=== PATIENT | female | born 1950 | race African-American/Black ===

== ENCOUNTER 2017-02-20 15:25 | Inpatient (IN) | payer BC, MEDICAID ==
[~2017-02-20] VITALS: Ht 167.6 cm; Wt 151.5 kg
[2017-02-20] VITALS (9 sets, daily range): BP systolic 82–118; BP diastolic 55–77
[2017-02-20] MEDS ORDERED: ATORVASTATIN CA20 MG ORAL (15:50)
[2017-02-20] MEDS ORDERED: LANTUS SOL100 UNIT/1 SUBQ (15:50)
[2017-02-20] MEDS ORDERED: TORSEMIDE20 MG ORAL ×2 (15:50→19:53)
[2017-02-20] MEDS ORDERED: MAGNESIUM400 M1 PO (15:50)
[2017-02-20] MEDS ORDERED: GUAIFENESIN600 MG ORAL (15:50)
[2017-02-20] MEDS ORDERED: DUONEB 0.5-3(2.53 ML HHN ×2 (15:50→19:53)
[2017-02-20] MEDS ORDERED: DOCUSATE SODIU100 MG ORAL (15:50)
[2017-02-20] MEDS ORDERED: HUMALOG100 UNIT/4 SUBQ (15:50)
[2017-02-20] MEDS ORDERED: ACETYLCYST100 MG/1 M INH (15:50)
[2017-02-20] MEDS ORDERED: LOVENOX10 M4 SUBQ (15:50)
[2017-02-20] MEDS ORDERED: MILK OF MA400 MG/51 ORAL (15:50)
[2017-02-20] MEDS ORDERED: [UNRECOGNIZED DRUG - OTHER] TP (15:50)
[2017-02-20] MEDS ORDERED: CARDIZEM CD240 MG ORAL (15:50)
[2017-02-20] MEDS ORDERED: ACETAMINOPHEN325 M1 ORAL (15:50)
[2017-02-20] MEDS ORDERED: PREDNISONE20 MG ORAL (15:50)
[2017-02-20] MEDS ORDERED: FAMOTIDINE10 MG ORAL (15:50)
[2017-02-20] MEDS ORDERED: IPRAT-ALBUT 0.5-3 ML IH (15:50)
[2017-02-20] MEDS ORDERED: LISINOPRIL10 MG ORAL (15:50)
[2017-02-20] MEDS ORDERED: AQUAPHOR OINTM396 GM TP (15:50)
[2017-02-20] MEDS ORDERED: ISOSORBIDE MONO30 M1 PO ×2 (15:50→19:53)
[2017-02-20] MEDS ORDERED: SENNOSIDES8.6 MG ORAL (15:50)
[2017-02-20] MEDS ORDERED: CATAPRES0.1 MG ORAL ×2 (15:50→19:53)
[2017-02-20] MEDS ORDERED: dilTIAZem HCl 125mg/25ml Inj IVPB ONE (16:22)
[2017-02-20] MEDS ORDERED: dilTIAZem HCl 25mg/5ml Inj IVP ONE ×4 (16:30→20:45)
--- NOTE | 2017-02-20 16:37 | Diagnostic Imaging Report ---
Indication: Cough Technique: One view of the chest Comparison: none Findings: Body habitus limits evaluation. Lungs and pleural spaces are clear. The heart size is borderline enlarged. The aorta arch is ectatic, possibly even aneurysmal. Impression: No acute process. 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 Further evaluation with chest CT is recommended if not previously worked up Findings discussed by phone with Dr. Singletary at the time of interpretation
[2017-02-20 17:26] LABS: INR 0.9 (0.9-1.1)
[2017-02-20 17:29] LABS: ANION GAP 6 mmol/L (5-15); BLOOD UREA NITROGEN 63 mg/dL (7-18); CARBON DIOXIDE 35 MMOL/L (21-32); CHLORIDE 99 MMOL/L (98-107); CREATININE 2.2 MG/DL (0.55-1.30); POTASSIUM 4.8 MMOL/L (3.5-5.1); SODIUM 139 MMOL/L (136-145)
[2017-02-20 17:32] LABS: HEMATOCRIT 44.2 % (37.0-47.0); HEMOGLOBIN 13.2 G/DL (12.0-16.0); MEAN CORPUSCULAR VOLUME 101 FL (80-99); PLATELET COUNT 97 K/UL (150-450); RED BLOOD COUNT 4.39 M/UL (4.20-5.40); RED CELL DISTRIBUTION WIDTH 12.8 % (11.6-14.8); WHITE BLOOD COUNT 5.1 K/UL (4.8-10.8)
[2017-02-20 17:41] LABS: ALANINE AMINOTRANSFERASE 195 U/L (12-78); ALBUMIN 2.5 G/DL (3.4-5.0); ALBUMIN/GLOBULIN RATIO 0.7 (1.0-2.7); ALKALINE PHOSPHATASE 233 U/L (46-116); ASPARTATE AMINO TRANSFERASE 30 U/L (15-37); BILIRUBIN,TOTAL 0.4 MG/DL (0.2-1.0); CKMB 1.8 NG/ML (0.0-3.6); CREATINE KINASE 36 U/L (26-308)
[2017-02-20] MEDS ORDERED: Sodium Chloride 500ML 500 ML IV ONE (17:45)
[2017-02-20] MEDS ORDERED: MAGNESIUM OXID400 M1 ORAL (19:53)
[2017-02-20] MEDS ORDERED: FAMOTIDINE20 MG ORAL (19:53)
[2017-02-20] MEDS ORDERED: Albuterol/Ipratropium 3ml neb HHN PRN (20:45)
[2017-02-20] MEDS ORDERED: Docusate 100mg cap ORAL PRN (20:45)
[2017-02-20] MEDS ORDERED: Milk of Magnesia 30ml Ud ORAL PRN (20:45)
[2017-02-20] MEDS ORDERED: dilTIAZem HCl CD 180mg cap ORAL ONE (22:00)
[2017-02-20] MEDS ORDERED: Amiodarone 200mg tab ORAL ONE (22:00)
[2017-02-20] MEDS: Atorvastatin 20mg tab ORAL SCH ×2 (22:17→22:30)
[2017-02-21] VITALS (43 sets, daily range): BP systolic 63–152; BP diastolic 33–103
--- NOTE | 2017-02-21 01:23 | Emergency Room Report ---
History of Present Illness General Chief Complaint: General Complaint Source: Patient Present Illness HPI Patient has a history of lymphedema. Patient is currently staying at a residential rehabilitation for her lymphedema. Patient also has a history of palpitations and arrhythmia requiring cardioversion. Patient develop acute onset of palpitations today associated with some mild shortness of breath and came in for further evaluation. Denies any fever nausea vomiting diarrhea chills. Symptoms are noted to be severe.No other modifying factors. No other associated signs and symptoms. No other complaints were noted. Allergies: Coded Allergies: No Known Allergies (Unverified , 02/20/17) Patient History Past Medical History: arrhyth, other - lymphedema Past Surgical History: none Pertinent Family History: none Social History: Denies: smoking, alcohol use, drug use Reviewed Nursing Documentation: PMH: Agreed, PSxH: Agreed Nursing Documentation-PMH Past Medical History: No History, Except For Review of Systems All Other Systems: negative except mentioned in HPI Physical Exam Vital Signs Date Time Temp Pulse Resp B/P (MAP) Pulse Ox O2 Delivery O2 Flow Rate FiO2 02/20/17 15:22 120 20 137/82 99 Room Air 02/20/17 15:30 98.1 Sp02 EP Interpretation: reviewed, normal General Appearance: alert, moderate distress Head: atraumatic Eyes: bilateral eye normal inspection ENT: normal ENT inspection, hearing grossly normal, normal voice Neck: normal inspection, full range of motion, supple, no bony tend Respiratory: normal inspection, lungs clear, normal breath sounds, no respiratory distress, no retraction, no wheezing Cardiovascular #1: no edema, tachycardia Gastrointestinal: normal inspection, normal bowel sounds, non tender, soft, no guarding, no hernia Genitourinary: no CVA tenderness Musculoskeletal: normal inspection, back normal, normal range of motion Neurologic: normal inspection, alert, responsive, speech normal Psychiatric: normal inspection, judgement/insight normal, mood/affect normal Skin: normal inspection, normal color, no rash Procedures Critical Care Time Critical Care Time Patient had a critical medical condition which untreated could potentially result in life or limb threatening injury. Total critical care time excluding procedures was approximately 45 minutes. Medical Decision Making Diagnostic Impression: Primary Impression: Atrial flutter Qualified Codes: I48.4 - Atypical atrial flutter Additional Impression: Tachycardia ER Course Patient presents emergency department today with evidence of tachycardia. EKG shows evidence a flutter with rapid conduction. Patient has had a history of rapid conduction in the past. Therefore felt the patient require medications to control the rapid conduction. Patient was given one dose of Cardizem and patient's heart rate did improve significantly from a 140 to about 110. However patient's blood pressure decreased therefore patient was given a fluid bolus. Patient while in emergency Department had multiple episodes of recurrence of tachycardia require multiple doses of Cardizem to control the heart rate. Patient's laboratory workup otherwise was negative. Patient's chest x-ray does show a large aortic knob which likely is chronic given the patient has no chest pain however this will likely require workup. This case was discussed with Dr. Dougie Bravo who is covering for Dr. Porfirio Jade who covers patient's medical group. Patient will be admitted to Dr. Bravo service further treatment. Labs Test 02/20/17 16:04 White Blood Count 5.1 K/UL (4.8-10.8) Red Blood Count 4.39 M/UL (4.20-5.40) Hemoglobin 13.2 G/DL (12.0-16.0) Hematocrit 44.2 % (37.0-47.0) Mean Corpuscular Volume 101 FL (80-99) Mean Corpuscular Hemoglobin 30.2 PG (27.0-31.0) Mean Corpuscular Hemoglobin Concent 29.9 G/DL (32.0-36.0) Red Cell Distribution Width 12.8 % (11.6-14.8) Platelet Count 97 K/UL (150-450) Mean Platelet Volume 6.5 FL (6.5-10.1) Neutrophils (%) (Auto) % (45.0-75.0) Lymphocytes (%) (Auto) % (20.0-45.0) Monocytes (%) (Auto) % (1.0-10.0) Eosinophils (%) (Auto) % (0.0-3.0) Basophils (%) (Auto) % (0.0-2.0) Differential Total Cells Counted 100 Neutrophils % (Manual) 81 % (45-75) Lymphocytes % (Manual) 13 % (20-45) Monocytes % (Manual) 6 % (1-10) Eosinophils % (Manual) 0 % (0-3) Basophils % (Manual) 0 % (0-2) Band Neutrophils 0 % (0-8) Platelet Estimate Decreased Platelet Morphology Normal Prothrombin Time 9.7 SEC (9.30-11.50) Prothromb Time International Ratio 0.9 (0.9-1.1) Activated Partial Thromboplast Time 22 SEC (23-33) Sodium Level 139 MMOL/L (136-145) Potassium Level 4.8 MMOL/L (3.5-5.1) Chloride Level 99 MMOL/L (98-107) Carbon Dioxide Level 35 MMOL/L (21-32) Anion Gap 6 mmol/L (5-15) Blood Urea Nitrogen 63 mg/dL (7-18) Creatinine 2.2 MG/DL (0.55-1.30) Estimat Glomerular Filtration Rate 27.0 mL/min (>60) Glucose Level 293 MG/DL (74-106) Calcium Level 8.0 MG/DL (8.5-10.1) Total Bilirubin 0.4 MG/DL (0.2-1.0) Aspartate Amino Transf (AST/SGOT) 30 U/L (15-37) Alanine Aminotransferase (ALT/SGPT) 195 U/L (12-78) Alkaline Phosphatase 233 U/L (46-116) Total Creatine Kinase 36 U/L (26-308) Creatine Kinase MB 1.8 NG/ML (0.0-3.6) Creatine Kinase MB Relative Index 5.0 Troponin I 0.111 ng/mL (0.000-0.056) Total Protein 6.2 G/DL (6.4-8.2) Albumin 2.5 G/DL (3.4-5.0) Globulin 3.7 g/dL Albumin/Globulin Ratio 0.7 (1.0-2.7) Lipase 117 U/L (73-393) EKG Diagnostic Results Rate: tachycardiac Rhythm: other - a-flutter ST Segments: no acute changes Rhythm Strip Diag. Results EP Interpretation: yes Rate: 140 Rhythm: no PVC's, other - a-flutter, no st changes Chest X-Ray Diagnostic Results Chest X-Ray Diagnostic Results : Chest X-Ray Ordered: Yes # of Views/Limited/Complete: 1 View Indication: Shortness of Breath EP Interpretation: No Impression: Other - large aortic knob Last Vital Signs Date Time Temp Pulse Resp B/P (MAP) Pulse Ox O2 Delivery O2 Flow Rate FiO2 02/21/17 00:00 152 02/20/17 22:17 116/82 02/20/17 21:00 98.0 20 99 Room Air Status: improved Disposition: ADMITTED INPATIENT Condition: Serious Referrals: MARY KAISER (PCP) GIOVANI INFANTE M.D. Feb 21, 2017 01:23
[2017-02-21] MEDS ORDERED: dilTIAZem HCl 25mg/5ml Inj IVP ONE (05:00)
[2017-02-21 07:23] LABS: HEMATOCRIT 38.1 % (37.0-47.0); HEMOGLOBIN 12.2 G/DL (12.0-16.0); MEAN CORPUSCULAR VOLUME 101 FL (80-99); PLATELET COUNT 91 K/UL (150-450); RED BLOOD COUNT 3.78 M/UL (4.20-5.40); RED CELL DISTRIBUTION WIDTH 13.2 % (11.6-14.8)
[2017-02-21] MEDS ORDERED: dilTIAZem HCl CD 180mg cap ORAL SCH (09:00)
[2017-02-21] MEDS ORDERED: Torsemide 10mg tab ORAL SCH (09:00)
[2017-02-21] MEDS: Enoxaparin 30mg Inj SUBQ SCH ×2 (09:00→12:46)
[2017-02-21] MEDS ORDERED: Amiodarone 200mg tab ORAL SCH (09:00)
[2017-02-21] MEDS: Aspirin Baby 81mg ORAL SCH (09:15)
[2017-02-21] MEDS: Imdur 30mg tab ORAL SCH (09:15)
[2017-02-21] MEDS: dilTIAZem HCl CD 180mg cap ORAL SCH ×2 (09:15→17:34)
[2017-02-21] MEDS: Magnesium Oxide 400mg tab ORAL SCH (09:16)
[2017-02-21] MEDS: Amiodarone 200mg tab ORAL SCH ×2 (09:16→17:36)
[2017-02-21] MEDS: guaiFENesin ER 600mg tab ORAL SCH ×2 (09:16→17:36)
[2017-02-21] MEDS: Sennosides 8.6mg ORAL SCH (09:16)
[2017-02-21 09:22] LABS: CKMB 1.7 NG/ML (0.0-3.6)
[2017-02-21 09:27] LABS: ALANINE AMINOTRANSFERASE 162 U/L (12-78); ALBUMIN 2.5 G/DL (3.4-5.0); ALBUMIN/GLOBULIN RATIO 0.9 (1.0-2.7); ALKALINE PHOSPHATASE 201 U/L (46-116); ANION GAP 3 mmol/L (5-15); ASPARTATE AMINO TRANSFERASE 23 U/L (15-37); BILIRUBIN,TOTAL 0.4 MG/DL (0.2-1.0); BLOOD UREA NITROGEN 66 mg/dL (7-18); CALCIUM 7.8 MG/DL (8.5-10.1); CARBON DIOXIDE 38 MMOL/L (21-32); CHLORIDE 102 MMOL/L (98-107); CREATININE 1.9 MG/DL (0.55-1.30); POTASSIUM 4.2 MMOL/L (3.5-5.1); SODIUM 142 MMOL/L (136-145)
[2017-02-21] MEDS: Eucerin Cream 15gm TOPIC SCH (10:09)
[2017-02-21] MEDS: NovoLOG Insulin Flexpen SUBQ SCH ×3 (10:57→17:39)
--- NOTE | 2017-02-21 19:26 | Consultation ---
Consult Note Assessment/Plan #[id number] afib/flutter wtih RVR abnormal A arch on xray ?per report, unable to get CT with contrast due to cr 1.9 obesity RI juan manuel DM HTN HLD echo noted Fu wtih Dr. Bravo re imaging bs cotnrol rate control aspiration precuations avoid b agonsits CAROL CARLSON DO Feb 21, 2017 19:26
[2017-02-21] MEDS: Eliquis 2.5mg tablet ORAL SCH (21:35)
[2017-02-21] MEDS: Levemir Flexpen SUBQ SCH (21:40)
--- NOTE | 2017-02-21 23:15 | History and Physical Report ---
DATE OF ADMISSION: 02/20/2017 ICU, AND H AND P NOTE CHIEF COMPLAINT AND REASON FOR HOSPITALIZATION: The patient admitted for rapid atrial fib and flutter. HISTORY OF PRESENT ILLNESS: The patient is a 66-year-old lady with a history of prior atrial fibrillation and cardioversion, asthma, morbid obesity, chronic lymphedema, diastolic CHF, chronic type A thoracic abdominal aortic aneurysm. She presents with tachyarrhythmias above. No chest pain. She has mild shortness of breath. She was recently hospitalized at [facility] with influenza B and exacerbation of her asthma and she is on a tapering dose of steroids. She is nonambulatory due to morbid obesity and generalized weakness. There is a history of diabetes since the year 1999 and she is wheelchair dependent. ALLERGIES: None known. MEDICATIONS: Tylenol p.r.n., atorvastatin 20 mg daily, clonidine 0.1 mg every 4 hours p.r.n., diltiazem 240 mg daily, DSS 100 mg b.i.d., Lovenox 40 mg daily, famotidine 20 mg every 12 hours, guaifenesin 600 mg b.i.d., Lantus 25 units nightly, lispro sliding scale, DuoNeb via HHN as needed, isosorbide 30 mg daily, lisinopril 20 mg daily, milk of magnesia p.r.n., magnesium oxide 400 mg daily, prednisone 50 mg daily to be reduced to 40 mg on 02/21/2017, Chloraseptic spray as needed, Senna 2 tablets nightly, and torsemide 60 mg daily. HABITS: She smoked for short time as a young adult and quit. Alcohol, social recreational, and IV drug abuse none. SOCIAL HISTORY: She is . She has one child. She is currently living in a penitentiary facility. FAMILY HISTORY: Includes diabetes in her paternal aunt and paternal grandmother and paternal uncle and hypertension in the mother. SYSTEM REVIEW: HEAD, EYES, EARS, NOSE, AND THROAT: Vision is corrected with eyeglasses. Hearing is good. ENDOCRINE: Obesity and diabetes as above. THYROID: Negative. PULMONARY: See history of present illness. There is also likely obstructive sleep apnea per prior notes. CARDIAC: History of chronic diastolic CHF. No chest pain. GASTROINTESTINAL: No ulcers or GI bleeding. GENITOURINARY: She has occasional incontinence. No dysuria or hematuria. There has been some renal insufficiency noted as well on prior charts. MUSCULOSKELETAL: Generalized arthralgias. NEUROLOGIC: No CVA, syncope, or seizures. PHYSICAL EXAMINATION: GENERAL: The patient is obese lady, lying in bed in the ICU, currently in no acute distress. Weight 150.366. BMI 53.5. VITAL SIGNS: Heart rate 119, respirations 20, blood pressure is 121/58, and pulse ox 98%. HEAD, EYES, EARS, NOSE, AND THROAT: Sclerae are nonicteric. Ocular motions intact in all directions. Oral mucosa moist. Neck no adenopathy or thyroid enlargement. LUNGS: Show distant breath sounds. Faint expiratory wheezing. HEART: Rhythm is regular and tachycardic. I hear no murmur at this time. BREASTS: No masses. ABDOMEN: Obese and soft. No organomegaly or masses. EXTREMITIES: Show chronic dermatitis of the legs and thickening of the skin. No pitting edema. NEUROLOGIC: She is alert and oriented. Cranial nerves are intact. IMAGING STUDIES: Chest x-ray shows ectatic and possible aneurysm in aortic arch. Heart size is borderline enlarged. Lungs are clear. LABORATORY DATA: Labs are noted in the computer. Significant white count 5000 and hemoglobin is 12.2. Sodium 142, potassium 4.2, BUN 66, creatinine 1.9, and glucose 181. Troponin 0.111 and 0.104. BNP 1028. Albumin 2.5. IMPRESSION: 1. Paroxysmal atrial fibrillation and flutter with rapid ventricular rate. 2. Asthma. 3. Morbid obesity. 4. History of thoracic and abdominal aortic aneurysms. 5. History of hypertension. 6. Insulin-dependent diabetes. 7. Elevated BUN and creatinine, likely chronic kidney disease stage 3 with effect of diuretic as well. 8. History of hypertension. PLAN: The patient will be watched closely in view of her multiple organ involvement. She will be seen by parallel computing software engineer and curing pickling packer. She has been placed on a Cardizem drip in addition to oral medications and also started on amiodarone. We will continue steroids and hope to taper soon. She may need to have CPAP or BiPAP at night and we will await for the pulmonary opinion. Her condition is complicated and the ICU care is indicated at this time until we can better control her heart rate. Dougie Bravo M.D. DR: ANIBAL JOB#: [id number] CC:
[2017-02-22] VITALS (20 sets, daily range): BP systolic 96–151; BP diastolic 60–93
--- NOTE | 2017-02-22 02:00 | Consultation ---
DATE OF CONSULTATION: 02/20/2017 CARDIOLOGY CONSULTATION CONSULTING PHYSICIAN: Maxim Levin M.D. REQUESTING PHYSICIAN: Dougie Bravo M.D. REASON FOR CONSULTATION: Rapid atrial fibrillation. HISTORY OF PRESENT ILLNESS: This is a 66-year-old female. She has distant history of atrial fibrillation and has not had any recurrence for a number of years. She has in fact been off anticoagulants for some time. Previously, she required antiarrhythmics and cardioversion. She had been convalescing recently at a nursing facility for lymphedema. She has not had any chest pain or shortness of breath. No recent swelling of her legs when compared to her usual baseline. She noted feeling somewhat tired, fatigued, and had some palpitations after her exercise session a couple of days ago and then today developed some shortness of breath. In the emergency room, she was noted to have rapid atrial fibrillation. PAST MEDICAL HISTORY: Lymphedema, hypertension, obesity. MEDICATIONS: Prior to admission, reviewed and reconciled. SOCIAL HISTORY: Negative for smoking, alcohol, or substance abuse. FAMILY HISTORY: Noncontributory. REVIEW OF SYSTEMS: No fevers or chills. No cough or sputum production. No history of blood clots in the legs. No history of seizure or stroke. No history of diabetes or thyroid impairment. No history of heart failure. She does have chronic lymphedema. There is no history of rheumatic heart disease. PHYSICAL EXAMINATION: GENERAL: Moderately obese, in no acute distress. VITAL SIGNS: Blood pressure 137/82, pulse 120, respirations 20, afebrile. HEENT: Oropharynx clear. NECK: Obese. LUNGS: Diminished breath sounds. No wheezing or rales. CARDIAC: Irregularly irregular rhythm. Rapid rate. Distant S1, S2. No murmur. ABDOMEN: Obese and soft. EXTREMITIES: Stasis dermatitis changes, brawny edema bilaterally. No cords. NEUROLOGIC: Nonfocal. LABORATORY AND DIAGNOSTIC DATA: Chest x-ray reveals no acute process. EKG reveals atrial flutter with rapid ventricular response. No acute ST abnormality. White count 5, hemoglobin 13. Potassium 4.8, BUN 63, creatinine 2.2. Albumin 2.5. Troponin level was 0.111. IMPRESSION: 1. Paroxysmal atrial fibrillation/flutter with rapid ventricular response. 2. Lymphedema. 3. Obesity. 4. Acute myocardial ischemia. 5. Chronic diastolic congestive heart failure. 6. Renal failure, acute versus chronic. PLAN: 1. Cardiac monitoring. 2. Hold diuretics. 3. IV diltiazem for rate control. 4. Consider amiodarone for persistent rapid atrial flutter. 5. Monitor and replace electrolytes. 6. Serial troponin levels. 7. DVT prophylaxis. 8. Venous duplex scan to assess for possible source of pulmonary emboli. Maxim Levin M.D. DR: VINCE JOB#: [id number] CC:
--- NOTE | 2017-02-22 02:00 | Progress Note ---
DATE: 02/21/2017 CARDIOLOGY PROGRESS NOTE SUBJECTIVE: The patient remains in the intensive care unit on IV diltiazem. Amiodarone was initiated early this morning for persistent rapid atrial flutter. The patient has less shortness of breath. OBJECTIVE: VITAL SIGNS: Blood pressure 118/60, pulse 102, respirations 18, and afebrile. LUNGS: Diminished breath sounds. CARDIAC: Irregularly irregular. Normal S1 and S2. ABDOMEN: Obese. EXTREMITIES: With nonpitting edema. LABORATORY DATA: BUN is down to 66/1.9. Potassium 4.2. Troponin 0.104. Pro-natriuretic peptide 1028. CK-MB and CK-MB index are negative. Albumin 2.5. Glucose 181. IMPRESSION: 1. Paroxysmal atrial flutter with rapid ventricular response, improved on intravenous diltiazem. 2. Moderate protein-calorie malnutrition and continuing. 3. TSH and thyroid panel are normal. Echocardiogram revealed normal ejection fraction with no significant valve disease. 4. Probable diabetes mellitus type 2. PLAN: 1. We will continue amiodarone for cardioversion attempt. We will discontinue low-dose Lovenox and start apixaban for cardioembolic prophylaxis. 2. We will continue to hold diuretics and observe renal parameters. 3. Protein supplement. 4. Check venous duplex scan. 5. We will check A1c level. Maxim Levin M.D. DR: KATELYNN JOB#: [id number] CC: PORSCHE
--- NOTE | 2017-02-22 03:00 | Consultation ---
DATE OF CONSULTATION: 02/20/2017 CARDIOLOGY CONSULTATION CONSULTING PHYSICIAN: Maxim Levin M.D. REASON FOR CONSULTATION: Rapid atrial fibrillation. HISTORY OF PRESENT ILLNESS: This is a 66-year-old female with a history of hypertension and lymphedema and distant history of atrial fibrillation that has since been controlled. She has been off anticoagulants for sometime. She notes that several days ago after exercising, she has some palpitations. She developed shortness of breath today and came to the emergency room. She has not had any leg swelling. Of note, compared to her baseline, no chest pain or shortness of breath. Maxim Levin M.D. DR: Kary JOB#: [id number] CC:
[2017-02-22 07:45] LABS: HEMATOCRIT 38.6 % (37.0-47.0); HEMOGLOBIN 12.4 G/DL (12.0-16.0); MEAN CORPUSCULAR VOLUME 100 FL (80-99); PLATELET COUNT 98 K/UL (150-450); RED BLOOD COUNT 3.85 M/UL (4.20-5.40); RED CELL DISTRIBUTION WIDTH 12.9 % (11.6-14.8); WHITE BLOOD COUNT 4.2 K/UL (4.8-10.8)
[2017-02-22 07:56] LABS: ANION GAP 0 mmol/L (5-15); BLOOD UREA NITROGEN 55 mg/dL (7-18); CALCIUM 7.9 MG/DL (8.5-10.1); CARBON DIOXIDE 39 MMOL/L (21-32); CHLORIDE 103 MMOL/L (98-107); CREATININE 1.7 MG/DL (0.55-1.30); POTASSIUM 4.4 MMOL/L (3.5-5.1); SODIUM 142 MMOL/L (136-145)
[2017-02-22] MEDS: Aspirin Baby 81mg ORAL SCH (08:40)
[2017-02-22] MEDS: Sennosides 8.6mg ORAL SCH (08:40)
[2017-02-22] MEDS: Amiodarone 200mg tab ORAL SCH ×2 (08:41→17:46)
[2017-02-22] MEDS: Magnesium Oxide 400mg tab ORAL SCH (08:41)
[2017-02-22] MEDS: Imdur 30mg tab ORAL SCH (08:41)
[2017-02-22] MEDS: guaiFENesin ER 600mg tab ORAL SCH ×2 (08:41→17:46)
[2017-02-22] MEDS: NovoLOG Insulin Flexpen SUBQ SCH ×3 (08:44→17:47)
[2017-02-22] MEDS: dilTIAZem HCl CD 180mg cap ORAL SCH ×2 (08:53→09:39)
[2017-02-22] MEDS: Eliquis 2.5mg tablet ORAL SCH ×3 (09:07→21:31)
[2017-02-22] MEDS: Ipratropium 0.02% Inh Soln 2.5ml UD HHN SCH ×3 (11:18→23:46)
--- NOTE | 2017-02-22 11:34 | General Progress Note ---
Assessment/Plan Problem List: (1) Morbid obesity ICD Codes: E66.01 - Morbid (severe) obesity due to excess calories SNOMED: 850886675, 11546944330456 (2) CKD (chronic kidney disease) stage 3, GFR 30-59 ml/min ICD Codes: N18.3 - Chronic kidney disease, stage 3 (moderate) SNOMED: 803330108 (3) Diabetes ICD Codes: E11.9 - Type 2 diabetes mellitus without complications SNOMED: 13296493 (4) Thoracic aortic aneurysm ICD Codes: I71.2 - Thoracic aortic aneurysm, without rupture SNOMED: 522472055 (5) Anticoagulant prescribed SNOMED: 055590107 (6) Asthma exacerbation ICD Codes: J45.901 - Unspecified asthma with (acute) exacerbation SNOMED: 315495352 (7) Atrial flutter ICD Codes: I48.92 - Unspecified atrial flutter SNOMED: 5400074 Qualifiers: Qualified Codes: I48.4 - Atypical atrial flutter (8) Tachycardia ICD Codes: R00.0 - Tachycardia, unspecified SNOMED: 1270341 Assessment/Plan titrate diltiazem, amiodorone, anticoag, tele, steroids, pul care icu care 35 min Subjective Constitutional: Reports: weakness HEENT: Reports: no symptoms Cardiovascular: Reports: irregular heart rate, palpitations Respiratory: Reports: cough, SOB at rest, wheezing Gastrointestinal/Abdominal: Reports: no symptoms Genitourinary: Reports: no symptoms Neurologic/Psychiatric: Reports: no symptoms Endocrine: Reports: no symptoms Allergies: Coded Allergies: No Known Allergies (Unverified , 02/20/17) Objective Last 24 Hour Vital Signs Date Time Temp Pulse Resp B/P (MAP) Pulse Ox O2 Delivery O2 Flow Rate FiO2 02/22/17 11:18 112 21 99 Nasal Cannula 2.0 28 02/22/17 10:00 119 21 149/84 98 Nasal Cannula 2.0 02/22/17 09:47 Nasal Cannula 2.0 28 02/22/17 09:47 118 21 98 Nasal Cannula 2.0 28 02/22/17 09:39 118 133/88 02/22/17 09:00 117 22 117/77 99 Nasal Cannula 2.0 02/22/17 08:41 151/93 02/22/17 08:00 123 19 151/93 99 Nasal Cannula 2.0 02/22/17 07:57 133 02/22/17 07:00 120 23 150/92 98 Nasal Cannula 2.0 02/22/17 06:49 97 Nasal Cannula 3.0 32 02/22/17 06:49 Nasal Cannula 3.0 32 02/22/17 06:49 117 17 Nasal Cannula 3.0 32 02/22/17 06:00 95 25 142/75 98 Nasal Cannula 2.0 02/22/17 05:00 90 24 129/68 98 Nasal Cannula 2.0 02/22/17 04:00 98.0 90 22 132/76 98 Nasal Cannula 2.0 02/22/17 04:00 95 02/22/17 03:00 89 22 96/83 98 Nasal Cannula 2.0 02/22/17 02:00 75 22 139/81 98 Nasal Cannula 2.0 02/22/17 01:00 87 24 142/88 100 Nasal Cannula 2.0 02/22/17 00:34 88 02/22/17 00:00 98.5 93 18 133/84 100 Nasal Cannula 2.0 02/21/17 23:30 85 18 152/103 100 Nasal Cannula 2.0 02/21/17 23:00 100 18 150/90 100 Nasal Cannula 2.0 02/21/17 22:30 88 20 133/74 100 Nasal Cannula 2.0 02/21/17 22:00 95 20 128/75 100 Nasal Cannula 2.0 02/21/17 21:30 92 20 128/77 100 Nasal Cannula 2.0 02/21/17 21:00 88 20 116/67 100 Nasal Cannula 2.0 02/21/17 20:30 98 18 122/73 100 Nasal Cannula 2.0 02/21/17 20:00 98.8 95 20 131/66 98 Nasal Cannula 2.0 02/21/17 20:00 90 02/21/17 19:30 90 20 131/84 98 Nasal Cannula 2.0 02/21/17 19:04 Nasal Cannula 2.0 28 02/21/17 19:03 98 Nasal Cannula 2.0 28 02/21/17 19:02 82 17 Nasal Cannula 2.0 28 02/21/17 19:00 86 18 134/75 98 Nasal Cannula 2.0 02/21/17 18:30 112 18 122/72 98 Nasal Cannula 2.0 02/21/17 18:00 96 24 120/76 98 Nasal Cannula 2.0 02/21/17 17:34 83 115/75 02/21/17 17:30 74 21 115/75 98 Nasal Cannula 2.0 02/21/17 17:00 74 20 115/75 98 Nasal Cannula 2.0 02/21/17 16:30 95 21 111/70 98 Nasal Cannula 2.0 02/21/17 16:00 98.0 82 18 103/70 97 Nasal Cannula 2.0 02/21/17 16:00 82 02/21/17 15:35 96 104/63 02/21/17 15:30 101 19 104/63 97 Nasal Cannula 2.0 02/21/17 15:00 114 20 100/71 97 Nasal Cannula 2.0 02/21/17 14:30 102 18 101/72 97 Nasal Cannula 2.0 02/21/17 14:00 102 18 115/69 98 Nasal Cannula 2.0 02/21/17 13:30 100 18 114/45 98 Nasal Cannula 2.0 02/21/17 13:00 119 20 121/58 98 Nasal Cannula 2.0 02/21/17 12:30 103 20 112/57 98 Nasal Cannula 2.0 02/21/17 12:00 104 02/21/17 12:00 98.1 104 18 102/78 98 Nasal Cannula 2.0 Intake and Output 02/21/17 02/22/17 19:00 07:00 Intake Total 1100 ml 497 ml Output Total 50 ml 800 ml Balance 1050 ml -303 ml Intake Oral 990 ml 480 ml IV Total 110 ml 17 ml Output Urine Total 50 ml 800 ml # Voids 100 Laboratory Tests 02/22/17 05:17: White Blood Count 4.2L, Red Blood Count 3.85L, Hemoglobin 12.4, Hematocrit 38.6 , Mean Corpuscular Volume 100H, Mean Corpuscular Hemoglobin 32.2H, Mean Corpuscular Hemoglobin Concent 32.1, Red Cell Distribution Width 12.9, Platelet Count 98L, Mean Platelet Volume 7.7, Neutrophils (%) (Auto) , Lymphocytes (%) ( Auto) , Monocytes (%) (Auto) , Eosinophils (%) (Auto) , Basophils (%) (Auto) , Differential Total Cells Counted 100, Neutrophils % (Manual) 76H, Lymphocytes % (Manual) 17L, Monocytes % (Manual) 7, Eosinophils % (Manual) 0, Basophils % ( Manual) 0, Band Neutrophils 0, Platelet Estimate DecreasedL, Platelet Morphology Normal, Macrocytosis 1+, Sodium Level 142, Potassium Level 4.4, Chloride Level 103, Carbon Dioxide Level 39H, Anion Gap 0L, Blood Urea Nitrogen 55H, Creatinine 1.7H, Estimat Glomerular Filtration Rate 36.4, Glucose Level 148H, Hemoglobin A1c 8.6H, Calcium Level 7.9L, Magnesium Level 2.3 Height (Feet): 5 Height (Inches): 6.00 Weight (Pounds): 330 General Appearance: mild distress, morbidly obese EENT: PERRL/EOMI Neck: normal alignment Cardiovascular: regularly irregular, tachycardia Respiratory/Chest: expiratory wheezing Abdomen: non tender, soft Extremities: no calf tenderness Edema: mild edema Neurologic: commander internal affairs II-XII grossly normal [place] Feb 22, 2017 11:34
[2017-02-22 11:36] LABS: APPEARANCE,URINE CLEAR; BILIRUBIN, URINE NEGATIVE (NEGATIVE); COLOR,URINE PALE YELLOW; GLUCOSE, URINE (UA) NEGATIVE (NEGATIVE); KETONES,URINE NEGATIVE (NEGATIVE); LEUKOCYTE ESTERASE ,URINE NEGATIVE (NEGATIVE); NITRITE,URINE NEGATIVE (NEGATIVE); PH,URINE 5 (4.5-8.0); PROTEIN,URINE NEGATIVE (NEGATIVE); UROBILINOGEN,URINE NORMAL MG/DL (0.0-1.0)
[2017-02-22] MEDS: Eucerin Cream 15gm TOPIC SCH (12:46)
--- NOTE | 2017-02-22 13:55 | Cardiac Electrophysiology PN ---
Subjective Subjective EP consult dictated. [id number]. Objective Last 24 Hour Vital Signs Date Time Temp Pulse Resp B/P (MAP) Pulse Ox O2 Delivery O2 Flow Rate FiO2 02/22/17 12:00 97.8 114 20 139/86 97 Nasal Cannula 2.0 02/22/17 11:37 132 24 99 Nasal Cannula 2.0 28 02/22/17 11:22 103 02/22/17 11:18 112 21 99 Nasal Cannula 2.0 28 02/22/17 11:00 113 21 148/87 100 Nasal Cannula 2.0 02/22/17 10:00 119 21 149/84 98 Nasal Cannula 2.0 02/22/17 09:47 Nasal Cannula 2.0 28 02/22/17 09:47 118 21 98 Nasal Cannula 2.0 28 02/22/17 09:39 118 133/88 02/22/17 09:00 117 22 117/77 99 Nasal Cannula 2.0 02/22/17 08:41 151/93 02/22/17 08:00 123 19 151/93 99 Nasal Cannula 2.0 02/22/17 07:57 133 02/22/17 07:00 120 23 150/92 98 Nasal Cannula 2.0 02/22/17 06:49 97 Nasal Cannula 3.0 32 02/22/17 06:49 Nasal Cannula 3.0 32 02/22/17 06:49 117 17 Nasal Cannula 3.0 32 02/22/17 06:00 95 25 142/75 98 Nasal Cannula 2.0 02/22/17 05:00 90 24 129/68 98 Nasal Cannula 2.0 02/22/17 04:00 98.0 90 22 132/76 98 Nasal Cannula 2.0 02/22/17 04:00 95 02/22/17 03:00 89 22 96/83 98 Nasal Cannula 2.0 02/22/17 02:00 75 22 139/81 98 Nasal Cannula 2.0 02/22/17 01:00 87 24 142/88 100 Nasal Cannula 2.0 02/22/17 00:34 88 02/22/17 00:00 98.5 93 18 133/84 100 Nasal Cannula 2.0 02/21/17 23:30 85 18 152/103 100 Nasal Cannula 2.0 02/21/17 23:00 100 18 150/90 100 Nasal Cannula 2.0 02/21/17 22:30 88 20 133/74 100 Nasal Cannula 2.0 02/21/17 22:00 95 20 128/75 100 Nasal Cannula 2.0 02/21/17 21:30 92 20 128/77 100 Nasal Cannula 2.0 02/21/17 21:00 88 20 116/67 100 Nasal Cannula 2.0 02/21/17 20:30 98 18 122/73 100 Nasal Cannula 2.0 02/21/17 20:00 98.8 95 20 131/66 98 Nasal Cannula 2.0 02/21/17 20:00 90 02/21/17 19:30 90 20 131/84 98 Nasal Cannula 2.0 02/21/17 19:04 Nasal Cannula 2.0 28 02/21/17 19:03 98 Nasal Cannula 2.0 28 02/21/17 19:02 82 17 Nasal Cannula 2.0 28 02/21/17 19:00 86 18 134/75 98 Nasal Cannula 2.0 02/21/17 18:30 112 18 122/72 98 Nasal Cannula 2.0 02/21/17 18:00 96 24 120/76 98 Nasal Cannula 2.0 02/21/17 17:34 83 115/75 02/21/17 17:30 74 21 115/75 98 Nasal Cannula 2.0 02/21/17 17:00 74 20 115/75 98 Nasal Cannula 2.0 02/21/17 16:30 95 21 111/70 98 Nasal Cannula 2.0 02/21/17 16:00 98.0 82 18 103/70 97 Nasal Cannula 2.0 02/21/17 16:00 82 02/21/17 15:35 96 104/63 02/21/17 15:30 101 19 104/63 97 Nasal Cannula 2.0 02/21/17 15:00 114 20 100/71 97 Nasal Cannula 2.0 02/21/17 14:30 102 18 101/72 97 Nasal Cannula 2.0 02/21/17 14:00 102 18 115/69 98 Nasal Cannula 2.0 Intake and Output 02/21/17 02/22/17 19:00 07:00 Intake Total 1100 ml 497 ml Output Total 50 ml 800 ml Balance 1050 ml -303 ml Intake Oral 990 ml 480 ml IV Total 110 ml 17 ml Output Urine Total 50 ml 800 ml # Voids 100 Laboratory Tests Test 02/22/17 05:17 02/22/17 06:00 White Blood Count 4.2 K/UL (4.8-10.8) L Red Blood Count 3.85 M/UL (4.20-5.40) L Hemoglobin 12.4 G/DL (12.0-16.0) Hematocrit 38.6 % (37.0-47.0) Mean Corpuscular Volume 100 FL (80-99) H Mean Corpuscular Hemoglobin 32.2 PG (27.0-31.0) H Mean Corpuscular Hemoglobin Concent 32.1 G/DL (32.0-36.0) Red Cell Distribution Width 12.9 % (11.6-14.8) Platelet Count 98 K/UL (150-450) L Mean Platelet Volume 7.7 FL (6.5-10.1) Neutrophils (%) (Auto) % (45.0-75.0) Lymphocytes (%) (Auto) % (20.0-45.0) Monocytes (%) (Auto) % (1.0-10.0) Eosinophils (%) (Auto) % (0.0-3.0) Basophils (%) (Auto) % (0.0-2.0) Differential Total Cells Counted 100 Neutrophils % (Manual) 76 % (45-75) H Lymphocytes % (Manual) 17 % (20-45) L Monocytes % (Manual) 7 % (1-10) Eosinophils % (Manual) 0 % (0-3) Basophils % (Manual) 0 % (0-2) Band Neutrophils 0 % (0-8) Platelet Estimate Decreased L Platelet Morphology Normal Macrocytosis 1+ Sodium Level 142 MMOL/L (136-145) Potassium Level 4.4 MMOL/L (3.5-5.1) Chloride Level 103 MMOL/L (98-107) Carbon Dioxide Level 39 MMOL/L (21-32) H Anion Gap 0 mmol/L (5-15) L Blood Urea Nitrogen 55 mg/dL (7-18) H Creatinine 1.7 MG/DL (0.55-1.30) H Estimat Glomerular Filtration Rate 36.4 mL/min (>60) Glucose Level 148 MG/DL (74-106) H Hemoglobin A1c 8.6 % (4.3-6.0) H Calcium Level 7.9 MG/DL (8.5-10.1) L Magnesium Level 2.3 MG/DL (1.8-2.4) Urine Color Pale yellow Urine Appearance Clear Urine pH 5 (4.5-8.0) Urine Specific [place] 1.015 (1.005-1.035) Urine Protein Negative (NEGATIVE) Urine Glucose (UA) Negative (NEGATIVE) Urine Ketones Negative (NEGATIVE) Urine Occult Blood 2+ (NEGATIVE) H Urine Nitrite Negative (NEGATIVE) Urine Bilirubin Negative (NEGATIVE) Urine Urobilinogen Normal MG/DL (0.0-1.0) Urine Leukocyte Esterase Negative (NEGATIVE) Urine RBC 2-4 /HPF (0 - 2) H Urine WBC 0-2 /HPF (0 - 2) Urine Squamous Epithelial Cells Few /LPF (NONE/OCC) Urine Bacteria Occasional /HPF (NONE) VIOLETA GOODWIN Feb 22, 2017 13:55
[2017-02-22] MEDS ORDERED: Digoxin 0.5mg/2ml Inj IVP ONE (14:00)
--- NOTE | 2017-02-22 16:16 | Pulmonolgy Critical Care Note ---
Critical Care - Asmt/Plan Assessment/Plan: afib/flutter wtih RVR abnormal A arch on xray ?per report, unable to get CT with contrast due to cr 1.9 obesity RI juan manuel DM HTN HLD echo noted Fu wtih Dr. Bravo re imaging bs cotnrol rate control aspiration precautions avoid b agonists duplex LE ac per cards recommendations Critical Care - Objective Last 24 Hour Vital Signs Date Time Temp Pulse Resp B/P (MAP) Pulse Ox O2 Delivery O2 Flow Rate FiO2 02/22/17 15:01 97 20 96 Nasal Cannula 2.0 28 02/22/17 15:00 107 20 146/82 99 Nasal Cannula 2.0 02/22/17 14:49 106 19 97 Nasal Cannula 2.0 28 02/22/17 14:07 121 02/22/17 14:00 112 19 139/92 99 Nasal Cannula 2.0 02/22/17 13:00 144 19 147/86 96 Nasal Cannula 2.0 02/22/17 12:00 97.8 114 20 139/86 97 Nasal Cannula 2.0 02/22/17 11:37 132 24 99 Nasal Cannula 2.0 28 02/22/17 11:22 103 02/22/17 11:18 112 21 99 Nasal Cannula 2.0 28 02/22/17 11:00 113 21 148/87 100 Nasal Cannula 2.0 02/22/17 10:00 119 21 149/84 98 Nasal Cannula 2.0 02/22/17 09:47 Nasal Cannula 2.0 28 02/22/17 09:47 118 21 98 Nasal Cannula 2.0 28 02/22/17 09:39 118 133/88 02/22/17 09:00 117 22 117/77 99 Nasal Cannula 2.0 02/22/17 08:41 151/93 02/22/17 08:00 123 19 151/93 99 Nasal Cannula 2.0 02/22/17 07:57 133 02/22/17 07:00 120 23 150/92 98 Nasal Cannula 2.0 02/22/17 06:49 97 Nasal Cannula 3.0 32 02/22/17 06:49 Nasal Cannula 3.0 32 02/22/17 06:49 117 17 Nasal Cannula 3.0 32 02/22/17 06:00 95 25 142/75 98 Nasal Cannula 2.0 02/22/17 05:00 90 24 129/68 98 Nasal Cannula 2.0 02/22/17 04:00 98.0 90 22 132/76 98 Nasal Cannula 2.0 02/22/17 04:00 95 02/22/17 03:00 89 22 96/83 98 Nasal Cannula 2.0 02/22/17 02:00 75 22 139/81 98 Nasal Cannula 2.0 02/22/17 01:00 87 24 142/88 100 Nasal Cannula 2.0 02/22/17 00:34 88 02/22/17 00:00 98.5 93 18 133/84 100 Nasal Cannula 2.0 02/21/17 23:30 85 18 152/103 100 Nasal Cannula 2.0 02/21/17 23:00 100 18 150/90 100 Nasal Cannula 2.0 02/21/17 22:30 88 20 133/74 100 Nasal Cannula 2.0 02/21/17 22:00 95 20 128/75 100 Nasal Cannula 2.0 02/21/17 21:30 92 20 128/77 100 Nasal Cannula 2.0 02/21/17 21:00 88 20 116/67 100 Nasal Cannula 2.0 02/21/17 20:30 98 18 122/73 100 Nasal Cannula 2.0 02/21/17 20:00 98.8 95 20 131/66 98 Nasal Cannula 2.0 02/21/17 20:00 90 02/21/17 19:30 90 20 131/84 98 Nasal Cannula 2.0 02/21/17 19:04 Nasal Cannula 2.0 28 02/21/17 19:03 98 Nasal Cannula 2.0 28 02/21/17 19:02 82 17 Nasal Cannula 2.0 28 02/21/17 19:00 86 18 134/75 98 Nasal Cannula 2.0 02/21/17 18:30 112 18 122/72 98 Nasal Cannula 2.0 02/21/17 18:00 96 24 120/76 98 Nasal Cannula 2.0 02/21/17 17:34 83 115/75 02/21/17 17:30 74 21 115/75 98 Nasal Cannula 2.0 02/21/17 17:00 74 20 115/75 98 Nasal Cannula 2.0 02/21/17 16:30 95 21 111/70 98 Nasal Cannula 2.0 Status: awake Condition: improving Lungs: rales, rhonchi Heart: HR/BP stable, irregular Abdomen: non-tender, active bowel sounds Extremities: edema Accucheck: 240 Blood Sugars: BS not controlled Critical Care - Subjective ROS Limited/Unobtainable: No Condition: improving FI02: 28 Sputum Amount: None I&O: Intake and Output 02/21/17 02/22/17 19:00 07:00 Intake Total 1100 ml 497 ml Output Total 50 ml 800 ml Balance 1050 ml -303 ml Intake Oral 990 ml 480 ml IV Total 110 ml 17 ml Output Urine Total 50 ml 800 ml # Voids 100 Subjective: shortness of breath at times on o2 nebs HR aflutter with improved rate controlled on dilt drip oral agents started positive uop Labs: Current Medications Medications (Trade) Dose Ordered Sig/Tera Route PRN Reason Start Time Stop Time Status Last Admin Dose Admin Acetaminophen (Tylenol) 650 mg Q4H PRN ORAL Mild Pain/Temp > 100.5 02/20/17 20:45 03/22/17 20:44 Albuterol/ Ipratropium (Albuterol/ Ipratropium) 3 ml Q4H PRN HHN wheezing 02/20/17 20:45 02/25/17 20:44 02/22/17 09:47 Amiodarone HCl (Cordarone) 400 mg BID ORAL 02/21/17 09:00 03/23/17 08:59 02/22/17 08:41 Apixaban (Eliquis) 5 mg Q12HR ORAL 02/21/17 21:00 03/23/17 20:59 02/22/17 09:07 Aspirin (ASA) 81 mg DAILY ORAL 02/21/17 09:00 03/23/17 08:59 02/22/17 08:40 Atorvastatin Calcium (Lipitor) 20 mg 2230 ORAL 02/22/17 22:30 03/24/17 22:29 Clonidine HCl (Catapres) 0.1 mg Q4H PRN ORAL SBP >160 02/20/17 20:45 03/22/17 20:44 Dextrose (Dextrose 50%) STAT PRN IV Hypoglycemia 02/20/17 21:15 03/22/17 21:14 Digoxin (Lanoxin) 0.125 mg DAILY ORAL 02/23/17 09:00 03/25/17 08:59 Diltiazem HCl (Cardizem) 90 mg EVERY 6 HOURS ORAL 02/22/17 18:00 03/24/17 17:59 Docusate Sodium (Colace) 100 mg BIDPRN PRN ORAL Constipation 2nd Line Agent 02/20/17 20:45 03/22/17 20:44 Famotidine (Pepcid) 20 mg DAILY ORAL 02/21/17 09:00 03/23/17 08:59 02/22/17 08:42 Guaifenesin (Mucinex ER) 600 mg TWICE A DAY ORAL 02/21/17 09:00 03/23/17 08:59 02/22/17 08:41 Insulin Aspart (NovoLOG) breakfast, lunch and dinner ... THREE TIMES A DAY SUBQ 02/21/17 09:00 03/23/17 08:59 02/22/17 12:48 Insulin Detemir (Levemir) 25 units BEDTIME SUBQ 02/21/17 22:30 03/23/17 22:29 02/21/17 21:40 Ipratropium [place] (Atrovent) 500 mcg Q4HRT HHN 02/22/17 11:00 02/27/17 10:59 02/22/17 14:49 Isosorbide Mononitrate (Imdur) 30 mg DAILY ORAL 02/21/17 09:00 03/23/17 08:59 02/22/17 08:41 Magnesium Hydroxide (Mom) 30 ml DAILYPRN PRN ORAL Constipation 02/20/17 20:45 03/22/17 20:44 Magnesium Oxide (Mag-Ox 400mg) 400 mg DAILY ORAL 02/21/17 09:00 03/23/17 08:59 02/22/17 08:41 Multi-Ingredient Ointment (Eucerin) 1 applic DAILY TOPIC 02/21/17 09:00 03/23/17 08:59 02/22/17 12:46 Prednisone (predniSONE) 30 mg DAILY ORAL 02/22/17 09:00 03/24/17 08:59 02/22/17 08:40 Sennosides (Senokot) 2 tab DAILY ORAL 02/21/17 09:00 03/23/17 08:59 02/22/17 08:40 Laboratory Tests Test 02/22/17 05:17 02/22/17 06:00 White Blood Count 4.2 K/UL (4.8-10.8) L Red Blood Count 3.85 M/UL (4.20-5.40) L Hemoglobin 12.4 G/DL (12.0-16.0) Hematocrit 38.6 % (37.0-47.0) Mean Corpuscular Volume 100 FL (80-99) H Mean Corpuscular Hemoglobin 32.2 PG (27.0-31.0) H Mean Corpuscular Hemoglobin Concent 32.1 G/DL (32.0-36.0) Red Cell Distribution Width 12.9 % (11.6-14.8) Platelet Count 98 K/UL (150-450) L Mean Platelet Volume 7.7 FL (6.5-10.1) Neutrophils (%) (Auto) % (45.0-75.0) Lymphocytes (%) (Auto) % (20.0-45.0) Monocytes (%) (Auto) % (1.0-10.0) Eosinophils (%) (Auto) % (0.0-3.0) Basophils (%) (Auto) % (0.0-2.0) Differential Total Cells Counted 100 Neutrophils % (Manual) 76 % (45-75) H Lymphocytes % (Manual) 17 % (20-45) L Monocytes % (Manual) 7 % (1-10) Eosinophils % (Manual) 0 % (0-3) Basophils % (Manual) 0 % (0-2) Band Neutrophils 0 % (0-8) Platelet Estimate Decreased L Platelet Morphology Normal Macrocytosis 1+ Sodium Level 142 MMOL/L (136-145) Potassium Level 4.4 MMOL/L (3.5-5.1) Chloride Level 103 MMOL/L (98-107) Carbon Dioxide Level 39 MMOL/L (21-32) H Anion Gap 0 mmol/L (5-15) L Blood Urea Nitrogen 55 mg/dL (7-18) H Creatinine 1.7 MG/DL (0.55-1.30) H Estimat Glomerular Filtration Rate 36.4 mL/min (>60) Glucose Level 148 MG/DL (74-106) H Hemoglobin A1c 8.6 % (4.3-6.0) H Calcium Level 7.9 MG/DL (8.5-10.1) L Magnesium Level 2.3 MG/DL (1.8-2.4) Urine Color Pale yellow Urine Appearance Clear Urine pH 5 (4.5-8.0) Urine Specific [place] 1.015 (1.005-1.035) Urine Protein Negative (NEGATIVE) Urine Glucose (UA) Negative (NEGATIVE) Urine Ketones Negative (NEGATIVE) Urine Occult Blood 2+ (NEGATIVE) H Urine Nitrite Negative (NEGATIVE) Urine Bilirubin Negative (NEGATIVE) Urine Urobilinogen Normal MG/DL (0.0-1.0) Urine Leukocyte Esterase Negative (NEGATIVE) Urine RBC 2-4 /HPF (0 - 2) H Urine WBC 0-2 /HPF (0 - 2) Urine Squamous Epithelial Cells Few /LPF (NONE/OCC) Urine Bacteria Occasional /HPF (NONE) CAROL CARLSON DO Feb 22, 2017 16:16
[2017-02-22] MEDS ORDERED: dilTIAZem HCl 90mg tab ORAL SCH ×2 (18:00)
[2017-02-22] MEDS: Levemir Flexpen SUBQ SCH (21:00)
[2017-02-22] MEDS ORDERED: Levemir Flexpen SUBQ SCH (21:00)
[2017-02-22] MEDS ORDERED: Docusate 100mg cap ORAL PRN (21:11)
[2017-02-22] MEDS ORDERED: Albuterol/Ipratropium 3ml neb HHN PRN (21:12)
[2017-02-22] MEDS ORDERED: Milk of Magnesia 30ml Ud ORAL PRN (21:14)
[2017-02-22] MEDS: Atorvastatin 20mg tab ORAL SCH (22:03)
[2017-02-22] MEDS ORDERED: Atorvastatin 20mg tab ORAL SCH (22:30)
[2017-02-23] VITALS: BP 129/84
[2017-02-23] MEDS: dilTIAZem HCl 90mg tab ORAL SCH ×5 (00:10→23:43)
--- NOTE | 2017-02-23 02:45 | Consultation ---
DATE OF CONSULTATION: 02/22/2017 CARDIAC ELECTROPHYSIOLOGY CONSULTATION CONSULTING PHYSICIAN: Prasanna Rodriguez M.D. REFERRING PHYSICIAN: Maxim Levin M.D. ADDITIONAL REFERRING PHYSICIAN: Dougie Bravo M.D. REASON FOR CONSULTATION: Atrial flutter with rapid ventricular response. HISTORY OF PRESENT ILLNESS: The patient is a 66-year-old lady with history of hypertension and lymphedema as well as history of atrial fibrillation in the past, but has not been on any anticoagulation, presented to the emergency room with shortness of breath and palpitation. The patient had required antiarrhythmics and cardioversion in the past. The patient in the emergency room was found to have atrial flutter with rapid ventricular response with heart rate of 140 beats per minute. At the time of my evaluation, the patient in the intensive care unit was on Cardizem drip overnight. Heart rate still in 120 to 130s. PAST MEDICAL HISTORY: 1. Hypertension. 2. Paroxysmal atrial fibrillation. 3. Obesity. 4. Lymphedema. MEDICATIONS: Per reconciliation. SOCIAL HISTORY: She does not smoke or drink alcohol or use any drugs. FAMILY HISTORY: Noncontributory. REVIEW OF SYSTEMS: Review of systems was performed and was negative other than what was mentioned in the history of present illness. PHYSICAL EXAMINATION: VITAL SIGNS: Blood pressure is 139/86, pulse 110 to 135, respirations 18, and she is afebrile. HEAD AND NECK: Shows no JVD or carotid bruits. LUNGS: Clear. CARDIOVASCULAR: Shows irregularly irregular S1 and S2 with no gallop or murmur. ABDOMEN: Soft. EXTREMITIES: Bilateral lymphedema. DIAGNOSTIC DATA: Her EKG shows atrial flutter with variable AV block at a rate of around 140 with negative T-wave (suggestive of typical isthmus-dependent atrial flutter). LABORATORY DATA: White count of 4.2, hemoglobin 12.4, hematocrit 38, and platelet count is 98,000. Sodium 142, potassium 4.4, BUN of 55, creatinine 1.7, and glucose of 148. BNP is 1028. INR is 0.9. ASSESSMENT AND PLAN: 1. Atrial flutter with rapid ventricular response. The patient is started on Eliquis 5 mg b.i.d. and will be continued. The patient was also started on amiodarone 400 mg b.i.d. and I will try to change her Cardizem to 90 mg every 6 hours p.o. Hopefully, we can get her heart rate better controlled. I will give also a dose of 0.5 mg intravenous digoxin. We will again taper off Cardizem drip. 2. Hypertension. We will use Cardizem at this time. There has been appreciable heart rate control as well. 3. Obesity. 4. Lymphedema. Thank you very much, Dr. Levin, for allowing me to participate in the care of this patient. Please do not hesitate to contact me for any questions regarding my evaluation. Prasanna Rodriguez M.D. DR: LADONNA JOB#: [id number] CC:
[2017-02-23] MEDS: Ipratropium 0.02% Inh Soln 2.5ml UD HHN SCH ×7 (03:00→23:21)
[2017-02-23 04:00] VITALS: BP 124/77
[2017-02-23 06:37] LABS: BASOPHILS % (AUTO) 1.6 % (0.0-2.0); EOSINOPHILS % (AUTO) 0.2 % (0.0-3.0); HEMOGLOBIN 12.5 G/DL (12.0-16.0); LYMPHOCYTES % (AUTO) 9.5 % (20.0-45.0); MEAN CORPUSCULAR VOLUME 102 FL (80-99); MONOCYTES % (AUTO) 10.4 % (1.0-10.0); NEUTROPHILS % (AUTO) 78.4 % (45.0-75.0); PLATELET COUNT 123 K/UL (150-450); RED BLOOD COUNT 3.84 M/UL (4.20-5.40); RED CELL DISTRIBUTION WIDTH 13.2 % (11.6-14.8); WHITE BLOOD COUNT 3.7 K/UL (4.8-10.8)
[2017-02-23 06:54] LABS: ANION GAP 5 mmol/L (5-15); BLOOD UREA NITROGEN 45 mg/dL (7-18); CALCIUM 8.3 MG/DL (8.5-10.1); CARBON DIOXIDE 33 MMOL/L (21-32); CHLORIDE 103 MMOL/L (98-107); CREATININE 1.4 MG/DL (0.55-1.30); POTASSIUM 4.2 MMOL/L (3.5-5.1); SODIUM 141 MMOL/L (136-145)
[2017-02-23 08:00] VITALS: BP 138/99
--- NOTE | 2017-02-23 08:30 | Consultation ---
DATE OF CONSULTATION: 02/22/2016 PULMONARY CRITICAL CARE CONSULTATION CONSULTING PHYSICIAN: Gayla Leger D.O. REASON FOR CONSULTATION: Shortness of breath and palpitations. HISTORY OF PRESENT ILLNESS: This is an elderly female, lives is in a nursing facility, for rehab currently felt that she has been getting breathing treatments for the last month. The patient notes for the two days that she became more dizzy and feeling that she was going to have a syncopal episode after receiving the breathing treatment. She did come into the emergency room in atrial fibrillation with rapid ventricular rate with a heart rate of 150. She states she has had a history of atrial fibrillation in the past, has been cardioverted with success without any further symptoms, but did start receiving breathing treatments after she was admitted to the hospital about a month ago for pneumonia. Currently, her heart rate has improved. She is on a diltiazem drip, still is over 100, but is asymptomatic at this time. PAST MEDICAL HISTORY: Include atrial fibrillation with RVR, lymphedema, obesity, 00:59, obstructive sleep apnea. PAST SURGICAL HISTORY: None. SOCIAL HISTORY: Negative for tobacco or drugs. FAMILY HISTORY: None. CURRENT MEDICATIONS: Reviewed and reconciled and documented in the electronic medical record in terms of dose, frequency, route. PHYSICAL EXAMINATION: GENERAL: At the time my exam, she is alert and she is oriented. She is in no acute respiratory distress. VITAL SIG: Heart rate is currently 106, she is on nasal cannula 2 liters, saturation is 98%, blood pressure is 122/72, respirations are 17. HEENT: She is normocephalic, atraumatic. Oropharynx is moist. Nasal mucosa is moist. NECK: Supple without lymphadenopathy. LUNGS: Scant crackles at the bases. No wheezes present. HEART: Irregularly regular with an audible murmur. ABDOMEN: Obese, soft. No distention. EXTREMITIES: Positive lower extremity edema. Chronic nature of lymphedema. SKIN: She has no skin rashes, wounds, or lesions present. LABORATORY DATA: Her white count is 5, hemoglobin 12, her platelets are 91. Her sodium is 142, potassium 4.2, chloride 102, bicarbonate 38, BUN 66, creatinine 1.9, glucose is 181. Her troponin initially was 0.111, declined down to 0.104. Her MB is elevated at 1028. Her LFTs are normal. Her chest x-ray in the emergency room ectatic and possibly 02:06. CT of the chest is recommended. ASSESSMENT AND PLAN: 1. Atrial fibrillation and atrial flutter with rapid ventricular response, currently on a diltiazem drip. 2. Obesity. 3. Hypertension. 4. Diabetes. 5. 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 At this point, due to the patient's creatinine, which is elevated at 1.9, CT without contrast not available, we will discuss with Dr. Bravo, the patient's primary care physician to do a noncontrast study to further assess her aortic arch. A 2D echocardiogram was ordered in the emergency room, which shows focal aortic valve sclerosis, IVC normal size, normal ejection fraction, otherwise no documentation regarding the findings suggestive on chest x-ray. The patient is continued on her rate control medications. She is currently receiving prednisone 30 mg for unknown reasons. We will try to determine the patient's 03:38 records etiology. She is continued on amiodarone 03:43 b.i.d., which we will discuss with Cardiology to taper this high dose of amiodarone. Glycemic control. O2 as needed for sats less than 92% and p.r.n. BiPAP for respiratory distress. We will continue to follow the patient for remainder of her hospital stay. She remains critically ill and is in the intensive care unit. CRITICAL CARE TIME: Greater than 35 minutes of critical care time spent with the patient reviewing medical records, discussing with the nursing staff, orders, imaging studies and consult. Gayla Leger D.O. DR: Gregoria JOB#: [id number] CC:
[2017-02-23] MEDS: Aspirin Baby 81mg ORAL SCH (08:38)
[2017-02-23] MEDS: Eliquis 2.5mg tablet ORAL SCH ×2 (08:38→20:43)
[2017-02-23] MEDS: Amiodarone 200mg tab ORAL SCH ×2 (08:38→17:36)
[2017-02-23] MEDS: Imdur 30mg tab ORAL SCH (08:39)
[2017-02-23] MEDS: Sennosides 8.6mg ORAL SCH (08:39)
[2017-02-23] MEDS: Digoxin 0.125mg tab ORAL SCH (08:39)
[2017-02-23] MEDS: guaiFENesin ER 600mg tab ORAL SCH ×2 (08:40→17:36)
[2017-02-23] MEDS: Magnesium Oxide 400mg tab ORAL SCH (08:40)
[2017-02-23] MEDS: Eucerin Cream 15gm TOPIC SCH (08:41)
--- NOTE | 2017-02-23 08:50 | General Progress Note ---
Assessment/Plan Problem List: (1) Morbid obesity ICD Codes: E66.01 - Morbid (severe) obesity due to excess calories SNOMED: 062396664, 27223025285316 (2) CKD (chronic kidney disease) stage 3, GFR 30-59 ml/min ICD Codes: N18.3 - Chronic kidney disease, stage 3 (moderate) SNOMED: 065507149 (3) Diabetes ICD Codes: E11.9 - Type 2 diabetes mellitus without complications SNOMED: 53392886 (4) Thoracic aortic aneurysm ICD Codes: I71.2 - Thoracic aortic aneurysm, without rupture SNOMED: 190906771 (5) Anticoagulant prescribed SNOMED: 392912171 (6) Asthma exacerbation ICD Codes: J45.901 - Unspecified asthma with (acute) exacerbation SNOMED: 510991959 (7) Atrial flutter ICD Codes: I48.92 - Unspecified atrial flutter SNOMED: 7735317 Qualifiers: Qualified Codes: I48.4 - Atypical atrial flutter (8) Tachycardia ICD Codes: R00.0 - Tachycardia, unspecified SNOMED: 1648719 Assessment/Plan titrate diltiazem, digoxin added anticoag, tele, increase steroids, pul care increase levemir Subjective Constitutional: Reports: weakness HEENT: Reports: no symptoms Cardiovascular: Reports: irregular heart rate Respiratory: Reports: cough, shortness of breath Gastrointestinal/Abdominal: Reports: no symptoms Genitourinary: Reports: no symptoms Neurologic/Psychiatric: Reports: no symptoms Endocrine: Reports: no symptoms Hematologic/Lymphatic: Reports: no symptoms Allergies: Coded Allergies: No Known Allergies (Unverified , 02/20/17) Objective Last 24 Hour Vital Signs Date Time Temp Pulse Resp B/P (MAP) Pulse Ox O2 Delivery O2 Flow Rate FiO2 02/23/17 08:39 124/77 02/23/17 08:39 120 02/23/17 08:00 120 02/23/17 07:29 124 24 98 Nasal Cannula 2.0 02/23/17 07:22 Nasal Cannula 2.0 28 02/23/17 07:22 95 Nasal Cannula 2.0 28 02/23/17 07:21 106 22 Nasal Cannula 2.0 02/23/17 07:17 105 22 95 Nasal Cannula 2.0 02/23/17 06:06 121 124/77 02/23/17 05:36 120 22 99 Nasal Cannula 2.0 28 02/23/17 05:21 127 24 97 Nasal Cannula 2.0 28 02/23/17 04:00 89 02/23/17 04:00 97.0 102 20 124/77 95 Nasal Cannula 2.0 02/23/17 03:24 Nasal Cannula 2.0 28 02/23/17 03:24 Nasal Cannula 2.0 28 02/23/17 00:10 96 120/60 02/23/17 00:00 97.3 98 20 129/84 95 Nasal Cannula 2.0 02/23/17 00:00 92 02/22/17 23:28 99 20 99 Nasal Cannula 2.0 28 02/22/17 23:18 101 22 99 Nasal Cannula 2.0 28 02/22/17 20:00 97.7 86 20 128/60 95 Nasal Cannula 2.0 02/22/17 20:00 120 02/22/17 19:10 100 22 98 Nasal Cannula 2.0 28 02/22/17 19:05 95 Nasal Cannula 3.0 32 02/22/17 19:05 63 20 Nasal Cannula 3.0 32 02/22/17 19:05 Nasal Cannula 3.0 32 02/22/17 19:00 100 20 98 Nasal Cannula 2.0 28 02/22/17 18:00 114 21 141/92 92 Nasal Cannula 2.0 02/22/17 17:46 101 138/67 02/22/17 17:00 96 20 138/67 97 Nasal Cannula 2.0 02/22/17 16:00 98.0 98 16 127/77 98 Nasal Cannula 2.0 02/22/17 15:24 137 02/22/17 15:01 97 20 96 Nasal Cannula 2.0 28 02/22/17 15:00 107 20 146/82 99 Nasal Cannula 2.0 02/22/17 14:49 106 19 97 Nasal Cannula 2.0 28 02/22/17 14:07 121 02/22/17 14:00 112 19 139/92 99 Nasal Cannula 2.0 02/22/17 13:00 144 19 147/86 96 Nasal Cannula 2.0 02/22/17 12:00 97.8 114 20 139/86 97 Nasal Cannula 2.0 02/22/17 11:37 132 24 99 Nasal Cannula 2.0 28 02/22/17 11:22 103 02/22/17 11:18 112 21 99 Nasal Cannula 2.0 28 02/22/17 11:00 113 21 148/87 100 Nasal Cannula 2.0 02/22/17 10:00 119 21 149/84 98 Nasal Cannula 2.0 02/22/17 09:47 Nasal Cannula 2.0 28 02/22/17 09:47 118 21 98 Nasal Cannula 2.0 28 02/22/17 09:39 118 133/88 02/22/17 09:00 117 22 117/77 99 Nasal Cannula 2.0 Intake and Output 02/22/17 02/23/17 19:00 07:00 Intake Total 450 ml 120 ml Output Total 480 ml Balance -30 ml 120 ml Intake Oral 450 ml 120 ml Output Urine Total 480 ml # Voids 3 Laboratory Tests 02/23/17 04:05: White Blood Count 3.7L, Red Blood Count 3.84L, Hemoglobin 12.5, Hematocrit 39.0 , Mean Corpuscular Volume 102H, Mean Corpuscular Hemoglobin 32.6H, Mean Corpuscular Hemoglobin Concent 32.0, Red Cell Distribution Width 13.2, Platelet Count 123L, Mean Platelet Volume 6.2L, Neutrophils (%) (Auto) 78.4H, Lymphocytes (%) (Auto) 9.5L, Monocytes (%) (Auto) 10.4H, Eosinophils (%) (Auto) 0.2, Basophils (%) (Auto) 1.6, Sodium Level 141, Potassium Level 4.2, Chloride Level 103, Carbon Dioxide Level 33H, Anion Gap 5, Blood Urea Nitrogen 45H, Creatinine 1.4H, Estimat Glomerular Filtration Rate 45.5, Glucose Level 118H, Calcium Level 8.3L, Magnesium Level 2.8H Height (Feet): 5 Height (Inches): 6.00 Weight (Pounds): 334 General Appearance: mild distress, morbidly obese EENT: normal ENT inspection Neck: normal alignment Cardiovascular: regularly irregular, tachycardia Respiratory/Chest: expiratory wheezing Abdomen: normal bowel sounds, non tender Edema: no edema noted Arm (L), no edema noted Arm (R), no edema noted Leg (L), no edema noted Leg (R), no edema noted Pedal (L), no edema noted Pedal (R), no edema noted Generalized [place] Feb 23, 2017 08:50
[2017-02-23] MEDS ORDERED: Digoxin 0.125mg tab ORAL SCH (09:00)
[2017-02-23] MEDS: Solu-MEDROL 40mg Inj IVP SCH ×2 (09:23→22:01)
[2017-02-23] MEDS: NovoLOG Insulin Flexpen SUBQ SCH ×3 (09:25→17:38)
--- NOTE | 2017-02-23 09:30 | Progress Note ---
DATE: 02/22/2017 CARDIOLOGY PROGRESS NOTE SUBJECTIVE: The patient remains on IV diltiazem and loading dose of amiodarone. She continues to have episodes of rapid atrial fibrillation. She denies chest pain. She has some palpitations and no shortness of breath. OBJECTIVE: VITAL SIGNS: Blood pressure 146/82, pulse 107, respiratory rate 20, and afebrile. LUNGS: Diminished breath sounds. CARDIAC: Irregularly irregular rhythm. Normal S1, S2. ABDOMEN: Soft, obese. EXTREMITIES: With dependent edema. DIAGNOSTIC DATA: X-ray reviewed and notable for an abnormal aortic arch. IMPRESSION: 1. Paroxysmal atrial fibrillation/flutter with rapid ventricular rate. 2. Abnormal aortic arch, rule out aneurysm. 3. Lymphedema. 4. Diastolic dysfunction. 5. Hypertensive heart disease. PLAN: Review prior records at [facility] regarding CT imaging of the chest if available. Continue to hold diuretics and monitor cardiorenal parameters. Maintain diltiazem and amiodarone. EP consultation contacted to assist with rate control. Venous duplex study of the lower extremities is still pending to evaluate for DVTs. Maintain full anticoagulation with apixaban at this time. Maxim Levin M.D. DR: DAVID JOB#: [id number] CC:
--- NOTE | 2017-02-23 10:12 | Pulmonology Progress Note ---
Assessment/Plan Assessment/Plan afib/flutter wtih RVR abnormal A arch on xray unable to get CT with contrast due to cr 1.9 obesity RI juan manuel DM HTN HLD echo noted bs control rate control aspiration precautions avoid b agonists duplex LE ac per cards recommendations Subjective Interval Events: none Constitutional: Reports: no symptoms HEENT: Repors: no symptoms Respiratory: Reports: no symptoms Cardiovascular: Reports: no symptoms Allergies: Coded Allergies: No Known Allergies (Unverified , 02/20/17) Objective Last 24 Hour Vital Signs Date Time Temp Pulse Resp B/P (MAP) Pulse Ox O2 Delivery O2 Flow Rate FiO2 02/23/17 08:39 124/77 02/23/17 08:39 120 02/23/17 08:00 120 02/23/17 08:00 97.4 100 20 138/99 95 Nasal Cannula 2.0 02/23/17 07:29 124 24 98 Nasal Cannula 2.0 28 02/23/17 07:22 Nasal Cannula 2.0 28 02/23/17 07:22 95 Nasal Cannula 2.0 28 02/23/17 07:21 106 22 Nasal Cannula 2.0 28 02/23/17 07:17 105 22 95 Nasal Cannula 2.0 28 02/23/17 06:06 121 124/77 02/23/17 05:36 120 22 99 Nasal Cannula 2.0 28 02/23/17 05:21 127 24 97 Nasal Cannula 2.0 28 02/23/17 04:00 89 02/23/17 04:00 97.0 102 20 124/77 95 Nasal Cannula 2.0 02/23/17 03:24 Nasal Cannula 2.0 28 02/23/17 03:24 Nasal Cannula 2.0 28 02/23/17 00:10 96 120/60 02/23/17 00:00 97.3 98 20 129/84 95 Nasal Cannula 2.0 02/23/17 00:00 92 02/22/17 23:28 99 20 99 Nasal Cannula 2.0 28 02/22/17 23:18 101 22 99 Nasal Cannula 2.0 28 02/22/17 20:00 97.7 86 20 128/60 95 Nasal Cannula 2.0 02/22/17 20:00 120 02/22/17 19:10 100 22 98 Nasal Cannula 2.0 28 02/22/17 19:05 95 Nasal Cannula 3.0 32 02/22/17 19:05 63 20 Nasal Cannula 3.0 32 02/22/17 19:05 Nasal Cannula 3.0 32 02/22/17 19:00 100 20 98 Nasal Cannula 2.0 28 02/22/17 18:00 114 21 141/92 92 Nasal Cannula 2.0 02/22/17 17:46 101 138/67 02/22/17 17:00 96 20 138/67 97 Nasal Cannula 2.0 02/22/17 16:00 98.0 98 16 127/77 98 Nasal Cannula 2.0 02/22/17 15:24 137 02/22/17 15:01 97 20 96 Nasal Cannula 2.0 28 02/22/17 15:00 107 20 146/82 99 Nasal Cannula 2.0 02/22/17 14:49 106 19 97 Nasal Cannula 2.0 28 02/22/17 14:07 121 02/22/17 14:00 112 19 139/92 99 Nasal Cannula 2.0 02/22/17 13:00 144 19 147/86 96 Nasal Cannula 2.0 02/22/17 12:00 97.8 114 20 139/86 97 Nasal Cannula 2.0 02/22/17 11:37 132 24 99 Nasal Cannula 2.0 28 02/22/17 11:22 103 02/22/17 11:18 112 21 99 Nasal Cannula 2.0 28 02/22/17 11:00 113 21 148/87 100 Nasal Cannula 2.0 Intake and Output 02/22/17 02/23/17 19:00 07:00 Intake Total 450 ml 120 ml Output Total 480 ml Balance -30 ml 120 ml Intake Oral 450 ml 120 ml Output Urine Total 480 ml # Voids 3 General Appearance: no acute distress HEENT: normocephalic Respiratory/Chest: chest wall non-tender, lungs clear Cardiovascular: normal peripheral pulses, tachycardia Abdomen: normal bowel sounds Laboratory Tests 02/23/17 04:05: White Blood Count 3.7L, Red Blood Count 3.84L, Hemoglobin 12.5, Hematocrit 39.0 , Mean Corpuscular Volume 102H, Mean Corpuscular Hemoglobin 32.6H, Mean Corpuscular Hemoglobin Concent 32.0, Red Cell Distribution Width 13.2, Platelet Count 123L, Mean Platelet Volume 6.2L, Neutrophils (%) (Auto) 78.4H, Lymphocytes (%) (Auto) 9.5L, Monocytes (%) (Auto) 10.4H, Eosinophils (%) (Auto) 0.2, Basophils (%) (Auto) 1.6, Sodium Level 141, Potassium Level 4.2, Chloride Level 103, Carbon Dioxide Level 33H, Anion Gap 5, Blood Urea Nitrogen 45H, Creatinine 1.4H, Estimat Glomerular Filtration Rate 45.5, Glucose Level 118H, Calcium Level 8.3L, Magnesium Level 2.8H Current Medications Medications (Trade) Dose Ordered Sig/Tera Route PRN Reason Start Time Stop Time Status Last Admin Dose Admin Acetaminophen (Tylenol) 650 mg Q4H PRN ORAL Mild Pain/Temp > 100.5 02/23/17 00:45 03/22/17 20:44 Albuterol/ Ipratropium (Albuterol/ Ipratropium) 3 ml Q4H PRN HHN wheezing 02/22/17 21:12 02/27/17 21:11 Amiodarone HCl (Cordarone) 400 mg BID ORAL 02/23/17 09:00 03/23/17 08:59 02/23/17 08:38 Apixaban (Eliquis) 5 mg Q12HR ORAL 02/22/17 21:00 03/23/17 20:59 02/23/17 08:38 Aspirin (ASA) 81 mg DAILY ORAL 02/23/17 09:00 03/23/17 08:59 02/23/17 08:38 Atorvastatin Calcium (Lipitor) 20 mg 2230 ORAL 02/22/17 22:30 03/24/17 22:29 02/22/17 22:03 Clonidine HCl (Catapres) 0.1 mg Q4H PRN ORAL SBP >160 02/22/17 21:10 03/24/17 21:09 Dextrose (Dextrose 50%) STAT PRN IV Hypoglycemia 02/22/17 21:15 03/22/17 21:14 Digoxin (Lanoxin) 0.125 mg DAILY ORAL 02/23/17 09:00 03/25/17 08:59 02/23/17 08:39 Diltiazem HCl (Cardizem) 90 mg EVERY 6 HOURS ORAL 02/23/17 00:00 03/24/17 17:59 02/23/17 06:06 Docusate Sodium (Colace) 100 mg BIDPRN PRN ORAL Constipation 2nd Line Agent 02/22/17 21:11 03/24/17 21:10 Famotidine (Pepcid) 20 mg DAILY ORAL 02/23/17 09:00 03/23/17 08:59 02/23/17 08:38 Guaifenesin (Mucinex ER) 600 mg TWICE A DAY ORAL 02/23/17 09:00 03/23/17 08:59 02/23/17 08:40 Insulin Aspart (NovoLOG) breakfast, lunch and dinner ... THREE TIMES A DAY SUBQ 02/23/17 09:00 03/23/17 08:59 02/23/17 09:25 Insulin Detemir (Levemir) 34 units BEDTIME SUBQ 02/23/17 21:00 03/25/17 20:59 Ipratropium [place] (Atrovent) 500 mcg Q4HRT HHN 02/22/17 23:00 02/27/17 10:59 02/23/17 07:17 Isosorbide Mononitrate (Imdur) 30 mg DAILY ORAL 02/23/17 09:00 03/23/17 08:59 02/23/17 08:39 Magnesium Hydroxide (Mom) 30 ml DAILYPRN PRN ORAL Constipation 02/22/17 21:14 03/24/17 21:13 Magnesium Oxide (Mag-Ox 400mg) 400 mg DAILY ORAL 02/23/17 09:00 03/23/17 08:59 02/23/17 08:40 Methylprednisolone Sodium Succinate (Solu-MEDROL) 40 mg EVERY 8 HOURS IVP 02/23/17 09:30 03/25/17 09:29 02/23/17 09:23 Multi-Ingredient Ointment (Eucerin) 1 applic DAILY TOPIC 02/23/17 09:00 03/23/17 08:59 02/23/17 08:41 Sennosides (Senokot) 2 tab DAILY ORAL 02/23/17 09:00 03/23/17 08:59 02/23/17 08:39 Ric Pedersen MD Feb 23, 2017 10:12
[2017-02-23 12:00] VITALS: BP 140/85
[2017-02-23] MEDS: Metoprolol Tartrate 50mg tab ORAL SCH ×2 (12:41→20:43)
--- NOTE | 2017-02-23 12:43 | Cardiac Electrophysiology PN ---
Assessment/Plan Assessment/Plan 1. Atrial flutter with rapid ventricular response. On Eliquis 5 mg b.i.d. On amiodarone 400 mg b.i.d. , Cardizem 90 mg every 6 hours p.o. and Digoxin 0.125 daily . Add Lopressor 50 bid. Likely would need ablation. 2. Hypertension. We will use Cardizem and Lopressor that also helps heart rate control 3. Obesity. 4. Lymphedema. Subjective Subjective Still in atrial flutter with RVR. No chest pain Objective Last 24 Hour Vital Signs Date Time Temp Pulse Resp B/P (MAP) Pulse Ox O2 Delivery O2 Flow Rate FiO2 02/23/17 11:10 129 124/77 02/23/17 10:51 129 24 96 Nasal Cannula 2.0 28 02/23/17 10:50 125 22 95 Nasal Cannula 2.0 28 02/23/17 08:39 124/77 02/23/17 08:39 120 02/23/17 08:00 120 02/23/17 08:00 97.4 100 20 138/99 95 Nasal Cannula 2.0 02/23/17 07:29 124 24 98 Nasal Cannula 2.0 28 02/23/17 07:22 Nasal Cannula 2.0 28 02/23/17 07:22 95 Nasal Cannula 2.0 28 02/23/17 07:21 106 22 Nasal Cannula 2.0 28 02/23/17 07:17 105 22 95 Nasal Cannula 2.0 28 02/23/17 06:06 121 124/77 02/23/17 05:36 120 22 99 Nasal Cannula 2.0 28 02/23/17 05:21 127 24 97 Nasal Cannula 2.0 28 02/23/17 04:00 89 02/23/17 04:00 97.0 102 20 124/77 95 Nasal Cannula 2.0 02/23/17 03:24 Nasal Cannula 2.0 28 02/23/17 03:24 Nasal Cannula 2.0 28 02/23/17 00:10 96 120/60 02/23/17 00:00 97.3 98 20 129/84 95 Nasal Cannula 2.0 02/23/17 00:00 92 02/22/17 23:28 99 20 99 Nasal Cannula 2.0 28 02/22/17 23:18 101 22 99 Nasal Cannula 2.0 28 02/22/17 20:00 97.7 86 20 128/60 95 Nasal Cannula 2.0 02/22/17 20:00 120 02/22/17 19:10 100 22 98 Nasal Cannula 2.0 28 02/22/17 19:05 95 Nasal Cannula 3.0 32 02/22/17 19:05 63 20 Nasal Cannula 3.0 32 02/22/17 19:05 Nasal Cannula 3.0 32 02/22/17 19:00 100 20 98 Nasal Cannula 2.0 28 02/22/17 18:00 114 21 141/92 92 Nasal Cannula 2.0 02/22/17 17:46 101 138/67 02/22/17 17:00 96 20 138/67 97 Nasal Cannula 2.0 02/22/17 16:00 98.0 98 16 127/77 98 Nasal Cannula 2.0 02/22/17 15:24 137 02/22/17 15:01 97 20 96 Nasal Cannula 2.0 28 02/22/17 15:00 107 20 146/82 99 Nasal Cannula 2.0 02/22/17 14:49 106 19 97 Nasal Cannula 2.0 28 02/22/17 14:07 121 02/22/17 14:00 112 19 139/92 99 Nasal Cannula 2.0 02/22/17 13:00 144 19 147/86 96 Nasal Cannula 2.0 Intake and Output 02/22/17 02/23/17 19:00 07:00 Intake Total 450 ml 120 ml Output Total 480 ml Balance -30 ml 120 ml Intake Oral 450 ml 120 ml Output Urine Total 480 ml # Voids 3 Laboratory Tests Test 02/23/17 04:05 White Blood Count 3.7 K/UL (4.8-10.8) L Red Blood Count 3.84 M/UL (4.20-5.40) L Hemoglobin 12.5 G/DL (12.0-16.0) Hematocrit 39.0 % (37.0-47.0) Mean Corpuscular Volume 102 FL (80-99) H Mean Corpuscular Hemoglobin 32.6 PG (27.0-31.0) H Mean Corpuscular Hemoglobin Concent 32.0 G/DL (32.0-36.0) Red Cell Distribution Width 13.2 % (11.6-14.8) Platelet Count 123 K/UL (150-450) L Mean Platelet Volume 6.2 FL (6.5-10.1) L Neutrophils (%) (Auto) 78.4 % (45.0-75.0) H Lymphocytes (%) (Auto) 9.5 % (20.0-45.0) L Monocytes (%) (Auto) 10.4 % (1.0-10.0) H Eosinophils (%) (Auto) 0.2 % (0.0-3.0) Basophils (%) (Auto) 1.6 % (0.0-2.0) Sodium Level 141 MMOL/L (136-145) Potassium Level 4.2 MMOL/L (3.5-5.1) Chloride Level 103 MMOL/L (98-107) Carbon Dioxide Level 33 MMOL/L (21-32) H Anion Gap 5 mmol/L (5-15) Blood Urea Nitrogen 45 mg/dL (7-18) H Creatinine 1.4 MG/DL (0.55-1.30) H Estimat Glomerular Filtration Rate 45.5 mL/min (>60) Glucose Level 118 MG/DL (74-106) H Calcium Level 8.3 MG/DL (8.5-10.1) L Magnesium Level 2.8 MG/DL (1.8-2.4) H Objective HEAD AND NECK: Shows no JVD or carotid bruits. LUNGS: Clear. CARDIOVASCULAR: Tachycardic irregularly irregular S1 and S2 with no gallop or murmur. ABDOMEN: Soft. EXTREMITIES: Bilateral lymphedema. VIOLETA GOODWIN Feb 23, 2017 12:43
[2017-02-23 16:00] VITALS: BP 143/97
[2017-02-23 20:00] VITALS: BP 147/90
[2017-02-23] MEDS ORDERED: Levemir Flexpen SUBQ SCH (21:00)
[2017-02-23] MEDS: Atorvastatin 20mg tab ORAL SCH (21:59)
[2017-02-24] VITALS: BP 149/81
--- NOTE | 2017-02-24 00:06 | Cardiology Report ---
APPROVED REPORT EKG Measurement Heart [id number] Atrial flutter with variable AV block Low voltage QRS Inferior infarct, age undetermined Cannot rule out Anterior infarct, age undetermined Abnormal ECG
[2017-02-24] MEDS: Ipratropium 0.02% Inh Soln 2.5ml UD HHN SCH ×6 (02:31→23:00)
[2017-02-24 04:00] VITALS: BP 139/95
[2017-02-24] MEDS: Solu-MEDROL 40mg Inj IVP SCH ×3 (05:51→22:09)
[2017-02-24] MEDS: dilTIAZem HCl 90mg tab ORAL SCH ×3 (05:51→17:56)
[2017-02-24 06:25] LABS: ANION GAP 14 mmol/L (5-15); BLOOD UREA NITROGEN 45 mg/dL (7-18); CALCIUM 8.2 MG/DL (8.5-10.1); CARBON DIOXIDE 26 MMOL/L (21-32); CHLORIDE 103 MMOL/L (98-107); CREATININE 1.5 MG/DL (0.55-1.30); POTASSIUM 4.7 MMOL/L (3.5-5.1); SODIUM 143 MMOL/L (136-145)
[2017-02-24 08:00] VITALS: BP 158/97
[2017-02-24] MEDS: Eucerin Cream 15gm TOPIC SCH (08:50)
[2017-02-24] MEDS: Aspirin Baby 81mg ORAL SCH (08:50)
[2017-02-24] MEDS: Sennosides 8.6mg ORAL SCH (08:50)
[2017-02-24] MEDS: Metoprolol Tartrate 50mg tab ORAL SCH ×2 (08:50→20:27)
[2017-02-24] MEDS: Digoxin 0.125mg tab ORAL SCH (08:51)
[2017-02-24] MEDS: Eliquis 2.5mg tablet ORAL SCH ×2 (08:51→20:27)
[2017-02-24] MEDS: Imdur 30mg tab ORAL SCH (08:51)
[2017-02-24] MEDS: Amiodarone 200mg tab ORAL SCH (08:51)
[2017-02-24] MEDS: Magnesium Oxide 400mg tab ORAL SCH (08:51)
[2017-02-24] MEDS: guaiFENesin ER 600mg tab ORAL SCH ×2 (08:51→17:45)
[2017-02-24] MEDS: NovoLOG Insulin Flexpen SUBQ SCH ×3 (08:53→17:47)
--- NOTE | 2017-02-24 09:55 | Pulmonology Progress Note ---
Assessment/Plan Assessment/Plan afib/flutter wtih RVR abnormal A arch on xray unable to get CT with contrast due to cr 1.9 obesity RI juan manuel DM HTN HLD echo noted bs control rate control aspiration precautions avoid b agonists ac per cards recommendations Subjective Interval Events: Respiratory status stable Constitutional: Reports: no symptoms HEENT: Repors: no symptoms Respiratory: Reports: no symptoms Cardiovascular: Reports: no symptoms Gastrointestinal/Abdominal: Reports: no symptoms Genitourinary: Reports: no symptoms Allergies: Coded Allergies: No Known Allergies (Unverified , 02/20/17) Objective Last 24 Hour Vital Signs Date Time Temp Pulse Resp B/P (MAP) Pulse Ox O2 Delivery O2 Flow Rate FiO2 02/24/17 08:51 158/97 02/24/17 08:51 118 02/24/17 08:50 118 158/97 02/24/17 08:00 91 02/24/17 08:00 96.9 118 22 158/97 95 Nasal Cannula 4.0 02/24/17 07:42 85 22 97 Venturi Mask 6.0 35 02/24/17 07:34 83 20 95 Nasal Cannula 3.0 32 02/24/17 07:34 Nasal Cannula 3.0 32 02/24/17 07:34 95 Nasal Cannula 3.0 32 02/24/17 05:51 103 140/95 02/24/17 04:00 102 02/24/17 04:00 98.0 115 22 139/95 96 Nasal Cannula 4.0 02/24/17 02:41 85 22 97 Venturi Mask 6.0 35 02/24/17 02:31 85 24 92 Nasal Cannula 2.0 28 02/24/17 00:00 93 02/24/17 00:00 98.2 101 22 149/81 95 Nasal Cannula 4.0 02/23/17 23:43 101 149/81 02/23/17 23:30 103 20 96 Nasal Cannula 2.0 28 02/23/17 23:20 96 20 93 Nasal Cannula 2.0 28 02/23/17 20:43 90 147/90 02/23/17 20:00 98.4 90 22 147/90 95 Nasal Cannula 2.0 02/23/17 20:00 87 02/23/17 19:40 91 20 96 Nasal Cannula 2.0 28 02/23/17 19:36 93 20 Nasal Cannula 2.0 28 02/23/17 19:32 Nasal Cannula 2.0 28 02/23/17 19:32 92 Nasal Cannula 2.0 28 02/23/17 19:31 93 20 92 Nasal Cannula 2.0 28 02/23/17 17:36 84 143/97 02/23/17 16:00 98.1 93 19 143/97 96 Nasal Cannula 2.0 02/23/17 16:00 84 02/23/17 14:55 120 24 97 Nasal Cannula 2.0 28 02/23/17 14:41 112 22 94 Nasal Cannula 2.0 28 02/23/17 12:41 129 124/77 02/23/17 12:00 97.4 99 19 140/85 98 Nasal Cannula 2.0 02/23/17 12:00 111 02/23/17 11:10 129 124/77 02/23/17 10:51 129 24 96 Nasal Cannula 2.0 28 02/23/17 10:50 125 22 95 Nasal Cannula 2.0 28 Intake and Output 02/23/17 02/24/17 19:00 07:00 Intake Total 820 ml 240 ml Balance 820 ml 240 ml Intake Oral 820 ml 240 ml # Voids 2 6 # Bowel Movements 1 General Appearance: no acute distress HEENT: normocephalic Respiratory/Chest: chest wall non-tender, decreased breath sounds Cardiovascular: normal peripheral pulses, normal rate Abdomen: normal bowel sounds Laboratory Tests 02/24/17 03:40: Sodium Level 143, Potassium Level 4.7, Chloride Level 103, Carbon Dioxide Level 26, Anion Gap 14, Blood Urea Nitrogen 45H, Creatinine 1.5H, Estimat Glomerular Filtration Rate 42.1, Glucose Level 99, Calcium Level 8.2L Current Medications Medications (Trade) Dose Ordered Sig/Tera Route PRN Reason Start Time Stop Time Status Last Admin Dose Admin Acetaminophen (Tylenol) 650 mg Q4H PRN ORAL Mild Pain/Temp > 100.5 02/23/17 00:45 03/22/17 20:44 Albuterol/ Ipratropium (Albuterol/ Ipratropium) 3 ml Q4H PRN HHN wheezing 02/22/17 21:12 02/27/17 21:11 Amiodarone HCl (Cordarone) 400 mg BID ORAL 02/23/17 09:00 03/23/17 08:59 02/24/17 08:51 Apixaban (Eliquis) 5 mg Q12HR ORAL 02/22/17 21:00 03/23/17 20:59 02/24/17 08:51 Aspirin (ASA) 81 mg DAILY ORAL 02/23/17 09:00 03/23/17 08:59 02/24/17 08:50 Atorvastatin Calcium (Lipitor) 20 mg 2230 ORAL 02/22/17 22:30 03/24/17 22:29 02/23/17 21:59 Clonidine HCl (Catapres) 0.1 mg Q4H PRN ORAL SBP >160 02/22/17 21:10 03/24/17 21:09 Dextrose (Dextrose 50%) STAT PRN IV Hypoglycemia 02/22/17 21:15 03/22/17 21:14 Digoxin (Lanoxin) 0.125 mg DAILY ORAL 02/23/17 09:00 03/25/17 08:59 02/24/17 08:51 Diltiazem HCl (Cardizem) 90 mg EVERY 6 HOURS ORAL 02/23/17 00:00 03/24/17 17:59 02/24/17 05:51 Docusate Sodium (Colace) 100 mg BIDPRN PRN ORAL Constipation 2nd Line Agent 02/22/17 21:11 03/24/17 21:10 Famotidine (Pepcid) 20 mg DAILY ORAL 02/23/17 09:00 03/23/17 08:59 02/24/17 08:51 Guaifenesin (Mucinex ER) 600 mg TWICE A DAY ORAL 02/23/17 09:00 03/23/17 08:59 02/24/17 08:51 Insulin Aspart (NovoLOG) breakfast, lunch and dinner ... THREE TIMES A DAY SUBQ 02/23/17 09:00 03/23/17 08:59 02/24/17 08:53 Insulin Detemir (Levemir) 34 units BEDTIME SUBQ 02/23/17 21:00 03/25/17 20:59 02/23/17 20:45 Ipratropium [place] (Atrovent) 500 mcg Q4HRT HHN 02/22/17 23:00 02/27/17 10:59 02/24/17 07:34 Isosorbide Mononitrate (Imdur) 30 mg DAILY ORAL 02/23/17 09:00 03/23/17 08:59 02/24/17 08:51 Magnesium Hydroxide (Mom) 30 ml DAILYPRN PRN ORAL Constipation 02/22/17 21:14 03/24/17 21:13 Magnesium Oxide (Mag-Ox 400mg) 400 mg DAILY ORAL 02/23/17 09:00 03/23/17 08:59 02/24/17 08:51 Methylprednisolone Sodium Succinate (Solu-MEDROL) 40 mg EVERY 8 HOURS IVP 02/23/17 09:30 03/25/17 09:29 02/24/17 05:51 Metoprolol Tartrate (Lopressor) 50 mg Q12HR ORAL 02/23/17 12:30 03/25/17 12:29 02/24/17 08:50 Multi-Ingredient Ointment (Eucerin) 1 applic DAILY TOPIC 02/23/17 09:00 03/23/17 08:59 02/24/17 08:50 Sennosides (Senokot) 2 tab DAILY ORAL 02/23/17 09:00 03/23/17 08:59 02/24/17 08:50 Ric Pedersen MD Feb 24, 2017 09:55
[2017-02-24 12:00] VITALS: BP 119/74
[2017-02-24 16:00] VITALS: BP 114/43
--- NOTE | 2017-02-24 16:44 | Cardiac Electrophysiology PN ---
Assessment/Plan Assessment/Plan 1. Atrial flutter with rapid ventricular response. Since duration of her atrial flutter is not really clear and she was not on anticoagulation, will DC Amiodarone for the risk of conversion to SR. Continue rate control with Cardizem 90 mg every 6 hours p.o. and Digoxin 0.125 daily and Lopressor 50 bid.On Eliquis 5 mg b.i.d. Discussed extensively with patient with RN present the options of medical therapy vs POONAM and if no clot then either Cardioversion or atrial flutter ablation. She is not sure and wants to be transferred to [facility] first. She had had Cardioversion in the past and now more interested in a curative approach. In view of her weight of more than 300 lbs and bilateral LE lymphedema, ablation would be technically more challenging than an average patient. Dig level in am. 2. Hypertension. Continue Cardizem and Lopressor that also helps heart rate control 3. Aortic aneurysm 4. Obesity. 5. Lymphedema. DW RN Subjective Subjective Still in atrial flutter but rate is much better controlled. No chest pain or SOB. Wants to go to [facility]. Objective Last 24 Hour Vital Signs Date Time Temp Pulse Resp B/P (MAP) Pulse Ox O2 Delivery O2 Flow Rate FiO2 02/24/17 15:22 83 20 96 Nasal Cannula 3.0 32 02/24/17 15:15 71 20 95 Nasal Cannula 3.0 32 02/24/17 12:00 98.1 88 20 119/74 98 Nasal Cannula 4.0 02/24/17 12:00 72 02/24/17 11:06 78 22 96 Nasal Cannula 3.0 32 02/24/17 11:01 69 158/97 02/24/17 10:56 69 20 94 Nasal Cannula 3.0 32 02/24/17 08:51 158/97 02/24/17 08:51 118 02/24/17 08:50 118 158/97 02/24/17 08:00 91 02/24/17 08:00 96.9 118 22 158/97 95 Nasal Cannula 4.0 02/24/17 07:42 85 22 97 Nasal Cannula 3.0 32 02/24/17 07:34 83 20 95 Nasal Cannula 3.0 32 02/24/17 07:34 Nasal Cannula 3.0 32 02/24/17 07:34 95 Nasal Cannula 3.0 32 02/24/17 05:51 103 140/95 02/24/17 04:00 102 02/24/17 04:00 98.0 115 22 139/95 96 Nasal Cannula 4.0 02/24/17 02:41 85 22 97 Venturi Mask 6.0 35 02/24/17 02:31 85 24 92 Nasal Cannula 2.0 28 02/24/17 00:00 93 02/24/17 00:00 98.2 101 22 149/81 95 Nasal Cannula 4.0 02/23/17 23:43 101 149/81 02/23/17 23:30 103 20 96 Nasal Cannula 2.0 28 02/23/17 23:20 96 20 93 Nasal Cannula 2.0 28 02/23/17 20:43 90 147/90 02/23/17 20:00 98.4 90 22 147/90 95 Nasal Cannula 2.0 02/23/17 20:00 87 02/23/17 19:40 91 20 96 Nasal Cannula 2.0 28 02/23/17 19:36 93 20 Nasal Cannula 2.0 28 02/23/17 19:32 Nasal Cannula 2.0 28 02/23/17 19:32 92 Nasal Cannula 2.0 28 02/23/17 19:31 93 20 92 Nasal Cannula 2.0 28 02/23/17 17:36 84 143/97 Intake and Output 02/23/17 02/24/17 19:00 07:00 Intake Total 820 ml 240 ml Balance 820 ml 240 ml Intake Oral 820 ml 240 ml # Voids 2 6 # Bowel Movements 1 Laboratory Tests Test 02/24/17 03:40 Sodium Level 143 MMOL/L (136-145) Potassium Level 4.7 MMOL/L (3.5-5.1) Chloride Level 103 MMOL/L (98-107) Carbon Dioxide Level 26 MMOL/L (21-32) Anion Gap 14 mmol/L (5-15) Blood Urea Nitrogen 45 mg/dL (7-18) H Creatinine 1.5 MG/DL (0.55-1.30) H Estimat Glomerular Filtration Rate 42.1 mL/min (>60) Glucose Level 99 MG/DL (74-106) Calcium Level 8.2 MG/DL (8.5-10.1) L Objective HEAD AND NECK: No JVD or carotid bruits. LUNGS: Clear. CARDIOVASCULAR: Irregularly irregular S1 and S2 with no gallop or murmur. ABDOMEN: Soft. EXTREMITIES: Bilateral lymphedema. VIOLETA GOODWIN Feb 24, 2017 16:44
--- NOTE | 2017-02-24 19:23 | General Progress Note ---
Assessment/Plan Problem List: (1) Morbid obesity ICD Codes: E66.01 - Morbid (severe) obesity due to excess calories SNOMED: 301452985, [id number] (2) CKD (chronic kidney disease) stage 3, GFR 30-59 ml/min ICD Codes: N18.3 - Chronic kidney disease, stage 3 (moderate) SNOMED: 727763238 (3) Diabetes ICD Codes: E11.9 - Type 2 diabetes mellitus without complications SNOMED: 34747730 (4) Thoracic aortic aneurysm ICD Codes: I71.2 - Thoracic aortic aneurysm, without rupture SNOMED: 669298043 (5) Anticoagulant prescribed SNOMED: 029890695 (6) Asthma exacerbation ICD Codes: J45.901 - Unspecified asthma with (acute) exacerbation SNOMED: 153878632 (7) Atrial flutter ICD Codes: I48.92 - Unspecified atrial flutter SNOMED: 5999836 Qualifiers: Qualified Codes: I48.4 - Atypical atrial flutter (8) Tachycardia ICD Codes: R00.0 - Tachycardia, unspecified SNOMED: 6876411 Assessment/Plan titrate diltiazem, digoxin added anticoag, tele, increase steroids, pul care increase levemir Subjective Constitutional: Reports: weakness HEENT: Reports: no symptoms Cardiovascular: Reports: irregular heart rate, palpitations Respiratory: Reports: SOB at rest, wheezing Gastrointestinal/Abdominal: Reports: no symptoms Neurologic/Psychiatric: Reports: no symptoms Endocrine: Reports: no symptoms Hematologic/Lymphatic: Reports: no symptoms Allergies: Coded Allergies: No Known Allergies (Unverified , 02/20/17) Objective Last 24 Hour Vital Signs Date Time Temp Pulse Resp B/P (MAP) Pulse Ox O2 Delivery O2 Flow Rate FiO2 02/24/17 17:56 78 114/43 02/24/17 16:00 78 02/24/17 16:00 98.6 79 21 114/43 100 Nasal Cannula 4.0 02/24/17 15:22 83 20 96 Nasal Cannula 3.0 32 02/24/17 15:15 71 20 95 Nasal Cannula 3.0 32 02/24/17 12:00 98.1 88 20 119/74 98 Nasal Cannula 4.0 02/24/17 12:00 72 02/24/17 11:06 78 22 96 Nasal Cannula 3.0 32 02/24/17 11:01 69 158/97 02/24/17 10:56 69 20 94 Nasal Cannula 3.0 32 02/24/17 08:51 158/97 02/24/17 08:51 118 02/24/17 08:50 118 158/97 02/24/17 08:00 91 02/24/17 08:00 96.9 118 22 158/97 95 Nasal Cannula 4.0 02/24/17 07:42 85 22 97 Nasal Cannula 3.0 32 02/24/17 07:34 83 20 95 Nasal Cannula 3.0 32 02/24/17 07:34 Nasal Cannula 3.0 32 02/24/17 07:34 95 Nasal Cannula 3.0 32 02/24/17 05:51 103 140/95 02/24/17 04:00 102 02/24/17 04:00 98.0 115 22 139/95 96 Nasal Cannula 4.0 02/24/17 02:41 85 22 97 Venturi Mask 6.0 35 02/24/17 02:31 85 24 92 Nasal Cannula 2.0 28 02/24/17 00:00 93 02/24/17 00:00 98.2 101 22 149/81 95 Nasal Cannula 4.0 02/23/17 23:43 101 149/81 02/23/17 23:30 103 20 96 Nasal Cannula 2.0 28 02/23/17 23:20 96 20 93 Nasal Cannula 2.0 28 02/23/17 20:43 90 147/90 02/23/17 20:00 98.4 90 22 147/90 95 Nasal Cannula 2.0 02/23/17 20:00 87 02/23/17 19:40 91 20 96 Nasal Cannula 2.0 28 02/23/17 19:36 93 20 Nasal Cannula 2.0 28 02/23/17 19:32 Nasal Cannula 2.0 28 02/23/17 19:32 92 Nasal Cannula 2.0 28 02/23/17 19:31 93 20 92 Nasal Cannula 2.0 28 Intake and Output 02/23/17 02/24/17 19:00 07:00 Intake Total 820 ml 240 ml Balance 820 ml 240 ml Intake Oral 820 ml 240 ml # Voids 2 6 # Bowel Movements 1 Laboratory Tests 02/24/17 03:40: Sodium Level 143, Potassium Level 4.7, Chloride Level 103, Carbon Dioxide Level 26, Anion Gap 14, Blood Urea Nitrogen 45H, Creatinine 1.5H, Estimat Glomerular Filtration Rate 42.1, Glucose Level 99, Calcium Level 8.2L Height (Feet): 5 Height (Inches): 6.00 Weight (Pounds): 332 General Appearance: no apparent distress, morbidly obese EENT: normal ENT inspection Neck: normal alignment, supple Cardiovascular: regularly irregular Respiratory/Chest: expiratory wheezing Abdomen: non tender Extremities: no calf tenderness Edema: trace edema 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
[2017-02-24 20:00] VITALS: BP 135/87
[2017-02-24] MEDS ORDERED: Levemir Flexpen SUBQ SCH (21:00)
[2017-02-24] MEDS: Atorvastatin 20mg tab ORAL SCH (22:09)
[2017-02-25] VITALS: BP 108/61
[2017-02-25] MEDS: Ipratropium 0.02% Inh Soln 2.5ml UD HHN SCH ×6 (03:00→20:08)
[2017-02-25 04:00] VITALS: BP 124/90
[2017-02-25] MEDS: Solu-MEDROL 40mg Inj IVP SCH ×2 (06:17→17:44)
[2017-02-25] MEDS: dilTIAZem HCl 90mg tab ORAL SCH ×4 (06:17→17:45)
[2017-02-25 08:00] VITALS: BP 143/81
--- NOTE | 2017-02-25 08:26 | Pulmonology Progress Note ---
Assessment/Plan Assessment/Plan afib/flutter wtih RVR; rate better now abnormal A arch on xray unable to get CT with contrast due to cr 1.9 obesity RI juan manuel DM HTN HLD Asthma; dyspnea echo noted bs control rate control aspiration precautions avoid b agonists; continue round the clock xopenex/atrovent discussed with Dr roseline FRANCISCO planning back to SNF Subjective Interval Events: Short of breath; has cough Constitutional: Reports: no symptoms HEENT: Repors: no symptoms Respiratory: Reports: dry cough, shortness of breath Cardiovascular: Reports: no symptoms Gastrointestinal/Abdominal: Reports: no symptoms Allergies: Coded Allergies: No Known Allergies (Unverified , 02/20/17) Objective Last 24 Hour Vital Signs Date Time Temp Pulse Resp B/P (MAP) Pulse Ox O2 Delivery O2 Flow Rate FiO2 02/25/17 08:00 98.7 104 20 143/81 96 Nasal Cannula 4.0 02/25/17 06:17 123 124/90 02/25/17 04:00 123 02/25/17 04:00 96.6 82 18 124/90 98 Nasal Cannula 4.0 02/25/17 03:19 Nasal Cannula 02/25/17 03:18 Nasal Cannula 02/25/17 00:00 80 108/61 02/25/17 00:00 88 02/25/17 00:00 97.9 79 17 108/61 99 Nasal Cannula 4.0 02/24/17 23:00 Nasal Cannula 3.0 32 02/24/17 23:00 Nasal Cannula 3.0 32 02/24/17 20:27 80 135/59 02/24/17 20:00 112 02/24/17 20:00 98.0 79 18 135/87 99 Nasal Cannula 4.0 02/24/17 19:25 72 18 94 Nasal Cannula 3.0 32 02/24/17 19:25 Nasal Cannula 3.0 32 02/24/17 19:24 94 Nasal Cannula 3.0 32 02/24/17 19:24 Nasal Cannula 3.0 32 02/24/17 17:56 78 114/43 02/24/17 16:00 78 02/24/17 16:00 98.6 79 21 114/43 100 Nasal Cannula 4.0 02/24/17 15:22 83 20 96 Nasal Cannula 3.0 32 02/24/17 15:15 71 20 95 Nasal Cannula 3.0 32 02/24/17 12:00 98.1 88 20 119/74 98 Nasal Cannula 4.0 02/24/17 12:00 72 02/24/17 11:06 78 22 96 Nasal Cannula 3.0 32 02/24/17 11:01 69 158/97 02/24/17 10:56 69 20 94 Nasal Cannula 3.0 32 02/24/17 08:51 158/97 02/24/17 08:51 118 02/24/17 08:50 118 158/97 Intake and Output 02/24/17 02/25/17 19:00 07:00 Intake Total 300 ml 300 ml Balance 300 ml 300 ml Intake Oral 300 ml Other 300 ml # Voids 3 3 # Bowel Movements 2 General Appearance: no acute distress HEENT: normocephalic Respiratory/Chest: chest wall non-tender, decreased breath sounds, rhonchi Cardiovascular: normal peripheral pulses, normal rate Abdomen: normal bowel sounds Current Medications Medications (Trade) Dose Ordered Sig/Tera Route PRN Reason Start Time Stop Time Status Last Admin Dose Admin Acetaminophen (Tylenol) 650 mg Q4H PRN ORAL Mild Pain/Temp > 100.5 02/23/17 00:45 03/22/17 20:44 Albuterol/ Ipratropium (Albuterol/ Ipratropium) 3 ml Q4H PRN HHN wheezing 02/22/17 21:12 02/27/17 21:11 Apixaban (Eliquis) 5 mg Q12HR ORAL 02/22/17 21:00 03/23/17 20:59 02/24/17 20:27 Aspirin (ASA) 81 mg DAILY ORAL 02/23/17 09:00 03/23/17 08:59 02/24/17 08:50 Atorvastatin Calcium (Lipitor) 20 mg 2230 ORAL 02/22/17 22:30 03/24/17 22:29 02/24/17 22:09 Clonidine HCl (Catapres) 0.1 mg Q4H PRN ORAL SBP >160 02/22/17 21:10 03/24/17 21:09 Dextrose (Dextrose 50%) STAT PRN IV Hypoglycemia 02/22/17 21:15 03/22/17 21:14 Digoxin (Lanoxin) 0.125 mg DAILY ORAL 02/23/17 09:00 03/25/17 08:59 02/24/17 08:51 Diltiazem HCl (Cardizem) 90 mg EVERY 6 HOURS ORAL 02/23/17 00:00 03/24/17 17:59 02/25/17 06:17 Docusate Sodium (Colace) 100 mg BIDPRN PRN ORAL Constipation 2nd Line Agent 02/22/17 21:11 03/24/17 21:10 Famotidine (Pepcid) 20 mg DAILY ORAL 02/23/17 09:00 03/23/17 08:59 02/24/17 08:51 Guaifenesin (Mucinex ER) 600 mg TWICE A DAY ORAL 02/23/17 09:00 03/23/17 08:59 02/24/17 17:45 Insulin Aspart (NovoLOG) breakfast, lunch and dinner ... THREE TIMES A DAY SUBQ 02/23/17 09:00 03/23/17 08:59 02/24/17 17:47 Insulin Detemir (Levemir) 44 units BEDTIME SUBQ 02/24/17 21:00 03/26/17 20:59 Ipratropium Roscoe (Atrovent) 500 mcg Q6HRT N 02/25/17 09:00 03/02/17 08:59 Isosorbide Mononitrate (Imdur) 30 mg DAILY ORAL 02/23/17 09:00 03/23/17 08:59 02/24/17 08:51 Levalbuterol HCl (Xopenex) 0.625 mg Q6HRT N 02/25/17 09:00 03/02/17 08:59 Magnesium Hydroxide (Mom) 30 ml DAILYPRN PRN ORAL Constipation 02/22/17 21:14 03/24/17 21:13 Magnesium Oxide (Mag-Ox 400mg) 400 mg DAILY ORAL 02/23/17 09:00 03/23/17 08:59 02/24/17 08:51 Methylprednisolone Sodium Succinate (Solu-MEDROL) 40 mg EVERY 8 HOURS IVP 02/23/17 09:30 03/25/17 09:29 02/25/17 06:17 Metoprolol Tartrate (Lopressor) 50 mg Q12HR ORAL 02/23/17 12:30 03/25/17 12:29 02/24/17 20:27 Multi-Ingredient Ointment (Eucerin) 1 applic DAILY TOPIC 02/23/17 09:00 03/23/17 08:59 02/24/17 08:50 Sennosides (Senokot) 2 tab DAILY ORAL 02/23/17 09:00 03/23/17 08:59 02/24/17 08:50 Ric Pedersen MD Feb 25, 2017 08:26
[2017-02-25] MEDS: Metoprolol Tartrate 50mg tab ORAL SCH ×2 (08:47→20:54)
[2017-02-25] MEDS: guaiFENesin ER 600mg tab ORAL SCH ×2 (08:47→17:45)
[2017-02-25] MEDS: Imdur 30mg tab ORAL SCH (08:47)
[2017-02-25] MEDS: Eliquis 2.5mg tablet ORAL SCH ×2 (08:47→20:53)
[2017-02-25] MEDS: Sennosides 8.6mg ORAL SCH ×2 (08:47→08:56)
[2017-02-25] MEDS: Aspirin Baby 81mg ORAL SCH (08:48)
[2017-02-25] MEDS: Digoxin 0.125mg tab ORAL SCH (08:48)
[2017-02-25] MEDS: Magnesium Oxide 400mg tab ORAL SCH (08:48)
--- NOTE | 2017-02-25 08:57 | General Progress Note ---
Assessment/Plan Problem List: (1) Morbid obesity ICD Codes: E66.01 - Morbid (severe) obesity due to excess calories SNOMED: 213215972, 72439801119180 (2) CKD (chronic kidney disease) stage 3, GFR 30-59 ml/min ICD Codes: N18.3 - Chronic kidney disease, stage 3 (moderate) SNOMED: 267520813 (3) Diabetes ICD Codes: E11.9 - Type 2 diabetes mellitus without complications SNOMED: 49275293 (4) Thoracic aortic aneurysm ICD Codes: I71.2 - Thoracic aortic aneurysm, without rupture SNOMED: 829645020 (5) Anticoagulant prescribed SNOMED: 880462190 (6) Asthma exacerbation ICD Codes: J45.901 - Unspecified asthma with (acute) exacerbation SNOMED: 541610585 (7) Atrial flutter ICD Codes: I48.92 - Unspecified atrial flutter SNOMED: 9698675 Qualifiers: Qualified Codes: I48.4 - Atypical atrial flutter (8) Tachycardia ICD Codes: R00.0 - Tachycardia, unspecified SNOMED: 2969434 Assessment/Plan titrate diltiazem, digoxin added anticoag, tele, decrease steroids, pul care increase levemir Subjective Constitutional: Reports: weakness HEENT: Reports: no symptoms Cardiovascular: Reports: irregular heart rate, palpitations Respiratory: Reports: cough, shortness of breath Gastrointestinal/Abdominal: Reports: no symptoms Genitourinary: Reports: no symptoms Neurologic/Psychiatric: Reports: no symptoms Endocrine: Reports: no symptoms Allergies: Coded Allergies: No Known Allergies (Unverified , 02/20/17) Objective Last 24 Hour Vital Signs Date Time Temp Pulse Resp B/P (MAP) Pulse Ox O2 Delivery O2 Flow Rate FiO2 02/25/17 08:48 104 02/25/17 08:47 104 143/81 02/25/17 08:47 143/81 02/25/17 08:00 98.7 104 20 143/81 96 Nasal Cannula 4.0 02/25/17 06:17 123 124/90 02/25/17 04:00 123 02/25/17 04:00 96.6 82 18 124/90 98 Nasal Cannula 4.0 02/25/17 03:19 Nasal Cannula 02/25/17 03:18 Nasal Cannula 02/25/17 00:00 80 108/61 02/25/17 00:00 88 02/25/17 00:00 97.9 79 17 108/61 99 Nasal Cannula 4.0 02/24/17 23:00 Nasal Cannula 3.0 32 02/24/17 23:00 Nasal Cannula 3.0 32 02/24/17 20:27 80 135/59 02/24/17 20:00 112 02/24/17 20:00 98.0 79 18 135/87 99 Nasal Cannula 4.0 02/24/17 19:25 72 18 94 Nasal Cannula 3.0 32 02/24/17 19:25 Nasal Cannula 3.0 32 02/24/17 19:24 94 Nasal Cannula 3.0 32 02/24/17 19:24 Nasal Cannula 3.0 32 02/24/17 17:56 78 114/43 02/24/17 16:00 78 02/24/17 16:00 98.6 79 21 114/43 100 Nasal Cannula 4.0 02/24/17 15:22 83 20 96 Nasal Cannula 3.0 32 02/24/17 15:15 71 20 95 Nasal Cannula 3.0 32 02/24/17 12:00 98.1 88 20 119/74 98 Nasal Cannula 4.0 02/24/17 12:00 72 02/24/17 11:06 78 22 96 Nasal Cannula 3.0 32 02/24/17 11:01 69 158/97 02/24/17 10:56 69 20 94 Nasal Cannula 3.0 32 Intake and Output 02/24/17 02/25/17 19:00 07:00 Intake Total 300 ml 300 ml Balance 300 ml 300 ml Intake Oral 300 ml Other 300 ml # Voids 3 3 # Bowel Movements 2 Height (Feet): 5 Height (Inches): 6.00 Weight (Pounds): 333 General Appearance: alert, morbidly obese EENT: normal ENT inspection Neck: normal alignment Cardiovascular: regularly irregular, tachycardia Respiratory/Chest: expiratory wheezing Abdomen: non tender, soft Edema: trace edema Neurologic: costume maker II-XII grossly normal [place] Feb 25, 2017 08:57
[2017-02-25] MEDS: Eucerin Cream 15gm TOPIC SCH (09:03)
[2017-02-25] MEDS: NovoLOG Insulin Flexpen SUBQ SCH ×3 (09:04→17:46)
--- NOTE | 2017-02-25 09:42 | Progress Note ---
DATE: 02/23/2017 CARDIOLOGY PROGRESS NOTE SUBJECTIVE: The patient remains on the cardiac observation unit. She is now on multiple rate controlling agents as well as amiodarone antiarrhythmic and continues to have atrial flutter with rapid ventricular rate. At this time, she is asleep and her heart rate is exactly 100 for a prolonged period of my observation. The patient has still not underdone a venous duplex study or at least a result is not available. If she indeed has a source of pulmonary emboli, that may explain some of her rapid atrial tachyarrhythmias. OBJECTIVE: VITAL SIGNS: Blood pressure 149/81, pulse 101, respirations 20, and afebrile. LUNGS: Clear. CARDIAC: Irregularly irregular. ABDOMEN: Soft. EXTREMITIES: With nonpitting edema. LABORATORY DATA: Labs notable for BUN and creatinine decreasing to 45 and 1.4. IMPRESSION: 1. Incessant atrial tachyarrhythmias with atrial flutter. 2. Acute on chronic renal failure, recovering off diuretics. 3. Chronic diastolic congestive heart failure. 4. Lymphedema. PLAN: Plan is to discuss with Dr. Rodriguez from EP. Review venous duplex scan. If no source of pulmonary emboli, may consider DC cardioversion at this time or attempted ablation of atrial flutter in a tertiary care facility. Maxim Levin M.D. DR: FRANCESCA JOB#: [id number] CC:
--- NOTE | 2017-02-25 09:43 | Progress Note ---
DATE: 02/24/2017 CARDIOLOGY PROGRESS NOTE SUBJECTIVE: Case was discussed with staff. The patient remains in atrial flutter. Rate control has improved, but remains suboptimal. PHYSICAL EXAMINATION: VITAL SIGNS: Stable. Blood pressure 135/87, pulse 112, and respiratory rate 18. LUNGS: Diminished breath sounds. HEART: Irregularly irregular rhythm. ABDOMEN: Obese. EXTREMITIES: With trace edema. LABORATORY DATA: Noted. Potassium 4.7. IMPRESSION: 1. Incessant atrial tachyarrhythmias. 2. Paroxysmal atrial flutter. 3. Obesity. 4. History of lymphedema. 5. Hypertension. PLAN: The patient is considering POONAM and evaluation of left atrial appendage followed by DC cardioversion or ablation attempt, the latter being higher risk due to her body habitus. At this time, the patient way to be transferred to a tertiary care facility because of the shortage of beds due to the flu epidemic at this time. If she remains stable before a bed becomes available, she can be discharged to the fdc facility and readmitted to [facility] for the procedure. In the interim, she will remain on a combination regimen for rate control off antiarrhythmics, but continue cardioembolic prophylaxis with apixaban. Maxim Levin M.D. DR: DAVID JOB#: [id number] CC:
[2017-02-25] MEDS: Levalbuterol Inh UD 1.25mg/0.5ml HHN SCH ×3 (10:06→20:08)
[2017-02-25 12:00] VITALS: BP 139/76
[2017-02-25 16:00] VITALS: BP 111/60
--- NOTE | 2017-02-25 16:03 | Cardiac Electrophysiology PN ---
Assessment/Plan Assessment/Plan 1. Atrial flutter with rapid ventricular response. Since duration of her atrial flutter is not clear and she was not on anticoagulation before admission , keep off Amiodarone for the risk of conversion to SR. Continue rate control with Cardizem 90 mg every 6 hours p.o. and Digoxin 0.125 daily and Lopressor 50 bid.On Eliquis 5 mg b.i.d.The options of medical therapy vs POONAM and if no clot then either Cardioversion or atrial flutter ablation was DW patient yesterday. She is not sure. She has had Cardioversion in the past. In view of her weight of more than 300 lbs and bilateral LE lymphedema, ablation would be technically more challenging than an average patient. 2. Hypertension. Continue Cardizem and Lopressor 3. Aortic aneurysm 4. Obesity. 5. Lymphedema. LUDWIG RN DC planning back to [facility] Subjective Subjective Still in atrial flutter with controlled rate overnight. No chest pain or SOB. . Objective Last 24 Hour Vital Signs Date Time Temp Pulse Resp B/P (MAP) Pulse Ox O2 Delivery O2 Flow Rate FiO2 02/25/17 13:36 92 18 95 Nasal Cannula 3.0 02/25/17 13:27 101 18 95 Nasal Cannula 3.0 02/25/17 13:23 101 139/76 02/25/17 12:00 97.9 101 19 139/76 94 Nasal Cannula 4.0 02/25/17 11:56 105 02/25/17 10:16 100 20 94 Nasal Cannula 3.0 02/25/17 10:06 114 18 93 Nasal Cannula 3.0 02/25/17 08:48 104 02/25/17 08:47 104 143/81 02/25/17 08:47 143/81 02/25/17 08:32 94 02/25/17 08:00 98.7 104 20 143/81 96 Nasal Cannula 4.0 02/25/17 06:45 95 Nasal Cannula 3.0 02/25/17 06:45 Nasal Cannula 3.0 02/25/17 06:17 123 124/90 02/25/17 04:00 123 02/25/17 04:00 96.6 82 18 124/90 98 Nasal Cannula 4.0 02/25/17 03:19 Nasal Cannula 02/25/17 03:18 Nasal Cannula 02/25/17 00:00 80 108/61 02/25/17 00:00 88 02/25/17 00:00 97.9 79 17 108/61 99 Nasal Cannula 4.0 02/24/17 23:00 Nasal Cannula 3.0 32 02/24/17 23:00 Nasal Cannula 3.0 32 02/24/17 20:27 80 135/59 02/24/17 20:00 112 02/24/17 20:00 98.0 79 18 135/87 99 Nasal Cannula 4.0 02/24/17 19:25 72 18 94 Nasal Cannula 3.0 32 02/24/17 19:25 Nasal Cannula 3.0 32 02/24/17 19:24 94 Nasal Cannula 3.0 32 02/24/17 19:24 Nasal Cannula 3.0 32 02/24/17 17:56 78 114/43 02/24/17 16:00 78 02/24/17 16:00 98.6 79 21 114/43 100 Nasal Cannula 4.0 Intake and Output 02/24/17 02/25/17 19:00 07:00 Intake Total 300 ml 300 ml Balance 300 ml 300 ml Intake Oral 300 ml Other 300 ml # Voids 3 3 # Bowel Movements 2 Objective HEAD AND NECK: No JVD or carotid bruits. LUNGS: Clear. CARDIOVASCULAR: Irregularly irregular S1 and S2 with no gallop or murmur. ABDOMEN: Soft. EXTREMITIES: Bilateral lymphedema. VIOLETA GOODWIN Feb 25, 2017 16:03
[2017-02-25 20:00] VITALS: BP 124/78
[2017-02-25] MEDS ORDERED: Levemir Flexpen SUBQ SCH (21:00)
[2017-02-25] MEDS: Atorvastatin 20mg tab ORAL SCH (22:30)
[2017-02-26 00:52] VITALS: BP 132/84
[2017-02-26] MEDS: Ipratropium 0.02% Inh Soln 2.5ml UD HHN SCH ×3 (01:06→14:03)
[2017-02-26] MEDS: Levalbuterol Inh UD 1.25mg/0.5ml HHN SCH ×3 (01:06→14:05)
--- NOTE | 2017-02-26 03:00 | Progress Note ---
DATE: 02/25/2017 SUBJECTIVE: The patient remains in atrial flutter, better rate control. Still in the range of 100 at rest. The patient has no chest pain. She has some congestion. OBJECTIVE: VITAL SIGNS: Blood pressure 111/60, heart rate 78 to 123, respiratory rate 18, and afebrile. LUNGS: Diminished breath sounds. HEART: Irregularly irregular rhythm. ABDOMEN: Obese. EXTREMITIES: With lymphedema. Trace non-pitting edema. IMPRESSION: 1. Paroxysmal atrial flutter. 2. Thoracic aortic aneurysm. 3. Chronic kidney disease. 4. Obesity. 5. Lymphedema. 6. Chronic obstructive pulmonary disease exacerbation. PLAN: 1. Cardioembolic prophylaxis. 2. Taper respiratory therapy as able. 3. Outpatient ablation versus POONAM cardioversion to follow at a tertiary care facility. 4. We will repeat chest x-ray. Maxim Levin M.D. DR: HOLLY JOB#: [id number] CC:
[2017-02-26 04:00] VITALS: BP 124/88
[2017-02-26 05:57] LABS: HEMATOCRIT 41.9 % (37.0-47.0); HEMOGLOBIN 13.3 G/DL (12.0-16.0); MEAN CORPUSCULAR VOLUME 103 FL (80-99); PLATELET COUNT 203 K/UL (150-450); RED BLOOD COUNT 4.06 M/UL (4.20-5.40); RED CELL DISTRIBUTION WIDTH 13.2 % (11.6-14.8); WHITE BLOOD COUNT 6.1 K/UL (4.8-10.8)
[2017-02-26] MEDS: dilTIAZem HCl 90mg tab ORAL SCH ×3 (06:00→12:33)
[2017-02-26] MEDS: Metoprolol Tartrate 50mg tab ORAL SCH (06:52)
[2017-02-26 07:13] LABS: ANION GAP 2 mmol/L (5-15); BLOOD UREA NITROGEN 54 mg/dL (7-18); CALCIUM 9.4 MG/DL (8.5-10.1); CARBON DIOXIDE 36 MMOL/L (21-32); CHLORIDE 102 MMOL/L (98-107); CREATININE 1.8 MG/DL (0.55-1.30); SODIUM 140 MMOL/L (136-145)
[2017-02-26 08:00] VITALS: BP 143/52
[2017-02-26] MEDS ORDERED: CARDIZEM90 MG ORAL (08:54)
[2017-02-26] MEDS ORDERED: LANOXIN125 MCG ORAL (08:54)
[2017-02-26] MEDS ORDERED: ELIQUIS2.5 MG ORAL (08:54)
[2017-02-26] MEDS ORDERED: ASPIRIN81 MG ORAL (08:54)
[2017-02-26] MEDS ORDERED: LEVEMIR FL100 UNIT/1 SUBQ (08:54)
[2017-02-26] MEDS: Sennosides 8.6mg ORAL SCH (09:00)
[2017-02-26] MEDS: Eucerin Cream 15gm TOPIC SCH (09:14)
[2017-02-26] MEDS: Aspirin Baby 81mg ORAL SCH (09:15)
[2017-02-26] MEDS: Magnesium Oxide 400mg tab ORAL SCH (09:15)
[2017-02-26] MEDS: Imdur 30mg tab ORAL SCH (09:15)
[2017-02-26] MEDS: Solu-MEDROL 40mg Inj IVP SCH (09:15)
[2017-02-26] MEDS: Digoxin 0.125mg tab ORAL SCH (09:15)
[2017-02-26] MEDS: guaiFENesin ER 600mg tab ORAL SCH (09:15)
[2017-02-26] MEDS: Eliquis 2.5mg tablet ORAL SCH (09:15)
[2017-02-26] MEDS: NovoLOG Insulin Flexpen SUBQ SCH ×2 (09:16→12:37)
[2017-02-26 11:52] VITALS: BP 141/85
--- NOTE | 2017-02-26 12:04 | Diagnostic Imaging Report ---
Indication: Abnormal breath sounds Comparison: 02/20/2017 A single view chest radiograph was obtained. Findings: The aorta is moderately enlarged but stable in appearance radiographically. There is vague density at the left lung base present. Heart is enlarged. Pulmonary vascularity is within normal limits. IMPRESSION: Vague left basilar density. Underlying effusion and/or parenchymal disease not excluded.
[2017-02-26 12:33] VITALS: BP 141/85
--- NOTE | 2017-02-26 13:59 | Pulmonology Progress Note ---
Assessment/Plan Assessment/Plan afib/flutter wtih RVR; rate better now dyspnea and wheezing, much improved abnormal A arch on xray unable to get CT with contrast due to cr 1.9 obesity RI juan manuel DM HTN HLD Asthma; dyspnea echo noted bs control rate control aspiration precautions avoid b agonists; continue round the clock xopenex/atrovent discussed with Dr roseline FRANCISCO planning back to SNF Subjective Interval Events: states she is feeling much better. Constitutional: Reports: no symptoms HEENT: Repors: no symptoms Respiratory: Reports: no symptoms Cardiovascular: Reports: no symptoms Gastrointestinal/Abdominal: Reports: no symptoms Genitourinary: Reports: no symptoms Allergies: Coded Allergies: No Known Allergies (Unverified , 02/20/17) Objective Last 24 Hour Vital Signs Date Time Temp Pulse Resp B/P (MAP) Pulse Ox O2 Delivery O2 Flow Rate FiO2 02/26/17 12:33 130 141/85 02/26/17 11:52 97.5 130 18 141/85 98 Nasal Cannula 3.0 02/26/17 09:15 143/52 02/26/17 09:15 101 02/26/17 08:00 97.8 101 18 143/52 97 Nasal Cannula 4.0 02/26/17 07:43 61 17 96 Nasal Cannula 2.0 28 02/26/17 07:33 57 17 99 Nasal Cannula 3.0 32 02/26/17 07:32 Nasal Cannula 3.0 32 02/26/17 07:31 99 Nasal Cannula 3.0 32 02/26/17 07:29 87 02/26/17 06:52 131 124/80 02/26/17 06:00 131 118/80 02/26/17 04:00 97.9 129 24 124/88 99 Nasal Cannula 4.0 02/26/17 04:00 131 02/26/17 01:16 70 18 98 Nasal Cannula 3.0 32 02/26/17 01:06 75 18 97 Nasal Cannula 3.0 32 02/26/17 00:52 98.1 67 24 132/84 95 Nasal Cannula 4.0 02/26/17 00:00 79 134/80 02/26/17 00:00 83 02/25/17 20:54 79 121/60 02/25/17 20:19 81 18 98 Nasal Cannula 3.0 32 02/25/17 20:08 89 18 96 Nasal Cannula 3.0 32 02/25/17 20:08 Nasal Cannula 3.0 32 02/25/17 20:08 96 Nasal Cannula 3.0 32 02/25/17 20:00 98.4 75 18 124/78 98 Nasal Cannula 4.0 02/25/17 20:00 78 02/25/17 17:45 123 111/60 02/25/17 16:00 95.9 123 20 111/60 99 Nasal Cannula 4.0 02/25/17 15:26 78 Intake and Output 02/25/17 02/26/17 19:00 07:00 Intake Total 840 ml 500 ml Balance 840 ml 500 ml Intake Oral 840 ml 500 ml # Voids 2 2 # Bowel Movements 2 General Appearance: no acute distress HEENT: normocephalic Respiratory/Chest: chest wall non-tender, lungs clear Cardiovascular: normal peripheral pulses, normal rate Abdomen: normal bowel sounds Laboratory Tests 02/26/17 05:10: White Blood Count 6.1, Red Blood Count 4.06L, Hemoglobin 13.3, Hematocrit 41.9, Mean Corpuscular Volume 103H, Mean Corpuscular Hemoglobin 32.8H, Mean Corpuscular Hemoglobin Concent 31.8L, Red Cell Distribution Width 13.2, Platelet Count 203, Mean Platelet Volume 5.2L, Neutrophils (%) (Auto) , Lymphocytes (%) (Auto) , Monocytes (%) (Auto) , Eosinophils (%) (Auto) , Basophils (%) (Auto) , Differential Total Cells Counted 100, Neutrophils % ( Manual) 89H, Lymphocytes % (Manual) 7L, Monocytes % (Manual) 4, Eosinophils % ( Manual) 0, Basophils % (Manual) 0, Band Neutrophils 0, Platelet Estimate Adequate, Platelet Morphology Normal, Hypochromasia 1+, Macrocytosis 1+, Sodium Level 140, Potassium Level 6.0*H, Chloride Level 102, Carbon Dioxide Level 36H, Anion Gap 2L, Blood Urea Nitrogen 54H, Creatinine 1.8H, Estimat Glomerular Filtration Rate 33.9, Glucose Level 263H, Calcium Level 9.4, Magnesium Level 2.8H, Pro-B-Type Natriuretic Peptide 4001H, Digoxin Level 1.3 Current Medications Medications (Trade) Dose Ordered Sig/Etra Route PRN Reason Start Time Stop Time Status Last Admin Dose Admin Acetaminophen (Tylenol) 650 mg Q4H PRN ORAL Mild Pain/Temp > 100.5 02/23/17 00:45 03/22/17 20:44 Albuterol/ Ipratropium (Albuterol/ Ipratropium) 3 ml Q4H PRN HHN wheezing 02/22/17 21:12 02/27/17 21:11 Apixaban (Eliquis) 5 mg Q12HR ORAL 02/22/17 21:00 03/23/17 20:59 02/26/17 09:15 Aspirin (ASA) 81 mg DAILY ORAL 02/23/17 09:00 03/23/17 08:59 02/26/17 09:15 Atorvastatin Calcium (Lipitor) 20 mg 2230 ORAL 02/22/17 22:30 03/24/17 22:29 02/24/17 22:09 Clonidine HCl (Catapres) 0.1 mg Q4H PRN ORAL SBP >160 02/22/17 21:10 03/24/17 21:09 Dextrose (Dextrose 50%) STAT PRN IV Hypoglycemia 02/22/17 21:15 03/22/17 21:14 Digoxin (Lanoxin) 0.125 mg DAILY ORAL 02/23/17 09:00 03/25/17 08:59 02/26/17 09:15 Diltiazem HCl (Cardizem) 90 mg EVERY 6 HOURS ORAL 02/23/17 00:00 03/24/17 17:59 02/26/17 12:33 Docusate Sodium (Colace) 100 mg BIDPRN PRN ORAL Constipation 2nd Line Agent 02/22/17 21:11 03/24/17 21:10 Famotidine (Pepcid) 20 mg DAILY ORAL 02/23/17 09:00 03/23/17 08:59 02/26/17 09:15 Guaifenesin (Mucinex ER) 600 mg TWICE A DAY ORAL 02/23/17 09:00 03/23/17 08:59 02/26/17 09:15 Insulin Aspart (NovoLOG) breakfast, lunch and dinner ... THREE TIMES A DAY SUBQ 02/23/17 09:00 03/23/17 08:59 02/26/17 12:37 Insulin Detemir (Levemir) 60 units BEDTIME SUBQ 1/11/18 21:00 03/28/17 20:59 Ipratropium Mcdonald (Atrovent) 500 mcg Q6HRT N 02/25/17 09:00 03/02/17 08:59 02/26/17 07:33 Isosorbide Mononitrate (Imdur) 30 mg DAILY ORAL 02/23/17 09:00 03/23/17 08:59 02/26/17 09:15 Levalbuterol HCl (Xopenex) 0.625 mg Q6HRT [facility] 02/25/17 09:00 03/02/17 08:59 02/26/17 07:33 Magnesium Hydroxide (Mom) 30 ml DAILYPRN PRN ORAL Constipation 02/22/17 21:14 03/24/17 21:13 Magnesium Oxide (Mag-Ox 400mg) 400 mg DAILY ORAL 02/23/17 09:00 03/23/17 08:59 02/26/17 09:15 Methylprednisolone Sodium Succinate (Solu-MEDROL) 20 mg BID IVP 02/25/17 18:00 03/25/17 17:59 02/26/17 09:15 Metoprolol Tartrate (Lopressor) 50 mg Q12HR ORAL 02/23/17 12:30 03/25/17 12:29 02/26/17 06:52 Multi-Ingredient Ointment (Eucerin) 1 applic DAILY TOPIC 02/23/17 09:00 03/23/17 08:59 02/26/17 09:14 Sennosides (Senokot) 2 tab DAILY ORAL 02/23/17 09:00 03/23/17 08:59 02/24/17 08:50 Ric Pedersen MD Feb 26, 2017 13:59
--- NOTE | 2017-02-26 15:40 | Cardiac Electrophysiology PN ---
Assessment/Plan Assessment/Plan 1. Atrial flutter with rapid ventricular response. Continue rate control with Cardizem 90 mg every 6 hours and Digoxin 0.125 daily and Lopressor 50 bid.On Eliquis 5 mg b.i.d. The options of medical therapy vs POONAM and if no clot then either Cardioversion or atrial flutter ablation was DW patient . She is not sure and wants to see her Personnel Technician as out patient. She has had Cardioversion in the past. In view of her weight of more than 300 lbs and bilateral LE lymphedema, ablation would be technically more challenging than an average patient. 2. Hypertension. Continue Cardizem and Lopressor 3. Aortic aneurysm 4. Obesity. 5. Lymphedema. LUDWIG RN DC planning back to SN today Subjective Subjective rate stable in atrial flutter. No chest pain or SOB.Awaiting DC to SNF. Objective Last 24 Hour Vital Signs Date Time Temp Pulse Resp B/P (MAP) Pulse Ox O2 Delivery O2 Flow Rate FiO2 02/26/17 14:13 77 17 98 Nasal Cannula 1.0 24 02/26/17 14:03 54 18 98 Nasal Cannula 2.0 28 02/26/17 12:33 130 141/85 02/26/17 11:52 97.5 130 18 141/85 98 Nasal Cannula 3.0 02/26/17 11:51 132 02/26/17 09:15 143/52 02/26/17 09:15 101 02/26/17 08:00 97.8 101 18 143/52 97 Nasal Cannula 4.0 02/26/17 07:43 61 17 96 Nasal Cannula 2.0 28 02/26/17 07:33 57 17 99 Nasal Cannula 3.0 32 02/26/17 07:32 Nasal Cannula 3.0 32 02/26/17 07:31 99 Nasal Cannula 3.0 32 02/26/17 07:29 87 02/26/17 06:52 131 124/80 02/26/17 06:00 131 118/80 02/26/17 04:00 97.9 129 24 124/88 99 Nasal Cannula 4.0 02/26/17 04:00 131 02/26/17 01:16 70 18 98 Nasal Cannula 3.0 32 02/26/17 01:06 75 18 97 Nasal Cannula 3.0 32 02/26/17 00:52 98.1 67 24 132/84 95 Nasal Cannula 4.0 02/26/17 00:00 79 134/80 02/26/17 00:00 83 02/25/17 20:54 79 121/60 02/25/17 20:19 81 18 98 Nasal Cannula 3.0 32 02/25/17 20:08 89 18 96 Nasal Cannula 3.0 32 02/25/17 20:08 Nasal Cannula 3.0 32 02/25/17 20:08 96 Nasal Cannula 3.0 32 02/25/17 20:00 98.4 75 18 124/78 98 Nasal Cannula 4.0 02/25/17 20:00 78 02/25/17 17:45 123 111/60 02/25/17 16:00 95.9 123 20 111/60 99 Nasal Cannula 4.0 Intake and Output 02/25/17 02/26/17 19:00 07:00 Intake Total 840 ml 500 ml Balance 840 ml 500 ml Intake Oral 840 ml 500 ml # Voids 2 2 # Bowel Movements 2 Laboratory Tests Test 02/26/17 05:10 White Blood Count 6.1 K/UL (4.8-10.8) Red Blood Count 4.06 M/UL (4.20-5.40) L Hemoglobin 13.3 G/DL (12.0-16.0) Hematocrit 41.9 % (37.0-47.0) Mean Corpuscular Volume 103 FL (80-99) H Mean Corpuscular Hemoglobin 32.8 PG (27.0-31.0) H Mean Corpuscular Hemoglobin Concent 31.8 G/DL (32.0-36.0) L Red Cell Distribution Width 13.2 % (11.6-14.8) Platelet Count 203 K/UL (150-450) Mean Platelet Volume 5.2 FL (6.5-10.1) L Neutrophils (%) (Auto) % (45.0-75.0) Lymphocytes (%) (Auto) % (20.0-45.0) Monocytes (%) (Auto) % (1.0-10.0) Eosinophils (%) (Auto) % (0.0-3.0) Basophils (%) (Auto) % (0.0-2.0) Differential Total Cells Counted 100 Neutrophils % (Manual) 89 % (45-75) H Lymphocytes % (Manual) 7 % (20-45) L Monocytes % (Manual) 4 % (1-10) Eosinophils % (Manual) 0 % (0-3) Basophils % (Manual) 0 % (0-2) Band Neutrophils 0 % (0-8) Platelet Estimate Adequate Platelet Morphology Normal Hypochromasia 1+ Macrocytosis 1+ Sodium Level 140 MMOL/L (136-145) Potassium Level 6.0 MMOL/L (3.5-5.1) *H Chloride Level 102 MMOL/L (98-107) Carbon Dioxide Level 36 MMOL/L (21-32) H Anion Gap 2 mmol/L (5-15) L Blood Urea Nitrogen 54 mg/dL (7-18) H Creatinine 1.8 MG/DL (0.55-1.30) H Estimat Glomerular Filtration Rate 33.9 mL/min (>60) Glucose Level 263 MG/DL (74-106) H Calcium Level 9.4 MG/DL (8.5-10.1) Magnesium Level 2.8 MG/DL (1.8-2.4) H Pro-B-Type Natriuretic Peptide 4001 pg/mL (0-125) H Digoxin Level 1.3 NG/ML (0.9-2.0) Objective HEAD AND NECK: No JVD or carotid bruits. LUNGS: Clear. CARDIOVASCULAR: Irregularly irregular S1 and S2 with no gallop or murmur. ABDOMEN: Soft.Obese EXTREMITIES: Bilateral lymphedema. VIOLETA GOODWIN Feb 26, 2017 15:40
[2017-02-26] MEDS ORDERED: Levemir Flexpen SUBQ SCH (21:00)
--- NOTE | 2017-02-26 21:15 | Discharge Summary ---
DATE OF ADMISSION: 02/20/2017 DATE OF DISCHARGE: 02/26/2017 PERTINENT HISTORY: The patient admitted with rapid atrial fibrillation and flutter, wheezing, shortness of breath. She has morbid obesity, history of arrhythmias, asthma, chronic lymphedema, diastolic CHF, and chronic kidney disease. PERTINENT PHYSICAL FINDINGS: See the dictated History and Physical. LUNGS: Showed distant breath sounds with faint expiratory wheezing. HEART: Rhythm is regular and tachycardic. ABDOMEN: Obese and soft. EXTREMITIES: Show chronic dermatitis and thickening of the skin. COURSE IN THE HOSPITAL: The patient went to the ICU and with Cardizem drip and antiarrhythmic therapy. She was seen in Cardiology consultation by Dr. Maxim Levin and Electrophysiology consultation by Dr. Prasanna Rodriguez. She was also seen by Dr. Leger and Dr. Pedersen in Pulmonary consultation. The patient initially given amiodarone and Cardizem, subsequently switched to digoxin and Cardizem and it took quite a few days to get her rate down. She had wheezing and her steroids were increased for her asthma. With the above treatment, she improved and on day of discharge her heart rate was in the 90s to below 100s. Her lungs showed faint wheezing, no distress. Abdomen was soft. Extremities, no edema. She was [facility] back [facility] her [facility] in improved condition. Her primary physician at the detention facility was contacted and she may need further Cardiology intervention in the future, but this can be done on elective basis. FINAL DIAGNOSES: 1. Atrial fibrillation and flutter with rapid ventricular response. 2. Diastolic congestive heart failure. 3. Asthma exacerbation. 4. Morbid obesity. 5. History of thoracic and abdominal aortic aneurysm. 6. Hypertension. 7. Insulin-dependent diabetes with hyperglycemia. Adjusting insulin during this admission. 8. Long-term use of steroids for asthma. 9. Gait disorder. 10. Elevated potassium, which has been treated with diuretics and improving. DISCHARGE DISPOSITION: To the [facility] on a diabetic diet, medications per the discharge medication list, follow up by her primary care physician. Dougie Bravo M.D. DR: TERRENCE JOB#: [id number] CC:
--- NOTE | 2017-02-27 15:05 | Cardiology Report ---
APPROVED REPORT EKG Measurement Heart [id number] Atrial flutter with variable AV block Low voltage QRS Inferior infarct, age undetermined Abnormal ECG
--- NOTE | 2017-02-28 00:30 | Progress Note ---
DATE: 02/26/2017 CARDIOLOGY PROGRESS NOTE SUBJECTIVE: The patient continues to have atrial fibrillation and flutter, but rates are controlled. She has no chest pain or shortness of breath. Plans for outpatient ablation attempt versus POONAM cardioversion are under discussion and will be arranged. I have recommended the latter. OBJECTIVE: VITAL SIGNS: Blood pressure of 143/52, pulse 101, respirations 18, afebrile, and oxygen saturation on four liters 97%. LUNGS: Diminished breath sounds. No wheezing. HEART: Irregularly irregular rhythm. Normal S1, S2. ABDOMEN: Soft, obese. EXTREMITIES: Reveal lymphedema. LABORATORY DATA: White count is 6, hemoglobin 13. Potassium 6 following replacement last night. IMPRESSION: 1. Incessant rapid atrial flutter. 2. Deep vein thrombosis. 3. Obesity. 4. Lymphedema. 5. Acute on chronic renal failure. 6. Diastolic dysfunction with chronic congestive heart failure. PLAN: 1. Continue digoxin, diltiazem, and metoprolol for rate control. 2. Cardioembolic prophylaxis with apixaban. 3. Repeat potassium level following dose of Kayexalate. 4. Maintenance dose diuretic therapy as outpatient. 5. Outpatient arrangements for procedure as described above. Maxim Levin M.D. DR: ARIA JOB#: [id number] CC:
--- NOTE | 2017-02-28 16:00 | Cardiology Report ---
APPROVED REPORT EKG Measurement Heart [id number] Atrial flutter with variable AV block with premature ventricular or aberrantly conducted complexes Low voltage QRS Inferior infarct, age undetermined Cannot rule out Anterior infarct, age undetermined Abnormal ECG
--- NOTE | 2017-03-02 11:08 | Cardiology Report ---
APPROVED REPORT EXAM: Two-dimensional and M-mode echocardiogram with Doppler and color Doppler. INDICATION Atrial Fibrillation M-Mode DIMENSIONS IVSd1.0 (0.7-1.1cm)Left Atrium (MM)5.4 (1.6-4.0cm) LVDd4.5 (3.5-5.6cm)Aortic Root3.0 (2.0-3.7cm) PWd1.1 (0.7-1.1cm)Aortic Cusp Exc.1.5 (1.5-2.0cm) LVDs2.6 (2.5-4.0cm) PWs1.5 cm Technically difficult study due to poor acoustical windows. Normal left ventricular chamber size, systolic function and wall motion. Left ventricular ejection fraction estimated to be 55-60%. No evidence of left ventricular hypertrophy. No evidence of pericardial or pleural effusion. Mild bi-atrial enlargement by 2D. Focal aortic valve sclerosis with adequate cusp excursion. Thickened mitral valve leaflets with normal excursion. Mild mitral annulus and aortic root calcification. Pulmonic valve not well visualized. Normal tricuspid valve structure. IVC is normal in size and collapsible with respiration. A color flow and spectral Doppler study was performed and revealed: No aortic regurgitation. Trace mitral regurgitation. Mitral diastolic function not obtainable due to arrhythmia. Trace tricuspid regurgitation. Pulmonic regurgitation present.
== END 2017-02-26 16:00 | DRG 309 ==
LOC: EDBD 15:25 → EMR 17:06 → 2W 17:19 → EDBEDREQ 18:12 → EDBEDREQSVC 18:25 → EDBEDREQ 19:11 → 2W 02-21 00:02 → ICU 02-21 04:00 → 2W 02-22 18:58
DX: I48.92 Unspecified atrial flutter (principal); Z68.43 Body mass index [BMI] 50.0-59.9, adult; N17.9 Acute kidney failure, unspecified; E11.22 Type 2 diabetes mellitus with diabetic chronic kidney disease; I50.32 Chronic diastolic (congestive) heart failure; J45.901 Unspecified asthma with (acute) exacerbation; I13.0 Hypertensive heart and chronic kidney disease with heart failure and stage 1 through stage 4 chronic kidney disease, or unspecified chronic kidney disease; I48.0 Paroxysmal atrial fibrillation; N18.3 Chronic kidney disease, stage 3 (moderate); E66.01 Morbid (severe) obesity due to excess calories; I71.2 Thoracic aortic aneurysm, without rupture; E11.65 Type 2 diabetes mellitus with hyperglycemia; G47.33 Obstructive sleep apnea (adult) (pediatric); E78.5 Hyperlipidemia, unspecified; Z99.3 Dependence on wheelchair; Z87.891 Personal history of nicotine dependence; Z79.4 Long term (current) use of insulin; Z79.51 Long term (current) use of inhaled steroids
CPT/HCPCS: 36415; 71045; 80048; 80053; 80162; 81001; 82550; 82553; 82962; 83036; 83690; 83735; 83880; 84439; 84443; 84481; 84484; 85007; 85025; 85610; 85730; 87081; 93005; 93306; 93970; 94640; 94664; 94760; 99291; J1815; J7620; S5561

== ENCOUNTER 2018-04-23 17:22 | Inpatient (IN) | payer BC, MEDICAID ==
[~2018-04-23] VITALS: Ht 157.5 cm; Wt 147.0 kg
[~2018-04-23 17:22] MED LIST: ACETAMINOPHEN325 M1 ORAL; ACETYLCYST100 MG/1 M INH; AQUAPHOR OINTM396 GM TP; ASPIRIN81 MG ORAL; ATORVASTATIN CA20 MG ORAL; CARDIZEM CD240 MG ORAL; CARDIZEM90 MG ORAL; CATAPRES0.1 MG ORAL; DOCUSATE SODIU100 MG ORAL; DUONEB 0.5-3(2.53 ML HHN; ELIQUIS2.5 MG ORAL; FAMOTIDINE10 MG ORAL; FAMOTIDINE20 MG ORAL; GUAIFENESIN600 MG ORAL; HUMALOG100 UNIT/4 SUBQ; IPRAT-ALBUT 0.5-3 ML IH; ISOSORBIDE MONO30 M1 PO; LANOXIN125 MCG ORAL; LANTUS SOL100 UNIT/1 SUBQ; LEVEMIR FL100 UNIT/1 SUBQ; LISINOPRIL10 MG ORAL; LOVENOX10 M4 SUBQ; MAGNESIUM OXID400 M1 ORAL; MAGNESIUM400 M1 PO; MILK OF MA400 MG/51 ORAL; PREDNISONE20 MG ORAL; SENNOSIDES8.6 MG ORAL; TORSEMIDE20 MG ORAL; [UNRECOGNIZED DRUG - OTHER] TP
[2018-04-23 17:25] VITALS: BP 152/102
--- NOTE | 2018-04-23 17:25 | NUR ---
ED Nurse Note: Patient bibdonald from [facility] c/o resp distres, at time of arrival patient was on a non rebreather with an o2 sat of 96%, patint was atting at 70% on room air, Dr. Garay notified. patient is awake and is able to respond to staff. patient presents with bilateral leg swelling as well
[2018-04-23] MEDS ORDERED: Solu-MEDROL 125mg Inj IVP ONE (17:30)
[2018-04-23] MEDS: Levalbuterol Inh UD 1.25mg/0.5ml HHN SCH ×8 (17:36→23:40)
[2018-04-23] MEDS: Ipratropium 0.02% Inh Soln 2.5ml UD HHN SCH ×6 (17:36→23:39)
--- NOTE | 2018-04-23 17:50 | NUR ---
ED Nurse Note: Patient was put on a bipap 01/20 on 40%
--- NOTE | 2018-04-23 17:59 | Diagnostic Imaging Report ---
EXAM: XR Chest, 1 View CLINICAL HISTORY: SOB TECHNIQUE: Frontal view of the chest. COMPARISON: No relevant prior studies available. FINDINGS: Lungs: See below. Pleural space: Left pleural effusion. Adjacent atelectasis- consolidation. No pneumothorax. Heart: Enlarged cardiomediastinal silhouette. Enlarged aortic knob. Mediastinum: See above. Bones/joints: No acute fracture. IMPRESSION: 1. Enlarged cardiomediastinal silhouette. CT can further assess as warranted. 2. Left pleural effusion. Adjacent atelectasis-consolidation.
--- NOTE | 2018-04-23 18:00 | NUR ---
ED Nurse Note: notified and aware of patient's co2 of 99
[2018-04-23 18:09] LABS: APPEARANCE,URINE CLEAR; BILIRUBIN, URINE NEGATIVE (NEGATIVE); COLOR,URINE PALE YELLOW; GLUCOSE, URINE (UA) NEGATIVE (NEGATIVE); KETONES,URINE NEGATIVE (NEGATIVE); LEUKOCYTE ESTERASE ,URINE 2+ (NEGATIVE); NITRITE,URINE NEGATIVE (NEGATIVE); PH,URINE 5 (4.5-8.0); PROTEIN,URINE 1+ (NEGATIVE); UROBILINOGEN,URINE NORMAL MG/DL (0.0-1.0)
[2018-04-23 18:14] LABS: BASOPHILS % (AUTO) 2.7 % (0.0-2.0); EOSINOPHILS % (AUTO) 0.2 % (0.0-3.0); HEMATOCRIT 40.1 % (37.0-47.0); HEMOGLOBIN 11.9 G/DL (12.0-16.0); LYMPHOCYTES % (AUTO) 15.2 % (20.0-45.0); MEAN CORPUSCULAR VOLUME 98 FL (80-99); MONOCYTES % (AUTO) 9.2 % (1.0-10.0); NEUTROPHILS % (AUTO) 72.7 % (45.0-75.0); PLATELET COUNT 171 K/UL (150-450); RED BLOOD COUNT 4.09 M/UL (4.20-5.40); RED CELL DISTRIBUTION WIDTH 14.4 % (11.6-14.8)
[2018-04-23 18:25] LABS: BLOOD UREA NITROGEN 28 mg/dL (7-18); CALCIUM 9.5 MG/DL (8.5-10.1); CHLORIDE 98 MMOL/L (98-107); CREATININE 1.2 MG/DL (0.55-1.30); SODIUM 147 MMOL/L (136-145)
[2018-04-23 18:29] LABS: CARBON DIOXIDE > 45 MMOL/L (21-32)
[2018-04-23 18:38] LABS: ALANINE AMINOTRANSFERASE 30 U/L (12-78); ALBUMIN 3.3 G/DL (3.4-5.0); ALBUMIN/GLOBULIN RATIO 0.8 (1.0-2.7); ALKALINE PHOSPHATASE 96 U/L (46-116); ASPARTATE AMINO TRANSFERASE 22 U/L (15-37); BILIRUBIN,TOTAL 0.5 MG/DL (0.2-1.0); CKMB 1.3 NG/ML (0.0-3.6); CREATINE KINASE 34 U/L (26-308)
[2018-04-23] MEDS ORDERED: LEVEMIR FL100 UNIT/2 SQ (18:39)
[2018-04-23] MEDS ORDERED: PRAVASTATIN SOD80 M1 ORAL (18:50)
[2018-04-23] MEDS ORDERED: ACIDOPHILUS1 EAC6 PO (18:50)
[2018-04-23] MEDS ORDERED: XOPENEX0.63 MG/3 HHN (18:50)
[2018-04-23] MEDS ORDERED: ISOSORBIDE MONO30 M1 PO (18:50)
[2018-04-23] MEDS ORDERED: HUMALOG100 UNIT/4 SUBQ (18:50)
[2018-04-23] MEDS ORDERED: AMIODARONE HCL200 MG ORAL (18:50)
[2018-04-23] MEDS ORDERED: LOSARTAN POTASS25 MG ORAL (18:50)
[2018-04-23] MEDS ORDERED: VITAMIN A & D454 GM TP (18:50)
[2018-04-23] MEDS ORDERED: MAALOX ADVANCE770 ML PO (18:50)
[2018-04-23] MEDS ORDERED: CARVEDILOL6.25 MG ORAL (18:50)
[2018-04-23] MEDS ORDERED: TORSEMIDE20 MG ORAL (18:50)
--- NOTE | 2018-04-23 19:37 | Emergency Room Report ---
History of Present Illness General Chief Complaint: Dyspnea/Respdistress Source: Patient, EMS Present Illness HPI 67-year-old female presents ED with shortness of breath 1 day. Coming from half-way facility. History of COPD and CHF. Patient was hypoxic. Lethargic. EMS placed patient on nonrebreather with O2 sats improved. Patient remains lethargic. Patient states she has history of COPD and CHF. Denies fevers chills. Denies chest pain. No other aggravating relieving factors. Denies any other associated symptoms Allergies: Coded Allergies: No Known Allergies (Unverified , 02/20/17) Patient History Past Medical History: DM, HTN, asthma Past Surgical History: none Pertinent Family History: none Social History: Denies: smoking, alcohol use, drug use Now: No Immunizations: UTD Reviewed Nursing Documentation: PMH: Agreed; PSxH: Agreed Nursing Documentation-PMH Hx Cardiac Problems: Yes Hx Hypertension: Yes Hx Asthma: Yes Hx Diabetes: Yes Hx Cancer: No Hx Gastrointestinal Problems: No Hx Neurological Problems: No Review of Systems All Other Systems: negative except mentioned in HPI Physical Exam Vital Signs Date Time Temp Pulse Resp B/P (MAP) Pulse Ox O2 Delivery O2 Flow Rate FiO2 04/23/18 17:10 96.1 74 18 175/104 99 Room Air 04/23/18 17:25 3.0 04/23/18 17:36 32 Sp02 EP Interpretation: reviewed, normal General Appearance: no apparent distress, alert, GCS 15, non-toxic, lethargic, obese Head: normocephalic Eyes: bilateral eye normal inspection, bilateral eye PERRL ENT: normal ENT inspection Neck: normal inspection Respiratory: decreased breath sounds, wheezing Cardiovascular #1: regular rate, rhythm, no edema Gastrointestinal: normal inspection Rectal: deferred Genitourinary: no CVA tenderness Musculoskeletal: normal inspection Neurologic: other - lethargic Psychiatric: other - lethargic Skin: normal inspection Lymphatic: normal inspection Procedures Critical Care Time Critical Care Time i. I feel this is a highly complex case requiring extensive working including EKG/Rhythm strip, Xray/CT/US, Blood/urine lab work, repeat exams while in ED, and administration of strong opiates/narcotics for pain control, admission to hospital or close patient follow up. Total time: 60 min bedside evaluation and treatment excludes procedures (EKG). Reason for critical care: hypoxia, hypercapnia, COPD Possible complications: hypotension, hypertension, UT, shock, arrhythmias, metabolic acidosis, end organ damage, respiratory failure. Interventions: labs, EKG, CXR, nebulizer treatments, ABG, BIPAP. antibotics. consultation with pulmonary. repeat ABG Course: Patient presenting with shortness of breath, lethargy. History of COPD and CHF. Started on breathing treatments. ABG shows PCO2 99. BiPAP started. Labs showed no significant leukocytosis, troponins negative. EKG no acute ischemic changes. Chest x-ray shows pleural effusion. Repeat ABG shows PCO2 of 115. discussed with Dr Leger and changed BIPAP to 18/5. repeat PCo2 now 105. Consultations: nursing staff, EMS, family Performed by: Dr Hunt Tolerated well condition = critical j. because of unstable vital signs this patient had a condition that could potentially threaten life or limb. I feel this is a critical patient who required my full attention while patient was considered critical. Total Critical Care Time excluding procedures was greater than 35 minutes Medical Decision Making Diagnostic Impression: Primary Impression: CHF (congestive heart failure) Qualified Codes: I50.9 - Heart failure, unspecified Additional Impressions: COPD exacerbation Hypercapnia ER Course Hospital Course 67-year-old F presenting to ED with SOB. h/o COPD Differential diagnoses include: Pneumonia, CHF exacerbation, pneumothorax, fluid overload Clinical course Patient placed on stretcher. 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 After initial history and physical, I ordered nebulizer treatments. I ordered labs, IV fluids, EKG, chest x-ray, blood cultures, UA. initial ABG shows pH 7.327, PCO2 99.3, PO2 57.8, HCO3 50.8 (unable to load into system) BiPAP started (10/5 settings, FIO2 40%) Labs - no leukocytosis noted, hemoglobin/hematocrit stable, electrolytes okay, lactate okay, troponins negative CXR - pleural effusion, cardiomegaly EKG - NSR, no acute ischemic changes interpreted by me Repeat ABG shows PCO2 of [address] Leger - recommended changing BiPAP settings to 18/5 with FiO2 40% On review of packet from half-way facility patient has chronically high PCO2 Repeat ABG shows improving PCO2 of 105 abx given. IVFS given Case discussed with Dr. Jade and he agreed to the patient to his service for further care and support I feel this is a highly complex case requiring extensive working including EKG/ Rhythm strip, Xray/CT/US, Blood/urine lab work, repeat exams while in ED, and administration of strong opiates/narcotics for pain control, admission to hospital or close patient follow up. Diagnosis - COPD exacerbation, CHF, hypercapnia Patient admitted to SDU in serious condition Labs Test 04/23/18 17:35 04/23/18 17:47 White Blood Count 5.0 K/UL (4.8-10.8) Red Blood Count 4.09 M/UL (4.20-5.40) Hemoglobin 11.9 G/DL (12.0-16.0) Hematocrit 40.1 % (37.0-47.0) Mean Corpuscular Volume 98 FL (80-99) Mean Corpuscular Hemoglobin 29.1 PG (27.0-31.0) Mean Corpuscular Hemoglobin Concent 29.6 G/DL (32.0-36.0) Red Cell Distribution Width 14.4 % (11.6-14.8) Platelet Count 171 K/UL (150-450) Mean Platelet Volume 5.3 FL (6.5-10.1) Neutrophils (%) (Auto) 72.7 % (45.0-75.0) Lymphocytes (%) (Auto) 15.2 % (20.0-45.0) Monocytes (%) (Auto) 9.2 % (1.0-10.0) Eosinophils (%) (Auto) 0.2 % (0.0-3.0) Basophils (%) (Auto) 2.7 % (0.0-2.0) Urine Color Pale yellow Urine Appearance Clear Urine pH 5 (4.5-8.0) Urine Specific Keno 1.015 (1.005-1.035) Urine Protein 1+ (NEGATIVE) Urine Glucose (UA) Negative (NEGATIVE) Urine Ketones Negative (NEGATIVE) Urine Blood Negative (NEGATIVE) Urine Nitrite Negative (NEGATIVE) Urine Bilirubin Negative (NEGATIVE) Urine Urobilinogen Normal MG/DL (0.0-1.0) Urine Leukocyte Esterase 2+ (NEGATIVE) Urine RBC 0-2 /HPF (0 - 2) Urine WBC 2-4 /HPF (0 - 2) Urine Squamous Epithelial Cells Few /LPF (NONE/OCC) Urine Bacteria None /HPF (NONE) Sodium Level 147 MMOL/L (136-145) Potassium Level 4.0 MMOL/L (3.5-5.1) Chloride Level 98 MMOL/L (98-107) Carbon Dioxide Level > 45 MMOL/L (21-32) Blood Urea Nitrogen 28 mg/dL (7-18) Creatinine 1.2 MG/DL (0.55-1.30) Estimat Glomerular Filtration Rate 54.2 mL/min (>60) Glucose Level 149 MG/DL (74-106) Lactic Acid Level 0.60 mmol/L (0.4-2.0) Calcium Level 9.5 MG/DL (8.5-10.1) Total Bilirubin 0.5 MG/DL (0.2-1.0) Aspartate Amino Transf (AST/SGOT) 22 U/L (15-37) Alanine Aminotransferase (ALT/SGPT) 30 U/L (12-78) Alkaline Phosphatase 96 U/L (46-116) Total Creatine Kinase 34 U/L (26-308) Creatine Kinase MB 1.3 NG/ML (0.0-3.6) Creatine Kinase MB Relative Index 3.8 Troponin I 0.056 ng/mL (0.000-0.056) Pro-B-Type Natriuretic Peptide 1618 pg/mL (0-125) Total Protein 7.6 G/DL (6.4-8.2) Albumin 3.3 G/DL (3.4-5.0) Globulin 4.3 g/dL Albumin/Globulin Ratio 0.8 (1.0-2.7) Arterial Blood pH 7.288 (7.350-7.450) Arterial Blood Partial Pressure CO2 115.7 mmHg (35.0-45.0) Arterial Blood Partial Pressure O2 83.7 mmHg (75.0-100.0) Arterial Blood HCO3 54.1 mmol/L (22.0-26.0) Arterial Blood Oxygen Saturation 95.1 % (95-100) Arterial Blood Base Excess 22.0 (-2-2) Tim Test Positive EKG Diagnostic Results Rate: normal Rhythm: NSR ST Segments: no acute changes ASA given to the pt in ED: No Rhythm Strip Diag. Results EP Interpretation: yes Rhythm: NSR, no PVC's, no ectopy Chest X-Ray Diagnostic Results Chest X-Ray Diagnostic Results : Chest X-Ray Ordered: Yes # of Views/Limited/Complete: 1 View Indication: Shortness of Breath EP Interpretation: Yes Interpretation: no pneumothorax, other - cardiomegaly, L pleural effusion Impression: Other - L pleural effusion Electronically Signed by: Electronically signed by Adalid Hunt MD Last Vital Signs Date Time Temp Pulse Resp B/P (MAP) Pulse Ox O2 Delivery O2 Flow Rate FiO2 04/23/18 18:08 65 26 99 Bi-pap 40 04/23/18 17:39 3.0 04/23/18 17:25 96.1 152/102 Status: improved Disposition: ADMITTED INPATIENT Condition: Serious Referrals: [facility],REFERRING (PCP) Adalid Hunt MD Apr 23, 2018 19:37
--- NOTE | 2018-04-23 20:15 | NUR ---
ED Nurse Note: Bi pap setting changed to 18
[2018-04-23 20:32] VITALS: BP 134/88
--- NOTE | 2018-04-23 22:45 | NUR ---
TRANSFER TO FLOOR: Patient transferred to SDU as ordered, per . Report given to ALVARO Posey.
--- NOTE | 2018-04-23 22:50 | NUR ---
NURSE NOTES: Pt transferred to the unit via gurney. Awake, A/O x4. Denies any pain at this time. V/S BP 128/79, P 69, R 26, SaO2 100%, T 97.7. director of retail marketing applied. Pt is on Bipap 18/5, 40%. Skin intact. Belongings checked. IV site 20G R AC, intact and patent. Bed in the lowest position. Side rails up x 3. Bed alarm on. Will continue to monitor.
[2018-04-24] VITALS: BP 128/79
--- NOTE | 2018-04-24 02:45 | NUR ---
RESPIRATORY NOTE: ABG ordered @ 19:16 was reported using the previous order @17:45. Dr. Garay was aware.
--- NOTE | 2018-04-24 03:00 | NUR ---
NURSE NOTES: Observed pt sleeping on the bed. Arousable by shaking. Oral care and reposition done. On bipap, 18/5, 40%, saturating at 96. No acute distress noted. Will continue to monitor.
[2018-04-24] MEDS: Albuterol/Ipratropium 3ml neb HHN SCH ×6 (03:52→22:51)
[2018-04-24 04:00] VITALS: BP 132/69
[2018-04-24 05:57] LABS: HEMATOCRIT 39.1 % (37.0-47.0); HEMOGLOBIN 11.8 G/DL (12.0-16.0); MEAN CORPUSCULAR VOLUME 98 FL (80-99); PLATELET COUNT 152 K/UL (150-450); RED BLOOD COUNT 3.98 M/UL (4.20-5.40); RED CELL DISTRIBUTION WIDTH 14.6 % (11.6-14.8); WHITE BLOOD COUNT 2.9 K/UL (4.8-10.8)
[2018-04-24] MEDS: NovoLOG Insulin Flexpen SUBQ SCH ×4 (06:15→21:02)
[2018-04-24 06:37] LABS: BLOOD UREA NITROGEN 32 mg/dL (7-18); CALCIUM 9.5 MG/DL (8.5-10.1); CHLORIDE 100 MMOL/L (98-107); CREATININE 1.2 MG/DL (0.55-1.30); POTASSIUM 4.8 MMOL/L (3.5-5.1); SODIUM 146 MMOL/L (136-145)
[2018-04-24 06:44] LABS: CARBON DIOXIDE > 45 MMOL/L (21-32)
--- NOTE | 2018-04-24 07:25 | NUR ---
HAND-OFF: Report given to ALVARO Hernandez. No acute distress noted at this time.
--- NOTE | 2018-04-24 07:26 | NUR ---
NURSE NOTES: Received Patent from Timbo JOHN. Patient in bed, on Bipap, no resp. distress. will cont plan of care.
[2018-04-24 08:00] VITALS: BP 130/98
[2018-04-24] MEDS: Amiodarone 200mg tab ORAL SCH ×2 (09:00→21:00)
[2018-04-24] MEDS: Eliquis 2.5mg tablet ORAL SCH ×2 (09:00→17:31)
[2018-04-24] MEDS: Carvedilol 6.25mg Tab ORAL SCH ×2 (09:00→21:00)
[2018-04-24] MEDS: Docusate 100mg cap ORAL SCH ×2 (09:00→17:30)
[2018-04-24] MEDS: Solu-MEDROL 40mg Inj IVP SCH ×2 (10:04→20:59)
--- NOTE | 2018-04-24 10:33 | Diagnostic Imaging Report ---
EXAM: XR Chest, 2 Views CLINICAL HISTORY: DYSPNEA TECHNIQUE: Frontal and lateral views of the chest. COMPARISON: Chest x-ray, 04/23/18 3082 FINDINGS: Lungs: Hypoventilatory lungs. Stable left lower lung opacity may be atelectasis/airspace and/or pleural effusion. Pleural space: See above. No pneumothorax. Heart: Stable enlarged cardiomediastinal silhouette. Stable prominent aortic knob. Mediastinum: See above. Bones/joints: Unremarkable. IMPRESSION: 1. Stable enlarged cardiomediastinal silhouette. Stable prominent aortic knob. 2. Hypoventilatory lungs. Stable left lower lung opacity may be atelectasis/airspace and/or pleural effusion.
[2018-04-24] MEDS: Ipratropium 0.02% Inh Soln 2.5ml UD HHN SCH ×2 (11:17→11:18)
[2018-04-24] MEDS: Levalbuterol Inh UD 1.25mg/0.5ml HHN SCH ×8 (11:19→11:26)
--- NOTE | 2018-04-24 11:30 | NUR ---
NURSE NOTES: Informed patient not to remove bipap. patient verbalized understanding at this time.
[2018-04-24 12:00] VITALS: BP 143/77
--- NOTE | 2018-04-24 12:00 | NUR ---
NURSE NOTES: Spoke with Dr. Leger via telephone, informed regarding ABG results. She said to keep patient on bipap.
--- NOTE | 2018-04-24 14:51 | NUR ---
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 Enlarged cardiomediastinal silhouette. CT can further assess as warranted. 2. Left pleural effusion. Adjacent atelectasis-consolidation. IS:ALBUTEROL NovoLog Carvedilol Amiodarone Apixaban Solu-Medrol Pravachol Levemir Ceftriaxone SDU STATUS
[2018-04-24 16:00] VITALS: BP 134/50
--- NOTE | 2018-04-24 17:26 | NUR ---
RESPIRATORY NOTE: Received pt. on Bipap with the following settings, 18/5 40% fio2. Pt. remained on current settings throughout shift. Skin intact with tape in place. No signs of S.O.B. or respiratory distress noted.
--- NOTE | 2018-04-24 19:10 | NUR ---
HAND-OFF: Report given to Timbo Lott RN.
--- NOTE | 2018-04-24 19:11 | NUR ---
NURSE NOTES: Report received from ALVARO Hernandez. Observed pt watching TV. Pt c/o having bipap mask on, explained benefits and risks, Pt verbalized understanding. Bipap 18/5, 40%. SB with rn liaison. IV on R AC 20G. Bed in the lowest position. Side rails up x3. Call light within reach. Will continue to monitor.
[2018-04-24 20:00] VITALS: BP 109/49
--- NOTE | 2018-04-24 20:00 | NUR ---
NURSE NOTES: Left a message to regarding tomorrow morning lab and ABG. Awaiting a call back.
[2018-04-24] MEDS: Levemir Flexpen SUBQ SCH (21:03)
--- NOTE | 2018-04-24 22:29 | History & Physical ---
History and Physical History & Physicial #[id number] hypercapnic respiratory failure OHS/ADRIAN DM HTN UTI AMS resolved Gayla Leger DO Apr 24, 2018 22:29
[2018-04-24] MEDS ORDERED: Lidocaine 1% MPF 10mg/ml 5ml ONE (23:43)
--- NOTE | 2018-04-24 23:46 | History and Physical Report ---
DATE OF ADMISSION: 04/23/2018 REASON FOR ADMISSION: Hypercapnic respiratory failure. HISTORY OF PRESENT ILLNESS: This is a 67-year-old female, who has known history of obstructive sleep apnea. She uses a CPAP machine at home with her study, her BiPAP machine at 15/4 was noted with increasing shortness of breath, altered mental status, and hypoxemia. Her initial ABG showed a pH of 7.28, pCO2 of 115, pO2 was 83. She was placed initially on BiPAP of 10/5 and a repeat blood gas was with minimal improvement. Of her CO2 down to 104, she was subsequently increased to an of 16 and kept on BiPAP. She did become more awake, conversant, and wanting to eat. Denied any chest pain or shortness of breath. However, her blood gas this morning had a pH of 7.27 and a pCO2 of 128. Her bicarb was up to 58 on the blood gas. She complains of intermittent shortness of breath. She is nonambulatory. No nausea, vomiting, or diarrhea. She tolerated p.o. this afternoon. No fevers or chills. She does demonstrate a urinary tract infection and started on IV antibiotics. She lives in the alf. PAST MEDICAL HISTORY: Includes diabetes, hypertension, and asthma. SOCIAL HISTORY: Negative for tobacco or drugs. Again, she is nonambulatory. PHYSICAL EXAMINATION: GENERAL: At the time of exam, she is alert, she is oriented, currently in no acute respiratory distress. VITAL SIGNS: She is afebrile. Her pulse is 58, blood pressure 109/49, saturations are 100% currently on her settings. HEENT: Normocephalic and atraumatic. Oropharynx is moist. Nasal mucosa moist. NECK: Supple. LUNGS: Decreased at the bases. No wheezes present. HEART: Regular rate and rhythm without murmur. ABDOMEN: Soft, obese, nontender. Positive bowel sounds. EXTREMITIES: Positive edema. She is able to move all extremities, but is unable to stand. She has got chronic changes that are noted. LABORATORY AND DIAGNOSTIC DATA: Her labs today, sodium 146, potassium 4.8, chloride 100, bicarb is greater than 45, BUN is 32, creatinine 1.2, glucose is 145. Her troponin is 0.56. Upon admission, is mildly elevated at 1.18. Urinalysis was positive for leukocyte esterase. Her blood gas this morning was 7.27, 120, and 77. Her white count is 2.9, hemoglobin is 11.8, and platelets 146. Her chest x-ray shows mild CHF, atelectasis, and a prominent aortic knob, which is reportedly stable. No echo is available. ASSESSMENT AND PLAN: Hypercapnic respiratory failure, rule out obstructive sleep apnea and obesity, hypoventilation syndrome with severe CO2 over 100, diabetes, hypertension, urinary tract infection, nonambulatory status. Plan for the patient, we will check a baseline 2D echo, nebulizer treatments, IV antibiotics. No steroids at this time. Glycemic control. DVT prophylaxis. Wound care and we will check a lower extremity Doppler as well. She is on steroids, Solu-Medrol 40 q. 12h. We will continue at this time and diabetic diet and aspiration precautions. Gayla Leger D.O. DR: YESENIA JOB#: [id number] CC:
[2018-04-25] VITALS: BP 106/56
[2018-04-25] MEDS: cefTRIAXone 1 GM in D5W 55 ML IVPB SCH (00:57)
[2018-04-25] MEDS: Albuterol/Ipratropium 3ml neb HHN SCH ×5 (03:09→19:54)
[2018-04-25 04:00] VITALS: BP 110/70
[2018-04-25] MEDS: NovoLOG Insulin Flexpen SUBQ SCH ×4 (06:58→20:56)
--- NOTE | 2018-04-25 07:00 | NUR ---
NURSE NOTES: Received Patent from Timbo JOHN. Patient in bed, NC 4L, no respiratory distress. Will continue plan of care
--- NOTE | 2018-04-25 07:05 | NUR ---
RESPIRATORY NOTE: Received pt off Bipap, and on Nasal Canula 3L 32%FiO2 per ALVARO Izquierdo. Breathing TX given without adverse reactions. Pt is alert, awake, no SOB or resp distress, waiting to eat breakfast. Pt refused to be back on Bipap, stated that it made her uncomfortable. Explained to pt the reason why she needs to be on Bipap. Asked pt to be back after breakfast, pt agreed. Will do ABG after breakfast and on 3L NC to see if pt retain any CO2 and if pt can be off Bipap. ALVARO Monroy made aware. No redness or skin breakdown noted. Old foam tapes were removed by ALVARO Izquierdo. Bipap stands by and is plugged into the red outlet. Ambu bag is at bedside. Will continue to monitor pt closely.
[2018-04-25 07:43] LABS: BASOPHILS % (AUTO) 1.2 % (0.0-2.0); EOSINOPHILS % (AUTO) 0.2 % (0.0-3.0); HEMATOCRIT 35.6 % (37.0-47.0); HEMOGLOBIN 11.6 G/DL (12.0-16.0); LYMPHOCYTES % (AUTO) 10.3 % (20.0-45.0); MEAN CORPUSCULAR VOLUME 94 FL (80-99); MONOCYTES % (AUTO) 8.1 % (1.0-10.0); NEUTROPHILS % (AUTO) 80.2 % (45.0-75.0); PLATELET COUNT 153 K/UL (150-450); RED BLOOD COUNT 3.77 M/UL (4.20-5.40); RED CELL DISTRIBUTION WIDTH 14.3 % (11.6-14.8); WHITE BLOOD COUNT 5.4 K/UL (4.8-10.8)
--- NOTE | 2018-04-25 07:58 | NUR ---
HAND-OFF: Report given to ALVARO Monroy. No acute distress noted.
--- NOTE | 2018-04-25 07:59 | NUR ---
NURSE NOTES: Received patient in bed. On nasal cannula at 4lPM. In no apparent distress. Contact isolation observed. Will continue plan of care.
[2018-04-25 08:00] VITALS: BP 148/98
[2018-04-25] MEDS: Docusate 100mg cap ORAL SCH ×2 (08:20→18:08)
[2018-04-25] MEDS: Eliquis 2.5mg tablet ORAL SCH ×2 (08:21→18:08)
[2018-04-25] MEDS: Solu-MEDROL 40mg Inj IVP SCH ×2 (08:21→20:49)
[2018-04-25 08:53] LABS: ANION GAP 7 mmol/L (5-15); BLOOD UREA NITROGEN 39 mg/dL (7-18); CALCIUM 9.1 MG/DL (8.5-10.1); CARBON DIOXIDE 40 MMOL/L (21-32); CHLORIDE 98 MMOL/L (98-107); CREATININE 1.3 MG/DL (0.55-1.30); POTASSIUM 4.8 MMOL/L (3.5-5.1); SODIUM 145 MMOL/L (136-145)
[2018-04-25] MEDS: Amiodarone 200mg tab ORAL SCH ×2 (09:00→20:53)
[2018-04-25] MEDS: Carvedilol 6.25mg Tab ORAL SCH ×2 (09:00→20:50)
--- NOTE | 2018-04-25 09:05 | NUR ---
RESPIRATORY NOTE: ABG done. Result is reported to ALVARO Hernandez and ALVARO Monroy, and in the system. Waiting for MD's order about Bipap. Pt is still on 3L NC 32% FiO2. Will continue to monitor.
[2018-04-25 12:00] VITALS: BP 126/73
--- NOTE | 2018-04-25 15:26 | NUR ---
NUT STEAMERCMA OR LPN SI:COPD, CHF VS: BP 148/98, P 52, T 98.6, RR 21, SpO2 100 on 4.0 NC WBC 2.9, BUN 39, Glucose 176, pCO2 84.0, HCO3 48.1, CXR IMPRESSION:1. Stable enlarged cardiomediastinal silhouette. Stable prominent aortic knob. 2. Hypoventilatory lungs. Stable left lower lung opacity may be atelectasis/airspace and/or pleural effusion. IS:ALBUTEROL NovoLog Carvedilol Ceftriaxone Apixaban Solu-Medrol Pravachol Levemir SDU STATUS
[2018-04-25 16:00] VITALS: BP 131/72
[2018-04-25] MEDS ORDERED: NS 275ml ONE (16:28)
[2018-04-25] MEDS ORDERED: Tubing IV Secondary IV ONE (16:28)
--- NOTE | 2018-04-25 19:15 | NUR ---
HAND-OFF: Report given to Jazmine Mccartney RN.
--- NOTE | 2018-04-25 19:16 | NUR ---
NURSE NOTES: Report received from ALVARO Hernandez. Pt A/Ox4. cafeteria monitor shows SR. Pt currently on 3L NC. O2 saturation 96%. Showing no signs of cardiac or respiratory distress. Pt currently on a CCHO medium diet. Purewick present and suctioning well. Accuchecks are ACHS. Pt has BLE swelling noted. a RAC20g is present, asymptomatic, and patent. Bed in lowest position, bed alarms placed. Call light within reach. Will continue to monitor and with patients plan of care.
[2018-04-25 20:00] VITALS: BP 120/62
[2018-04-25] MEDS: Levemir Flexpen SUBQ SCH (20:55)
--- NOTE | 2018-04-25 21:49 | Pulmonology Progress Note ---
Assessment/Plan Assessment/Plan Hypercapnic respiratory failure obstructive sleep apnea and obesity hypoventilation syndrome diabetes hypertension urinary tract infection nonambulatory status better steroids abx bipap at night o2 durign the day abg in am woundcare labs better Subjective Constitutional: Reports: no symptoms HEENT: Repors: no symptoms Respiratory: Reports: no symptoms Cardiovascular: Reports: no symptoms Gastrointestinal/Abdominal: Reports: no symptoms Genitourinary: Reports: no symptoms Allergies: Coded Allergies: No Known Allergies (Unverified , 02/20/17) Subjective much improved on bipap at night nc during the day no cp nv or bleeding no fever nonambualtory tolerating po Objective Last 24 Hour Vital Signs Date Time Temp Pulse Resp B/P (MAP) Pulse Ox O2 Delivery O2 Flow Rate FiO2 04/25/18 20:50 56 120/76 04/25/18 19:57 98 Nasal Cannula 2.0 28 04/25/18 19:57 Nasal Cannula 2.0 28 04/25/18 19:55 51 18 100 Nasal Cannula 2.0 28 04/25/18 19:44 58 18 99 Nasal Cannula 2.0 28 04/25/18 16:00 3.0 04/25/18 16:00 97.9 57 20 131/72 (91) 94 04/25/18 16:00 Nasal Cannula 4.0 Nasal Cannula 3.0 04/25/18 15:32 64 04/25/18 15:25 99 04/25/18 15:24 57 19 99 Nasal Cannula 3.0 32 04/25/18 15:14 57 18 98 Nasal Cannula 3.0 32 04/25/18 12:33 100 04/25/18 12:00 Nasal Cannula 4.0 Nasal Cannula 3.0 04/25/18 12:00 3.0 04/25/18 12:00 58 04/25/18 12:00 98.6 73 18 126/73 (90) 95 04/25/18 11:10 50 21 99 Nasal Cannula 3.0 32 04/25/18 11:10 50 99 04/25/18 11:00 50 19 99 Nasal Cannula 3.0 32 04/25/18 09:05 52 98 04/25/18 09:00 52 148/98 04/25/18 08:00 Nasal Cannula 4.0 Nasal Cannula 4.0 04/25/18 08:00 98.9 63 18 148/98 (115) 97 04/25/18 07:39 63 04/25/18 07:05 51 99 04/25/18 06:53 52 21 99 Nasal Cannula 3.0 32 04/25/18 06:05 51 20 99 Nasal Cannula 3.0 32 04/25/18 06:00 4.0 04/25/18 05:04 52 19 100 Facial 40 04/25/18 04:00 97.9 50 20 110/70 (83) 96 04/25/18 04:00 40 04/25/18 04:00 Bi-pap 04/25/18 04:00 48 04/25/18 03:20 61 19 99 Bi-pap 40 04/25/18 03:09 55 20 97 Bi-pap 40 04/25/18 03:09 55 20 98 Facial 40 04/25/18 00:43 57 19 100 Full Face 40 04/25/18 00:00 51 04/25/18 00:00 98.0 53 20 106/56 (73) 96 04/25/18 00:00 40 04/25/18 00:00 Bi-pap 04/24/18 23:04 58 20 100 Bi-pap 40 04/24/18 22:52 58 22 97 Bi-pap 40 04/24/18 22:29 67 24 98 Facial 40 Intake and Output 04/24/18 04/25/18 19:00 07:00 Intake Total 60 ml 55 ml Output Total 400 ml 1000 ml Balance -340 ml -945 ml Intake Oral 60 ml IV Total 55 ml Output Urine Total 400 ml 1000 ml General Appearance: WD/WN Respiratory/Chest: lungs clear, normal breath sounds Cardiovascular: normal rate, regular rhythm, edema, other Abdomen: normal bowel sounds, soft, non tender, non distended Extremities: no cyanosis Neurologic/Psychiatric: oriented x 3, normal mood/affect Microbiology Date/Time Source Procedure Growth Status 04/23/18 17:35 Blood Blood Culture - Preliminary NO GROWTH AFTER 24 HOURS Resulted 04/23/18 17:20 Blood Blood Culture - Preliminary NO GROWTH AFTER 24 HOURS Resulted 04/23/18 18:00 Nasal Nares MRSA Culture - Final NO METHICILLIN RESISTANT STAPH AUREUS... Complete 04/23/18 17:35 Nasal Nares Influenza Types A,B Antigen (ANGELA) - Final Complete 04/23/18 18:00 Rectum VRE Culture - Final Enterococcus Faecalis - Vre Resulted 04/23/18 18:00 Rectum Pending Resulted Laboratory Tests 04/25/18 05:50: White Blood Count 5.4#, Red Blood Count 3.77L, Hemoglobin 11.6L, Hematocrit 35.6L, Mean Corpuscular Volume 94, Mean Corpuscular Hemoglobin 30.6, Mean Corpuscular Hemoglobin Concent 32.5, Red Cell Distribution Width 14.3, Platelet Count 153, Mean Platelet Volume 5.9L, Neutrophils (%) (Auto) 80.2H, Lymphocytes (%) (Auto) 10.3L, Monocytes (%) (Auto) 8.1, Eosinophils (%) (Auto) 0.2, Basophils (%) (Auto) 1.2, Sodium Level 145, Potassium Level 4.8, Chloride Level 98, Carbon Dioxide Level 40H, Anion Gap 7, Blood Urea Nitrogen 39H, Creatinine 1.3, Estimat Glomerular Filtration Rate 49.3, Glucose Level 176H, Calcium Level 9.1, Troponin I 0.048, Pro-B-Type Natriuretic Peptide 545H 04/25/18 08:55: Arterial Blood pH 7.376, Arterial Blood Partial Pressure CO2 84.0*H, Arterial Blood Partial Pressure O2 76.5, Arterial Blood HCO3 48.1*H, Arterial Blood Oxygen Saturation 94.5L, Arterial Blood Base Excess 19.1*H, Tim Test Positive Current Medications Medications (Trade) Dose Ordered Sig/Tera Route PRN Reason Start Time Stop Time Status Last Admin Dose Admin Acetaminophen (Tylenol) 650 mg Q6H PRN ORAL Moderate Pain (Pain Scale 4-6) 04/23/18 23:30 05/23/18 23:29 Albuterol/ Ipratropium (Albuterol/ Ipratropium) 3 ml Q4HRT HHN 04/24/18 03:00 04/29/18 02:59 04/25/18 19:54 Amiodarone HCl (Cordarone) 200 mg EVERY 12 HOURS ORAL 04/24/18 09:00 05/24/18 08:59 Apixaban (Eliquis) 5 mg BID ORAL 04/24/18 09:00 05/24/18 08:59 04/25/18 18:08 Carvedilol (Coreg) 6.25 mg EVERY 12 HOURS ORAL 04/24/18 09:00 05/24/18 08:59 Ceftriaxone Sodium 1 gm/ Dextrose 55 ml @ 110 mls/hr Q24H IVPB 04/25/18 01:00 05/02/18 00:59 04/25/18 00:57 Dextrose (Dextrose 50%) 25 ml Q30M PRN IV Hypoglycemia 04/23/18 23:30 05/23/18 23:29 Dextrose (Dextrose 50%) 50 ml Q30M PRN IV Hypoglycemia 04/23/18 23:30 05/23/18 23:29 Docusate Sodium (Colace) 100 mg TWICE A DAY ORAL 04/24/18 09:00 05/24/18 08:59 04/25/18 18:08 Insulin Aspart (NovoLOG) BEFORE MEALS AND HS SUBQ 04/24/18 06:30 05/24/18 06:29 04/25/18 20:56 Insulin Detemir (Levemir) 10 units BEDTIME SUBQ 04/24/18 21:00 05/24/18 20:59 04/25/18 20:55 Methylprednisolone Sodium Succinate (Solu-MEDROL) 40 mg EVERY 12 HOURS IVP 04/24/18 09:00 05/24/18 08:59 04/25/18 20:49 Pravastatin Sodium (Pravachol) 40 mg BEDTIME ORAL 04/24/18 21:00 05/24/18 20:59 04/25/18 20:54 Gayla Leger DO Apr 25, 2018 21:49
[2018-04-26] VITALS: BP 116/60
[2018-04-26] MEDS: cefTRIAXone 1 GM in D5W 55 ML IVPB SCH (00:04)
[2018-04-26] MEDS: Albuterol/Ipratropium 3ml neb HHN SCH ×7 (00:31→23:54)
[2018-04-26 04:00] VITALS: BP 130/74
[2018-04-26] MEDS: NovoLOG Insulin Flexpen SUBQ SCH ×4 (06:05→20:31)
--- NOTE | 2018-04-26 07:30 | NUR ---
NURSE NOTES: Received patient in bed. On nasal cannula at 3LPM. Awake, verbal, no respiratory distress. Contact isolation observed. Will continue plan of care.
[2018-04-26 08:00] VITALS: BP 137/64
[2018-04-26 09:38] LABS: MEAN CORPUSCULAR VOLUME 96 FL (80-99); PLATELET COUNT 168 K/UL (150-450); RED BLOOD COUNT 3.84 M/UL (4.20-5.40); RED CELL DISTRIBUTION WIDTH 14.4 % (11.6-14.8); WHITE BLOOD COUNT 6.4 K/UL (4.8-10.8)
[2018-04-26 09:46] LABS: ANION GAP 1 mmol/L (5-15); BLOOD UREA NITROGEN 36 mg/dL (7-18); CALCIUM 9.1 MG/DL (8.5-10.1); CHLORIDE 98 MMOL/L (98-107); CREATININE 1.2 MG/DL (0.55-1.30); SODIUM 142 MMOL/L (136-145)
[2018-04-26 09:49] LABS: CARBON DIOXIDE 44 MMOL/L (21-32)
[2018-04-26] MEDS: Eliquis 2.5mg tablet ORAL SCH ×2 (09:58→18:04)
[2018-04-26] MEDS: Solu-MEDROL 40mg Inj IVP SCH (09:58)
[2018-04-26] MEDS: Amiodarone 200mg tab ORAL SCH (09:59)
[2018-04-26] MEDS: Docusate 100mg cap ORAL SCH ×2 (09:59→18:04)
[2018-04-26] MEDS: Carvedilol 6.25mg Tab ORAL SCH ×2 (09:59→20:28)
--- NOTE | 2018-04-26 10:19 | Pulmonology Progress Note ---
Assessment/Plan Assessment/Plan Hypercapnic respiratory failure obstructive sleep apnea and obesity hypoventilation syndrome diabetes hypertension urinary tract infection nonambulatory status tolerated BiPAP all night oral steroids abx continue bipap at night o2 during the day woundcare prob dc tomorrow Subjective Constitutional: Reports: no symptoms Respiratory: Denies: shortness of breath Allergies: Coded Allergies: No Known Allergies (Unverified , 02/20/17) Objective Last 24 Hour Vital Signs Date Time Temp Pulse Resp B/P (MAP) Pulse Ox O2 Delivery O2 Flow Rate FiO2 04/26/18 09:59 49 137/64 04/26/18 08:00 3.0 04/26/18 08:00 98.6 60 19 137/64 (88) 98 04/26/18 08:00 49 04/26/18 08:00 Nasal Cannula 3.0 Nasal Cannula 3.0 04/26/18 07:32 Nasal Cannula 2.0 28 04/26/18 07:32 61 20 97 04/26/18 07:32 97 Nasal Cannula 2.0 28 04/26/18 07:00 61 18 96 Nasal Cannula 2.0 28 04/26/18 07:00 61 18 96 Nasal Cannula 2.0 28 04/26/18 05:30 50 25 100 Full Face 25 04/26/18 04:00 97.3 50 16 130/74 (92) 95 04/26/18 04:00 Nasal Cannula 3.0 Nasal Cannula 3.0 04/26/18 04:00 3.0 04/26/18 04:00 46 04/26/18 03:40 50 18 98 Bi-pap 25 04/26/18 03:30 47 16 94 Bi-pap 25 04/26/18 03:30 52 28 100 Facial 25 04/26/18 01:30 50 27 100 Facial 25 04/26/18 00:00 Nasal Cannula 3.0 Nasal Cannula 3.0 04/26/18 00:00 53 04/26/18 00:00 52 32 100 Facial 25 04/26/18 00:00 98.5 53 18 116/60 (78) 98 04/26/18 00:00 52 35 100 Bi-pap 25 04/25/18 23:50 50 32 99 Bi-pap 25 04/25/18 22:30 95 2.0 28 04/25/18 20:50 56 120/76 04/25/18 20:00 Nasal Cannula 3.0 Nasal Cannula 3.0 04/25/18 20:00 3.0 04/25/18 20:00 56 04/25/18 20:00 98.4 54 18 120/62 (81) 96 04/25/18 19:57 98 Nasal Cannula 2.0 28 04/25/18 19:57 Nasal Cannula 2.0 28 04/25/18 19:55 51 18 100 Nasal Cannula 2.0 28 04/25/18 19:44 58 18 99 Nasal Cannula 2.0 28 04/25/18 16:00 3.0 04/25/18 16:00 97.9 57 20 131/72 (91) 94 04/25/18 16:00 Nasal Cannula 4.0 Nasal Cannula 3.0 04/25/18 15:32 64 04/25/18 15:25 99 04/25/18 15:24 57 19 99 Nasal Cannula 3.0 32 04/25/18 15:14 57 18 98 Nasal Cannula 3.0 32 04/25/18 12:33 100 04/25/18 12:00 Nasal Cannula 4.0 Nasal Cannula 3.0 04/25/18 12:00 3.0 04/25/18 12:00 58 04/25/18 12:00 98.6 73 18 126/73 (90) 95 04/25/18 11:10 50 21 99 Nasal Cannula 3.0 32 04/25/18 11:10 50 99 04/25/18 11:00 50 19 99 Nasal Cannula 3.0 32 Intake and Output 04/25/18 04/26/18 18:59 06:59 Intake Total 400 ml 295 ml Output Total 700 ml 500 ml Balance -300 ml -205 ml Intake Oral 400 ml 240 ml IV Total 55 ml Output Urine Total 700 ml 500 ml Objective morbidly obese General Appearance: no acute distress Respiratory/Chest: lungs clear Cardiovascular: regular rhythm, bradycardia Abdomen: soft, non tender Microbiology Date/Time Source Procedure Growth Status 04/23/18 17:35 Blood Blood Culture - Preliminary NO GROWTH AFTER 48 HOURS Resulted 04/23/18 17:20 Blood Blood Culture - Preliminary NO GROWTH AFTER 48 HOURS Resulted 04/23/18 18:00 Nasal Nares MRSA Culture - Final NO METHICILLIN RESISTANT STAPH AUREUS... Complete 04/23/18 17:35 Nasal Nares Influenza Types A,B Antigen (ANGELA) - Final Complete 04/23/18 18:00 Rectum VRE Culture - Final Enterococcus Faecalis - Vre Complete 04/23/18 18:00 Rectum - Final NO CARBAPENEM-RESISTANT ENTEROBACTERI... Complete Laboratory Tests 04/26/18 08:30: White Blood Count 6.4, Red Blood Count 3.84L, Hemoglobin 11.0L, Hematocrit 37.0 , Mean Corpuscular Volume 96, Mean Corpuscular Hemoglobin 28.7, Mean Corpuscular Hemoglobin Concent 29.8L, Red Cell Distribution Width 14.4, Platelet Count 168, Mean Platelet Volume 6.3L, Neutrophils (%) (Auto) , Lymphocytes (%) (Auto) , Monocytes (%) (Auto) , Eosinophils (%) (Auto) , Basophils (%) (Auto) , Neutrophils % (Manual) [Pending], Lymphocytes % (Manual) [Pending], Platelet Estimate [Pending], Platelet Morphology [Pending], Sodium Level 142, Potassium Level 4.0, Chloride Level 98, Carbon Dioxide Level 44*H, Anion Gap 1L, Blood Urea Nitrogen 36H, Creatinine 1.2, Estimat Glomerular Filtration Rate 54.2, Glucose Level 255H, Calcium Level 9.1 Current Medications Medications (Trade) Dose Ordered Sig/Tera Route PRN Reason Start Time Stop Time Status Last Admin Dose Admin Acetaminophen (Tylenol) 650 mg Q6H PRN ORAL Moderate Pain (Pain Scale 4-6) 04/23/18 23:30 05/23/18 23:29 Albuterol/ Ipratropium (Albuterol/ Ipratropium) 3 ml Q4HRT HHN 04/24/18 03:00 04/29/18 02:59 04/26/18 04:54 Amiodarone HCl (Cordarone) 200 mg DAILY ORAL 04/26/18 09:00 05/24/18 08:59 04/26/18 09:59 Apixaban (Eliquis) 5 mg BID ORAL 04/24/18 09:00 05/24/18 08:59 04/26/18 09:58 Carvedilol (Coreg) 6.25 mg EVERY 12 HOURS ORAL 04/24/18 09:00 05/24/18 08:59 Ceftriaxone Sodium 1 gm/ Dextrose 55 ml @ 110 mls/hr Q24H IVPB 04/25/18 01:00 05/02/18 00:59 04/26/18 00:04 Dextrose (Dextrose 50%) 25 ml Q30M PRN IV Hypoglycemia 04/23/18 23:30 05/23/18 23:29 Dextrose (Dextrose 50%) 50 ml Q30M PRN IV Hypoglycemia 04/23/18 23:30 05/23/18 23:29 Docusate Sodium (Colace) 100 mg TWICE A DAY ORAL 04/24/18 09:00 05/24/18 08:59 04/26/18 09:59 Insulin Aspart (NovoLOG) BEFORE MEALS AND HS SUBQ 04/24/18 06:30 05/24/18 06:29 04/26/18 06:05 Insulin Detemir (Levemir) 10 units BEDTIME SUBQ 04/24/18 21:00 05/24/18 20:59 04/25/18 20:55 Methylprednisolone Sodium Succinate (Solu-MEDROL) 40 mg EVERY 12 HOURS IVP 04/24/18 09:00 05/24/18 08:59 04/26/18 09:58 Pravastatin Sodium (Pravachol) 40 mg BEDTIME ORAL 04/24/18 21:00 05/24/18 20:59 04/25/18 20:54 Porfirio Jade MD Apr 26, 2018 10:19
--- NOTE | 2018-04-26 10:40 | NUR ---
*-* INSURANCE *-* ALL AVAILABLE CLINICALS HAVE BEEN FAXED TO: [facility] F:[phone]
--- NOTE | 2018-04-26 11:37 | NUR ---
NURSE NOTES: Informed Dr. Jade via telephone regarding latest carbon dioxide level and ABG results. No new order obtained at this time. Will continue to monitor.
--- NOTE | 2018-04-26 11:39 | NUR ---
RADIOLOGY DEPT CHEST X-RAY DONE.-P.DYE
[2018-04-26 12:00] VITALS: BP 150/91
--- NOTE | 2018-04-26 12:21 | Diagnostic Imaging Report ---
Indication: Cough Technique: One view of the chest Comparison: 04/24/2017 Findings: There is persistent left basilar opacity. The heart is probably mildly enlarged. The aorta is elongated, tortuous, ectatic, quite possibly aneurysmal. The right lung and pleural space are largely clear. Findings are unchanged Impression: Stable left basilar opacity, likely pleural fluid and/or parenchymal consolidation Elongated, tortuous, ectatic and possibly aneurysmal thoracic aorta. Recommend further evaluation with chest CT Borderline cardiomegaly No significant change management specialist 2 days
--- NOTE | 2018-04-26 15:37 | NUR ---
[employer]IST[employer] INSPECTOR SI:COPD/ CHF VS: BP116/60, P 46, T 97.3, RR 35, SpO2 98 on Bi-pap FiO2 25 pCO2 68.9, HCO3 46.3, BUN 36, Glucose 255, CXR Impression: Stable left basilar opacity, likely pleural fluid and/or parenchymal consolidation Borderline cardiomegaly IS:Amiodarone Ceftriaxone Solu-Medrol NovoLog Albuterol SDU STATUS
[2018-04-26 16:00] VITALS: BP 156/90
--- NOTE | 2018-04-26 19:20 | NUR ---
HAND-OFF: Report given to Jazmine Mccartney RN. No signs and symptoms of hypoglycemia. Denies SOB.
--- NOTE | 2018-04-26 19:21 | NUR ---
NURSE NOTES: Report received from ALVARO Hernandez. Pt A/Ox4. patient safety sitter shows SB. Pt currently on 3L NC. O2 saturation 98%. Pt to use bipap order at night. Showing no signs of cardiac or respiratory distress. Pt currently on a CCHO medium diet. Purewick present and suctioning well. Accuchecks are ACHS. Pt has BLE swelling noted. a RAC20g is present, asymptomatic, and patent. Bed in lowest position, bed alarms placed. Call light within reach. Will continue to monitor and with patients plan of care.
[2018-04-26 20:00] VITALS: BP 127/76
[2018-04-26] MEDS: Levemir Flexpen SUBQ SCH (20:32)
--- NOTE | 2018-04-26 23:15 | NUR ---
NURSE NOTES: Received report from Apoorva Luna RN. Patient is awake in bed, A/O x4. No s/s of acute distress noted. store protection specialist. shows sinus rhythm. Saturating well on 2L O2 via nasal cannula. Purewick catheter in place and suctioning well. Right AC 20g IV TKO, intact and patent. Bed locked in lowest position with side rails up x3. Call light left within reach. Will continue to monitor.
--- NOTE | 2018-04-26 23:52 | NUR ---
RESPIRATORY NOTE: PT. PLACED ON NOC. BIPAP PER DOCTOR ORDER WITH CURRENT SETTINGS. 18/5, RATE 16, 25%, ALARMS ON AND AUDIBLE. PT ON FACIAL MASK. SPONGE TAPE IN PLACE. NO FACIAL WOUNDS. NO S/S OF RESPIRATORY DISTRESS NOTED AT THIS TIME. WILL CONTINUE TO MONITOR.
[2018-04-27] VITALS: BP 118/45
[2018-04-27] MEDS: cefTRIAXone 1 GM in D5W 55 ML IVPB SCH (01:05)
[2018-04-27] MEDS: Albuterol/Ipratropium 3ml neb HHN SCH ×4 (03:26→14:56)
[2018-04-27 04:00] VITALS: BP 120/58
[2018-04-27 04:45] LABS: BASOPHILS % (AUTO) 1.4 % (0.0-2.0); EOSINOPHILS % (AUTO) 0.1 % (0.0-3.0); HEMATOCRIT 36.1 % (37.0-47.0); HEMOGLOBIN 10.9 G/DL (12.0-16.0); MEAN CORPUSCULAR VOLUME 95 FL (80-99); MONOCYTES % (AUTO) 11.9 % (1.0-10.0); NEUTROPHILS % (AUTO) 72.6 % (45.0-75.0); PLATELET COUNT 153 K/UL (150-450); RED BLOOD COUNT 3.79 M/UL (4.20-5.40); RED CELL DISTRIBUTION WIDTH 14.6 % (11.6-14.8); WHITE BLOOD COUNT 5.9 K/UL (4.8-10.8)
[2018-04-27 05:16] LABS: ANION GAP 1 mmol/L (5-15); BLOOD UREA NITROGEN 37 mg/dL (7-18); CALCIUM 9.3 MG/DL (8.5-10.1); CHLORIDE 98 MMOL/L (98-107); CREATININE 1.1 MG/DL (0.55-1.30); POTASSIUM 3.9 MMOL/L (3.5-5.1); SODIUM 141 MMOL/L (136-145)
[2018-04-27 05:28] LABS: CARBON DIOXIDE 42 MMOL/L (21-32)
--- NOTE | 2018-04-27 05:30 | NUR ---
NURSE NOTES: Critical lab CO2 42 reported from lab. not informed due to lab value trending down.
[2018-04-27] MEDS: NovoLOG Insulin Flexpen SUBQ SCH ×2 (06:20→12:54)
--- NOTE | 2018-04-27 07:10 | NUR ---
HAND-OFF: Report given to Aric Jones RN.
[2018-04-27 08:00] VITALS: BP 152/74
[2018-04-27] MEDS ORDERED: PACERONE200 MG ORAL (08:58)
[2018-04-27] MEDS ORDERED: PREDNISONE20 MG ORAL (08:58)
[2018-04-27] MEDS: Docusate 100mg cap ORAL SCH (09:36)
[2018-04-27] MEDS: Amiodarone 200mg tab ORAL SCH (09:36)
[2018-04-27] MEDS: Eliquis 2.5mg tablet ORAL SCH (09:36)
--- NOTE | 2018-04-27 10:12 | NUR ---
*-- DISCHARGE PLANNING *-* PATIENT HAS BEEN REFERRED BACK TO: [facility] P:[phone] F;[phone]
--- NOTE | 2018-04-27 10:53 | NUR ---
*-* INSURANCE *-* ALL AVAILABLE CLINICALS HAVE BEEN FAXED TO: [facility] F:[phone]
[2018-04-27 12:00] VITALS: BP 132/81
--- NOTE | 2018-04-27 13:30 | NUR ---
NURSE NOTES: PLACED A TELEPHONE CALL TO LUCA DANIEL AND REPORT GIVEN TO PRASHANT JOHN IN CHARGE.A WAITING FOR AMBULANCE TO TRANSFER THE PATIENT.WILL CONTINUE TO MONITOR.
--- NOTE | 2018-04-27 17:10 | NUR ---
NURSE NOTES: REPORT GIVEN TO [facility] STAFF [facility].PT LEFT THE HOSPITAL ON STABLE CONDITIONS VIA AMBULANCE.
--- NOTE | 2018-04-28 12:33 | Discharge Summary ---
Discharge Summary Discharge Summary _ DATE OF ADMISSION: 04/23/2018 DATE OF DISCHARGE: 04/27/2018 DISCHARGED BY: Dr. Jade REASON FOR ADMISSION: 67 years old female with past medical history of HTN, DM< COPD/asthma, CHF, obseity, obstructive sleep apnea , using CPAP machine at SNF, noted to have increased shortness of breath , altered mental status and hypoxia. Initial ABG revealed pH of 7.28, PCO2 115, PO2 83. Patient was initially was placed on BiPAP 10/5 and repeated blood glass showed minimal improvement. Settings subsequently were increased on the BiPAP, and patient became more awake , conversant and wanted to eat . She denied any chest pain, but reported intermittent shortness of breath. Patient non- ambulatory. No nausea, vomiting ,or diarrhea. No fever ,no chills. Troponin negative. EKG revealed normal sinus rhythm no acute ischemic changes. Initial chest x-ray revealed enlarged cardiomediastinal silhouette; left pleural effusion with adjacent atelectasis or consolidation Urinalysis with + 2 leukocyte esterase. Patient was admitted for further management. HOSPITAL COURSE: Patient admitted to [facility]. Patient was followed with ABG and chest x-ray with BiPAP settings titrated accordingly. Patient eventually was able to be weaned from the BiPAP to oxygen via nasal cannula. BiPAP was used at nighttime, Patient was able to tolerate BiPAP. Compliance with BiPAP therapy was encouraged. Echocardiogram revealed preserved ejection fraction of 60% with mild left ventricular hypertrophy. No evidence of wall motion abnormality. Significant left ventricle diastolic dysfunction grade 2. Right ventricular systolic pressure of 58 consistent with moderate pulmonary hypertension. Venous duplex bilateral lower extremity was negative for evidence fo acute DVT. Patient was started on IV steroids with gradual tapering down. Strict aspiration precautions were maintained Patient started on empiric antibiotics. DVT prophylaxis provided. Patient was followed up with CXRs, stable, no acute changes. Steroids changed to oral to complete the course at the facility. Blood culture negative. Influenza screen test negative. No leukocytosis, no fevers. Patient status post treatment with empiric antibiotic for possible UTI. Anticoagulation with Eliquis was continued along with maintenance dose of amiodarone for paroxysmal atrial fibrillation. Statin was continued. Blood pressure was closely monitored and remained stable. Blood sugar was managed with long acting insulin and sliding scale of short acting insulin was used as needed. Diabetic diet initiated. Patient clinically stabilized and was ready for transfer back to halfway facility. FINAL DIAGNOSES: Hypercapnic respiratory failure Obesity Obstructive sleep apnea Hypoventilation syndrome with severe CO2 retention Diabetes mellitus Hypertension Possible UTI Nonambulatory status: DISCHARGE MEDICATIONS: See Medication Reconciliation list. DISCHARGE INSTRUCTIONS: Patient was discharged to the halfway facility. Follow up with medical doctor at the facility. I have been assigned to dictate discharge summary for this account. I was not involved in the patient's management. Rin Martins NP Apr 28, 2018 12:33
--- NOTE | 2018-04-29 09:33 | Cardiology Report ---
APPROVED REPORT EXAM: Two-dimensional and M-mode echocardiogram with Doppler and color Doppler. INDICATION Congestive Heart Failure M-Mode DIMENSIONS IVSd1.7 (0.7-1.1cm)Left Atrium (MM)4.8 (1.6-4.0cm) LVDd4.7 (3.5-5.6cm)Aortic Root3.6 (2.0-3.7cm) PWd2.2 (0.7-1.1cm)Aortic Cusp Exc.2.0 (1.5-2.0cm) LVDs1.7 (2.5-4.0cm) PWs3.2 cm Technically difficult study due to patient body habitus. Study quality precludes accurate assessment of regional wall motion. Normal left ventricular chamber size, systolic function and wall motion. Left ventricular ejection fraction estimated to be 60 %. Mild left ventricular hypertrophy. No evidence of pericardial effusion. Moderate left atrial enlargement. Mild right atrial enlargement. Right ventricular chamber sizes is within normal limits. Focal aortic valve sclerosis with adequate cusp excursion. Thickened mitral valve leaflets with normal excursion. Mild mitral annulus and aortic root calcification. Pulmonic valve not well visualized. Normal tricuspid valve structure. Subcostal views not obtainable. A color flow and spectral Doppler study was performed and revealed: No aortic insufficiency. Trace mitral regurgitation. Mitral inflow velocities indicates possible pseudo normalization pattern implying significant left ventricular diastolic dysfunction (Grade II). Mild to moderate tricuspid regurgitation. Tricuspid systolic velocities suggests peak right ventricular systolic pressure of 58 mmHg, consistent with moderate pulmonary hypertension. Trace pulmonic regurgitation present.
--- NOTE | 2018-04-29 09:33 | Cardiology Report ---
APPROVED REPORT EKG Measurement Heart [id number] Sinus rhythm with 1st degree AV block Low voltage QRS Nonspecific ST abnormality Abnormal QRS-T angle, consider primary T wave abnormality Abnormal ECG
--- NOTE | 2018-04-29 09:34 | Diagnostic Imaging Report ---
APPROVED REPORT CPT Code: 21199 Present Symptoms Comments: Dyspnea BILATERAL: Imaging reveals a patent deep venous system bilaterally. There is no evidence of thrombus within the femoral, popliteal or tibial segments. The greater saphenous veins are also within normal limits. Doppler indicates normal spontaneous flow within these segments.
--- NOTE | 2018-05-04 18:20 | Physician Query ---
--------- THIS DOCUMENT IS A PERMANENT PART OF THE MEDICAL RECORD --------- PLEASE COMPLETE THE FORM BEFORE SIGNING Dear Dr. 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 Questions asked do not imply particular answer is desired or expected. We greatly appreciate your clarification on this issue. Clinical Documentation States: HOSPITAL COURSE: REASON FOR ADMISSION: 67 years old female with past medical history of HTN, DM< COPD/asthma, CHF, obseity, obstructive sleep apnea , using CPAP machine at SNF, noted to have increased shortness of breath , altered mental status and hypoxia. Initial ABG revealed pH of 7.28, PCO2 115, PO2 83. Patient admitted to [facility]. Patient was followed with ABG and chest x-ray with BiPAP settings titrated accordingly. Patient eventually was able to be weaned from the BiPAP to oxygen via nasal cannula. BiPAP was used at nighttime, Patient was able to tolerate BiPAP. Compliance with BiPAP therapy was encouraged. FINAL DIAGNOSES: Hypercapnic respiratory failure Please clarify if the type of respiratory failure: []Respiratory Failure [] Acute [] Chronic (on home O2) [x]Acute on Chronic [] Unable to determine Please also document in your Progress Notes and/or Discharge Summary and indicate if the condition was present on admission. DIOGENES CORONEL M.D. DATE & TIME [facility]
== END 2018-04-27 17:42 | DRG 189 ==
LOC: EDBD 17:22 → EMR 18:37 → EDBEDREQ 21:40 → 2W 22:17
PROC: 5A09457 Assistance with Respiratory Ventilation, 24-96 Consecutive Hours, Continuous Positive Airway Pressure (ICD-10-PCS; principal; 2018-04-23)
DX: J96.22 Acute and chronic respiratory failure with hypercapnia (principal); J44.1 Chronic obstructive pulmonary disease with (acute) exacerbation; E66.2 Morbid (severe) obesity with alveolar hypoventilation; N39.0 Urinary tract infection, site not specified; I50.9 Heart failure, unspecified; I10 Essential (primary) hypertension; E11.9 Type 2 diabetes mellitus without complications; G47.33 Obstructive sleep apnea (adult) (pediatric); I48.0 Paroxysmal atrial fibrillation; Z79.01 Long term (current) use of anticoagulants; I27.20 Pulmonary hypertension, unspecified
CPT/HCPCS: 36415; 36600; 71045; 80048; 80053; 81003; 82550; 82553; 82803; 82962; 83605; 83735; 83880; 84100; 84484; 85007; 85025; 86710; 87040; 87081; 93005; 93306; 93970; 94640; 94660; 94664; 94760; 96374; 99291; J1815; J7620; S5561

== ENCOUNTER 2018-05-18 18:42 | Inpatient (IN) | payer BC, MEDICAID ==
[~2018-05-18] VITALS: Ht 167.6 cm; Wt 158.8 kg
[~2018-05-18 18:42] MED LIST changes: +ACIDOPHILUS1 EAC6 PO; +AMIODARONE HCL200 MG ORAL; +Atropine Inj 1mg/10ml Syr ONE; +CARVEDILOL6.25 MG ORAL; +LEVEMIR FL100 UNIT/2 SQ; +LOSARTAN POTASS25 MG ORAL; +MAALOX ADVANCE770 ML PO; +Magnesium Sulfate 2ml Inj ONE; +PACERONE200 MG ORAL; +PRAVASTATIN SOD80 M1 ORAL; +VITAMIN A & D454 GM TP; +XOPENEX0.63 MG/3 HHN
--- NOTE | 2018-05-18 18:42 | NUR ---
1830 brought in from shelter due to aloc and respiratory distress. . patienyt was bagged with 100% 02 tolerating well.
[2018-05-18 18:43] VITALS: BP 155/96
--- NOTE | 2018-05-18 18:45 | NUR ---
patient has been intubated with 7.5 et tube taped at 23 cm lip tollerated procedure well, bagged and placed on ventilator. patient is in asystole continue cpr and baged well
--- NOTE | 2018-05-18 18:52 | NUR ---
ED Nurse Note: Dr. Martinez successfully placed central line on patietns right femoral artery. will wait for further orders
--- NOTE | 2018-05-18 19:05 | NUR ---
ED Nurse Note: Report received from Ame Tavares RN. Pt brought in for ALOC and lethargy. Upon receiving pt, pt found with ETT 7.0 @ 23 on lip. Ventilator settings: AC20, VT 500, FiO2: 100%, PEEP: 5. Pt tolerating current settings well. Showing no signs of acute distress. Pt presented with a LAC18g, RH20g, and a R femoral TLC placed by ERMD. Current VSS. Pt to be taken to CT and currently awaiting CXR for proper tube placement. Will continue to monitor.
--- NOTE | 2018-05-18 19:18 | Emergency Room Report ---
History of Present Illness General Chief Complaint: Altered Level of Consciousness Source: Medical Record Present Illness HPI Patient is a 67-year-old female brought in by EMS after increased lethargy. Patient was noted to have prior history of diabetes. Patient was noted to have become unresponsive during transport. Patient was noted to be awake and talking per EMS. Patient had reportedly been increasingly lethargic throughout the day. She had prior history of hypertension. Allergies: Coded Allergies: No Known Allergies (Unverified , 02/20/17) Patient History Past Medical History: see triage record Now: No Reviewed Nursing Documentation: PMH: Agreed; PSxH: Agreed Nursing Documentation-PM Past Medical History: No History, Except For Hx Cardiac Problems: Yes - A-Fib, Aortic Aneurysm, Hyperlipidemis Hx Hypertension: Yes Hx Asthma: Yes Hx Diabetes: Yes - Type 2 Hx Cancer: No Hx Gastrointestinal Problems: No Hx Neurological Problems: No Review of Systems All Other Systems: negative except mentioned in HPI Physical Exam Vital Signs Date Time Temp Pulse Resp B/P (MAP) Pulse Ox O2 Delivery O2 Flow Rate FiO2 05/18/18 18:35 49 20 155/96 89 Simple Mask 6.0 Sp02 EP Interpretation: reviewed General Appearance: lethargic, obese, Chronically Ill Head: atraumatic Eyes: bilateral eye other - pinpoint pupils ENT: normal ENT inspection, hearing grossly normal, normal voice Neck: normal inspection, full range of motion, supple, no bony tend Respiratory: normal inspection, no retraction, rales, rhonchi, other - agonal breathing Cardiovascular #1: no edema, bradycardia Gastrointestinal: normal inspection, normal bowel sounds, non tender, soft, no guarding, no hernia Genitourinary: normal inspection, no CVA tenderness Musculoskeletal: normal inspection Neurologic: other - unresponsive, GCS 3 Psychiatric: mood/affect normal Procedures Critical Care Time Critical Care Time Patient had a critical medical condition which untreated could potentially result in life or limb threatening injury. Total critical care time excluding procedures approximately 120 minutes. Central Line Central Line : Consent: Emergent Central Line Lumen: triple Maximal Sterile Barrier Tech: yes cap, yes mask, yes sterile gown, yes sterile gloves, yes large sterile sheet, yes hand hygiene, yes chlorhexidine prep Central Line Postion: femoral (R) Anesthesia: local cc's of anesthesia: 3 Complications: none Central Line Post Position: sutured, good blood return Attempts: One Patient Tolerated: Well Intubation Intubation : Time of Intubation: 18:35 Intubation Method: orotracheal Tube Size (cm): 7.0 Breath Sounds after Intubation: equal Intubation Complications: no complications Post Intubation Xray: No Attempts: One Patient Tolerated: Well Complications: None Medical Decision Making Diagnostic Impression: Primary Impression: Respiratory arrest Additional Impressions: Morbid obesity Altered mental status ER Course CT of the head read by radiology showed sinus disease without any evidence of acute intracranial pathology or acute CVA. Patient presented for lethargy and altered mental status. Differential diagnosis include was not limited to CVA, intracranial hemorrhage, CO2 narcosis, hypoglycemia, sepsis among others. Because of complexity of patient's case laboratory testing and imaging studies were ordered. Patient was noted to have severe bradycardia initially and was noted to have a heart rate in the 20s. Patient was given atropine 0.5 mg without any improvement. She was given oxygen via bag valve mask.She was intubated for airway protection. Patient briefly had CPR after losing pulses and was given some epinephrine down the endotracheal tube as well as IV bicarbonate and calcium. Patient was noted to have brief wide QRS which improved after medications. Chest x-ray 1 view interpreted by me showed cardiomegaly with large aortic knob and adequate endotracheal tube placement.CT of chest read by radiology showed type B dissection with retrograde extension into the aortic arch see radiology report for full details.Patient was discussed with from [facility] for transfer for higher level of care Labs Test 05/18/18 19:15 White Blood Count 7.7 K/UL (4.8-10.8) Red Blood Count 4.29 M/UL (4.20-5.40) Hemoglobin 12.2 G/DL (12.0-16.0) Hematocrit 40.8 % (37.0-47.0) Mean Corpuscular Volume 95 FL (80-99) Mean Corpuscular Hemoglobin 28.5 PG (27.0-31.0) Mean Corpuscular Hemoglobin Concent 30.0 G/DL (32.0-36.0) Red Cell Distribution Width 14.8 % (11.6-14.8) Platelet Count 147 K/UL (150-450) Mean Platelet Volume 5.3 FL (6.5-10.1) Neutrophils (%) (Auto) 79.3 % (45.0-75.0) Lymphocytes (%) (Auto) 16.7 % (20.0-45.0) Monocytes (%) (Auto) 3.4 % (1.0-10.0) Eosinophils (%) (Auto) 0.0 % (0.0-3.0) Basophils (%) (Auto) 0.6 % (0.0-2.0) Last Vital Signs Date Time Temp Pulse Resp B/P (MAP) Pulse Ox O2 Delivery O2 Flow Rate FiO2 05/18/18 18:35 49 20 155/96 89 Simple Mask 6.0 Status: unchanged Disposition: XFER [facility]OS[facility] Condition: Critical Franky Martinez MD May 18, 2018 19:18
[2018-05-18 19:51] LABS: BASOPHILS % (AUTO) 0.6 % (0.0-2.0); HEMATOCRIT 40.8 % (37.0-47.0); HEMOGLOBIN 12.2 G/DL (12.0-16.0); LYMPHOCYTES % (AUTO) 16.7 % (20.0-45.0); MEAN CORPUSCULAR VOLUME 95 FL (80-99); MONOCYTES % (AUTO) 3.4 % (1.0-10.0); NEUTROPHILS % (AUTO) 79.3 % (45.0-75.0); PLATELET COUNT 147 K/UL (150-450); RED BLOOD COUNT 4.29 M/UL (4.20-5.40); RED CELL DISTRIBUTION WIDTH 14.8 % (11.6-14.8); WHITE BLOOD COUNT 7.7 K/UL (4.8-10.8)
--- NOTE | 2018-05-18 20:00 | NUR ---
ED Nurse Note: unable to turn patient due to weight, patient does havbe skin build up on legs bilaterally.
[2018-05-18 20:10] LABS: CHLORIDE 100 MMOL/L (98-107); POTASSIUM 4.7 MMOL/L (3.5-5.1); SODIUM 150 MMOL/L (136-145)
[2018-05-18] MEDS ORDERED: Solu-MEDROL 125mg Inj ONE (20:14)
[2018-05-18] MEDS ORDERED: Levophed 4mg/4mL Inj IV ONE (20:15)
[2018-05-18 20:16] LABS: BILIRUBIN,TOTAL 0.7 MG/DL (0.2-1.0); BLOOD UREA NITROGEN 28 mg/dL (7-18); CARBON DIOXIDE 45 MMOL/L (21-32); CREATININE 1.7 MG/DL (0.55-1.30)
[2018-05-18 20:17] LABS: ALANINE AMINOTRANSFERASE 84 U/L (12-78); ALBUMIN 3.1 G/DL (3.4-5.0); ALBUMIN/GLOBULIN RATIO 0.8 (1.0-2.7); ALKALINE PHOSPHATASE 98 U/L (46-116); ASPARTATE AMINO TRANSFERASE 90 U/L (15-37); CKMB 1.5 NG/ML (0.0-3.6); CREATINE KINASE 43 U/L (26-140)
--- NOTE | 2018-05-18 20:20 | NUR ---
ED Nurse Note: SBP noted to drop into the 70's. Pt started on levophed.
--- NOTE | 2018-05-18 20:20 | NUR ---
ED Nurse Note: Pt started on levophed @ 2mcg/min.
[2018-05-18] MEDS ORDERED: MULTIVITAMINS1 EAC8 ORAL (20:22)
[2018-05-18] MEDS ORDERED: CARVEDILOL6.25 MG ORAL (20:22)
[2018-05-18] MEDS ORDERED: CEPACOL SORETH1 EACH ORAL (20:22)
[2018-05-18] MEDS ORDERED: ACETAMINOPHEN325 M1 ORAL (20:36)
[2018-05-18 20:41] LABS: TRIGLYCERIDES 38 MG/DL (30-150)
[2018-05-18 20:45] VITALS: BP 95/76
[2018-05-18] MEDS ORDERED: Isovue-370 150ml vial INJ PRN (20:45)
--- NOTE | 2018-05-18 20:50 | NUR ---
ED Nurse Note: Pt awake and becoming agitated, pt seen attempting to pull lines. Pt placed on bilateral soft wrist restraints and propofol started @ 5 mcg/kg/min. Will continue to monitor.
--- NOTE | 2018-05-18 21:15 | NUR ---
NURSE NOTES: Restraints removed as pt remains sedated appropriately under propofol. Not seen attempting to pull lines. Will continue to monitor
[2018-05-18 21:45] VITALS: BP 126/84
[2018-05-18 22:45] VITALS: BP 128/106
--- NOTE | 2018-05-18 22:45 | NUR ---
ED Nurse Note: Pt resting comfortably. Levophed d/c'd as BP remains stable. Pt remains on 15 mcg/kg/min Propofol, with current RASS score of -2. Pt still arousable when stimulated. VSS aside from bradycardia noted @ 58 bpm. Will continue to monitor.
[2018-05-18 23:45] VITALS: BP 131/93
[2018-05-19] VITALS (30 sets, daily range): BP systolic 96–153; BP diastolic 40–132
--- NOTE | 2018-05-19 | NUR ---
NURSE NOTES: Pt noted to be consistently bradycardic with HR decreasing down to 50's. Propofol slowly decreased to assure VS remain stable. Pt remains well sedated. Will continue to monitor.
--- NOTE | 2018-05-19 00:50 | NUR ---
NURSE NOTES: Pt transferred to ICU floor @ 0050. Pt remains sleeping at the moment. Current VSS aside from bradycardia @ 58 BPM. Pt continue to tolerate ventilator settings well. Showing no signs of acute distress. Will continue to monitor.
[2018-05-19 00:59] LABS: APPEARANCE,URINE CLOUDY; BILIRUBIN, URINE NEGATIVE (NEGATIVE); COLOR,URINE PALE YELLOW; GLUCOSE, URINE (UA) 1+ (NEGATIVE); KETONES,URINE NEGATIVE (NEGATIVE); LEUKOCYTE ESTERASE ,URINE 1+ (NEGATIVE); NITRITE,URINE NEGATIVE (NEGATIVE); PH,URINE 6 (4.5-8.0); PROTEIN,URINE 3+ (NEGATIVE); UROBILINOGEN,URINE 1 MG/DL (0.0-1.0)
--- NOTE | 2018-05-19 01:25 | NUR ---
NURSE NOTES: Called and spoke with MD Jade about admission orders. Orders received and read back and confirmed by
[2018-05-19] MEDS ORDERED: D5NS 1,000 ML IV SCH (02:00)
--- NOTE | 2018-05-19 02:00 | NUR ---
NURSE NOTES: OGT inserted, bowel sounds auscultated. Awaiting KUB.
--- NOTE | 2018-05-19 02:05 | NUR ---
NURSE NOTES: Pt more alert and agitated. Pt seen attempting to pull lines; soft wrist restraints applied bilaterally at 0200. Will continue to monitor
--- NOTE | 2018-05-19 05:27 | NUR ---
NURSE NOTES: Dr. Jade contacted as pt is experiencing frequent runs of v-tach. EKG done, Awaiting for response.
--- NOTE | 2018-05-19 05:35 | NUR ---
NURSE NOTES: Was advised by Dr. Jade to contact Dr. Levin for further orders regarding irregular HR. Dr. Arrington line called, directed to Dr. Chowdhury's line and message was left. Awaiting further orders. Will continue to monitor.
[2018-05-19 05:48] LABS: BASOPHILS % (AUTO) 0.5 % (0.0-2.0); HEMATOCRIT 34.7 % (37.0-47.0); HEMOGLOBIN 10.6 G/DL (12.0-16.0); LYMPHOCYTES % (AUTO) 16.2 % (20.0-45.0); MEAN CORPUSCULAR VOLUME 94 FL (80-99); MONOCYTES % (AUTO) 9.5 % (1.0-10.0); NEUTROPHILS % (AUTO) 73.9 % (45.0-75.0); PLATELET COUNT 120 K/UL (150-450); RED BLOOD COUNT 3.68 M/UL (4.20-5.40); RED CELL DISTRIBUTION WIDTH 14.9 % (11.6-14.8); WHITE BLOOD COUNT 4.9 K/UL (4.8-10.8)
--- NOTE | 2018-05-19 05:50 | NUR ---
NURSE NOTES: Dr. Chowdhury called back advised that he would contact Dr. Levin.
[2018-05-19 06:12] LABS: ALANINE AMINOTRANSFERASE 158 U/L (12-78); ALBUMIN 2.6 G/DL (3.4-5.0); ALBUMIN/GLOBULIN RATIO 0.8 (1.0-2.7); ALKALINE PHOSPHATASE 78 U/L (46-116); ANION GAP 4 mmol/L (5-15); ASPARTATE AMINO TRANSFERASE 151 U/L (15-37); BILIRUBIN,TOTAL 0.8 MG/DL (0.2-1.0); BLOOD UREA NITROGEN 27 mg/dL (7-18); CALCIUM 9.7 MG/DL (8.5-10.1); CHLORIDE 103 MMOL/L (98-107); CREATININE 1.3 MG/DL (0.55-1.30); POTASSIUM 3.1 MMOL/L (3.5-5.1); SODIUM 150 MMOL/L (136-145)
[2018-05-19 06:17] LABS: CARBON DIOXIDE 43 MMOL/L (21-32)
--- NOTE | 2018-05-19 07:22 | NUR ---
RESPIRATORY NOTE: received pt intubated with ETT 7.0 placed 23cm at the lip. ETT is secured via anchor fast with no redness or skin break down seen around facial area. pt awake and alert with small amounts of pale-white, brown secretions when sxn'd. vent alarms are set and audible with vent plugged into the red outlet. ambu bag at bedside. will cont to monitor.
--- NOTE | 2018-05-19 07:24 | NUR ---
NURSE NOTES: Dr. Jade made aware of K+ and CO2 level.
--- NOTE | 2018-05-19 08:00 | NUR ---
NURSE NOTES: Dr. Jade at the bedside with patient updating her on situation and purpose for admission to hospital, ordered to have patient tp be given 40kcl through OG-tube and begin weaning protocol. no further orders given.
--- NOTE | 2018-05-19 08:18 | History & Physical ---
History and Physical History & Physicial dict s/p arrest resp failure thoracic AA with dissection, chronic, ?acute DM HTN CAD Hx of A fib Porfirio Jade MD May 19, 2018 08:18
--- NOTE | 2018-05-19 08:33 | Diagnostic Imaging Report ---
Indications: Altered mental status Technique: Spiral acquisitions obtained through the brain. Angled axial and coronal 5 x 5 mm slices were reconstructed. Total dose length product 1467.58 mGycm. CTDI vol(s) 70.38 mGy. Dose reduction achieved using automated exposure control Comparison: None. Findings: No acute intracranial hemorrhage or edema, mass effect, nor midline shift. Normal yanez-white differentiation. Normal-sized ventricles and extra-axial CSF spaces. Intact calvarium. There is bilateral maxillary and ethmoid sinus disease, former demonstrating air-fluid levels. There is minimal mastoid opacification bilaterally. Intact calvarium. The included orbits are unremarkable. Impression: Negative for acute intracranial bleed or mass effect Evidence of bilateral maxillary sinusitis and ethmoid sinus mucosal disease Mastoid disease This agrees with the preliminary interpretation provided overnight by Dr. Juan The CT scanner at [facility] [place] is accredited by the [employer] and the scans are performed using protocols designed to limit radiation exposure to as low as reasonably achievable to attain images of sufficient resolution adequate for diagnostic evaluation.
[2018-05-19] MEDS: Pantoprazole Inj IVP SCH (08:47)
[2018-05-19] MEDS: Solu-MEDROL 40mg Inj IVP SCH (08:47)
[2018-05-19] MEDS ORDERED: Heparin 5000 units/ml inj SUBQ SCH (09:00)
--- NOTE | 2018-05-19 09:07 | Diagnostic Imaging Report ---
CLINICAL INDICATION:Chest pain TECHNIQUE: IV administration nonionic contrast. Arterial phase spiral acquisitions obtained through the chest, abdomen, and pelvis. Multiplanar reconstructions were generated. Total dose length product 1368.29 mGycm. CTDIvol(s) 18.44 mGy. Radiation dose was minimized using automated exposure control COMPARISON: FINDINGS Thoracic and abdominal aorta: There is a dissection flap extending from the mid ascending thoracic aorta to the great neck vessel origins. Distally, the dissection flap only occupies a portion of the aortic lumen and there is free communication between the true and false lumina. There is a small amount of thrombus in the proximal portion of the false lumen. The great neck vessels are all originate off of the true lumen. A second dissection flap originates immediately distal to the origin of the left subclavian artery. There is a large false lumen and a markedly narrowed true lumen. A second tiny dissection flap is seen within the true lumen extending for short distance. The false lumen is patent but demonstrates evidence of sluggish flow with decreased contrast opacification. The true lumen feeds the celiac axis, superior mesenteric artery, both renal arteries and the inferior mesenteric artery. It also feeds the right common iliac artery. The false lumen extends into and terminates at the level of the left common iliac artery. The ascending aorta is also aneurysmal, measuring up to 5.8 cm in diameter. At the level of the arch, the aorta measures 5.6 cm in diameter and 6.1 cm in diameter at the level of the proximal descending thoracic aorta. There is no evidence of rupture or leakage. The iliac arteries are patent and nonstenotic. No significant visceral vessels stenosis is demonstrated. There is some mural thrombus within the abdominal aortic false lumen proximally. Chest: The lungs demonstrate patchy areas of groundglass opacity in the right upper lobe and to a lesser extent the left upper lobe and right lower lobe. Atelectatic changes are seen at both lung bases. No effusions, masses, or nodules are demonstrated. The heart is massively enlarged. No pericardial effusion. No mediastinal or hilar mass or adenopathy. There is an endotracheal tube in place, tip of which terminates 5 cm above the alonzo. The thyroid is enlarged, demonstrates a subcentimeter nodule in the isthmus. There is no axillary or chest wall mass or adenopathy. Abdomen pelvis: The gallbladder contains numerous gallstones. There is no biliary ductal dilatation. The liver, pancreas are unremarkable. Spleen contains multiple subcentimeter low-attenuation lesions which are too small to characterize. The left adrenal is diffusely enlarged but also demonstrates a discrete 16 mm lower pole nodule. The nodule measures 5 Hounsfield units density. The right adrenal is unremarkable. The kidneys are unremarkable. No pelvic mass or adenopathy. Uterus is absent, presumably postsurgically. There is a Vogel catheter within the bladder which is nondistended. There is a right groin central venous catheter in place. There is colonic diverticulosis. No evidence of diverticulitis. There is broad-based diastasis of the rectus abdominis tendon. The appendix is questionably visualized; no findings to suggest acute appendicitis are evident. No free or loculated intraperitoneal gas or fluid is evident. The bones are unremarkable seventh for degenerative spondylosis changes. IMPRESSION: Short segment [place] type A of the proximal ascending thoracic aorta, beginning distal to the aortic valve. There is free communication between the true and false lumens distally and this does not appear to represent any significant obstruction and does not extend into the great neck vessels [place] type B dissection originating immediately distal to the left subclavian artery origin and extending into and terminating at the left common iliac artery as detailed above. Note significant narrowing of the true lumen within the thoracic aorta. Major visceral vessel origins are off of the true lumen. Associated aneurysmal dilatation of the thoracic aorta as described. No evidence of rupture or leakage Per the electronic medical record, dissection is chronic. This is also suggested by multiple prior chest radiographs Massive cardiomegaly Patchy areas of groundglass opacity in the lungs, nonspecific but likely on the basis of pulmonary edema. Given the enlargement of the heart and mediastinum there may be a component of compressive atelectasis as well Satisfactory endotracheal intubation Right groin central venous catheter Cholelithiasis 16 mm left adrenal adenoma Colonic diverticulosis. No evidence of diverticulitis Mild thyromegaly. Subcentimeter thyroid isthmic nodule. No further follow-up necessary Nonspecific subcentimeter low-attenuation splenic lesions Other findings as noted, including degenerative spondylosis, diastasis of the rectus abdominis tendon, evidence of prior hysterectomy This essentially agrees with the preliminary interpretation provided overnight by [facility] teleradiology service, with some additional nonsignificant findings as noted above. The CT scanner at [facility] is accredited by the [employer] and the scans are performed using protocols designed to limit radiation exposure to as low as reasonably achievable to attain images of sufficient resolution adequate for diagnostic evaluation.
--- NOTE | 2018-05-19 09:22 | NUR ---
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 Mastoid disease IS:PROPOFOL 100ml IV NOREPINEPHRINE BITARTRATE/D5 250ml IV D5/NS x1L IV K-DUR 40meq SOLU-MEDROL 20mg IVP ADMITTED TO ICU DC PLAN: RETURN TO [facility]
--- NOTE | 2018-05-19 09:56 | NUR ---
RESPIRATORY NOTE: pt initially on fio2 of 50% attempted to wean with fio2 40% CPAP 12. Pt's Vt was 250-300 and RR WNL, but pt started to desaturate. placed back on AC within 5 min weaning trial.
--- NOTE | 2018-05-19 10:07 | Diagnostic Imaging Report ---
Indication: Shortness of breath Technique: One view of the chest Comparison: 04/26/2018 Findings: There is an endotracheal tube in place, tip projecting approximately 4 cm above the alonzo. Inspiration is suboptimal. Again demonstrated is aneurysmal thoracic aortic arch. There is mild pulmonary venous congestion. The heart is enlarged. There is chronic appearing bilateral apical pleural thickening Impression: Satisfactory endotracheal intubation Enlarged aortic arch, consistent with known chronic thoracic aortic aneurysm and dissection, also documented on subsequent CT angiogram Possible mild pulmonary venous congestion Cardiomegaly
--- NOTE | 2018-05-19 10:09 | Diagnostic Imaging Report ---
Indication: Dyspnea Technique: One view of the chest Comparison: For 04/07/2018 Findings: Interim placement of nasogastric tube, tip projecting beyond the edge of image, presumably in good position. Stable satisfactory position of endotracheal tube. Improved aeration of both lungs. Aneurysmal thoracic aorta again demonstrated. The heart remains enlarged. Impression: Apparently satisfactory position of nasogastric tube Improved pulmonary parenchymal aeration, over 12 hours Other stable findings as described
--- NOTE | 2018-05-19 10:28 | NUR ---
RADIOLOGY DEPT., CHEST X-RAY DONE.-P.DYE
[2018-05-19] MEDS: Carvedilol 6.25mg Tab NG SCH ×2 (10:30→21:41)
--- NOTE | 2018-05-19 10:45 | NUR ---
NURSE NOTES: Dr. Levin updated at the bedside of patient condition and radiology results, darrius review labs and place orders.
--- NOTE | 2018-05-19 11:17 | Diagnostic Imaging Report ---
Indication: Status post nasogastric tube placement Technique: Supine view of the, per abdomen Comparison: none Findings: Their is a nasogastric tube in place, tip projected at the level gastric antrum. Visualized bowel gas is unremarkable. Impression: Satisfactory nasogastric intubation This agrees with the preliminary interpretation provided overnight by [facility] teleradiology service.
[2018-05-19] MEDS: 1/2NS w/KCl 20mEq 1000ml 1,000 ML IV SCH ×2 (11:55→21:39)
[2018-05-19] MEDS: Amiodarone 200mg tab NG SCH (11:55)
--- NOTE | 2018-05-19 12:45 | NUR ---
NURSE NOTES: Patient second attempt at weaning with PS of 10on CPAP, she remains able to tolerate weaning, she is allert and awake able to follow commands and inhale tv of 550ml. no distress noted on 40%fio2 will continue to monitor.
--- NOTE | 2018-05-19 13:31 | NUR ---
RD ASSESSMENT & RECOMMENDATIONS SEE CARE ACTIVITY FOR COMPLETE ASSESSMENT DAILY ESTIMATED NEEDS: Needs based on Critical Care, morbidly obese 22-25kcal/kg IBW (61kg) kcals/kg 7346-0346 total kcals 1.8-2.5 IBW (61kg) g protein/kg 109-152 g total protein 20-25ml/kg abw (84kg) mL/kg 6545-5923 total fluid mLs NUTRITION DIAGNOSIS: * Swallowing difficulty R/T respiratory status as evidenced by orally intubated, NPO at this time * Obesity R/T life style factors, excessive energy intake as evidenced by BMI >50, pt is 253% IBW CURRENT TF:NPO PO DIET RECOMMENDATIONS: BOARD ATTENDANT EVAL POST EXTUBATION -> CARDIAC, CCHO LOW/ texture per BOARD ATTENDANT ENTERAL NUTRITION RECOMMENDATIONS: Vital AF 1.2 @ 50ml/hr x 24 hrs + Prosource 1pkt BID to provide 1200ml, 1440kcal, 90g + 22g prot, 973ml free water * When medically appropriate, initiate Vital AF 1.2 @ 20ml/hr x 6 hrs. * Advance 10ml q 4-6 hrs as tolerated to goal rate. * Add Prosource 1pkt BID * HOB over 30 degrees/ water flush per MD. ADDITIONAL RECOMMENDATIONS: 1) Recalibrate bed scale for accurate CBW 2) Monitor lytes closely w/ TF, replete as needed 3) Monitor BGs closely w/ TF, rec SSI .
--- NOTE | 2018-05-19 14:30 | NUR ---
NURSE NOTES: Blood samples drawn and sent to laboratory to analyse, awaiting for results.
--- NOTE | 2018-05-19 15:08 | NUR ---
*-* INSURANCE *-* ALL CLINICALS AND REVIEWS FAXED TO: [facility] JAYLA KELSEY P:[phone] F: [phone]
--- NOTE | 2018-05-19 15:23 | NUR ---
RESPIRATORY NOTE: attempted to wean pt again at 1250 with CPAP PS 10 fio2 40%. pt did well with no resp distress. pt tired out and notified RN. RN notified me and placed pt back to AC mode at 1315. Maxim JOHN notified
[2018-05-19] MEDS: Midazolam/D5W 100ml 100 ML IVPB PRN (15:27)
--- NOTE | 2018-05-19 15:30 | NUR ---
NURSE NOTES: Patient started on Midazolam drip at 1mg/hr to sedate patient and remains calm, she weaned for approximately 2.5 hours on setting of CPAP with PS of 10, BP is 126/89 with HR at 70 in sinus rhythm, RR is 22-23 with Tv of 260-325ml and saturating at 96-98%, patient remains awake and alert to name and follows command, will continue plan of care.
[2018-05-19 15:42] LABS: ANION GAP 3 mmol/L (5-15); BLOOD UREA NITROGEN 29 mg/dL (7-18); CALCIUM 9.4 MG/DL (8.5-10.1); CHLORIDE 104 MMOL/L (98-107); CREATININE 1.5 MG/DL (0.55-1.30); POTASSIUM 3.5 MMOL/L (3.5-5.1); SODIUM 152 MMOL/L (136-145)
[2018-05-19 15:46] LABS: CARBON DIOXIDE 45 MMOL/L (21-32)
--- NOTE | 2018-05-19 16:30 | History and Physical Report ---
DATE OF ADMISSION: 05/18/2018 HISTORY OF PRESENT ILLNESS: The patient is a 67-year-old woman who was admitted because of lethargy. She had respiratory failure and bradycardic arrest with heart rate down to 20. She had CPR in the emergency department and was intubated. She was sent for CT angiogram of the chest, which reportedly showed type B aortic aneurysm with dissection. She was known to have prior aortic dissection. Overnight, the patient improved and is alert. She is off vasopressors and remains on ventilator. There is a history of respiratory failure in the past, requiring BiPAP due to obesity, hypoventilation. She apparently uses BiPAP at her nursing facility and at home. PAST MEDICAL HISTORY: Includes morbid obesity, hypoventilation syndrome, diabetes, hypertension, asthma, thoracic aortic aneurysm with dissection. She has chronic lymphedema and is not ambulatory. She has sleep apnea and has been hospitalized 5 times in the past 6 months with respiratory failure. Her pCO2 has been over 100 on numerous occasions. There is a history of diastolic heart failure. She had atrial fibrillation, it was cardioverted in the past. She has had hysterectomy. ALLERGIES: None. MEDICATIONS: Reviewed and reconciled. She is on Eliquis and amiodarone as well as insulin. SOCIAL HISTORY: She has never smoked. She does not use alcohol or drugs. FAMILY HISTORY: Reviewed and is positive for diabetes. PHYSICAL EXAMINATION: GENERAL: The patient is alert and responds appropriately, nodding her head. VITAL SIGNS: Stable. She is on ventilator support with an orotracheal tube in place. CHEST: Clear. CARDIAC: Rhythm is regular. ABDOMEN: Soft and nontender. Liver and spleen not enlarged. EXTREMITIES: No clubbing, cyanosis, or edema. Peripheral pulses are diminished and difficult to feel due to her obesity. LABORATORY AND DIAGNOSTIC DATA: Chest x-ray is clear with a large aorta. Blood gas on ventilator support showed a pCO2 of 63, pH is normal, and pO2 205. CBC is satisfactory. Chemistry panel shows creatinine 1.23. Sodium is elevated at 150, bicarbonate elevated 43, blood sugar 130. Liver enzymes are modestly elevated. Albumin is low at 2.6. Urine shows red cells and white cells. IMPRESSION: 1. Status post bradycardic arrest. 2. Respiratory failure, acute on chronic. 3. Obesity, hypoventilation, and sleep apnea. 4. Morbid obesity. 5. 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 6. Diabetes. 7. Hypertension. PLAN: The patient will be weaned from the ventilator. I have discussed her care with Dr. Levin for Cardiology, who will see her today and with Dr. Tobias certified professional controller at [facility], who knows her. He will review her case with the mailing clerk to see if a stent could possibly be put in place. Porfirio Jade M.D. DR: Cassius JOB#: [id number] CC: Porfirio Jade M.D.; Fax#: [phone] Maxim Levin M.D.
--- NOTE | 2018-05-19 16:41 | NUR ---
NURSE NOTES: RASS Score of -2 achieved with 5mg/hr of versed, she is sedated with ability to be arousedable to name and shaking, able to open eyes for three seconds then return to close eyes, she remains on ventilator setting of 20, TV: 500, FIO2 40% and Peep of 5, patient remains saturating around 97-99% with no distress noted, will continue to monitor.
--- NOTE | 2018-05-19 19:20 | NUR ---
HAND-OFF: Report given to ALVARO Merritt. patient remains on Midazolam drip at 5mg/hr with RASS of -2, she is able to open eyes for 3 seconds and make eye contact.
[2018-05-19] MEDS: Dyna-Hex 2% Top Sol 2oz TOPIC SCH (20:00)
--- NOTE | 2018-05-19 20:00 | NUR ---
NURSE NOTES: pt orally intubated -vent o2 sat 95 0/0 no acute resp distress noted on versid drip at 5mg /hr at -2 ros
--- NOTE | 2018-05-19 22:00 | NUR ---
NURSE NOTES: reposition and suction on sergio soft wrist restraints nan complaintno resp distress noted
[2018-05-20] VITALS (31 sets, daily range): BP systolic 101–169; BP diastolic 46–136
--- NOTE | 2018-05-20 | NUR ---
NURSE NOTES: CHG bath given at this time. patient able to assist with turning. Right femoral TLC dressing dry and intact at this time. No signs of distress noted. Will continue to monitor Addendum: 05/21/18 at 0127 by NILO TINEO RN wrong time
--- NOTE | 2018-05-20 | NUR ---
NURSE NOTES: pt place on big boy bed complete bed bath and oral care rowe care done reposition and suction
--- NOTE | 2018-05-20 01:00 | NUR ---
NURSE NOTES: called and spoke with company that delivered big boy bed. Informed them that there is a gap on the right side of the bed, mattress does not inflate all the way. I was able trouble shoot with a tech. Bed should fully inflate with in 30 min. Will call back if does not inflate.
[2018-05-20] MEDS: Midazolam/D5W 100ml 100 ML IVPB PRN (01:29)
--- NOTE | 2018-05-20 02:00 | NUR ---
NURSE NOTES: reposition and suction vs stable no acute resp distress noted versed drip at 3 mg/hr
--- NOTE | 2018-05-20 04:00 | NUR ---
NURSE NOTES: Call company that delivered mattress and informed them that mattress does not fully expand that there is a gap between the mattress and side rails. Work order was placed by company for someone to replace the bed. Will endorse to Charge nurse to follow up.
--- NOTE | 2018-05-20 04:00 | NUR ---
reposition and suction pt michelle todd today
--- NOTE | 2018-05-20 06:00 | NUR ---
NURSE NOTES: pt vacation sedation for alfonzo calvin
--- NOTE | 2018-05-20 07:09 | NUR ---
RESPIRATORY NOTE: received pt intubated on current vent orders with ETT 7.0, placed 23cm at the lip. ETT secured via anchor fast with no redness or skin tears on facial or neck area. visible dryness around mouth, but no wounds. orders to wean will be followed later this morning. alarms are set and audible with ambu bag at bedside. vent is also plugged into the redoutlet. will cont to monitor.
--- NOTE | 2018-05-20 08:00 | NUR ---
NURSE NOTES: Dr. Jade called to order cbc, BMP, magnesium and phosphorus for morning AM, will place orders.
--- NOTE | 2018-05-20 08:39 | NUR ---
RESPIRATORY NOTE: pt is now awake and alert. weaning started at 0832 with CPAP PS10 fio2 40%. instructed pt to take slow deep breaths. no resp distress noted at this time. will cont to monitor.
[2018-05-20 08:49] LABS: HEMOGLOBIN 10.6 G/DL (12.0-16.0); MEAN CORPUSCULAR VOLUME 94 FL (80-99); PLATELET COUNT 121 K/UL (150-450); RED BLOOD COUNT 3.71 M/UL (4.20-5.40); RED CELL DISTRIBUTION WIDTH 14.6 % (11.6-14.8); WHITE BLOOD COUNT 5.4 K/UL (4.8-10.8)
[2018-05-20 09:12] LABS: ANION GAP 5 mmol/L (5-15); BLOOD UREA NITROGEN 31 mg/dL (7-18); CALCIUM 9.1 MG/DL (8.5-10.1); CHLORIDE 104 MMOL/L (98-107); CREATININE 1.5 MG/DL (0.55-1.30); PHOSPHORUS 1.9 MG/DL (2.5-4.9); POTASSIUM 2.9 MMOL/L (3.5-5.1); SODIUM 150 MMOL/L (136-145)
[2018-05-20 09:18] LABS: CARBON DIOXIDE 41 MMOL/L (21-32)
--- NOTE | 2018-05-20 09:28 | NUR ---
ELECTRICAL SYSTEM SPECIALISTATOMIC SPECTROSCOPIST SI:RESPIRATORY ARREST VS: BP 126/62, P 57, T 99.4, RR 23, SpO2 100 AC 20, TV 500, PEEP 5.0, FiO2 40 RBC 3.71, HgB 10.6, Hct 35.0, Na 150, K 2.9, CO2 41, BUN 31, CR 1.5 CXR FINDINGS: Improved aeration of both lungs. Aneurysmal thoracic aorta again demonstrated. The heart remains enlarged. IS:MIDAZOLAM HCI 110ml IVPB PROTONIX 40mg IVP SOLU-MEDROL 20mg IVP CORDARONE 200mg NG COREG 6.25mg NG SODIUM x1L IV ICU STATUS
[2018-05-20] MEDS: 1/2NS w/KCl 20mEq 1000ml 1,000 ML IV SCH ×2 (09:47→17:24)
[2018-05-20] MEDS: Amiodarone 200mg tab NG SCH (09:47)
[2018-05-20] MEDS: Solu-MEDROL 40mg Inj IVP SCH (09:47)
[2018-05-20] MEDS: Pantoprazole Inj IVP SCH (09:47)
[2018-05-20] MEDS: Carvedilol 6.25mg Tab NG SCH ×2 (09:47→21:00)
--- NOTE | 2018-05-20 10:30 | NUR ---
NURSE NOTES: Dr. Jade notified of potassium of 2.9 and phosphorus 1.9, order potassium phosphate 20MM to de given once, will place order.
--- NOTE | 2018-05-20 10:47 | NUR ---
RESPIRATORY NOTE: Pt continuing on CPAP until MD arrives. PS is now 8. no resp distress noted at this time. RN notified
--- NOTE | 2018-05-20 11:16 | NUR ---
RESPIRATORY NOTE: pt stated she was getting tired. placed back on AC mode at 1116
--- NOTE | 2018-05-20 11:30 | NUR ---
NURSE NOTES: Dr. Roger notified of ABG results on CPAP with PS of 10 in FIO2 of 40%, Dr. roger would like to be at the bedside with patient to assess ability to extubate, patient is awake and alert talkative and able to write on clip board, denies any pain but has discomfort at the throat region. will continue to monitor.
[2018-05-20] MEDS ORDERED: Potassium Phosphate 20 MM in NS 275 ML IV SCH (13:00)
--- NOTE | 2018-05-20 13:00 | Consultation ---
DATE OF CONSULTATION: 05/19/2018 CONSULTING PHYSICIAN: Maxim Levin M.D. REQUESTING PHYSICIAN: Porfirio Jade M.D. REASON FOR CONSULTATION: Aortic dissection. HISTORY OF PRESENT ILLNESS: This is a 67-year-old female. She came to the emergency room with weakness and lethargy. She had a respiratory arrest with bradycardia in the emergency room and required intubation and mechanical ventilation to be initiated. CPR, however, was performed as well. The patient subsequently had a CT angiogram of the chest, which revealed a type B aortic aneurysm with dissection. The patient has a known history of a prior chronic dissection. The patient remains intubated and mechanically ventilated. Blood pressure parameters were initially low and pressor support was required, does have been tapered off just recently. PAST MEDICAL HISTORY: Chronic respiratory acidosis, hypoventilation syndrome due to obesity, chronic BiPAP dependence, type 2 diabetes mellitus, hypertensive heart disease, asthma, history of thoracic aortic aneurysm with dissection, chronic lymphedema, nonambulatory state, paroxysmal atrial fibrillation, prior hysterectomy, and diastolic dysfunction with congestive heart failure. MEDICATIONS: Reviewed and reconciled. ALLERGIES: None known. SOCIAL HISTORY: Negative for smoking, alcohol, or substance abuse. FAMILY HISTORY: From records reveal a history of family diabetes. REVIEW OF SYSTEMS: Otherwise not obtainable from the patient. PHYSICAL EXAMINATION: GENERAL: The patient is orally intubated. Mechanically ventilated. Alert and interactive. VITAL SIGNS: Blood pressure 123/90, pulse 65, and respiratory rate 18. Morbidly obese. LUNGS: Bilateral breath sounds with no wheezing or rales. HEART: Regular rhythm and rate. Normal S1 and S2 with no appreciable murmur. However, respiratory sounds obscured the exam significantly. ABDOMEN: Obese, soft, and nontender. EXTREMITIES: Revealed no clubbing, cyanosis, or edema. Distal pulses are diminished, but capillary refill is quite adequate. IMAGING DATA: Chest x-ray with no acute process. Dilated aorta noted. ABG reveals 7.42, 63, and 205. Sodium 150, potassium 3.1, bicarbonate 43, BUN 27, creatinine 1.3, glucose 130, and albumin 2.6. Troponin 0.078. Pro-natriuretic peptide 2300. IMPRESSION: 1. Acute on chronic respiratory failure with bradycardia and arrest. 2. Thoracic aortic aneurysm with chronic dissection and possible acute dissection as well. 3. Chronic diastolic congestive heart failure. 4. Acute myocardial ischemia and possible non-ST elevation infarction. 5. Dehydration. 6. Hypernatremia. 7. Hypokalemia. 8. Moderate protein-calorie malnutrition. 9. Lactic acidosis, resolved. 10. Transaminitis due to shock. 11. Compensatory metabolic alkalosis. 12. Condition critical. 13. Prognosis guarded. PLAN: 1. Ventilator support. Weaning as able. 2. Hypotonic IV fluid. 3. Hydration. 4. Potassium replacement. 5. Check magnesium. 6. Empiric antibiotics. 7. Respiratory hygiene. 8. No anticoagulants. 9. Follow up CT imaging once the patient is more stable for imaging. 10. Serial troponin levels. 11. Beta-michael therapy with titration. 12. The patient is not a surgical candidate. Maxim Levin M.D. DR: SANAM JOB#: [id number] CC:
--- NOTE | 2018-05-20 14:00 | NUR ---
NURSE NOTES: Dr. Carrillo at the bedside with patient, no verbal orders given at this time,
--- NOTE | 2018-05-20 15:00 | NUR ---
*-* INSURANCE *-* ALL CLINICALS AND REVIEWS FAXED TO: [facility] P:[phone] F: [phone] Addendum: 05/20/18 at 1504 by JULI GEORGE CM REVIEW SENT ONLY NO NEW PROGRESS NOTES IN SYSTEMT
[2018-05-20] MEDS ORDERED: Calcium Chloride 10% 10ml carpuject IVP ONE (15:37)
[2018-05-20] MEDS ORDERED: Sodium Bicarbonate 50ml Carp ONE (15:37)
[2018-05-20] MEDS ORDERED: Naloxone 0.4mg/ml Inj ONE (15:37)
--- NOTE | 2018-05-20 15:48 | Pulmonology Progress Note ---
Assessment/Plan Assessment/Plan 1. Status post bradycardic arrest. 2. Respiratory failure, acute on chronic. 3. Obesity, hypoventilation, and sleep apnea. 4. Morbid obesity. 5. 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 6. Diabetes. 7. Hypertension. wean as tolerated resume apixiban - no sign of bleeding Ancef for UTI - strep thoracic surgery consult per Dr Ollie crawford Subjective Allergies: Coded Allergies: No Known Allergies (Unverified , 02/20/17) Objective Last 24 Hour Vital Signs Date Time Temp Pulse Resp B/P (MAP) Pulse Ox O2 Delivery O2 Flow Rate FiO2 05/20/18 15:02 54 20 40 05/20/18 15:00 51 20 155/113 (127) 100 05/20/18 14:00 55 20 154/78 (103) 100 05/20/18 13:31 53 20 40 05/20/18 13:00 58 20 145/67 (93) 100 05/20/18 12:30 99.2 55 20 126/69 (88) 100 05/20/18 12:00 56 05/20/18 12:00 40 05/20/18 12:00 49 20 133/55 (81) 100 05/20/18 12:00 Mechanical Ventilator 05/20/18 11:16 40 05/20/18 11:00 59 20 125/69 (87) 100 05/20/18 10:44 68 28 40 05/20/18 10:00 72 24 137/87 (104) 97 05/20/18 09:47 75 119/63 05/20/18 09:00 78 23 101/69 (80) 98 05/20/18 08:40 97 05/20/18 08:33 70 14 40 05/20/18 08:32 40 05/20/18 08:00 40 05/20/18 08:00 Mechanical Ventilator 05/20/18 08:00 99.4 67 23 125/65 (85) 100 05/20/18 08:00 64 05/20/18 07:07 57 20 40 05/20/18 07:00 58 20 126/62 (83) 100 05/20/18 06:30 59 20 125/65 (85) 100 05/20/18 06:00 22 100 05/20/18 06:00 61 20 116/53 (74) 100 05/20/18 05:30 59 20 117/51 (73) 100 05/20/18 05:00 59 20 124/68 (86) 100 05/20/18 05:00 20 Mechanical Ventilator 05/20/18 04:50 61 20 40 05/20/18 04:00 Mechanical Ventilator 05/20/18 04:00 98.5 60 20 124/52 (76) 100 05/20/18 04:00 40 05/20/18 04:00 60 05/20/18 04:00 Mechanical Ventilator 100 05/20/18 03:30 60 20 124/52 (76) 100 05/20/18 03:05 60 20 40 05/20/18 03:00 62 20 124/61 (82) 100 05/20/18 03:00 Mechanical Ventilator 05/20/18 02:30 59 19 122/59 (80) 100 05/20/18 02:00 114/ 05/20/18 02:00 20 Mechanical Ventilator 100 05/20/18 01:30 63 20 108/68 (81) 100 05/20/18 01:29 22 Mechanical Ventilator 05/20/18 01:02 64 20 40 05/20/18 01:00 63 20 114/94 (101) 100 05/20/18 01:00 20 Mechanical Ventilator 100 05/20/18 00:38 66 15 154/46 (82) 96 05/20/18 00:00 71 05/20/18 00:00 Mechanical Ventilator 05/20/18 00:00 40 05/20/18 00:00 20 Mechanical Ventilator 100 05/20/18 00:00 66 19 149/62 (91) 98 05/20/18 00:00 98.2 66 19 149/62 (91) 98 05/19/18 23:00 22 Mechanical Ventilator 96 05/19/18 23:00 67 20 130/73 (92) 97 05/19/18 22:48 65 20 40 05/19/18 22:00 20 Mechanical Ventilator 96 05/19/18 22:00 69 20 131/77 (95) 95 05/19/18 21:41 70 134/73 05/19/18 21:30 68 20 134/73 (93) 99 05/19/18 21:00 67 20 123/64 (83) 99 05/19/18 21:00 22 Mechanical Ventilator 96 05/19/18 20:39 66 20 40 05/19/18 20:30 67 16 121/76 (91) 99 05/19/18 20:00 98.4 72 20 116/82 (93) 97 05/19/18 20:00 21 Mechanical Ventilator 05/19/18 20:00 71 05/19/18 20:00 40 05/19/18 20:00 Mechanical Ventilator 05/19/18 19:06 71 20 40 05/19/18 19:00 61 20 125/86 (99) 99 05/19/18 19:00 20 Mechanical Ventilator 05/19/18 18:30 67 20 120/88 (99) 98 05/19/18 18:00 66 20 108/81 (90) 98 05/19/18 18:00 20 Mechanical Ventilator 40 05/19/18 17:30 64 20 116/80 (92) 99 05/19/18 17:08 63 20 40 05/19/18 17:00 20 Mechanical Ventilator 40 05/19/18 17:00 62 20 116/86 (96) 99 05/19/18 16:30 62 20 107/83 (91) 98 05/19/18 16:30 20 Mechanical Ventilator 40 05/19/18 16:15 20 Mechanical Ventilator 40 05/19/18 16:00 Mechanical Ventilator 05/19/18 16:00 58 05/19/18 16:00 20 Mechanical Ventilator 40 05/19/18 16:00 99.9 62 20 104/82 (89) 98 05/19/18 16:00 40 05/19/18 15:45 20 Mechanical Ventilator 40 Intake and Output 05/19/18 05/20/18 19:00 07:00 Intake Total 1225.00 ml 1305 ml Output Total 535 ml 468 ml Balance 690.00 ml 837 ml Intake Free Water 100 ml IV Total 1095.00 ml 1285 ml Other 30 ml 20 ml Output Urine Total 535 ml 468 ml Microbiology Date/Time Source Procedure Growth Status 05/18/18 19:15 Blood Blood Culture - Preliminary NO GROWTH AFTER 24 HOURS Resulted 05/18/18 19:15 Blood Blood Culture - Preliminary NO GROWTH AFTER 24 HOURS Resulted 05/18/18 20:33 Urine,Clean Catch Urine Culture - Preliminary Streptococcus Species Resulted 05/18/18 20:33 Rectum VRE Culture - Final Enterococcus Faecalis - Vre Complete Laboratory Tests 05/20/18 08:00: White Blood Count 5.4, Red Blood Count 3.71L, Hemoglobin 10.6L, Hematocrit 35.0L , Mean Corpuscular Volume 94, Mean Corpuscular Hemoglobin 28.7, Mean Corpuscular Hemoglobin Concent 30.4L, Red Cell Distribution Width 14.6, Platelet Count 121L, Mean Platelet Volume 5.4L, Neutrophils (%) (Auto) , Lymphocytes (%) (Auto) , Monocytes (%) (Auto) , Eosinophils (%) (Auto) , Basophils (%) (Auto) , Differential Total Cells Counted 100, Neutrophils % ( Manual) 72, Lymphocytes % (Manual) 26, Monocytes % (Manual) 2, Eosinophils % ( Manual) 0, Basophils % (Manual) 0, Band Neutrophils 0, Platelet Estimate DecreasedL, Platelet Morphology Normal, Polychromasia 1+, Hypochromasia 1+, Anisocytosis 1+, Sodium Level 150H, Potassium Level 2.9L, Chloride Level 104, Carbon Dioxide Level 41*H, Anion Gap 5, Blood Urea Nitrogen 31H, Creatinine 1.5H , Estimat Glomerular Filtration Rate 41.8, Glucose Level 152H, Calcium Level 9.1 , Phosphorus Level 1.9L, Magnesium Level 1.8 05/20/18 09:59: Arterial Blood pH 7.394, Arterial Blood Partial Pressure CO2 76.6*H, Arterial Blood Partial Pressure O2 95.4, Arterial Blood HCO3 45.7*H, Arterial Blood Oxygen Saturation 95.7, Arterial Blood Base Excess 17.4*H, Tim Test Positive Current Medications Medications (Trade) Dose Ordered Sig/Tera Route PRN Reason Start Time Stop Time Status Last Admin Dose Admin Amiodarone HCl (Cordarone) 200 mg DAILY NG 05/19/18 10:30 06/18/18 10:29 05/20/18 09:47 Carvedilol (Coreg) 6.25 mg EVERY 12 HOURS NG 05/19/18 10:30 06/18/18 10:29 05/20/18 09:47 Chlorhexidine Gluconate (Shahrzad-Hex 2%) 1 applic DAILY@2000 TOPIC 05/19/18 20:00 06/18/18 19:59 05/19/18 20:00 Pantoprazole (Protonix) 40 mg DAILY IVP 05/19/18 09:00 06/18/18 08:59 05/20/18 09:47 Potassium Phosphate 20 mm/ Sodium Chloride 281.6667 ml @ 46.944 m... ONCE IV 05/20/18 13:00 05/20/18 20:00 05/20/18 13:40 Sodium 1,000 ml @ 100 mls/hr Q10H IV 05/19/18 11:00 06/18/18 10:59 05/20/18 09:47 Porfirio Jade MD May 20, 2018 15:48
--- NOTE | 2018-05-20 15:48 | Cardiology Report ---
APPROVED REPORT EXAM: Two-dimensional and M-mode echocardiogram with Doppler and color Doppler. INDICATION Aortic valve disorder M-Mode DIMENSIONS IVSd1.2 (0.7-1.1cm)Left Atrium (MM)4.3 (1.6-4.0cm) LVDd5.1 (3.5-5.6cm)Aortic Root2.8 (2.0-3.7cm) PWd1.3 (0.7-1.1cm)Aortic Cusp Exc.2.2 (1.5-2.0cm) IVSs1.2 cm LVDs3.3 (2.5-4.0cm) PWs1.7 cm Other Information Technically limited study due to body habitus. Images obtained in subcostal views . Normal left ventricular chamber size, systolic function and wall motion to extend visualized . Left ventricular ejection fraction estimated to be 55-60%. Mild left ventricular hypertrophy by 2-D. No evidence of pericardial effusion. Mild left atrial enlargement. Right cardiac chamber sizes are within normal limits. Aortic valve calcification with normal cusp excursion . Mildly thickened mitral valve leaflets with normal excursion. Mild mitral annulus and aortic root calcification. Pulmonic valve not well visualized. IVC dilated at 3.1 cm without physiologic collapse suggestive of increased RA pressure. A color flow and spectral Doppler study was performed and revealed: No aortic insufficiency . Mitral diastolic velocities suggest reduced left ventricular relaxation c/w mild LV diastolic dysfunction (Grade I ) Mild mitral regurgitation. Mild tricuspid regurgitation. Tricuspid systolic velocities suggests peak right ventricular systolic pressure of 21mmHg. Mild pulmonic regurgitation .
--- NOTE | 2018-05-20 16:00 | NUR ---
NURSE NOTES: Dr. Jade at the bedside and notified she will remains on ventilator setting for another day. will attempt to wean tomorrow once again, patient is calm and resting in bed no verbal orders given.
--- NOTE | 2018-05-20 16:02 | Cardiology Report ---
APPROVED REPORT EKG Measurement Heart [id number] Sinus rhythm with frequent premature ventricular complexes Low voltage QRS Prolonged QT Abnormal ECG
--- NOTE | 2018-05-20 16:23 | Diagnostic Imaging Report ---
APPROVED REPORT CPT Code: 51077 Present Symptoms Comments: Obesity SOB BILATERAL: Imaging reveals a patent deep venous system bilaterally. There is no evidence of thrombus within the common femoral, superficial femoral, or popliteal veins. The greater saphenous veins are within normal limits. Doppler indicates normal spontaneous flow within these segments. The mid superficial vein and calf veins not well visualized.
[2018-05-20] MEDS: Eliquis 2.5mg tablet ORAL SCH (17:23)
--- NOTE | 2018-05-20 17:35 | NUR ---
NURSE NOTES: Patient started on tube feeding with Vital A.F. 1.2 at 20ml/hr through OG tube, patient remains awake and alert to name, she is able to write on a note pad, remains on restraints for attempts to reach at ET-tube, will continue to monitor.
[2018-05-20] MEDS ORDERED: Eliquis 2.5mg tablet ORAL SCH (18:00)
[2018-05-20] MEDS: Albuterol/Ipratropium 3ml neb HHN SCH (19:00)
--- NOTE | 2018-05-20 19:11 | NUR ---
HAND-OFF: Report given to ALVARO Chatman.
[2018-05-20] MEDS: Dyna-Hex 2% Top Sol 2oz TOPIC SCH (19:30)
--- NOTE | 2018-05-20 19:30 | NUR ---
NURSE NOTES: Received patient in bed with eyes closed. sinus mary on the monitor with HR 48. Orally intubated on AC 20, VT 500, p5 fio2 40%. OGT feeding Nepro @ 20 with no residual at this time. Left femoral TLC running 1/2 NS with 20 k @ 100cc/hr. Vogel cath draining by gravity at this time. On a big boy bed at this time. On contact precautions. Bed in lowest, side rails upx3. no signs of distress noted. Will continue to monitor.
--- NOTE | 2018-05-20 20:45 | NUR ---
NURSE NOTES: Versed taken down to pharmacy and wasted with Pharmacist at this time.
--- NOTE | 2018-05-20 20:59 | NUR ---
NURSE NOTES: patient c/o of pain at this time. Paged MD Jade. ordered Tylenol 650 mg q 4 hr PRN for pain.
[2018-05-20] MEDS: Acetaminophen 650mg/20.3ml NG PRN (21:30)
[2018-05-20] MEDS: ceFAZolin sod 1 GM in D5W 55 ML IVPB SCH (21:30)
--- NOTE | 2018-05-20 22:00 | NUR ---
NURSE NOTES: Oral care provided at this time. patient does not want to be turned. No signs of distress noted. Will continue to monitor.
[2018-05-21] VITALS (22 sets, daily range): BP systolic 70–134; BP diastolic 36–100
--- NOTE | 2018-05-21 | NUR ---
NURSE NOTES: CHG bath given at this time. patient able to assist with turning. Right femoral TLC dressing dry and intact at this time. No signs of distress noted. Will continue to monitor.
--- NOTE | 2018-05-21 | Progress Note ---
CARDIOLOGY PROGRESS NOTE DATE: 05/20/2018 SUBJECTIVE: The patient remains in the intensive care unit on full ventilator support. Weaning is going to be initiated. Monitored rhythm is sinus and sinus bradycardia with PACs. OBJECTIVE: VITAL SIGNS: Blood pressure 154/78, pulse 55, and respirations 20. LUNGS: With few rhonchi. CARDIAC: Regular rhythm and rate. Normal S1, S2. ABDOMEN: Obese. No focal tenderness. EXTREMITIES: With nonpitting edema. LABORATORY DATA: Sodium 150, potassium 3.9, bicarb 41, BUN 31, and creatinine 1.5. Phosphorus 1.9. Troponin 0.147. White count 5.4, hemoglobin 10.6. IMPRESSION: 1. [place] type A and [place] type B aortic dissection. 2. Respiratory failure. 3. Status post bradycardic respiratory arrest. 4. Sinus bradycardia. 5. Obesity. 6. Acute on chronic respiratory acidosis. 7. Hypophosphatemia. PLAN: 1. The patient is not a surgical candidate. The patient will be managed conservatively. 2. Anticoagulation has been resumed. 3. CT surgery consult is being attempted. 4. Continue anti-lipid and antihypertensive therapy. Wean as able. 5. No use of pressors now. 6. Cautious resumption of anticoagulation noted. 7. Replace phosphorus. Maxim Levin M.D. DR: ROHAN JOB#: [id number] CC:
[2018-05-21] MEDS: Albuterol/Ipratropium 3ml neb HHN SCH ×4 (01:18→19:03)
--- NOTE | 2018-05-21 02:00 | NUR ---
NURSE NOTES: Oral care provided at this time. patient turned and repositioned with assistance. No signs of distress noted. Will continue to monitor
[2018-05-21] MEDS: 1/2NS w/KCl 20mEq 1000ml 1,000 ML IV SCH ×2 (02:54→14:27)
[2018-05-21] MEDS: Acetaminophen 650mg/20.3ml NG PRN (02:56)
--- NOTE | 2018-05-21 04:00 | NUR ---
NURSE NOTES: Patient sleeping at this time. Sinus mary on the monitor, asymptomatic. No signs of distress noted. Will continue to monitor.
[2018-05-21 04:24] LABS: BASOPHILS % (AUTO) 0.7 % (0.0-2.0); EOSINOPHILS % (AUTO) 0.1 % (0.0-3.0); HEMATOCRIT 33.3 % (37.0-47.0); HEMOGLOBIN 10.2 G/DL (12.0-16.0); LYMPHOCYTES % (AUTO) 13.7 % (20.0-45.0); MEAN CORPUSCULAR VOLUME 94 FL (80-99); NEUTROPHILS % (AUTO) 76.6 % (45.0-75.0); PLATELET COUNT 127 K/UL (150-450); RED BLOOD COUNT 3.54 M/UL (4.20-5.40); RED CELL DISTRIBUTION WIDTH 14.7 % (11.6-14.8); WHITE BLOOD COUNT 5.4 K/UL (4.8-10.8)
--- NOTE | 2018-05-21 04:40 | NUR ---
Pt. remains intubated with a size 7.0 ett secured at the 23 cm adi, settings AC 20/ vt500/ peep 5/ FiO2 .30 pt. awake responsive no signs of respiratory distress t/o shift. Breathing treatment given as ordered. Pt. not on any sedation will resume weaning in am.
[2018-05-21 04:42] LABS: ALANINE AMINOTRANSFERASE 110 U/L (12-78); ALBUMIN 2.5 G/DL (3.4-5.0); ALBUMIN/GLOBULIN RATIO 0.8 (1.0-2.7); ALKALINE PHOSPHATASE 68 U/L (46-116); ANION GAP 5 mmol/L (5-15); ASPARTATE AMINO TRANSFERASE 43 U/L (15-37); BILIRUBIN,TOTAL 0.8 MG/DL (0.2-1.0); BLOOD UREA NITROGEN 30 mg/dL (7-18); CARBON DIOXIDE 37 MMOL/L (21-32); CHLORIDE 106 MMOL/L (98-107); CREATININE 1.4 MG/DL (0.55-1.30); POTASSIUM 3.1 MMOL/L (3.5-5.1); SODIUM 148 MMOL/L (136-145)
[2018-05-21] MEDS: ceFAZolin sod 1 GM in D5W 55 ML IVPB SCH ×3 (05:30→22:47)
--- NOTE | 2018-05-21 05:53 | NUR ---
NURSE NOTES: Patient turned and repositioned at this time. Oral care provided. No neuro changes, tolerating feeding. No signs of distress. Will continue to monitor.
--- NOTE | 2018-05-21 07:16 | NUR ---
HAND-OFF: Report given to Natalie JOHN using SBAR. Bedside report done. VS Stable. No signs of distress
--- NOTE | 2018-05-21 07:20 | NUR ---
RESPIRATORY NOTE: Received patient on ordered vent settings. Patient endotracheal tube is patent and secured. No resp distress noted. Suctioned patient PRN. Vent alarms are on and audible. Vent is plugged into red outlet. Will monitor pt progress.
--- NOTE | 2018-05-21 07:25 | NUR ---
NURSE NOTES: Received report from ALVARO Corley. patient in bed with eyes closed, awakens to name. sinus mary on the monitor with HR 56. A/OX3. Intubated ETT on AC 20, VT 500, p5 fio2 30%. OGT feeding Nepro @ 20ml/hr. No residual at this time. Left femoral TLC running 1/2 NS with 20 kcl MEQ @ 100cc/hr. Vogel cath draining yellow urine by gravity. skin intact. On a barisimla bed at this time. Contact and fall precaution in place. Bed in lowest position. No signs of distress noted. Will continue to monitor.
[2018-05-21] MEDS: Pantoprazole Inj IVP SCH (08:17)
[2018-05-21] MEDS: Amiodarone 200mg tab NG SCH (08:18)
[2018-05-21] MEDS: Eliquis 2.5mg tablet ORAL SCH ×2 (08:18→17:42)
[2018-05-21] MEDS: Carvedilol 6.25mg Tab NG SCH (08:19)
--- NOTE | 2018-05-21 08:58 | Pulmonology Progress Note ---
Assessment/Plan Assessment/Plan 1. Status post bradycardic arrest. 2. Respiratory failure, acute on chronic. 3. Obesity, hypoventilation, and sleep apnea. 4. Morbid obesity. 5. 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 6. Diabetes. 7. Hypertension. 8. UTI - strep species weaning well; ABG ok on CPAP exxtubate feed to discuss code status after extubation Subjective Constitutional: Reports: no symptoms Respiratory: Denies: shortness of breath Allergies: Coded Allergies: No Known Allergies (Unverified , 02/20/17) Objective Last 24 Hour Vital Signs Date Time Temp Pulse Resp B/P (MAP) Pulse Ox O2 Delivery O2 Flow Rate FiO2 05/21/18 08:19 66 131/78 05/21/18 07:25 61 20 100 Mechanical Ventilator 30 05/21/18 07:20 61 17 30 40 05/21/18 07:00 48 21 131/61 (84) 99 05/21/18 06:00 49 21 130/76 (94) 99 05/21/18 05:30 53 20 30 40 05/21/18 05:00 53 20 109/66 (80) 100 05/21/18 04:00 30 05/21/18 04:00 Mechanical Ventilator 05/21/18 04:00 54 05/21/18 04:00 98.9 52 19 87/67 (74) 99 05/21/18 03:25 58 22 30 40 05/21/18 03:00 56 20 122/83 (96) 98 05/21/18 02:00 55 20 134/72 (92) 99 05/21/18 01:27 52 20 100 Mechanical Ventilator 30 05/21/18 01:17 57 20 100 Mechanical Ventilator 30 05/21/18 01:16 57 20 30 40 05/21/18 01:00 55 20 116/76 (89) 100 05/21/18 00:00 55 05/21/18 00:00 Mechanical Ventilator 05/21/18 00:00 30 05/21/18 00:00 55 20 134/100 (111) 99 05/20/18 23:11 53 20 30 40 05/20/18 23:00 53 20 120/104 (109) 99 05/20/18 22:00 53 16 121/91 (101) 100 05/20/18 21:00 56 20 169/136 (147) 99 05/20/18 21:00 49 144/79 05/20/18 20:42 59 23 30 40 05/20/18 20:00 40 05/20/18 20:00 99.0 55 19 139/121 (127) 99 05/20/18 20:00 Mechanical Ventilator 05/20/18 20:00 55 05/20/18 19:00 50 20 127/71 (89) 100 05/20/18 18:54 49 20 40 40 05/20/18 18:00 49 26 149/76 (100) 100 05/20/18 17:05 53 20 40 05/20/18 17:00 54 21 151/76 (101) 100 05/20/18 16:00 Mechanical Ventilator 05/20/18 16:00 58 05/20/18 16:00 98.1 53 20 151/85 (107) 100 05/20/18 16:00 40 05/20/18 15:02 54 20 40 05/20/18 15:00 51 20 155/113 (127) 100 05/20/18 14:00 55 20 154/78 (103) 100 05/20/18 13:31 53 20 40 05/20/18 13:00 58 20 145/67 (93) 100 05/20/18 12:30 99.2 55 20 126/69 (88) 100 05/20/18 12:00 56 05/20/18 12:00 40 05/20/18 12:00 49 20 133/55 (81) 100 05/20/18 12:00 Mechanical Ventilator 05/20/18 11:16 40 05/20/18 11:00 59 20 125/69 (87) 100 05/20/18 10:44 68 28 40 05/20/18 10:00 72 24 137/87 (104) 97 05/20/18 09:47 75 119/63 05/20/18 09:00 78 23 101/69 (80) 98 Intake and Output 05/20/18 05/21/18 18:59 06:59 Intake Total 1377.776 ml 1620 ml Output Total 875 ml 960 ml Balance 502.776 ml 660 ml Intake Free Water 20 ml IV Total 1317.776 ml 1200 ml Tube Feeding 20 ml 360 ml Other 20 ml 60 ml Output Urine Total 875 ml 960 ml Objective morbidly obese General Appearance: no acute distress Respiratory/Chest: lungs clear Cardiovascular: normal rate Abdomen: soft, non tender Microbiology Date/Time Source Procedure Growth Status 05/18/18 19:15 Blood Blood Culture - Preliminary NO GROWTH AFTER 48 HOURS Resulted 05/18/18 19:15 Blood Blood Culture - Preliminary NO GROWTH AFTER 48 HOURS Resulted 05/18/18 20:33 Urine,Clean Catch Urine Culture - Preliminary Streptococcus Species Resulted 05/18/18 20:33 Rectum VRE Culture - Final Enterococcus Faecalis - Vre Complete Laboratory Tests 05/20/18 09:59: Arterial Blood pH 7.394, Arterial Blood Partial Pressure CO2 76.6*H, Arterial Blood Partial Pressure O2 95.4, Arterial Blood HCO3 45.7*H, Arterial Blood Oxygen Saturation 95.7, Arterial Blood Base Excess 17.4*H, Tim Test Positive 05/21/18 03:15: White Blood Count 5.4, Red Blood Count 3.54L, Hemoglobin 10.2L, Hematocrit 33.3L , Mean Corpuscular Volume 94, Mean Corpuscular Hemoglobin 28.8, Mean Corpuscular Hemoglobin Concent 30.6L, Red Cell Distribution Width 14.7, Platelet Count 127L, Mean Platelet Volume 6.2L, Neutrophils (%) (Auto) 76.6H, Lymphocytes (%) (Auto) 13.7L, Monocytes (%) (Auto) 9.0, Eosinophils (%) (Auto) 0.1, Basophils (%) (Auto) 0.7, Sodium Level 148H, Potassium Level 3.1L, Chloride Level 106, Carbon Dioxide Level 37H, Anion Gap 5, Blood Urea Nitrogen 30H, Creatinine 1.4H, Estimat Glomerular Filtration Rate 45.3, Glucose Level 159H, Calcium Level 9.0, Total Bilirubin 0.8, Aspartate Amino Transf (AST/SGOT) 43H, Alanine Aminotransferase (ALT/SGPT) 110H, Alkaline Phosphatase 68, Total Protein 5.8L, Albumin 2.5L, Globulin 3.3, Albumin/Globulin Ratio 0.8L 05/21/18 08:32: Arterial Blood pH 7.422, Arterial Blood Partial Pressure CO2 60.1*H, Arterial Blood Partial Pressure O2 92.2, Arterial Blood HCO3 38.3H, Arterial Blood Oxygen Saturation 96.0, Arterial Blood Base Excess 11.8*H, Tim Test Positive Current Medications Medications (Trade) Dose Ordered Sig/Tera Route PRN Reason Start Time Stop Time Status Last Admin Dose Admin Acetaminophen (Tylenol) 650 mg Q4H PRN NG For Pain 05/20/18 21:00 06/19/18 20:59 05/21/18 02:56 Albuterol/ Ipratropium (Albuterol/ Ipratropium) 3 ml Q6HRT HHN 05/20/18 19:00 05/25/18 18:59 05/21/18 07:26 Amiodarone HCl (Cordarone) 200 mg DAILY NG 05/19/18 10:30 06/18/18 10:29 05/21/18 08:18 Apixaban (Eliquis) 5 mg BID ORAL 05/20/18 18:00 06/19/18 17:59 05/21/18 08:18 Carvedilol (Coreg) 6.25 mg EVERY 12 HOURS NG 05/19/18 10:30 06/18/18 10:29 05/21/18 08:19 Cefazolin Sodium 1 gm/Dextrose 55 ml @ 110 mls/hr Q8HR IVPB 05/20/18 22:00 05/27/18 21:59 05/21/18 05:30 Chlorhexidine Gluconate (Shahrzad-Hex 2%) 1 applic DAILY@2000 TOPIC 05/19/18 20:00 06/18/18 19:59 05/20/18 19:30 Pantoprazole (Protonix) 40 mg DAILY IVP 05/19/18 09:00 06/18/18 08:59 05/21/18 08:17 Sodium 1,000 ml @ 100 mls/hr Q10H IV 05/19/18 11:00 06/18/18 10:59 05/21/18 02:54 Porfirio Jade MD May 21, 2018 08:58
--- NOTE | 2018-05-21 09:11 | NUR ---
NURSE NOTES: MD CORONEL HERE TO SEE PT. READ ABG RESULTS: PH:7.422, CO2 60.1, 02 92.2, EFD169.3, OK TO EXTUBATE, APPLY NC KEEP 02ST B/W 90-94%. REMOVE NGT AND START FULL LIQUIDS ADVANCE TOLERATED.
--- NOTE | 2018-05-21 09:25 | NUR ---
NURSE NOTES: NGT REMOVED, PT EXTUBATED, ON 2L NC, SATING 100%, RR 17, BP 127/70, HR 62. HOB>30. WILL PROVIDE ICE CHIPS.
--- NOTE | 2018-05-21 09:30 | NUR ---
RESPIRATORY NOTE: Patient extubated per MD order. Patient ngozi extubation well. No stridor, no resp distress noted. Patient placed on 2Lpm O2 Nasal Cannula. Will monitor pt progress.
--- NOTE | 2018-05-21 09:56 | NUR ---
OUTSIDE INSTALLATION MACHINISTCOW RIDER SI:RESPIRATORY ARREST VS: BP 87/67, P 52, T 98.9, RR 22, SpO2 98 on VENT RBC 3.54, Hgb 10.2, Hct 33.3, Na 148, K 3.1, BUN 30, CR 1.4 IS:ALBUTEROL 3ml HHN PROTONIX 40mg IVP AMIODARONE 200mg NG APIXABAN 5mg COREG 6.25mg NG CEFAZOLIN 55ml IVPB SODIUM x1L IV ICU STATUS
--- NOTE | 2018-05-21 11:00 | NUR ---
NURSE NOTES: Patient turned and repositioned at this time. Oral care provided. No neuro changes, tolerating feeding. No signs of distress. Will continue to monitor. pt had a very large BM, leia, brown. on bed whyte
--- NOTE | 2018-05-21 13:20 | NUR ---
NURSE NOTES: called pharmacy for 1/2 ns w/ 20meqKCL. will make it and bring it up.
--- NOTE | 2018-05-21 13:45 | NUR ---
NURSE NOTES: will administer 1/2 ns w/ 20meq kcl when available. awaiting pharmacy prep.
--- NOTE | 2018-05-21 13:58 | NUR ---
RD ASSESSMENT & RECOMMENDATIONS SEE CARE ACTIVITY FOR COMPLETE ASSESSMENT DAILY ESTIMATED NEEDS: Needs based on Critical Care, morbidly obese 22-25kcal/kg IBW (61kg) kcals/kg 1285-5152 total kcals 1.8-2.5 IBW (61kg) g protein/kg 109-152 g total protein 20-25ml/kg abw (84kg) mL/kg 7578-4365 total fluid mLs NUTRITION DIAGNOSIS: * Swallowing difficulty R/T respiratory status as evidenced by orally intubated, now s/p extubation, NGT removed, w/ an order for full liquid diet, advance as tolerated. * Obesity R/T life style factors, excessive energy intake as evidenced by BMI >50, pt is 253% IBW CURRENT DIET:Full Liquid diet, advance as tolerated PO DIET RECOMMENDATIONS: FUEL MANAGEMENT HANDLER EVAL POST EXTUBATION -> CARDIAC, CCHO LOW/ texture per FUEL MANAGEMENT HANDLER ADDITIONAL RECOMMENDATIONS: 1) Recalibrate bed scale for accurate CBW 2) FUEL MANAGEMENT HANDLER eval for appropriate texture- s/p extubation 3) Rec accucheck w/ SSI: elev BGs, h/o DM 4) Monitor lytes, replete as needed (low K and phos)
--- NOTE | 2018-05-21 14:20 | NUR ---
NURSE NOTES: called pharmacy for 1/2ns w/ 20meqkcl, left floor to pick fluid will administer now.
--- NOTE | 2018-05-21 14:48 | NUR ---
Social Service Note SW met with patient who was alert, oriented and verbally responsive. Patient is a resident of [facility]. Patient requesting to return to this facility upon discharge. Patient is a full code with no advance directives. Patient's emergency contacts are Ann Lilly [phone] sister and Maurizio Joy brother [phone]. Will monitor and assist as needed.
--- NOTE | 2018-05-21 15:00 | NUR ---
HAND-OFF: Report given to saad. pt in no acute distress.
--- NOTE | 2018-05-21 15:40 | NUR ---
NURSE NOTES: Received report from Min Marvin RN. Patient asleep in bed. Receiving O2 via nasal cannula @ 2L/min, respirations even and unlabored. Vogel catheter patent and draining well. Right femoral TLC infusing 1/2NS with 20 meq KCl @ 100 cc/hr, asymptomatic. Patient noted with Na level of 148 and K level of 3.1, per Min Marvin RN, Dr. Jade is aware and no new orders were received. Bed locked in lowest position with side rails up x 3. All needs attended to. Call light within reach. Will continue to monitor.
--- NOTE | 2018-05-21 16:22 | NUR ---
NURSE NOTES: Patient is awake now and c/o soreness in her throat d/t extubation today. PRN cepacol given and ice chips offered.
[2018-05-21] MEDS ORDERED: Tubing IV Secondary IV ONE (16:39)
--- NOTE | 2018-05-21 18:00 | NUR ---
NURSE NOTES: Patient expressed relief of throat after PRN lozenge and ice chips. Patient was able to tolerate 100% of dinner. No s/s of respiratory distress noted. Patient is still on nasal cannula @ 2L/min, saturating at 100%.
--- NOTE | 2018-05-21 19:18 | NUR ---
HAND-OFF: Report given to Min Frederick RN.
--- NOTE | 2018-05-21 19:30 | NUR ---
NURSE NOTES: Received report from ALVARO Frankel. Received Pt is resting on the bed and awake and alert. on O2 via nasal cannula @ 2L/min, respirations even and unlabored. Checked SaO2 99-100%. No sign of acute distress noted. On Tele monitor with SB and HR: 58's. Vogel catheter patent and draining well. Right femoral TLC infusing 1/2NS with 20 mEq KCl @ 100 cc/hr and tolerated well. No sign of infiltration noted and dressing is clean and dry. Changed position. placed fall precaution. Placed Bed locked in lowest position with side rails up x 3. All needs attended to. Call light within reach. Will continue to care plan.
[2018-05-21] MEDS: Dyna-Hex 2% Top Sol 2oz TOPIC SCH (19:57)
--- NOTE | 2018-05-21 21:49 | NUR ---
NURSE NOTES: Pt is tolerated well with current diet order. Get new order received fro Dr. Jade with advanced diet. Will continue to monitor any change of condition.
[2018-05-22] VITALS (24 sets, daily range): BP systolic 98–141; BP diastolic 46–118
--- NOTE | 2018-05-22 | NUR ---
NURSE NOTES: Pt is sleeping on the bed and no sign of acute distress noted. On O2 2L via nasal cannula and SaO2 100% noted. Changed position. Placed fall precaution. Will continue to care plan.
[2018-05-22] MEDS: 1/2NS w/KCl 20mEq 1000ml 1,000 ML IV SCH ×3 (00:21→20:40)
--- NOTE | 2018-05-22 00:30 | Progress Note ---
DATE: 05/21/2018 CARDIOLOGY PROGRESS NOTE SUBJECTIVE: The patient remains on ventilator support. Weaning efforts are ongoing. The patient has done well on CPAP trials. She is alert and interactive. Monitored rhythm, sinus with occasional ectopic beats and sinus bradycardia. OBJECTIVE: VITAL SIGNS: Blood pressure 131/61, heart rate 48-66, respiratory rate 20, she is afebrile. LUNGS: Diminished breath sounds. HEART: Regular rhythm and rate. Normal S1 and S2. Bradycardic at times. ABDOMEN: Soft, obese. EXTREMITIES: With no pitting edema. IMPRESSION: 1. Type A and type B aortic aneurysm dissections. 2. Acute and chronic respiratory failure, status post full bradycardic respiratory arrest. 3. Type 2 diabetes mellitus. 4. Hypertensive heart disease. 5. Urinary tract infection. PLAN: 1. Weaning. 2. Cautious use of low-dose beta-michael. 3. Observe for bradyarrhythmias. 4. Monitor acid-base parameters following extubation. 5. DVT and stress ulcer prophylaxis. 6. Cautious use of anticoagulation long-term. Maxim Levin M.D. DR: Zachary JOB#: [id number] CC:
[2018-05-22] MEDS: Albuterol/Ipratropium 3ml neb HHN SCH ×4 (01:01→19:34)
--- NOTE | 2018-05-22 02:00 | NUR ---
NURSE NOTES: Pt is sleeping on the bed and no sign of acute distress noted. On Tele monitor with SB and HR: 53's. Change position. V/S stable. SaO2 100% with O2 2L via nasal cannula. Will continue to monitor any change of condition.
--- NOTE | 2018-05-22 04:00 | NUR ---
NURSE NOTES: Morning care was done. Cleaned Pt and applied lotion and cream. No open wound noted at this time. Still noted SB on security monitor. On O2 2L via nasal cannula and SaO2 100% noted. Will continue to care plan.
--- NOTE | 2018-05-22 05:00 | NUR ---
NURSE NOTES: Changed Rt. Femoral TLC line dressing. No sign of infiltration noted.
[2018-05-22] MEDS: ceFAZolin sod 1 GM in D5W 55 ML IVPB SCH ×3 (05:46→21:58)
[2018-05-22 06:06] LABS: HEMATOCRIT 32.5 % (37.0-47.0); HEMOGLOBIN 9.7 G/DL (12.0-16.0); MEAN CORPUSCULAR VOLUME 96 FL (80-99); PLATELET COUNT 124 K/UL (150-450); RED BLOOD COUNT 3.39 M/UL (4.20-5.40); RED CELL DISTRIBUTION WIDTH 15.8 % (11.6-14.8); WHITE BLOOD COUNT 4.3 K/UL (4.8-10.8)
[2018-05-22 06:38] LABS: ALANINE AMINOTRANSFERASE 61 U/L (12-78); ALBUMIN 2.4 G/DL (3.4-5.0); ALBUMIN/GLOBULIN RATIO 0.8 (1.0-2.7); ALKALINE PHOSPHATASE 66 U/L (46-116); ANION GAP 5 mmol/L (5-15); ASPARTATE AMINO TRANSFERASE 20 U/L (15-37); BILIRUBIN,TOTAL 0.6 MG/DL (0.2-1.0); BLOOD UREA NITROGEN 20 mg/dL (7-18); CALCIUM 8.5 MG/DL (8.5-10.1); CARBON DIOXIDE 37 MMOL/L (21-32); CHLORIDE 105 MMOL/L (98-107); POTASSIUM 3.2 MMOL/L (3.5-5.1); SODIUM 147 MMOL/L (136-145)
--- NOTE | 2018-05-22 07:18 | Pulmonolgy Critical Care Note ---
Critical Care - Asmt/Plan Assessment/Plan: 1. Status post bradycardic arrest. 2. Respiratory failure, acute on chronic. 3. Obesity, hypoventilation, and sleep apnea. 4. Morbid obesity. 5. 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 6. Diabetes. 7. Hypertension. 8. UTI - strep species bipap qhs and prn distress monitor HR nebs swallow eval o2 home meds fu wtih cards recommendations continue ICU level of care, monitor HR and not to be transferred to [facility] today Respiratory: other Cardiac: continue to monitor HR/BP Renal: F/U I&O Endocrine: monitor blood sugar Disposition: keep in ICU Notes Reviewed: cardio Discussed with: nurses Critical Care - Objective Last 24 Hour Vital Signs Date Time Temp Pulse Resp B/P (MAP) Pulse Ox O2 Delivery O2 Flow Rate FiO2 05/22/18 07:00 52 17 98/75 (83) 100 05/22/18 06:00 54 12 109/61 (77) 99 05/22/18 05:00 58 13 111/77 (88) 99 05/22/18 04:00 98.4 53 14 141/64 (89) 100 05/22/18 04:00 2.0 05/22/18 04:00 Nasal Cannula 2.0 05/22/18 04:00 53 05/22/18 03:00 52 13 131/68 (89) 100 05/22/18 02:00 52 13 115/46 (69) 100 05/22/18 01:15 60 21 100 Nasal Cannula 1.0 24 05/22/18 01:02 58 13 100 Nasal Cannula 1.0 24 05/22/18 01:00 53 15 122/55 (77) 100 05/22/18 00:00 2.0 05/22/18 00:00 Nasal Cannula 2.0 05/22/18 00:00 98.4 54 15 119/67 (84) 100 05/22/18 00:00 54 05/21/18 23:00 56 15 102/71 (81) 99 05/21/18 22:00 55 14 115/60 (78) 100 05/21/18 21:00 54 109/61 05/21/18 21:00 55 16 109/61 (77) 100 05/21/18 20:00 57 4/5/19 20:00 2.0 05/21/18 20:00 Nasal Cannula 2.0 05/21/18 20:00 98.6 56 17 107/57 (74) 100 05/21/18 19:13 60 18 100 Nasal Cannula 1.0 24 05/21/18 19:11 Nasal Cannula 1.0 24 05/21/18 19:10 100 Nasal Cannula 1.0 24 05/21/18 19:07 60 18 Nasal Cannula 1.0 24 05/21/18 19:04 57 18 100 Nasal Cannula 1.0 24 05/21/18 19:00 63 24 109/61 (77) 100 05/21/18 18:00 60 16 101/56 (71) 100 05/21/18 17:00 57 18 95/56 (69) 100 05/21/18 16:00 98.3 56 19 102/53 (69) 100 05/21/18 16:00 Nasal Cannula 2.0 05/21/18 16:00 2.0 05/21/18 15:27 56 05/21/18 15:00 58 16 111/55 (73) 95 05/21/18 14:00 59 16 100 05/21/18 13:55 62 20 100 Mechanical Ventilator 30 05/21/18 13:45 64 20 100 Mechanical Ventilator 30 05/21/18 13:00 69 23 70/39 (49) 98 05/21/18 12:00 Nasal Cannula 2.0 Nasal Cannula 2.0 05/21/18 12:00 60 05/21/18 12:00 98.9 60 16 75/36 (49) 97 05/21/18 11:00 59 16 117/63 (81) 98 05/21/18 10:00 69 18 92 05/21/18 09:30 100 05/21/18 09:30 64 17 30 05/21/18 09:30 Nasal Cannula 2.0 28 05/21/18 09:00 76 21 127/70 (89) 94 05/21/18 08:19 66 131/78 05/21/18 08:00 98.7 64 17 131/78 (95) 98 05/21/18 08:00 Mechanical Ventilator 05/21/18 08:00 64 05/21/18 07:35 61 20 100 Mechanical Ventilator 30 05/21/18 07:25 61 20 100 Mechanical Ventilator 30 05/21/18 07:20 61 17 30 40 Status: awake Condition: improving Lungs: rhonchi Heart: HR/BP unstable Abdomen: soft, non-tender Extremities: edema Critical Care - Subjective ROS Limited/Unobtainable: Yes Condition: improving FI02: 24 Vent Support Breath Rate: 20 Vent Support Mode: CPAP Vent Tidal Volume: 500 Sputum Amount: Small PEEP: 5.0 PIP: 14 Tube Feeding Amount: 40 I&O: Intake and Output 05/21/18 05/22/18 19:00 07:00 Intake Total 1595 ml 1575 ml Output Total 675 ml 790 ml Balance 920 ml 785 ml Intake Oral 350 ml 360 ml IV Total 1165 ml 1215 ml Tube Feeding 80 ml Output Urine Total 675 ml 790 ml # Bowel Movements 1 Subjective: awake mild shortness of breaththis am no cp nv or bleeding did not get bipap at night which she uses on o2 bp low no fever ET-Tube: 7.0 ET Position: 23 Labs: Current Medications Medications (Trade) Dose Ordered Sig/Tera Route PRN Reason Start Time Stop Time Status Last Admin Dose Admin Acetaminophen (Tylenol) 650 mg Q4H PRN NG For Pain 05/20/18 21:00 06/19/18 20:59 05/21/18 02:56 Albuterol/ Ipratropium (Albuterol/ Ipratropium) 3 ml Q6HRT HHN 05/20/18 19:00 05/25/18 18:59 05/22/18 01:01 Amiodarone HCl (Cordarone) 200 mg DAILY NG 05/19/18 10:30 06/18/18 10:29 05/21/18 08:18 Apixaban (Eliquis) 5 mg BID ORAL 05/20/18 18:00 06/19/18 17:59 05/21/18 17:42 Carvedilol (Coreg) 3.125 mg EVERY 12 HOURS NG 05/21/18 21:00 06/20/18 20:59 Cefazolin Sodium 1 gm/Dextrose 55 ml @ 110 mls/hr Q8HR IVPB 05/20/18 22:00 05/27/18 21:59 05/22/18 05:46 Cetylpyridinium Chloride (Cepacol) 1 lozg Q2H PRN DAMIR For Cough 05/21/18 11:00 06/20/18 10:59 05/21/18 22:05 Chlorhexidine Gluconate (Shahrzad-Hex 2%) 1 applic DAILY@2000 TOPIC 05/19/18 20:00 06/18/18 19:59 05/21/18 19:57 Pantoprazole (Protonix) 40 mg DAILY IVP 05/19/18 09:00 06/18/18 08:59 05/21/18 08:17 Sodium 1,000 ml @ 100 mls/hr Q10H IV 05/19/18 11:00 06/18/18 10:59 05/22/18 00:21 Laboratory Tests Test 05/21/18 08:32 05/22/18 04:45 Arterial Blood pH 7.422 (7.350-7.450) Arterial Blood Partial Pressure CO2 60.1 mmHg (35.0-45.0) *H Arterial Blood Partial Pressure O2 92.2 mmHg (75.0-100.0) Arterial Blood HCO3 38.3 mmol/L (22.0-26.0) H Arterial Blood Oxygen Saturation 96.0 % (95-100) Arterial Blood Base Excess 11.8 (-2-2) *H Tim Test Positive White Blood Count 4.3 K/UL (4.8-10.8) L Red Blood Count 3.39 M/UL (4.20-5.40) L Hemoglobin 9.7 G/DL (12.0-16.0) L Hematocrit 32.5 % (37.0-47.0) L Mean Corpuscular Volume 96 FL (80-99) Mean Corpuscular Hemoglobin 28.7 PG (27.0-31.0) Mean Corpuscular Hemoglobin Concent 29.9 G/DL (32.0-36.0) L Red Cell Distribution Width 15.8 % (11.6-14.8) H Platelet Count 124 K/UL (150-450) L Mean Platelet Volume 6.3 FL (6.5-10.1) L Neutrophils (%) (Auto) % (45.0-75.0) Lymphocytes (%) (Auto) % (20.0-45.0) Monocytes (%) (Auto) % (1.0-10.0) Eosinophils (%) (Auto) % (0.0-3.0) Basophils (%) (Auto) % (0.0-2.0) Neutrophils % (Manual) Pending Lymphocytes % (Manual) Pending Platelet Estimate Pending Platelet Morphology Pending Sodium Level 147 MMOL/L (136-145) H Potassium Level 3.2 MMOL/L (3.5-5.1) L Chloride Level 105 MMOL/L (98-107) Carbon Dioxide Level 37 MMOL/L (21-32) H Anion Gap 5 mmol/L (5-15) Blood Urea Nitrogen 20 mg/dL (7-18) H Creatinine 1.0 MG/DL (0.55-1.30) Estimat Glomerular Filtration Rate > 60 mL/min (>60) Glucose Level 106 MG/DL (74-106) Calcium Level 8.5 MG/DL (8.5-10.1) Magnesium Level 2.0 MG/DL (1.8-2.4) Total Bilirubin 0.6 MG/DL (0.2-1.0) Aspartate Amino Transf (AST/SGOT) 20 U/L (15-37) Alanine Aminotransferase (ALT/SGPT) 61 U/L (12-78) Alkaline Phosphatase 66 U/L (46-116) Pro-B-Type Natriuretic Peptide 575 pg/mL (0-125) H Total Protein 5.4 G/DL (6.4-8.2) L Albumin 2.4 G/DL (3.4-5.0) L Globulin 3.0 g/dL Albumin/Globulin Ratio 0.8 (1.0-2.7) L Thyroid Stimulating Hormone (TSH) 0.396 uiU/mL (0.358-3.740) Gayla Leger DO May 22, 2018 07:18
--- NOTE | 2018-05-22 07:35 | NUR ---
HAND-OFF: Report given to ALVARO Carty. Pt is resting on the bed and no sign of acute distress noted. On O2 2L via nasal cannula and tolerated well. Dr. Gayla Leger visited and assessed Pt.
--- NOTE | 2018-05-22 07:40 | NUR ---
NURSE NOTES: Report received from Clif Frederick RN.Pt awake,alert ,noted no resp distress on 2 L NC,denies any c/o pain or discomfort,S-Mika on the monitor, Vogel cath draining yellow urine with adequate output,IV site to Rt femoral TLC intact, skin warm and dry ,call murphy within reach,SR up x2 HOB elevated,breakfast tray served,will continue with plans of care.
--- NOTE | 2018-05-22 09:00 | NUR ---
NURSE NOTES: Pt ate with good appetite,ate 100% from the tray.
[2018-05-22] MEDS: Eliquis 2.5mg tablet ORAL SCH ×2 (09:05→18:04)
[2018-05-22] MEDS: Pantoprazole Inj IVP SCH (09:06)
[2018-05-22] MEDS: Amiodarone 200mg tab NG SCH (09:08)
--- NOTE | 2018-05-22 12:00 | NUR ---
NURSE NOTES: Pt with formed BM ,kept dry and clean,able to help turn to sides with aid of trapeze.
--- NOTE | 2018-05-22 16:00 | NUR ---
NURSE NOTES: Pt stable no resp distress presented,having a nap,snores when asleep.
--- NOTE | 2018-05-22 16:08 | NUR ---
CASE MANAGEMENT: REVIEW 05/22/2018 SI:A/C RESP FAILURE. T 97.7 HR 60 RR 15 B/P120/58 SATS 99% ON 2L/NC WBC 4.3 NA 147 K 3.2 CO2 37 BUN 20 IS:IVF @ 100 ml/HR COREG NG Q12H ELIQUIS PO BID CORDARONE NG QD CEFAZOLIN IV Q8H ICU STATUS
--- NOTE | 2018-05-22 18:00 | NUR ---
NURSE NOTES: Eating dinner ,no aspiration noted,HOB elevated.
--- NOTE | 2018-05-22 19:28 | NUR ---
HAND-OFF: Report given to Afshan Luna RN..
--- NOTE | 2018-05-22 19:30 | NUR ---
NURSE NOTES: Report received from ALVARO Carty. PT A/Ox4, cardiac rn shows SB. pt currently on 2L NC, O2 saturation 96%. Pt showing no signs of acute respiratory/cardiac distress. Pt on a soft easy chew diet. Vogel catheter present and draining well. No skin issues noted. Pt blanc a R femTLC w/1/[id number] @ 100 ml/hr. Bed in lowest position, bed alarms placed, call light within reach. Will continue to monitor and with patients plan of care.
--- NOTE | 2018-05-22 20:30 | Progress Note ---
DATE: 05/22/2018 CARDIOLOGY PROGRESS NOTE SUBJECTIVE: The patient is off ventilator. Remains in intensive care unit. Continues to require close respiratory observation. OBJECTIVE: VITAL SIGNS: Blood pressure 98/75, 52, and respirations 17. LUNGS: Diminished breath sounds. HEART: Regular rhythm and rate. Normal S1, S2. Slow heart rate at times. ABDOMEN: Obese. No dependent edema. LABORATORY DATA: White count 4.3 and hemoglobin 9.7. Sodium 147, potassium 3.2, bicarb 37, BUN 20, and creatinine 1.0. Magnesium 2. Pro-natriuretic peptide 575. Albumin 2.4. IMPRESSION: 1. Status post bradycardic respiratory arrest, now extubated. 2. Obesity hypoventilation syndrome. 3. Chronic respiratory acidosis. 4. Dehydration. 5. Hypernatremia. 6. Hypokalemia. 7. Contraction alkalosis. 8. Severe protein-calorie malnutrition. 9. Sinus bradycardia. 10. Anemia. 11. Aortic dissection. 12. Paroxysmal atrial fibrillation. PLAN: 1. Medical therapy. 2. Discontinue anticoagulation. We will need to discuss the benefits and risks of this therapy. 3. Continue beta-blockade at very low dosing for benefits in the setting of aortic dissection. Limits are the bradycardia. 4. Amiodarone for maintenance of sinus rhythm. 5. Hypotonic intravenous fluids with potassium replacement. 6. Respiratory hygiene. Maxim Levin M.D. DR: FRANCESCA JOB#: [id number] CC:
[2018-05-22] MEDS: Dyna-Hex 2% Top Sol 2oz TOPIC SCH (20:40)
[2018-05-22] MEDS: Heparin 5000 units/ml inj SUBQ SCH (20:42)
--- NOTE | 2018-05-22 22:00 | NUR ---
NURSE NOTES: Pt awake and alert, showing no signs of distress. All needs met. VSS. Will continue to monitor
[2018-05-23] VITALS (17 sets, daily range): BP systolic 78–153; BP diastolic 50–97
--- NOTE | 2018-05-23 | NUR ---
NURSE NOTES: Pt awake and alert. New rowe catheter reinserted as the previous one slipped out. Pt cleaned and repositioned. All needs met.
[2018-05-23] MEDS: Albuterol/Ipratropium 3ml neb HHN SCH ×4 (01:03→19:09)
--- NOTE | 2018-05-23 02:00 | NUR ---
NURSE NOTES: Pt resting comfortably. Bipap present 01/20 @ 50%. Showing no signs of distress. VSS. Will continue to monitor.
--- NOTE | 2018-05-23 04:00 | NUR ---
NURSE NOTES: Pt resting comfortably. Showing no signs of acute distress. Will continue to monitor.
[2018-05-23] MEDS: ceFAZolin sod 1 GM in D5W 55 ML IVPB SCH (05:51)
[2018-05-23] MEDS: 1/2NS w/KCl 20mEq 1000ml 1,000 ML IV SCH ×3 (05:51→17:46)
[2018-05-23 05:53] LABS: EOSINOPHILS % (AUTO) 0.2 % (0.0-3.0); HEMATOCRIT 34.5 % (37.0-47.0); HEMOGLOBIN 10.2 G/DL (12.0-16.0); LYMPHOCYTES % (AUTO) 24.6 % (20.0-45.0); MEAN CORPUSCULAR VOLUME 96 FL (80-99); MONOCYTES % (AUTO) 8.6 % (1.0-10.0); NEUTROPHILS % (AUTO) 65.6 % (45.0-75.0); PLATELET COUNT 139 K/UL (150-450); RED BLOOD COUNT 3.59 M/UL (4.20-5.40); RED CELL DISTRIBUTION WIDTH 15.1 % (11.6-14.8); WHITE BLOOD COUNT 4.4 K/UL (4.8-10.8)
--- NOTE | 2018-05-23 06:00 | NUR ---
NURSE NOTES: Pt awake and alert, requested to be placed off bipap and back on 3L NC @ approximately 0500. Tolerating well. Will continue to monitor.
[2018-05-23 06:06] LABS: ALANINE AMINOTRANSFERASE 39 U/L (12-78); ALBUMIN 2.3 G/DL (3.4-5.0); ALBUMIN/GLOBULIN RATIO 0.7 (1.0-2.7); ALKALINE PHOSPHATASE 58 U/L (46-116); ANION GAP 0 mmol/L (5-15); ASPARTATE AMINO TRANSFERASE 14 U/L (15-37); BILIRUBIN,TOTAL 0.3 MG/DL (0.2-1.0); BLOOD UREA NITROGEN 17 mg/dL (7-18); CALCIUM 8.5 MG/DL (8.5-10.1); CARBON DIOXIDE 38 MMOL/L (21-32); CHLORIDE 107 MMOL/L (98-107); CREATININE 1.1 MG/DL (0.55-1.30); SODIUM 145 MMOL/L (136-145)
--- NOTE | 2018-05-23 06:58 | Pulmonolgy Critical Care Note ---
Critical Care - Asmt/Plan Assessment/Plan: 1. Status post bradycardic arrest. 2. Respiratory failure, acute on chronic. 3. Obesity, hypoventilation, and sleep apnea. 4. Morbid obesity. 5. 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 6. Diabetes. 7. Hypertension. 8. UTI - strep species bipap qhs and prn distress monitor HR nebs tolerating po o2 home meds fu wtih cards recommendations JR today if cleared by cards Respiratory: adjust FIO2, CXR Cardiac: continue to monitor HR/BP Prophylaxis: Protonix Time Spent (Minutes): 40 Notes Reviewed: cardio Discussed with: nurses Critical Care - Objective Last 24 Hour Vital Signs Date Time Temp Pulse Resp B/P (MAP) Pulse Ox O2 Delivery O2 Flow Rate FiO2 05/23/18 06:00 98.2 98 16 125/55 (78) 98 05/23/18 05:00 101 22 112/66 (81) 98 05/23/18 04:00 91 21 121/64 (83) 100 05/23/18 04:00 Nasal Cannula 2.0 05/23/18 04:00 98 05/23/18 03:01 84 14 92 Facial 30 05/23/18 03:00 92 19 136/73 (94) 92 05/23/18 02:00 88 17 99/65 (76) 94 05/23/18 01:30 69 18 97 Bi-pap 30 05/23/18 01:07 65 22 100 Facial 50 05/23/18 01:03 68 18 99 Bi-pap 30 05/23/18 01:00 97.9 101 17 78/50 (59) 97 05/23/18 00:00 94 15 122/64 (83) 97 05/23/18 00:00 97 05/23/18 00:00 Nasal Cannula 2.0 05/22/18 23:00 94 11 118/75 (89) 99 05/22/18 22:00 55 14 115/46 (69) 98 05/22/18 21:00 98.4 52 11 110/64 (79) 98 05/22/18 20:39 58 107/66 05/22/18 20:00 60 05/22/18 20:00 55 15 107/60 (76) 94 05/22/18 20:00 Nasal Cannula 2.0 05/22/18 19:50 63 18 100 Nasal Cannula 2.0 28 05/22/18 19:35 100 Nasal Cannula 2.0 28 05/22/18 19:35 Nasal Cannula 2.0 28 05/22/18 19:35 62 18 Nasal Cannula 2.0 28 05/22/18 19:34 63 18 100 Nasal Cannula 2.0 28 05/22/18 19:00 55 18 133/118 (123) 97 05/22/18 18:00 57 18 123/82 (96) 100 05/22/18 17:07 55 20 121/63 (82) 100 05/22/18 16:00 98.0 58 16 127/60 (82) 100 05/22/18 16:00 Nasal Cannula 2.0 05/22/18 16:00 60 05/22/18 15:00 59 25 126/60 (82) 94 05/22/18 14:00 55 19 106/48 (67) 99 05/22/18 13:30 Nasal Cannula 05/22/18 13:30 62 20 100 Nasal Cannula 1.0 24 05/22/18 13:00 61 17 114/51 (72) 98 05/22/18 12:00 97.7 60 15 120/58 (78) 99 05/22/18 12:00 Nasal Cannula 2.0 05/22/18 12:00 62 05/22/18 11:00 59 18 114/62 (79) 96 05/22/18 10:07 61 22 114/62 (79) 100 05/22/18 09:03 64 98/75 05/22/18 09:00 58 16 100/74 (83) 05/22/18 08:00 97.8 61 19 103/87 (92) 05/22/18 08:00 68 05/22/18 08:00 Nasal Cannula 2.0 05/22/18 07:22 64 20 100 Nasal Cannula 1.0 24 05/22/18 07:15 64 18 Nasal Cannula 1.0 24 05/22/18 07:15 64 20 100 Nasal Cannula 1.0 24 05/22/18 07:15 100 Nasal Cannula 1.0 24 05/22/18 07:15 Nasal Cannula 1.0 24 05/22/18 07:00 52 17 98/75 (83) 100 Status: awake Condition: improving Lungs: rhonchi Heart: HR/BP stable Abdomen: soft, non-tender Extremities: edema Critical Care - Subjective ROS Limited/Unobtainable: No Condition: improving FI02: 30 Vent Support Breath Rate: 20 Vent Support Mode: CPAP Vent Tidal Volume: 500 Sputum Amount: Small PEEP: 5.0 PIP: 14 Tube Feeding Amount: 40 I&O: Intake and Output 05/22/18 05/23/18 19:00 07:00 Intake Total 2330 ml 1043.33 ml Output Total 956 ml 740 ml Balance 1374 ml 303.33 ml Intake Oral 1430 ml IV Total 900 ml 1043.33 ml Output Urine Total 955 ml 740 ml Stool Total 1 ml # Voids 2 # Bowel Movements 1 Subjective: awake shortness of breath improved used bipap over night and toelrated no cp nv or bleeding HR better BP stable thsi am on o2 no fever ET-Tube: 7.0 ET Position: 23 Labs: Laboratory Tests Test 05/23/18 04:30 White Blood Count 4.4 K/UL (4.8-10.8) L Red Blood Count 3.59 M/UL (4.20-5.40) L Hemoglobin 10.2 G/DL (12.0-16.0) L Hematocrit 34.5 % (37.0-47.0) L Mean Corpuscular Volume 96 FL (80-99) Mean Corpuscular Hemoglobin 28.5 PG (27.0-31.0) Mean Corpuscular Hemoglobin Concent 29.6 G/DL (32.0-36.0) L Red Cell Distribution Width 15.1 % (11.6-14.8) H Platelet Count 139 K/UL (150-450) L Mean Platelet Volume 7.0 FL (6.5-10.1) Neutrophils (%) (Auto) 65.6 % (45.0-75.0) Lymphocytes (%) (Auto) 24.6 % (20.0-45.0) Monocytes (%) (Auto) 8.6 % (1.0-10.0) Eosinophils (%) (Auto) 0.2 % (0.0-3.0) Basophils (%) (Auto) 1.0 % (0.0-2.0) Sodium Level 145 MMOL/L (136-145) Potassium Level 4.0 MMOL/L (3.5-5.1) Chloride Level 107 MMOL/L (98-107) Carbon Dioxide Level 38 MMOL/L (21-32) H Anion Gap 0 mmol/L (5-15) L Blood Urea Nitrogen 17 mg/dL (7-18) Creatinine 1.1 MG/DL (0.55-1.30) Estimat Glomerular Filtration Rate 59.9 mL/min (>60) Glucose Level 110 MG/DL (74-106) H Calcium Level 8.5 MG/DL (8.5-10.1) Total Bilirubin 0.3 MG/DL (0.2-1.0) Aspartate Amino Transf (AST/SGOT) 14 U/L (15-37) L Alanine Aminotransferase (ALT/SGPT) 39 U/L (12-78) Alkaline Phosphatase 58 U/L (46-116) Total Protein 5.6 G/DL (6.4-8.2) L Albumin 2.3 G/DL (3.4-5.0) L Globulin 3.3 g/dL Albumin/Globulin Ratio 0.7 (1.0-2.7) L Current Medications Medications (Trade) Dose Ordered Sig/Tera Route PRN Reason Start Time Stop Time Status Last Admin Dose Admin Acetaminophen (Tylenol) 650 mg Q4H PRN NG For Pain 05/20/18 21:00 06/19/18 20:59 05/21/18 02:56 Albuterol/ Ipratropium (Albuterol/ Ipratropium) 3 ml Q6HRT HHN 05/20/18 19:00 05/25/18 18:59 05/23/18 01:03 Amiodarone HCl (Cordarone) 200 mg DAILY NG 05/19/18 10:30 06/18/18 10:29 05/22/18 09:08 Carvedilol (Coreg) 3.125 mg EVERY 12 HOURS NG 05/21/18 21:00 06/20/18 20:59 05/22/18 09:03 Cefazolin Sodium 1 gm/Dextrose 55 ml @ 110 mls/hr Q8HR IVPB 05/20/18 22:00 05/27/18 21:59 05/23/18 05:51 Cetylpyridinium Chloride (Cepacol) 1 lozg Q2H PRN DAMIR For Cough 05/21/18 11:00 06/20/18 10:59 05/21/18 22:05 Chlorhexidine Gluconate (Shahrzad-Hex 2%) 1 applic DAILY@2000 TOPIC 05/19/18 20:00 06/18/18 19:59 05/22/18 20:40 Heparin Sodium (Porcine) (Heparin 5000 units/ml) 5,000 units EVERY 12 HOURS SUBQ 05/22/18 21:00 06/21/18 20:59 05/22/18 20:42 Pantoprazole (Protonix) 40 mg DAILY IVP 05/19/18 09:00 06/18/18 08:59 05/22/18 09:06 Sodium 1,000 ml @ 100 mls/hr Q10H IV 05/19/18 11:00 06/18/18 10:59 05/23/18 05:51 Gayla Leger DO May 23, 2018 06:58
--- NOTE | 2018-05-23 07:10 | NUR ---
NURSE NOTES: Report given to Jeremy Miller RN. Pt shows no signs of acute distress. Message left for Ollie for clearance to have pt transferred to [facility].
--- NOTE | 2018-05-23 07:30 | NUR ---
NURSE NOTES: Report received from set up and charger Valeria.Pt awake alert in no resp distress ,on 2L NC,denies any c/o pain or discomfort,SR ist degree HB on the monitor,HOB elevated,eating breakfast with appetite,skin warm and dry,IV site to Rt Femomoral TLC intact with IVF 1/2 NS +20 meq KCL at 100 ml/hr,Vogel cath draining yellow urine,SR up x2 ,pt on a big bouy bed,,bed lock in lowest position,will continue with plans of care.
[2018-05-23] MEDS: Pantoprazole Inj IVP SCH (09:29)
[2018-05-23] MEDS: Amiodarone 200mg tab NG SCH (09:30)
[2018-05-23] MEDS: Heparin 5000 units/ml inj SUBQ SCH ×2 (09:31→21:00)
--- NOTE | 2018-05-23 10:00 | NUR ---
NURSE NOTES: Pt resting in bed asleep ,no resp distress presented.
--- NOTE | 2018-05-23 11:19 | NUR ---
CASE MANAGEMENT: REVIEW SI: RESP FAILURE, ACUTE ON CHRONIC . S/P BRADYCARDIC ARREST T 98.2 HR 105 RR 26 BP 78/50 SAT 99% BIPAP FIO2 50 WBC 4.4 H/H 10.2/34.5 IS: AMPICILLIN PO QID COREG PO Q12HR AMIODARONE PO QD ALBUTEROL HHN Q6HR 1/2 NS IVF @100ML/HR BIPAP QHS AND PRN DISTRESS ICU STATUS DCP: PATIENT IS FROM [facility]
--- NOTE | 2018-05-23 12:30 | NUR ---
NURSE NOTES: Pt verbalized having pain in the lungs when she breath,requested to be placed on Bipap,Resp therap notified.
--- NOTE | 2018-05-23 13:00 | NUR ---
NURSE NOTES: Unable to give due medic Ampicillin at 1300,pt refusing and placed on Bipap for c/o SOB.will take it when she eats her lunch.
--- NOTE | 2018-05-23 13:00 | NUR ---
RESPIRATORY NOTE: Pt placed on BIPAP and refused for me to place tape on her, Facial mask, settings: 12/5 35%@Fio2. Patient was complaining of SOB patient is now comfortable will continue to monitor.
--- NOTE | 2018-05-23 15:00 | NUR ---
NURSE NOTES: Pt wanted to eat,verbalized feeling hungry,placed back in 2L NC.Family member at bedside.pt noted to desaturates on and off to 80's when eating and talking.
--- NOTE | 2018-05-23 17:00 | NUR ---
.TRANSFER TO FLOOR: Patient transferred to SDU, per bed,awake,alert in no resp dsitress stable. . Belongings and medications brought to SDU. Family and or S/O aware of transfer.
[2018-05-23] MEDS ORDERED: Acetaminophen 650mg/20.3ml NG PRN (17:46)
--- NOTE | 2018-05-23 19:09 | NUR ---
RESPIRATORY NOTE: PT RECEIVED STABLE ON NASAL CANNULA AT 3LPM. ALL VS ARE WNL. BREATHING TX GIVEN AND TOLERATED WELL. BIPAP MACHINE AT BEDSIDE. PT REQUESTED NOT TO BE PLACED ON UNTIL BEDTIME. NO S/S OF RESPIRATORY DISTRESS NOTED AT THIS TIME. WILL CONTINUE TO MONITOR.
--- NOTE | 2018-05-23 19:12 | NUR ---
HAND-OFF: Report given to Clif Frederick RN.
--- NOTE | 2018-05-23 19:30 | NUR ---
NURSE NOTES: Received report from ALVARO Carty. Received Pt is resting on the bed and awake and alert. on O2 via nasal cannula @ 2L/min, respirations even and unlabored. Checked SaO2 99-100%. No sign of acute distress noted. On Tele monitor with SR and HR:73's. Vogel catheter patent and draining well. Right femoral TLC infusing 1/2NS with 20 mEq KCl @ 100 cc/hr and tolerated well. No sign of infiltration noted and dressing is clean and dry. Changed position. placed fall precaution. Placed Bed locked in lowest position with side rails up x 3. Call light within reach. Will continue to care plan.
[2018-05-23] MEDS: Dyna-Hex 2% Top Sol 2oz TOPIC SCH (20:20)
--- NOTE | 2018-05-23 23:27 | NUR ---
RESPIRATORY NOTE: PT PLACED ON BIPAP WITH CURRENT ORDERS. 01/20 RATE OF 14. FIO2 50%. PT'S FIO2 IMPROVED. ALL VS WNL. BIPAP CIRCUIT AND MASK SECURE AND OUT OF THE WAY. FACE INSPECTED FOR WOUNDS; NONE WERE FOUND. SPONGE TAPE PLACED ON PT'S FACE PRIOR TO PLACING MASK. NO S/S OF RESPIRATORY DISTRESS NOTED AT THIS TIME. WILL CONTINUE TO MONITOR.
[2018-05-24] VITALS (7 sets, daily range): BP systolic 129–191; BP diastolic 70–115
[2018-05-24] MEDS: Albuterol/Ipratropium 3ml neb HHN SCH ×4 (01:13→19:43)
--- NOTE | 2018-05-24 01:30 | Progress Note ---
DATE: 05/23/2018 CARDIOLOGY PROGRESS NOTE SUBJECTIVE: The patient was seen around 10 p.m. fly. She was falling asleep and had some apnea while I observed her, then she woke up. According to the nursing staff, she has refused to have her BiPAP put on and upon my discussion she still wants to wait a little while longer before putting it on even after I told her she is falling asleep. OBJECTIVE: VITAL SIGNS: Blood pressure 125/55, pulse 98, respirations 16, afebrile. LUNGS: Diminished breath sounds. CARDIAC: Regular rhythm and rate. Normal S1, S2. A 1/6 systolic murmur at base. ABDOMEN: Soft, obese. EXTREMITIES: With no pitting edema. LABORATORY DATA: White count 4.4, hemoglobin 10.2. Sodium 145, potassium 4, bicarb 38, BUN 17, creatinine 1.1. Albumin 2.3. IMPRESSION: 1. Acute and chronic respiratory acidosis. 2. Obesity. 3. Hypoventilation status post respiratory failure and bradycardic arrest. 4. Type A and B aortic dissection. 5. Chronic and possibly acute paroxysmal atrial fibrillation. PLAN: 1. Check lower extremity for venous thrombosis. 2. Remain off full anticoagulation. 3. Encouraged the patient to comply with BiPAP. 4. DVT prophylaxis dose of heparin for now. 5. Cautious monitoring of acid-base parameters. Maxim Levin M.D. DR: VINCE JOB#: [id number] CC:
[2018-05-24] MEDS: 1/2NS w/KCl 20mEq 1000ml 1,000 ML IV SCH (03:50)
--- NOTE | 2018-05-24 04:56 | NUR ---
RESPIRATORY NOTE: PT CURRENTLY ON 3LPM N/C. ALL VS WNL. PT REFUSED BIPAP SINCE 312 AND WAS PLACED ON 3LPM N/C. SPONGE TAPE WAS REMOVED AND FACE WAS INSPECTED FOR REDNESS OR SKIN BREAKDOWN; NONE WAS FOUND. PT IS SLEEPING COMFORTABLY WITH NO S/S OF RESPIRATORY DISTRESS NOTED AT THIS TIME.
[2018-05-24 05:25] LABS: BASOPHILS % (AUTO) 1.7 % (0.0-2.0); EOSINOPHILS % (AUTO) 0.6 % (0.0-3.0); HEMATOCRIT 34.1 % (37.0-47.0); HEMOGLOBIN 10.3 G/DL (12.0-16.0); LYMPHOCYTES % (AUTO) 17.6 % (20.0-45.0); MEAN CORPUSCULAR VOLUME 97 FL (80-99); NEUTROPHILS % (AUTO) 70.1 % (45.0-75.0); PLATELET COUNT 163 K/UL (150-450); RED BLOOD COUNT 3.53 M/UL (4.20-5.40); RED CELL DISTRIBUTION WIDTH 14.9 % (11.6-14.8); WHITE BLOOD COUNT 4.3 K/UL (4.8-10.8)
[2018-05-24 05:35] LABS: ANION GAP 2 mmol/L (5-15); BLOOD UREA NITROGEN 14 mg/dL (7-18); CALCIUM 8.6 MG/DL (8.5-10.1); CARBON DIOXIDE 36 MMOL/L (21-32); CHLORIDE 105 MMOL/L (98-107); CREATININE 0.9 MG/DL (0.55-1.30); POTASSIUM 4.5 MMOL/L (3.5-5.1); SODIUM 143 MMOL/L (136-145)
[2018-05-24] MEDS ORDERED: Acetaminophen 650mg/20.3ml ORAL PRN (05:46)
--- NOTE | 2018-05-24 07:24 | NUR ---
HAND-OFF: Report given to ALVARO Hernandez. Pt is sleeping on the bed and no sign of acute distress noted.
--- NOTE | 2018-05-24 07:25 | NUR ---
NURSE NOTES: Received patient in bed. On nasal cannula at 2LPM. No respiratory distress noted. Patient asleep, easy to arouse, verbally responsive, denies pain at this time. Call light within reach. No facial grimace noted. Contact isolation observed. Will continue plan of care.
[2018-05-24] MEDS ORDERED: Amiodarone 200mg tab NG SCH (09:00)
[2018-05-24] MEDS: Amiodarone 200mg tab ORAL SCH (09:36)
[2018-05-24] MEDS: Pantoprazole Inj IVP SCH (09:37)
[2018-05-24] MEDS: Heparin 5000 units/ml inj SUBQ SCH ×2 (09:38→20:57)
--- NOTE | 2018-05-24 09:58 | NUR ---
RADIOLOGY DEPT., CHEST X-RAY DONE.-P.DYE
[2018-05-24] MEDS ORDERED: COREG3.125 MG ORAL (10:09)
[2018-05-24] MEDS ORDERED: AMPICILLIN TRI500 MG ORAL (10:09)
--- NOTE | 2018-05-24 10:41 | NUR ---
DISCHARGE PLANNING FAXED REFERRAL TO [facility]- FAX- WILL FOLLOW UP
--- NOTE | 2018-05-24 11:49 | NUR ---
ASSISTANT PROFESSOR OF ART NOTES PT ACCEPTED BACK TO FACILITY TO ROOM 23 BED C. [facility] TO TRANSPORT PT WITH AN ETA OF 1330.
--- NOTE | 2018-05-24 12:55 | NUR ---
NURSE NOTES: Telephone report given to ALVARO Barillas of [facility] Waleska.
--- NOTE | 2018-05-24 12:58 | NUR ---
NURSE NOTES: Informed patient's sister regarding the discharge order today. Patient is going back to [facility].
--- NOTE | 2018-05-24 13:12 | Diagnostic Imaging Report ---
Indication: Cough Technique: One view of the chest Comparison: 05/19/2017 Findings: Interim endotracheal and nasogastric extubation. Patient is rotated slightly to the right. The heart is enlarged. The left lung base is obscured. This may be due to collimation or pleural fluid, but is more likely due to a combination of suboptimal inspiration and enlarged heart. Aneurysmal thoracic aorta again demonstrated Impression: Obscured left hemidiaphragm, probably due to overlying soft tissue by consolidation and/or pleural fluid at the left lung base is not completely excludable. Other findings as noted
--- NOTE | 2018-05-24 15:28 | NUR ---
*-* INSURANCE *-* ALL CLINICALS AND REVIEWS HAVE BEEN FAXED TO: [facility] JAYLA KELSEY P:[phone] F: [phone]
--- NOTE | 2018-05-24 15:47 | NUR ---
NURSE NOTES: Informed Dr. Jade that patient is refusing to leave the hospital and patient's blood pressure is high. SBP of 191. said to call Dr. Levin. supervisor toy assembly made aware.
--- NOTE | 2018-05-24 15:48 | NUR ---
NURSE NOTES: Dr. Jade ordered to hold Discharge for today. Charge nurse made aware.
--- NOTE | 2018-05-24 15:54 | NUR ---
NURSE NOTES: Informed Dr. Levin via telephone that patient's blood pressure is high. SBP of 191. With order received to give one time dose of coreg 3.125 mg PO.
--- NOTE | 2018-05-24 15:59 | Pulmonology Progress Note ---
Assessment/Plan Assessment/Plan 1. Status post bradycardic arrest. 2. Respiratory failure, acute on chronic. 3. Obesity, hypoventilation, and sleep apnea. 4. Morbid obesity. 5. Thoracic aortic aneurysm dissection, type A and B chronic 6. Diabetes. 7. Hypertension. 8. UTI - strep species ready for dc but BP spiked so held cardiology f/u disc w thoracic surgery; does not advise stent at present patient desires full code Subjective Constitutional: Reports: no symptoms Respiratory: Denies: shortness of breath Allergies: Coded Allergies: No Known Allergies (Unverified , 02/20/17) Objective Last 24 Hour Vital Signs Date Time Temp Pulse Resp B/P (MAP) Pulse Ox O2 Delivery O2 Flow Rate FiO2 05/24/18 13:00 Nasal Cannula 05/24/18 13:00 70 21 96 Nasal Cannula 3.0 32 05/24/18 12:00 98.2 76 24 155/100 (118) 94 05/24/18 12:00 Nasal Cannula 3.0 05/24/18 11:49 78 05/24/18 11:00 75 20 94 05/24/18 09:36 75 129/92 05/24/18 09:00 70 20 96 05/24/18 08:00 Nasal Cannula 2.0 05/24/18 08:00 97.9 75 22 129/92 (104) 96 05/24/18 08:00 71 05/24/18 07:16 72 20 100 Nasal Cannula 3.0 32 05/24/18 07:05 74 22 94 Nasal Cannula 3.0 32 05/24/18 07:05 74 22 Nasal Cannula 3.0 32 05/24/18 07:05 94 Nasal Cannula 3.0 32 05/24/18 07:05 Nasal Cannula 2.0 28 05/24/18 07:05 74 22 95 05/24/18 04:56 72 22 94 05/24/18 04:00 97.4 68 20 144/94 (111) 96 05/24/18 04:00 Bi-pap 05/24/18 04:00 68 05/24/18 04:00 35 05/24/18 03:13 76 20 93 05/24/18 02:45 66 23 96 Facial 35 05/24/18 01:18 69 23 95 Bi-pap 40 05/24/18 01:10 69 26 98 Facial 40 05/24/18 01:10 69 26 98 Bi-pap 40 05/24/18 01:00 40 05/24/18 00:21 78 05/24/18 00:00 98.2 72 20 147/93 (111) 100 05/24/18 00:00 50 05/24/18 00:00 Bi-pap 05/23/18 23:27 73 27 96 Facial 50 05/23/18 21:19 73 20 92 05/23/18 20:53 75 136/76 05/23/18 20:00 Nasal Cannula 2.0 05/23/18 20:00 98.4 75 22 136/76 (96) 98 05/23/18 20:00 77 05/23/18 19:17 70 20 96 Nasal Cannula 3.0 32 05/23/18 19:09 Nasal Cannula 2.0 28 05/23/18 19:09 76 22 Nasal Cannula 3.0 32 05/23/18 19:09 76 22 93 05/23/18 19:09 92 Nasal Cannula 3.0 32 05/23/18 19:09 76 22 92 Nasal Cannula 3.0 32 05/23/18 16:00 Bi-pap 15.0 05/23/18 16:00 98.0 101 22 117/73 (88) 98 05/23/18 16:00 103 Intake and Output 05/23/18 05/24/18 19:00 07:00 Intake Total 1740 ml 1036 ml Output Total 615 ml 400 ml Balance 1125 ml 636 ml Intake Oral 540 ml 120 ml IV Total 1200 ml 916 ml Output Urine Total 615 ml 400 ml Objective morbidly obese General Appearance: no acute distress Respiratory/Chest: lungs clear Cardiovascular: normal rate Laboratory Tests 05/24/18 03:50: White Blood Count 4.3L, Red Blood Count 3.53L, Hemoglobin 10.3L, Hematocrit 34.1L, Mean Corpuscular Volume 97, Mean Corpuscular Hemoglobin 29.1, Mean Corpuscular Hemoglobin Concent 30.1L, Red Cell Distribution Width 14.9H, Platelet Count 163, Mean Platelet Volume 6.4L, Neutrophils (%) (Auto) 70.1, Lymphocytes (%) (Auto) 17.6L, Monocytes (%) (Auto) 10.0, Eosinophils (%) (Auto) 0.6, Basophils (%) (Auto) 1.7, Sodium Level 143, Potassium Level 4.5, Chloride Level 105, Carbon Dioxide Level 36H, Anion Gap 2L, Blood Urea Nitrogen 14, Creatinine 0.9, Estimat Glomerular Filtration Rate > 60, Glucose Level 114H, Calcium Level 8.6 Current Medications Medications (Trade) Dose Ordered Sig/Tera Route PRN Reason Start Time Stop Time Status Last Admin Dose Admin Acetaminophen (Tylenol) 650 mg Q4H PRN ORAL Mild Pain/Temp > 100.5 05/24/18 15:00 06/23/18 14:59 05/24/18 15:23 Albuterol/ Ipratropium (Albuterol/ Ipratropium) 3 ml Q6HRT HHN 05/23/18 19:00 05/25/18 18:59 05/24/18 07:06 Amiodarone HCl (Cordarone) 200 mg DAILY ORAL 05/24/18 09:00 06/18/18 10:29 05/24/18 09:36 Ampicillin (Ampicillin) 500 mg Q6HR ORAL 05/24/18 06:00 05/30/18 17:59 05/24/18 12:10 Carvedilol (Coreg) 3.125 mg EVERY 12 HOURS ORAL 05/24/18 09:00 06/20/18 20:59 05/24/18 09:36 Cetylpyridinium Chloride (Cepacol) 1 lozg Q2H PRN DAMIR For Cough 05/23/18 17:47 06/22/18 17:46 Chlorhexidine Gluconate (Shahrzad-Hex 2%) 1 applic DAILY@2000 TOPIC 05/23/18 20:00 06/18/18 19:59 05/23/18 20:20 Heparin Sodium (Porcine) (Heparin 5000 units/ml) 5,000 units EVERY 12 HOURS SUBQ 05/23/18 21:00 06/21/18 20:59 05/24/18 09:38 Pantoprazole (Protonix) 40 mg DAILY IVP 05/24/18 09:00 06/18/18 08:59 05/24/18 09:37 Porfirio Jade MD May 24, 2018 15:59
--- NOTE | 2018-05-24 17:35 | NUR ---
RESPIRATORY NOTE: Patient placed on BIPAP due to SOB. Tape in place, skin intact, 12/ back up rate 14, FiO2:35%. Will continue to monitor.
--- NOTE | 2018-05-24 19:20 | NUR ---
HAND-OFF: Report given to Rocío morley RN. Remains on bipap with FiO2 100%.
--- NOTE | 2018-05-24 19:21 | NUR ---
NURSE NOTES: Received bedside report from ALVARO Hernandez.Patient stable,A&Ox4,no respiratory distress noted,no c/o pain at this moment,BiPAP is on 12/5 FiO2 35%,BS active in all quadrants,IV on R femoral TLC asymptomatic,intact ,bed secured in a low safety position,call light within a reach.Will continue to monitor.Patient is ready for discharge.
[2018-05-24] MEDS: Dyna-Hex 2% Top Sol 2oz TOPIC SCH (20:56)
[2018-05-25] VITALS (42 sets, daily range): BP systolic 0–164; BP diastolic 43–134
[2018-05-25] MEDS: Albuterol/Ipratropium 3ml neb HHN SCH ×4 (01:12→19:03)
[2018-05-25] MEDS ORDERED: HydrALAZINE 10mg Tab ORAL PRN (02:00)
--- NOTE | 2018-05-25 03:45 | Progress Note ---
DATE: 05/24/2018 CARDIOLOGY PROGRESS NOTE SUBJECTIVE: The patient is anxious about leaving the hospital and had elevated blood pressure readings at that time just prior to discharge plan. She denies chest pain or shortness of breath. OBJECTIVE: VITAL SIGNS: Blood pressure 129/92 earlier, now 155/100, heart rate 76, respiratory rate 24, and afebrile. The patient was seen by Thoracic Surgery. Recommendations were made to resume anticoagulation for because of other risks including paroxysmal atrial fibrillation and DVT as well as dissection thrombosis. As such, Eliquis is being resumed. LUNGS: Clear. CARDIAC: Regular. Normal S1, S2. Distant. No new murmur. ABDOMEN: Obese. EXTREMITIES: With nonpitting edema. LABORATORY DATA: White count 4, hemoglobin 10. BUN 14, creatinine 0.9, potassium 4.5. IMPRESSION: 1. Bradycardic respiratory arrest. 2. Chronic respiratory acidosis. 3. Obesity hypoventilation. 4. Chronic respiratory failure. 5. Aortic dissection type A and B. 6. Chronic diastolic congestive heart failure. 7. Paroxysmal atrial fibrillation. 8. Hypertensive heart disease with labile blood pressure. PLAN: 1. Amiodarone for atrial arrhythmia suppression. 2. Beta-michael for management of aortic dissection. Titrate based on heart rate. 3. Full anticoagulation with cautions. 4. Advance antihypertensive regimen with p.r.n. therapy. 5. Discharge planning. 6. Aortic stent placement in the future to be considered although patient is high risk. Maxim Levin M.D. DR: ARIA JOB#: [id number] CC:
--- NOTE | 2018-05-25 05:31 | NUR ---
NURSE NOTES: Called regarding patient's condition,SatO2 73%,BP 96/53,received new orders STAT ABG, Lasix 40 mg IV once.Charge nurse aware.Will continue to monitor
--- NOTE | 2018-05-25 05:50 | NUR ---
NURSE NOTES: Initiated code blue,patient not responding,Sat O2 73% Pulse 37 Patient transferred to ICU
--- NOTE | 2018-05-25 06:00 | NUR ---
NURSE NOTES:Received from JR S/P code Blue, orally intubated on Ac mode , respond to pain stimuli only , bp was low Dopamine 20 mcgkg/min was started, CXR was obtained and it was in proper placement. ST on the monitor Bp continued to be labile - Will continue to monitor.
--- NOTE | 2018-05-25 06:01 | NUR ---
NURSE NOTES: Patient transferred to ICU,report given to ALVARO Lockett.belongings list signed
--- NOTE | 2018-05-25 06:30 | NUR ---
NURSE NOTES:ABG was done- awaiting for the result.
--- NOTE | 2018-05-25 06:59 | Emergency Room Report ---
History of Present Illness General Chief Complaint: Altered Level of Consciousness Source: Medical Record Present Illness HPI This is a morbidly obese 67-year-old female who was admitted for breast heart failure status post intubation. She also has a very large non-operable aortic dissection. She was intubated and extubated. I responded to a CODE BLUE. Per nursing staff, she was on BiPAP and became hypoxic in an asystolic. On my arrival patient was getting CPR. Patient has no spontaneous respiration. She was asystolic on the monitor. I proceeded to intubate her and after 3 rounds of epinephrine, there was a strong pulse. Patient was sent to the ICU. Allergies: Coded Allergies: No Known Allergies (Unverified , 02/20/17) Patient History Past Medical History: see triage record, old chart reviewed Past Surgical History: other Pertinent Family History: none Social History: Denies: smoking Now: No Immunizations: other Reviewed Nursing Documentation: PMH: Agreed; PSxH: Agreed Nursing Documentation-PMH Past Medical History: No History, Except For Hx Cardiac Problems: Yes - A-Fib, Aortic Aneurysm, Hyperlipidemis Hx Hypertension: Yes Hx Asthma: Yes Hx Diabetes: Yes - Type 2 Hx Cancer: No Hx Gastrointestinal Problems: No Hx Neurological Problems: No Review of Systems All Other Systems: limited - Secondary to condition Physical Exam Vital Signs Date Time Temp Pulse Resp B/P (MAP) Pulse Ox O2 Delivery O2 Flow Rate FiO2 05/21/18 07:00 48 21 131/61 (84) 99 05/21/18 07:20 30 40 05/21/18 07:25 Mechanical Ventilator 05/21/18 08:00 98.7 05/21/18 09:30 2.0 Sp02 EP Interpretation: abnormal General Appearance: severe distress, obese, other - Unresponsive Eyes: bilateral eye PERRL ENT: other - Mucus in the oropharynx Neck: supple Respiratory: other - No spontaneous respiration. Diffuse rhonchi and rales with [id number] Cardiovascular #1: other - No spontaneous pulse without CPR Gastrointestinal: other - Obese Neurologic: other - Unresponsive Procedures Critical Care Time Critical Care Time Critical care is mandated in this patient who presented with cardiac arrest. Patient require my urgent intervention to attenuate the risks of and metabolic collapse which may lead to cardiovascular collapse and . Critical care time is 35 minutes excluding any reportable procedure. Critical care time included evaluation, multiple reevaluation, looking at old charts, interpreting laboratory and diagnostic data, discussing case with patient and family and consultants, and charting. CPR/Code Blue CPR/Code Blue Narrative Patient with cardiac arrest. Most likely rest her rescue tubing to chronic arrest. After intubation and 3 rounds of epinephrine she retain a pulse. Please see code sheet for full information. Intubation Intubation : Consent: Emergent Intubation Method: orotracheal Tube Size (cm): 7.5 Medications: Etomidate, Succinylcholine Breath Sounds after Intubation: equal Intubation Complications: no complications Post Intubation Xray: Yes Progress/Xray Impression: Endotracheal tube in good position Attempts: One Patient Tolerated: Well Complications: None Medical Decision Making Diagnostic Impression: Primary Impression: Respiratory arrest Additional Impressions: Morbid obesity Cardiac arrest ER Course Patient with cardiac arrest. Most likely contribute it from respiratory arrest. Condition and prognosis poor. Chest X-Ray Diagnostic Results Chest X-Ray Diagnostic Results : Chest X-Ray Ordered: Yes # of Views/Limited/Complete: 1 View Indication: Shortness of Breath EP Interpretation: Yes Interpretation: no pneumothorax, other - ETT in good position. Enlarged mediastinum Last Vital Signs Date Time Temp Pulse Resp B/P (MAP) Pulse Ox O2 Delivery O2 Flow Rate FiO2 05/25/18 06:15 71 15 100 05/25/18 05:29 94 Facial 05/25/18 04:00 97.2 135/77 (96) 05/24/18 16:00 3.0 Status: improved Disposition: ADMITTED INPATIENT Condition: Critical Scripts Carvedilol (Coreg) 3.125 Mg Tablet 3.125 MG ORAL EVERY 12 HOURS, #60 TAB Prov: Porfirio Jade MD 05/24/18 Ampicillin Trihydrate (AMPICILLIN TRIHYDRATE) 500 Mg Capsule 500 MG ORAL Q6HR, #15 CAP Prov: Porfirio Jade MD 05/24/18 Referrals: [facility] (PCP) Hola Bacon MD May 25, 2018 06:59
[2018-05-25] MEDS: DOPamine 400mg/250ml 250 ML IV SCH ×2 (07:00→09:00)
--- NOTE | 2018-05-25 07:09 | NUR ---
NURSE NOTES: We notified Dr. Jade regarding patients status, MD ordered Dopamine, Levophed, Spo2 to be above 94%, ABG in 2 hrs and Vent rate settings of AC 20, will follow and carry out orders.
--- NOTE | 2018-05-25 07:26 | NUR ---
RESPIRATORY NOTE: pt intubated early am with ETT 7.5, placed 24cm at the lip. ETT is secured via anchor fast with no redness around facial/neck area. pt on current vent settings of AC 20 500 50% +5. MD order to maintain spo2 >94%. ambu bag at bedside with alarms on and audible. vent is plugged into the red outlet. will cont to monitor and follow through with orders.
--- NOTE | 2018-05-25 07:30 | NUR ---
NURSE NOTES: Received the patient from ALVARO Lockett. s/p code blue this am. Patient is obtunded, responds to painful stimuli. Orally intubated ETT size 7.5, 24cm at lip line, vent settings: AC20, TV 500, FIO2 50%, PEEP 5, O2 sat 98%. ST noted on the monitor. patient kept NPO. Vogel cath intact and patent, draining yellow urine. Right femoral TLC, running Dopamine 20mcg/kg/min. Patient on bilateral soft wrist restraints. pulses present. no skin breakdown noted. Bed in lowest position, locked, side rails upx3. will continue to monitor.
--- NOTE | 2018-05-25 07:30 | NUR ---
HAND-OFF: Report given to Palak Baig RN.
--- NOTE | 2018-05-25 07:40 | NUR ---
NURSE NOTES: Endorsed to So davon RN to contact family and aware family with pts critical condition. ( u.s. representative Emily unable to reach the family at [phone])
--- NOTE | 2018-05-25 07:42 | NUR ---
NURSE NOTES:Called to Dr acacia MEDINA result with orders given. Pls see orders
--- NOTE | 2018-05-25 07:49 | NUR ---
NURSE NOTES: Called supervisor contact lens, Ann Jordan. Unable to reach at this time. will attempt later.
[2018-05-25] MEDS: Losartan 50mg tab ORAL SCH (08:25)
[2018-05-25] MEDS: Eliquis 2.5mg tablet ORAL SCH ×2 (08:26→17:33)
[2018-05-25] MEDS: Amiodarone 200mg tab ORAL SCH (08:27)
--- NOTE | 2018-05-25 08:50 | Pulmonology Progress Note ---
Assessment/Plan Assessment/Plan 1. Status post arrest x 2 2. Respiratory failure, acute on chronic. 3. Obesity hypoventilation syndrome and sleep apnea. 4. Morbid obesity. 5. Thoracic aortic aneurysm dissection, type A and B chronic 6. Diabetes. 7. Hypertension. 8. UTI - strep species resp failure on BiPAP this AM and arrested now in ICU intubated not responsive cardiology f/u will need trach and long-term vent support try to contact family Subjective ROS Limited/Unobtainable: Yes Allergies: Coded Allergies: No Known Allergies (Unverified , 02/20/17) Objective Last 24 Hour Vital Signs Date Time Temp Pulse Resp B/P (MAP) Pulse Ox O2 Delivery O2 Flow Rate FiO2 05/25/18 08:38 124 20 50 05/25/18 08:00 40 05/25/18 07:25 Mechanical Ventilator 50 05/25/18 07:25 Mechanical Ventilator 50 05/25/18 07:21 108 20 50 05/25/18 07:00 105 15 130/79 (96) 98 05/25/18 06:30 105 15 90/48 (62) 98 05/25/18 06:15 71 15 100 05/25/18 06:15 97.0 120 15 73/48 (56) 98 05/25/18 06:00 105 15 140/83 (102) 98 05/25/18 06:00 120 15 78/43 (55) 98 05/25/18 05:54 0 0 0/ 05/25/18 05:29 69 18 94 Facial 100 05/25/18 04:00 Bi-pap 05/25/18 04:00 97.2 78 29 135/77 (96) 98 05/25/18 04:00 100 05/25/18 03:26 70 05/25/18 02:35 78 25 94 Facial 40 05/25/18 01:19 72 24 94 Bi-pap 50 05/25/18 01:11 73 44 98 Facial 40 05/25/18 01:10 73 44 98 Bi-pap 40 05/25/18 00:00 96.8 74 25 114/50 (71) 98 05/25/18 00:00 Bi-pap 05/24/18 23:49 77 25 99 Facial 40 05/24/18 23:36 74 05/24/18 21:20 75 23 100 Facial 50 05/24/18 20:56 86 137/70 05/24/18 20:00 Bi-pap 05/24/18 20:00 96.8 86 19 137/70 (92) 99 05/24/18 20:00 100 05/24/18 19:41 85 16 98 Bi-pap 70 05/24/18 19:38 83 16 100 Facial 70 05/24/18 19:33 85 17 100 Bi-pap 40 05/24/18 19:32 100 Bi-pap 100 05/24/18 19:32 Bi-pap 100 05/24/18 19:30 81 19 Bi-pap 100 05/24/18 19:26 82 05/24/18 17:45 Bi-pap 05/24/18 17:45 100 05/24/18 17:44 80 155/100 05/24/18 17:38 80 23 94 Facial 35 05/24/18 16:30 98.2 80 34 157/115 (129) 94 05/24/18 16:00 Nasal Cannula 3.0 05/24/18 15:54 191/92 (125) 05/24/18 15:28 82 05/24/18 13:00 Nasal Cannula 05/24/18 13:00 70 21 96 Nasal Cannula 3.0 32 05/24/18 12:00 98.2 76 24 155/100 (118) 94 05/24/18 12:00 Nasal Cannula 3.0 05/24/18 11:49 78 05/24/18 11:00 75 20 94 05/24/18 09:36 75 129/92 05/24/18 09:00 70 20 96 Intake and Output 05/24/18 05/25/18 19:00 07:00 Intake Total 960 ml Output Total 300 ml 0 ml Balance 660 ml 0 ml Intake Oral 360 ml IV Total 600 ml Output Urine Total 300 ml 0 ml Objective morbidly obese HEENT: atraumatic Respiratory/Chest: rhonchi Cardiovascular: normal rate Abdomen: soft, non tender Laboratory Tests 05/25/18 05:37: Arterial Blood pH 6.886*L, Arterial Blood Partial Pressure CO2 > 160.3*H, Arterial Blood Partial Pressure O2 < 45.3*L, Arterial Blood HCO3 [Pending], Arterial Blood Oxygen Saturation 46.5*L, Arterial Blood Base Excess [Pending], Tim Test Positive 05/25/18 06:33: Arterial Blood pH 7.158*L, Arterial Blood Partial Pressure CO2 83.1*H, Arterial Blood Partial Pressure O2 145.9H, Arterial Blood HCO3 28.8H, Arterial Blood Oxygen Saturation 98.3, Arterial Blood Base Excess -1.7, Tim Test Positive Current Medications Medications (Trade) Dose Ordered Sig/Tera Route PRN Reason Start Time Stop Time Status Last Admin Dose Admin Acetaminophen (Tylenol) 650 mg Q4H PRN ORAL Mild Pain/Temp > 100.5 05/24/18 15:00 06/23/18 14:59 05/24/18 15:23 Albuterol/ Ipratropium (Albuterol/ Ipratropium) 3 ml Q6HRT HHN 05/23/18 19:00 05/25/18 18:59 05/25/18 01:12 Amiodarone HCl (Cordarone) 200 mg DAILY ORAL 05/24/18 09:00 06/18/18 10:29 05/24/18 09:36 Ampicillin (Ampicillin) 500 mg Q6HR ORAL 05/24/18 06:00 05/30/18 17:59 05/25/18 00:06 Apixaban (Eliquis) 2.5 mg BID ORAL 05/25/18 09:00 06/24/18 08:59 Carvedilol (Coreg) 3.125 mg EVERY 12 HOURS ORAL 05/24/18 09:00 06/20/18 20:59 05/24/18 20:56 Cetylpyridinium Chloride (Cepacol) 1 lozg Q2H PRN DAMIR For Cough 05/23/18 17:47 06/22/18 17:46 Chlorhexidine Gluconate (Shahrzad-Hex 2%) 1 applic DAILY@2000 TOPIC 05/23/18 20:00 06/18/18 19:59 05/24/18 20:56 Dopamine HCl/ Dextrose 250 ml @ 0 mls/hr Q24H IV 05/25/18 07:15 06/24/18 07:14 Hydralazine HCl (Apresoline) 10 mg Q6HR PRN ORAL SBP above 150 05/25/18 02:00 06/24/18 01:59 Losartan Potassium (Cozaar) 50 mg DAILY ORAL 05/25/18 09:00 06/24/18 08:59 Norepinephrine Bitartrate 4 mg/ Dextrose 250 ml @ 0 mls/hr Q24H IV 05/25/18 08:00 06/24/18 07:59 Pantoprazole (Protonix) 40 mg DAILY IVP 05/24/18 09:00 06/18/18 08:59 05/24/18 09:37 Porfirio Jade MD May 25, 2018 08:50
[2018-05-25] MEDS: Pantoprazole Inj IVP SCH (08:58)
--- NOTE | 2018-05-25 09:00 | NUR ---
NURSE NOTES: Dr. Jade here to assess the patient. MD updated on the pt's condition. New orders noted and carried out.
[2018-05-25 09:28] LABS: ALANINE AMINOTRANSFERASE 163 U/L (12-78); ALBUMIN 2.9 G/DL (3.4-5.0); ALBUMIN/GLOBULIN RATIO 0.7 (1.0-2.7); ALKALINE PHOSPHATASE 105 U/L (46-116); ANION GAP 7 mmol/L (5-15); ASPARTATE AMINO TRANSFERASE 240 U/L (15-37); BLOOD UREA NITROGEN 19 mg/dL (7-18); CALCIUM 9.2 MG/DL (8.5-10.1); CARBON DIOXIDE 32 MMOL/L (21-32); CHLORIDE 103 MMOL/L (98-107); CREATININE 1.2 MG/DL (0.55-1.30); POTASSIUM 5.1 MMOL/L (3.5-5.1); SODIUM 142 MMOL/L (136-145)
[2018-05-25 09:29] LABS: HEMATOCRIT 39.7 % (37.0-47.0); HEMOGLOBIN 11.8 G/DL (12.0-16.0); MEAN CORPUSCULAR VOLUME 96 FL (80-99); PLATELET COUNT 225 K/UL (150-450); RED BLOOD COUNT 4.13 M/UL (4.20-5.40); RED CELL DISTRIBUTION WIDTH 14.9 % (11.6-14.8); WHITE BLOOD COUNT 10.9 K/UL (4.8-10.8)
--- NOTE | 2018-05-25 09:59 | NUR ---
RD ASSESSMENT & RECOMMENDATIONS SEE CARE ACTIVITY FOR COMPLETE ASSESSMENT DAILY ESTIMATED NEEDS: Needs based on Critical Care, morbidly obese 22-25kcal/kg IBW (61kg) kcals/kg 7573-8721 total kcals 1.8-2.5 IBW (61kg) g protein/kg 109-152 g total protein 20-25ml/kg abw (84kg) mL/kg 2256-6306 total fluid mLs NUTRITION DIAGNOSIS: * Swallowing difficulty R/T respiratory status as evidenced by s/p cardiac arrest, pt is reintubated, ICU status, pending NGT feeds. (UPDATED) * Obesity R/T life style factors, excessive energy intake as evidenced by BMI >50, pt is 253% IBW PO DIET RECOMMENDATIONS: SYSTEM VALIDATION ENGINEER EVAL POST EXTUBATION ENTERAL NUTRITION RECOMMENDATIONS: VITAL AF 1.2 @53ml/hr x24 hrs to provide 1272ml, 1526 kcal, 95g pro, 1032ml free H2O - Obtain GI access, start VITAL 1.2 @23ml/hr for 6 hrs. - Advance as tolerated 10ml/hr q4-6 hrs to goal - Flush per MD. HOB over 30 degrees With hemodynamic stability and tolerating TF rec to add PROSOURCE 1 pack BID (11g pro each) to better meet est pro needs TF at goal meets 100% est kcal needs, 87% est pro needs. FEED AT TROPHIC RATE OF 10ML/HR IF NOT HEMODYNAMICALLY STABLE ADDITIONAL RECOMMENDATIONS: 1) Recalibrate bed scale (as able) for accurate CBW 2) FEED AT TROPHIC RATE OF 10ML/HR IF NOT HEMODYNAMICALLY STABLE 3) Rec accucheck w/ SSI: elev BGs, h/o DM 4) Monitor lytes, replete as needed .
--- NOTE | 2018-05-25 10:00 | NUR ---
NURSE NOTES: FIO2 decreased to 40%. O2 sat 99%. small white secretion noted from ET suction.
--- NOTE | 2018-05-25 10:20 | NUR ---
PARTS PERSONSCREENING UNIT REGISTERED NURSE SI:RESP FAILURE, ACUTE ON CHRONIC . BRADYCARDIA RESPIRATORY ARREST VS: BP 98/70,P 126, T 97.3, RR 23, SpO2 100 on VENT AC 20, TV 500, PEEP 530, FiO2 40 WBC 10.9, RBC 4.13, Hgb 11.8, BUN 19 CXR Impression: Satisfactory endotracheal intubation. Possible right upper lobe consolidation. Cardiomegaly. IS:PROTONIX 40mg IVP LASIX 40mg ICU STATUS
--- NOTE | 2018-05-25 10:36 | Diagnostic Imaging Report ---
Indication: Post endotracheal tube placement Technique: One view of the chest Comparison: 05/24/2018 Findings: Interim endotracheal intubation, endotracheal tube tip projecting in good position approximately 4 cm above the alonzo. The left lung base is cut off the exam. There may be some consolidation in the right upper lobe. The visualized lungs and right pleural space otherwise appear clear. The heart is enlarged. Again demonstrated is aneurysmal dilatation of the thoracic aorta Impression: Satisfactory endotracheal intubation Possible right upper lobe consolidation Left lung base is not well-demonstrated Cardiomegaly Other findings as noted
--- NOTE | 2018-05-25 11:00 | NUR ---
NURSE NOTES: Patient off Dopamine gtt. VSS. No acute distress noted.
[2018-05-25] MEDS ORDERED: Etomidate 40mg/20ml Inj IV ONE (11:17)
[2018-05-25] MEDS ORDERED: Succinylcholine 20mg/ml 10ml vial ONE (11:17)
--- NOTE | 2018-05-25 11:20 | NUR ---
NURSE NOTES: Inserted OGT. KUB pending
--- NOTE | 2018-05-25 11:37 | NUR ---
Social Service Note Patient's emergency contacts are Ann Lilly [phone] sister and Maurizio Joy brother [phone]. SW contacted patient's sister and informed her of patient's change of condition. SW transferred call to ICU.
--- NOTE | 2018-05-25 11:45 | NUR ---
*-* INSURANCE *-* ALL CLINICALS AND REVIEWS HAVE BEEN FAXED TO: [facility] JAYLA KELSEY P:[phone] F: [phone]
--- NOTE | 2018-05-25 12:00 | NUR ---
NURSE NOTES: patient was turned and repositioned.
--- NOTE | 2018-05-25 12:30 | NUR ---
NURSE NOTES: Dr. Jade made aware of abnormal lab results and ABG results. no new orders at this time.
--- NOTE | 2018-05-25 13:59 | NUR ---
RADIOLOGY DEPT., ABDOMEN X-RAY FOR NGT PLMT PERFORMED BY DOMINIC [email or web address]
--- NOTE | 2018-05-25 14:00 | NUR ---
NURSE NOTES: OGT placement confirmed with KUB. Tube feeding started, Vital AF 1.2 at 23ml/hr.
--- NOTE | 2018-05-25 16:00 | NUR ---
NURSE NOTES: Patient was repositioned. VSS, Afebrile. Vital AF 1.2 at 23ml/hr, no residual noted. HOB kept elevated.
--- NOTE | 2018-05-25 16:39 | Diagnostic Imaging Report ---
Indication: Post gastric tube placement Technique: Supine view of the upper abdomen Comparison: none Findings: There is a gastric tube in place, tip projecting at the level gastric antrum in good position. There is some consolidation at the left lung base Impression: Satisfactory gastric tube placement, suitable for use
--- NOTE | 2018-05-25 18:00 | NUR ---
NURSE NOTES: No changes in pt's condition. Patient opens eyes spontaneously, responds to painful stimuli. No acute distress noted. VSS. Tube feeding running at 23ml/hr, no residual noted. HOB elevated.
--- NOTE | 2018-05-25 19:12 | NUR ---
HAND-OFF: Report given to ALVARO Nunes. Pt's brother at bedside.
--- NOTE | 2018-05-25 20:00 | NUR ---
NURSE NOTES: Patient received from [facility] RN. Patient is obtunded at the moment but able to make facial grimacing expressions when applied painful stimulus. Patient does present with a strong gag reflex upon suctioning. HR is 69, 135/88, SpO2 is 98% while on FiO2 of 40%, Temperature is 100.6F, Cooling measures in effect. Patient was suctioned, presents with alot of clear thin secretions. Patient does have a R femoral TLC that is running only TKO. Vital AF 1.2 at 33ml/hr, goal being 53ml/hr. Patient is S/p code 4/9 around 0600. Intubated during code with ETT size 7.5, 24cm at lip line, AC 20, 500Tv, 40% FiO2 and peep of 5. No respiratory distress or tachypnea at this time. Patient is on a P200 mattress. Patient was repositioned. Will continue to monitor.
[2018-05-25] MEDS: Dyna-Hex 2% Top Sol 2oz TOPIC SCH (20:26)
--- NOTE | 2018-05-25 22:00 | NUR ---
NURSE NOTES: Patient suctioned and given oral care. Patient grimaces with painful stimulus, strong gag reflex, able to ope eyes upon stimulus, Remains slightly confused and disoriented, Patient able to move arms now close to ETT, restraints initiated.
[2018-05-26] VITALS (24 sets, daily range): BP systolic 90–150; BP diastolic 40–122
--- NOTE | 2018-05-26 | NUR ---
NURSE NOTES: Oral care and suctioned was provided. Patient able to move her arms when suctioning, patient shakes head when trying to suction. BP has remained stable so far. Alot of oral secretions. NAD at this time. Patient was repositioned.
--- NOTE | 2018-05-26 02:00 | NUR ---
NURSE NOTES: Patient suctioned, patient is becoming more awake and able to open eyes when not suctioning. BP have remained stable so far. No acute respiratory distress. Feeds are ongoing and water flush provided.
--- NOTE | 2018-05-26 04:00 | NUR ---
NURSE NOTES: Patient cleaned and suctioned and repositioned. Patient is more awake now and able to follow commands. Patient is slightly lethargic. Reality reorientation provided. Patient able to write down her needs and is cooperative with plan of care. Will continue to monitor.
--- NOTE | 2018-05-26 04:45 | Progress Note ---
DATE: 05/25/2018 CARDIOLOGY PROGRESS NOTE SUBJECTIVE: The patient's condition deteriorated. She became hypotensive, tachycardic, and had a respiratory arrest this morning. She is now orally intubated and mechanically ventilated. The events occurred while on BiPAP support. Monitored rhythm, sinus tachycardia. OBJECTIVE: VITAL SIGNS: Blood pressure has been labile. Presently, blood pressure 137/72 with heart rate 69 and respiratory rate 20. Temperature is 100.6. Presently, unresponsive. LUNGS: Bilateral breath sounds. HEART: Regular rhythm and rate. Normal S1, S2. ABDOMEN: Obese. There is lymphedema. LABORATORY DATA: White count 10.9 and hemoglobin 11.8. Sodium 142, potassium 5.1, bicarb 32, BUN 19, and creatinine 1.2. Albumin 2.9. AST and ALT are elevated again in the range of 160 to 240. Chest x-ray revealed right upper lobe consolidation, cardiomegaly, and satisfactory endotracheal tube placement. IMPRESSION: 1. Recurring respiratory failure. 2. Type A and B aortic dissection. 3. Lymphedema. 4. Acute on chronic diastolic congestive heart failure. 5. Probable healthcare-acquired pneumonia. 6. Moderate protein-calorie malnutrition. 7. Hypertensive heart disease. 8. Paroxysmal atrial fibrillation. PLAN: 1. Ventilator support. 2. Consideration for trach per charge auditor. 3. Cardiac monitoring. 4. Monitor electrolytes. Correct accordingly. 5. Antimicrobials. 6. Respiratory hygiene. 7. Full anticoagulation. 8. No plans for aortic stent at this time. 9. Long-term prognosis remains poor. Maxmi Levin M.D. DR: FRANCESCA JOB#: [id number] CC:
--- NOTE | 2018-05-26 05:00 | NUR ---
NURSE NOTES: D/C restraints, patient is alert, cooperative, oriented and follows command. Call light within reach, bed in lowest position. Patient calmly resting in bed and flipping through channels on TV. VS have remained stable.
--- NOTE | 2018-05-26 07:00 | NUR ---
RESPIRATORY NOTE: Received pt on vent with settings of 500/20/40%/+5. Pt stable w/o distress. Sat & vitals WNL/ >92%. Pt is intubated with 7.5mm ett at the 24lip line. Vent is plugged in to red outlet, ambu bag is at bedside, alarms on and audible. Will continue to monitor.
[2018-05-26] MEDS: DOPamine 400mg/250ml 250 ML IV SCH (07:15)
--- NOTE | 2018-05-26 07:38 | NUR ---
NURSE NOTES: Report received from Des JOHN. Pt alert and oriented x4 and resting comfotably, denies discomfort. Pt is cooperative and able to make needs known. Pt connected to cardiac rehab nurse, SR. Pt orally intubated, ETT 7.5, 24 cm at the lip line, AC 20, TV 500, 40% fiO2, PEEP 5. OGT noted and intact with Vital AF running at 53 cc/hr. Vogel noted and draining clear, yellow urine to gravity. R femoral TLC noted and intact, heplocked. Safety measures in place with bed locked and in lowest position, side rails x3 up and bed alarm on. Will continue to monitor and continue plan of care.
[2018-05-26] MEDS: Pantoprazole Inj IVP SCH (08:36)
[2018-05-26] MEDS: Losartan 50mg tab ORAL SCH (08:36)
[2018-05-26] MEDS: Eliquis 2.5mg tablet ORAL SCH ×2 (08:36→18:17)
[2018-05-26] MEDS: Amiodarone 200mg tab ORAL SCH (08:37)
--- NOTE | 2018-05-26 08:46 | Pulmonology Progress Note ---
Assessment/Plan Assessment/Plan 1. Status post arrest x 2 2. Respiratory failure, acute on chronic. 3. Obesity hypoventilation syndrome and sleep apnea. 4. Morbid obesity. 5. Thoracic aortic aneurysm dissection, type A and B chronic 6. Diabetes. 7. Hypertension. 8. UTI - strep species resp failure on vent via oral ETT alert and responsive cardiology f/u noted advised she will need trach and long-term vent support she will decide questions answered Subjective Constitutional: Reports: no symptoms Allergies: Coded Allergies: No Known Allergies (Unverified , 02/20/17) Objective Last 24 Hour Vital Signs Date Time Temp Pulse Resp B/P (MAP) Pulse Ox O2 Delivery O2 Flow Rate FiO2 05/26/18 08:37 75 150/49 05/26/18 08:36 150/49 05/26/18 08:00 Mechanical Ventilator 05/26/18 08:00 63 05/26/18 08:00 150/49 05/26/18 08:00 99.2 64 20 150/49 (82) 100 05/26/18 08:00 40 05/26/18 07:15 150/44 05/26/18 07:00 67 20 150/44 (79) 100 05/26/18 06:50 67 20 40 05/26/18 06:00 69 20 147/53 (84) 100 05/26/18 05:14 68 20 40 05/26/18 05:00 67 22 142/55 (84) 100 05/26/18 04:00 Mechanical Ventilator 05/26/18 04:00 100.4 75 17 141/61 (87) 100 05/26/18 04:00 68 05/26/18 04:00 40 05/26/18 03:06 87 21 40 05/26/18 03:00 92 16 90/51 (64) 97 05/26/18 02:00 74 20 95/82 (86) 100 05/26/18 01:40 Mechanical Ventilator 40 05/26/18 01:40 79 20 40 05/26/18 01:39 Mechanical Ventilator 40 05/26/18 01:00 79 21 92/56 (68) 87 05/26/18 00:00 100.3 73 20 124/75 (91) 98 05/26/18 00:00 77 05/26/18 00:00 40 05/26/18 00:00 Mechanical Ventilator 05/25/18 23:00 77 20 118/103 (108) 98 05/25/18 22:45 80 20 40 05/25/18 22:00 71 20 133/84 (100) 100 05/25/18 21:24 73 20 40 05/25/18 21:00 74 16 129/73 (91) 100 05/25/18 20:00 40 05/25/18 20:00 69 05/25/18 20:00 Mechanical Ventilator 05/25/18 20:00 100.6 72 20 137/72 (93) 97 05/25/18 19:09 70 20 100 Mechanical Ventilator 40 05/25/18 19:00 69 20 135/81 (99) 100 05/25/18 18:58 69 20 100 Mechanical Ventilator 40 05/25/18 18:56 74 20 40 05/25/18 18:00 66 20 116/93 (101) 98 05/25/18 17:00 82 21 104/64 (77) 100 05/25/18 16:55 70 20 40 05/25/18 16:00 Mechanical Ventilator 05/25/18 16:00 71 05/25/18 16:00 98.2 70 20 116/70 (85) 97 05/25/18 16:00 40 05/25/18 15:00 75 20 101/72 (82) 99 05/25/18 14:58 75 20 40 05/25/18 14:00 72 20 139/78 (98) 95 05/25/18 14:00 72 20 139/78 (98) 98 05/25/18 13:30 72 20 123/88 (100) 99 05/25/18 13:03 70 20 40 05/25/18 13:00 71 20 114/92 (99) 99 05/25/18 12:58 69 20 100 Mechanical Ventilator 40 05/25/18 12:53 70 20 97 Mechanical Ventilator 50 05/25/18 12:30 73 21 115/84 (94) 100 05/25/18 12:15 72 20 114/67 (83) 100 05/25/18 12:00 Mechanical Ventilator 05/25/18 12:00 97.8 71 19 123/100 (108) 98 05/25/18 12:00 40 05/25/18 12:00 68 05/25/18 11:45 71 20 104/68 (80) 99 05/25/18 11:30 71 21 94/74 (81) 98 05/25/18 11:15 68 20 93/72 (79) 98 05/25/18 11:00 65 22 131/95 (107) 100 05/25/18 11:00 130/83 05/25/18 10:45 83 20 130/83 (99) 100 05/25/18 10:34 86 20 40 05/25/18 10:30 87 19 121/104 (110) 100 05/25/18 10:30 130/80 05/25/18 10:15 90 19 108/74 (85) 100 05/25/18 10:00 112 23 98/70 (79) 100 05/25/18 10:00 125 05/25/18 10:00 98/70 05/25/18 09:45 124 22 115/87 (96) 100 05/25/18 09:30 124 21 105/46 (65) 98 05/25/18 09:30 105/46 05/25/18 09:15 125 20 137/115 (122) 99 05/25/18 09:00 126 21 117/96 (103) 99 05/25/18 09:00 113/87 Intake and Output 05/25/18 05/26/18 19:00 07:00 Intake Total 393.824 ml 568 ml Output Total 745 ml 265 ml Balance -351.176 ml 303 ml Free Water 20 ml 60 ml IV Total 235.824 ml Tube Feeding 138 ml 508 ml Output Urine Total 745 ml 265 ml Objective morbidly obese General Appearance: no acute distress HEENT: atraumatic Respiratory/Chest: lungs clear Cardiovascular: normal rate Laboratory Tests 05/25/18 09:25: Arterial Blood pH 7.307L, Arterial Blood Partial Pressure CO2 53.6H, Arterial Blood Partial Pressure O2 57.0L, Arterial Blood HCO3 26.2H, Arterial Blood Oxygen Saturation 90.7L, Arterial Blood Base Excess -0.8, Tim Test Positive Current Medications Medications (Trade) Dose Ordered Sig/Tera Route PRN Reason Start Time Stop Time Status Last Admin Dose Admin Acetaminophen (Tylenol) 650 mg Q4H PRN ORAL Mild Pain/Temp > 100.5 05/24/18 15:00 06/23/18 14:59 05/24/18 15:23 Amiodarone HCl (Cordarone) 200 mg DAILY ORAL 05/24/18 09:00 06/18/18 10:29 05/26/18 08:37 Ampicillin (Ampicillin) 500 mg Q6HR ORAL 05/24/18 06:00 05/30/18 17:59 05/26/18 06:06 Apixaban (Eliquis) 2.5 mg BID ORAL 05/25/18 09:00 06/24/18 08:59 05/26/18 08:36 Carvedilol (Coreg) 3.125 mg EVERY 12 HOURS ORAL 05/24/18 09:00 06/20/18 20:59 05/26/18 08:37 Cetylpyridinium Chloride (Cepacol) 1 lozg Q2H PRN DAMIR For Cough 05/23/18 17:47 06/22/18 17:46 Chlorhexidine Gluconate (Shahrzad-Hex 2%) 1 applic DAILY@2000 TOPIC 05/23/18 20:00 06/18/18 19:59 05/25/18 20:26 Dopamine HCl/ Dextrose 250 ml @ 0 mls/hr Q24H IV 05/25/18 07:15 06/24/18 07:14 05/25/18 07:00 Hydralazine HCl (Apresoline) 10 mg Q6HR PRN ORAL SBP above 150 05/25/18 02:00 06/24/18 01:59 Losartan Potassium (Cozaar) 50 mg DAILY ORAL 05/25/18 09:00 06/24/18 08:59 05/26/18 08:36 Norepinephrine Bitartrate 4 mg/ Dextrose 250 ml @ 0 mls/hr Q24H IV 05/25/18 08:00 06/24/18 07:59 Pantoprazole (Protonix) 40 mg DAILY IVP 05/24/18 09:00 06/18/18 08:59 05/26/18 08:36 Porfirio Jade MD May 26, 2018 08:46
--- NOTE | 2018-05-26 08:46 | NUR ---
RADIOLOGY DEPT, CHEST X-RAY DONE.-P.DYE
[2018-05-26] MEDS ORDERED: Lidocaine 1% Plain 30 ml INJ PRN (09:00)
[2018-05-26] MEDS ORDERED: Heparin1,000 units/500ml Premix(Conc:2 units/ml) IV PRN (09:00)
--- NOTE | 2018-05-26 09:13 | NUR ---
NURSE NOTES: Dr Jade came to see pt. discussed with pt the need for trach and vent support, pt wants to think about it before making a decision. PICC line ordered for today and labs ordered for tomorrow. Will continue to monitor.
--- NOTE | 2018-05-26 09:41 | NUR ---
NURSE NOTES: PICC team here to set up for PICC placement. No acute distress. Will continue to monitor.
--- NOTE | 2018-05-26 10:41 | NUR ---
NURSE NOTES: PICC line placed in right arm. Pt repositioned and suctioned. No acute distress. Will continue to monitor.
--- NOTE | 2018-05-26 10:51 | Diagnostic Imaging Report ---
Indications: Needs long-term IV access Technique: Procedure performed at bedside. Procedural timeout performed. Ultrasound confirms patent compressible right basilic vein. Total sterile technique, including sterile probe cover and sterile gel, sterile gloves, hand hygiene, hat, mask,, sterile gown, large sterile drape, and preparation with 2% chlorhexidine utilized. Local anesthesia with 1% lidocaine. Under real-time ultrasound guidance, puncture basilic vein using 21-gauge needle, passage 0.018 guidewire, exchange for 4 [place]atian peel-away sheath. 4 [place]ian Bard dual-lumen power PICC cut to 44 cm. It was inserted through the peel-away sheath. Peel-away sheath and guidewire removed. Catheter fixed to the skin. Both catheter ports aspirated and flushed. Patient tolerated procedure well, without immediate complication. Followup chest x-ray obtained, documents catheter tip position at the innominate venous confluence Impression: Successful bedside placement of right arm PICC under sonographic guidance, as described above.
--- NOTE | 2018-05-26 11:20 | Diagnostic Imaging Report ---
Indication: Dyspnea Technique: One view of the chest Comparison: 05/25/2018 Findings: Left costophrenic angle is cut off image. Retrocardiac consolidation and possibly pleural fluid is again noted. The right lung and pleural space are probably clear. Cardiomegaly persists. Aneurysmal dilatation of the thoracic aorta is again demonstrated. Stable satisfactory positions of endotracheal and nasogastric tubes. Findings are unchanged Impression: Unchanged, over one day, findings as above.
[2018-05-26 11:40] LABS: APPEARANCE,URINE CLEAR; BILIRUBIN, URINE 1+ (NEGATIVE); GLUCOSE, URINE (UA) NEGATIVE (NEGATIVE); KETONES,URINE 1+ (NEGATIVE); LEUKOCYTE ESTERASE ,URINE 1+ (NEGATIVE); NITRITE,URINE NEGATIVE (NEGATIVE); PH,URINE 5 (4.5-8.0); PROTEIN,URINE 2+ (NEGATIVE); UROBILINOGEN,URINE 4 MG/DL (0.0-1.0)
[2018-05-26 11:56] LABS: COLOR,URINE YELLOW
--- NOTE | 2018-05-26 12:00 | NUR ---
NURSE NOTES: Pt comfortable. VSS. No acute distress. Will continue to monitor.
--- NOTE | 2018-05-26 12:53 | NUR ---
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 BRADYCARDIA RESPIRATORY ARREST VS: BP 150/49,P 77, T 99.0, RR 22, SpO2 100 on VENT AC 20, TV 500, PEEP 5.0, FiO2 40 PICC PLACEMENT IMPRESSION: Successful bedside placement of right arm PICC under sonographic guidance, as described above. IS:APIXABAN 2.5mg COZAAR 50mg PROTONIX 40mg IVP CORDARONE 200mg COREG 3.125 mg AMPICILLIN 500mg ICU STATUS
--- NOTE | 2018-05-26 14:00 | NUR ---
NURSE NOTES: Pt turned and repositioned. VSS. Will continue to monitor.
--- NOTE | 2018-05-26 14:27 | NUR ---
*-* INSURANCE *-* ALL CLINICALS AND REVIEWS HAVE BEEN FAXED TO: [facility] JAYLA KELSEY P:[phone] F: [phone]
--- NOTE | 2018-05-26 16:30 | NUR ---
NURSE NOTES: Pt resting. VSS. Will continue to monitor.
--- NOTE | 2018-05-26 19:04 | NUR ---
RESPIRATORY NOTE: Received pt on AC 20, 500VT, 40#, PEEP +5. Pt intubated w/ ETT 7.5 @ 24cm lipline, secured by anchorfast. Pt is alert/awake, follows commands. no restraints for this pt as she understands not to touch her ETT/IVs. Pt able to communicate w/ hand gestures as well as through writing. B/S sergio. clear/diminished, sxn small amounts of thin, clear-white secretions. Vent plugged into red outlet, ambubag at bedside. Pt denies SOB/chest pain at this time, in no apparent distress. Will continue to monitor pt.
--- NOTE | 2018-05-26 19:08 | NUR ---
HAND-OFF: Report given to Barney JOHN.
--- NOTE | 2018-05-26 19:20 | NUR ---
NURSE NOTES: Recvd,on a vent.Awake,alert able to follows simple command.Lungs few scatt rh.Diminished BS at Bases.P.Ox-100%.See V/S Scope SR-SB.Pos. chg.Suctioned.NS Lavaged.OGT-Feeding in progress.F/Cath.patent.See I/O.
[2018-05-26] MEDS: Dyna-Hex 2% Top Sol 2oz TOPIC SCH (19:51)
--- NOTE | 2018-05-26 22:15 | NUR ---
NURSE NOTES: HS Care rendered.Pos.to comfort.Backrub with lotion.Suctioned NS Lavaged.Due meds admin.No distress.
[2018-05-27] VITALS (24 sets, daily range): BP systolic 97–145; BP diastolic 37–91
--- NOTE | 2018-05-27 00:10 | NUR ---
NURSE NOTES: See V/S.Scope SR-SB Asymptomatic.Repositioned.Kept comfortable.Hyacinth.OGT Feeding.Cont.Plan of care.
--- NOTE | 2018-05-27 02:10 | NUR ---
NURSE NOTES: Suctioned NS Lavaged.Hyacinth.vent settings.Repositioned.Kept comfortable.No distress.Plan of care cont.to implement.
--- NOTE | 2018-05-27 04:10 | NUR ---
NURSE NOTES: Hyacinth.Vent.settings.Suctioned freq.P.Ox-98-100%.VSS.Scope rhythm same.No CP.Hyacinth.OGT Feeding.See I/O.Phil Sigala chg. Blood drawn for cbc/cmp spec.to lab.Cont.Plan of care.
[2018-05-27 05:33] LABS: BASOPHILS % (AUTO) 1.7 % (0.0-2.0); EOSINOPHILS % (AUTO) 0.4 % (0.0-3.0); HEMATOCRIT 31.1 % (37.0-47.0); HEMOGLOBIN 9.7 G/DL (12.0-16.0); LYMPHOCYTES % (AUTO) 18.5 % (20.0-45.0); MEAN CORPUSCULAR VOLUME 93 FL (80-99); MONOCYTES % (AUTO) 10.6 % (1.0-10.0); NEUTROPHILS % (AUTO) 68.8 % (45.0-75.0); PLATELET COUNT 185 K/UL (150-450); RED BLOOD COUNT 3.34 M/UL (4.20-5.40); RED CELL DISTRIBUTION WIDTH 15.7 % (11.6-14.8); WHITE BLOOD COUNT 5.5 K/UL (4.8-10.8)
[2018-05-27 05:56] LABS: ALANINE AMINOTRANSFERASE 130 U/L (12-78); ALBUMIN 2.1 G/DL (3.4-5.0); ALBUMIN/GLOBULIN RATIO 0.6 (1.0-2.7); ALKALINE PHOSPHATASE 68 U/L (46-116); ANION GAP 6 mmol/L (5-15); ASPARTATE AMINO TRANSFERASE 54 U/L (15-37); BILIRUBIN,TOTAL 0.5 MG/DL (0.2-1.0); BLOOD UREA NITROGEN 20 mg/dL (7-18); CALCIUM 8.6 MG/DL (8.5-10.1); CARBON DIOXIDE 34 MMOL/L (21-32); CHLORIDE 108 MMOL/L (98-107); POTASSIUM 3.8 MMOL/L (3.5-5.1); SODIUM 147 MMOL/L (136-145)
[2018-05-27] MEDS: DOPamine 400mg/250ml 250 ML IV SCH (07:15)
--- NOTE | 2018-05-27 07:17 | NUR ---
RESPIRATORY NOTE: Received pt on AC 20, 500ml, 40%,peep of 5, pt is tolerating well. Pt was intubated with ETT 7.5 @ 24cm lips line, secured by anchorfast. Pt is alert/awake, follows commands. no restrains. B/S sergio. diminished, sxn moderate amt of thin frothy white dale secretions without incidents, oral care done. Vent plugged into red outlet, ambubag at bedside, alarms are set and audible. No SOB or resp distress at this time, in no apparent distress. Will continue to monitor pt.
--- NOTE | 2018-05-27 07:20 | NUR ---
HAND-OFF: Report given to ALVARO MARIE.
--- NOTE | 2018-05-27 07:25 | NUR ---
NURSE NOTES: Report received from Barney JOHN. Pt alert and oriented x4 and resting comfotably, denies discomfort. Pt is cooperative and able to make needs known by writing on paper. Pt connected to engine monitor, SR. Pt orally intubated, ETT 7.5, 24 cm at the lip line, AC 20, TV 500, 40% fiO2, PEEP 5. OGT noted and intact with Vital AF running at 53 cc/hr. Vogel noted and draining clear, tea colored urine to gravity. ANGEL PICC line noted and intact, heplocked. Safety measures in place with bed locked and in lowest position, side rails x3 up and bed alarm on. Will continue to monitor and continue plan of care.
[2018-05-27] MEDS: Pantoprazole Inj IVP SCH (08:05)
[2018-05-27] MEDS: Eliquis 2.5mg tablet ORAL SCH ×2 (08:06→17:07)
[2018-05-27] MEDS: Amiodarone 200mg tab ORAL SCH (08:06)
[2018-05-27] MEDS: Losartan 50mg tab ORAL SCH (08:06)
--- NOTE | 2018-05-27 08:46 | NUR ---
RESPIRATORY NOTE: Put pt on CPAP PS 8, 35% FiO2 after pt passed the weaning criteria per weaning protocol. Pt is tolerating well, no SOB or distress noted. ABG in 1 hour. RN Heike made aware. Will continue to monitor pt closely.
--- NOTE | 2018-05-27 09:11 | NUR ---
NURSE NOTES: RT weaning pt. Pt put on CPAP. No acute distress. Will continue to monitor.
--- NOTE | 2018-05-27 09:23 | NUR ---
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 STATUS POST ARREST x2 VS: BP 97/37, P 52, T 98.5, RR 23, SpO2 100 on VENT AC 20, TV 500, PEEP 5.0, Fio2 40 IS:AMPICILLIN 500mg PROTONIX 40mg ELIQUIS 2.5mg ICU STATUS Addendum: 05/27/18 at 0929 by Megan Morin LVN LABS: RBC 3.34, Hgb 9.7, Hct 31.1, Na 147 BUN 20
--- NOTE | 2018-05-27 10:30 | NUR ---
RESPIRATORY NOTE: Put pt back on AC mode per pt's request due to tiredness. No SOB or resp distress noted at this time. ALVARO Burroughs made aware. Awaiting for 's order. Will continue to monitor pt closely.
--- NOTE | 2018-05-27 11:13 | NUR ---
NURSE NOTES: Pt placed back on AC mode after weaning for 1 1/2 hour. Pt felt tired. Pt repositioned. Will continue to monitor.
--- NOTE | 2018-05-27 13:34 | NUR ---
NURSE NOTES: PICC line dressing changed. VSS. Will continue to monitor.
--- NOTE | 2018-05-27 16:18 | Pulmonology Progress Note ---
Assessment/Plan Assessment/Plan 1. Status post arrest x 2 2. Respiratory failure, acute on chronic. 3. Obesity hypoventilation syndrome and sleep apnea. 4. Morbid obesity. 5. Thoracic aortic aneurysm dissection, type A and B chronic 6. Diabetes. 7. Hypertension. 8. UTI - strep species resp failure on vent via oral ETT alert and responsive; using pen/paper to write notes advised she will need trach and long-term vent support she refused and wants to continue weaning trials wants to speak with family; will contact all questions answered Subjective Constitutional: Reports: no symptoms HEENT: Repors: other - sore throat Allergies: Coded Allergies: No Known Allergies (Unverified , 02/20/17) Objective Last 24 Hour Vital Signs Date Time Temp Pulse Resp B/P (MAP) Pulse Ox O2 Delivery O2 Flow Rate FiO2 05/27/18 15:00 56 20 116/63 (80) 100 05/27/18 14:52 57 20 40 05/27/18 14:00 58 20 123/68 (86) 100 05/27/18 13:00 51 20 123/68 (86) 100 05/27/18 12:36 53 20 40 05/27/18 12:00 55 05/27/18 12:00 Mechanical Ventilator 05/27/18 12:00 98.9 56 20 116/54 (74) 100 05/27/18 12:00 40 05/27/18 11:00 64 20 110/58 (75) 93 05/27/18 10:30 84 23 40 05/27/18 10:00 73 19 116/89 (98) 100 05/27/18 09:00 72 19 120/61 (80) 99 05/27/18 08:46 96 05/27/18 08:46 70 23 35 35 05/27/18 08:06 136/60 05/27/18 08:06 65 136/60 05/27/18 08:00 Mechanical Ventilator 05/27/18 08:00 52 05/27/18 08:00 98.5 54 20 97/37 (57) 100 05/27/18 08:00 40 05/27/18 07:19 136/60 05/27/18 07:17 65 20 40 05/27/18 07:15 136/60 05/27/18 07:00 58 20 136/60 (85) 100 05/27/18 06:00 61 20 133/46 (75) 100 05/27/18 05:20 62 20 40 05/27/18 05:00 87 20 136/74 (94) 100 05/27/18 04:00 98.9 60 20 120/91 (101) 97 05/27/18 04:00 Mechanical Ventilator 05/27/18 04:00 60 05/27/18 04:00 40 05/27/18 03:08 64 20 40 05/27/18 03:00 56 20 103/53 (70) 100 05/27/18 02:00 61 20 145/66 (92) 100 05/27/18 01:00 60 20 137/58 (84) 100 05/27/18 01:00 57 20 40 05/27/18 00:00 53 05/27/18 00:00 40 05/27/18 00:00 99.1 53 20 118/56 (76) 100 05/27/18 00:00 Mechanical Ventilator 05/26/18 23:21 56 20 40 05/26/18 23:00 55 20 110/43 (65) 100 05/26/18 22:00 64 20 137/61 (86) 100 05/26/18 21:15 57 20 40 05/26/18 21:07 68 128/55 05/26/18 21:00 54 20 116/40 (65) 99 05/26/18 20:00 56 05/26/18 20:00 98.8 56 20 134/48 (76) 100 05/26/18 20:00 40 05/26/18 20:00 Mechanical Ventilator 05/26/18 19:02 60 20 40 05/26/18 19:00 60 20 132/59 (83) 100 05/26/18 18:00 68 20 126/76 (93) 100 05/26/18 17:00 62 20 126/47 (73) 99 05/26/18 17:00 60 22 40 Intake and Output 05/26/18 05/27/18 19:00 07:00 Intake Total 636 ml 779 ml Output Total 320 ml 390 ml Balance 316 ml 389 ml Free Water 90 ml Tube Feeding 636 ml 689 ml Output Urine Total 320 ml 390 ml # Bowel Movements 1 Objective morbidly obese, oral ETT, OGT General Appearance: no acute distress HEENT: atraumatic Respiratory/Chest: lungs clear Cardiovascular: normal rate Abdomen: soft, non tender Neurologic/Psychiatric: alert, oriented x 3, responsive, normal mood/affect Microbiology Date/Time Source Procedure Growth Status 05/26/18 11:22 Urine,Clean Catch Urine Culture - Preliminary Resulted Laboratory Tests 05/27/18 05:00: White Blood Count 5.5, Red Blood Count 3.34L, Hemoglobin 9.7L, Hematocrit 31.1L , Mean Corpuscular Volume 93, Mean Corpuscular Hemoglobin 29.0, Mean Corpuscular Hemoglobin Concent 31.1L, Red Cell Distribution Width 15.7H, Platelet Count 185, Mean Platelet Volume 5.8L, Neutrophils (%) (Auto) 68.8, Lymphocytes (%) (Auto) 18.5L, Monocytes (%) (Auto) 10.6H, Eosinophils (%) (Auto ) 0.4, Basophils (%) (Auto) 1.7, Sodium Level 147H, Potassium Level 3.8, Chloride Level 108H, Carbon Dioxide Level 34H, Anion Gap 6, Blood Urea Nitrogen 20H, Creatinine 1.0, Estimat Glomerular Filtration Rate > 60, Glucose Level 173H , Calcium Level 8.6, Total Bilirubin 0.5, Aspartate Amino Transf (AST/SGOT) 54H , Alanine Aminotransferase (ALT/SGPT) 130H, Alkaline Phosphatase 68, Total Protein 5.5L, Albumin 2.1L, Globulin 3.4, Albumin/Globulin Ratio 0.6L 05/27/18 10:05: Arterial Blood pH 7.405, Arterial Blood Partial Pressure CO2 55.2*H, Arterial Blood Partial Pressure O2 89.1, Arterial Blood HCO3 33.8H, Arterial Blood Oxygen Saturation 96.0, Arterial Blood Base Excess 7.8H, Tim Test Positive Current Medications Medications (Trade) Dose Ordered Sig/Tera Route PRN Reason Start Time Stop Time Status Last Admin Dose Admin Acetaminophen (Tylenol) 650 mg Q4H PRN ORAL Mild Pain/Temp > 100.5 05/24/18 15:00 06/23/18 14:59 05/24/18 15:23 Amiodarone HCl (Cordarone) 200 mg DAILY ORAL 05/24/18 09:00 06/18/18 10:29 05/26/18 08:37 Ampicillin (Ampicillin) 500 mg Q6HR ORAL 05/24/18 06:00 05/30/18 17:59 05/27/18 11:41 Apixaban (Eliquis) 2.5 mg BID ORAL 05/25/18 09:00 06/24/18 08:59 05/27/18 08:06 Carvedilol (Coreg) 3.125 mg EVERY 12 HOURS ORAL 05/24/18 09:00 06/20/18 20:59 05/26/18 21:07 Cetylpyridinium Chloride (Cepacol) 1 lozg Q2H PRN DAMIR For Cough 05/23/18 17:47 06/22/18 17:46 Chlorhexidine Gluconate (Shahrzad-Hex 2%) 1 applic DAILY@2000 TOPIC 05/26/18 20:00 06/25/18 19:59 05/26/18 19:51 Dopamine HCl/ Dextrose 250 ml @ 0 mls/hr Q24H IV 05/25/18 07:15 06/24/18 07:14 05/25/18 07:00 Heparin Sodium/ Sodium Chloride (Heparin 1000 units/500ml Premix) 1,000 unit ONCE PRN IV PICC PLACEMENT 05/26/18 09:00 05/28/18 23:59 Hydralazine HCl (Apresoline) 10 mg Q6HR PRN ORAL SBP above 150 05/25/18 02:00 06/24/18 01:59 Lidocaine HCl (Xylocaine 1% 30ml) 30 ml ONCE PRN INJ FOR PICC PLACEMENT 05/26/18 09:00 05/28/18 23:59 Losartan Potassium (Cozaar) 50 mg DAILY ORAL 05/25/18 09:00 06/24/18 08:59 05/26/18 08:36 Norepinephrine Bitartrate 4 mg/ Dextrose 250 ml @ 0 mls/hr Q24H IV 05/25/18 08:00 06/24/18 07:59 Pantoprazole (Protonix) 40 mg DAILY IVP 05/24/18 09:00 06/18/18 08:59 05/27/18 08:05 Phenol/Menthol (Chloraseptic) 1 spray Q3H PRN ORAL throat pain 05/27/18 13:45 06/26/18 13:44 Porfirio Jade MD May 27, 2018 16:18
--- NOTE | 2018-05-27 16:24 | NUR ---
NURSE NOTES: Dr Jade came to see pt. Discussed trache again and pt doesn't agree to have one at this time. Pt wants to discuss trache option with her family. Initially pt was asking to be extubated but then decided she wants to try weaning again. Will continue to monitor.
--- NOTE | 2018-05-27 16:45 | NUR ---
RESPIRATORY NOTE: Put pt on CPAP PS 8-35% FiO2- peep [address] Jade's order and pt's request. ABG in 2 hours if tolerate. Pt is tolerating well, no SOB or resp distress noted. RN Heike made aware. Will continue to monitor pt closely.
[2018-05-27] MEDS: Chloraseptic Spray 20mL Bottle ORAL PRN (17:08)
--- NOTE | 2018-05-27 18:31 | NUR ---
NURSE NOTES: Pt attempted to wean for a second time but only was able to tolerate cpap mode for a little over an hour before she began to have labored breathing. Will continue to monitor.
[2018-05-27] MEDS ORDERED: NS 275ml ONE ×3 (19:04→19:44)
--- NOTE | 2018-05-27 19:19 | NUR ---
HAND-OFF: Report given to Connie JOHN.
[2018-05-27] MEDS ORDERED: NS 500ML ONE (19:25)
--- NOTE | 2018-05-27 19:25 | NUR ---
NURSE NOTES: Report received from Essie JOHN. Pt alert and oriented x4 and resting comfortably, denies discomfort. Pt is cooperative and able to make needs known by writing on paper. Pt connected to media sales representative, SB-SR. Pt orally intubated, ETT 7.5, 24 cm at the lip line, AC 20, TV 500, 40% FiO2, PEEP 5. OGT noted and intact with Vital AF running at 53 cc/hr no residual.HOB elevated.. Vogel draining with ANGEL PICC line intact running D5W at 75cc/hr. Safety measures in place with bed locked and in lowest position, side rails x3 up and bed alarm on. Contact isolation maintained and observed. Will continue to monitor and continue plan of care
[2018-05-27] MEDS ORDERED: Tubing IV Secondary IV ONE (19:44)
[2018-05-27] MEDS: Dyna-Hex 2% Top Sol 2oz TOPIC SCH (20:55)
--- NOTE | 2018-05-27 22:00 | NUR ---
HAND-OFF: Report given to Kulwinder JOHN.
--- NOTE | 2018-05-27 22:00 | NUR ---
NURSE NOTES: Report received from Connie JOHN. Pt alert and oriented x4 and resting comfortably, denies discomfort. Pt is cooperative and able to make needs known by writing on paper. Pt connected to telemetry monitor, SB-SR. Pt orally intubated, ETT 7.5, 24 cm at the lip line, AC 20, TV 500, 40% FiO2, PEEP 5. OGT noted and intact with Vital AF running at 53 cc/hr no residual.HOB elevated.. Vogel draining with ANGEL PICC line intact running D5W at 75cc/hr. Safety measures in place with bed locked and in lowest position, side rails x3 up and bed alarm on. Contact isolation maintained and observed. Will continue to monitor and continue plan of care
--- NOTE | 2018-05-27 23:00 | NUR ---
NURSE NOTES: Patient suctioned, and provided oral care. Patient remains awake, no distress, no SOB. VS remains stable. HR: 51 SB, BP:129/71 RR 20, Spo2 100%.
[2018-05-28] VITALS (25 sets, daily range): BP systolic 86–140; BP diastolic 50–78
--- NOTE | 2018-05-28 01:00 | NUR ---
NURSE NOTES: New feed and tubing hung. Patient suctioned and oral care provided. NAD at this, VS remains stable, remains awake and oriented.
--- NOTE | 2018-05-28 03:00 | Progress Note ---
DATE: 05/26/2018 CARDIOLOGY PROGRESS NOTE Late entry for 05/26/2018. SUBJECTIVE: The patient is status post second respiratory arrest yesterday. She remains on ventilator support and is orally intubated. Monitored rhythm, sinus. OBJECTIVE: VITAL SIGNS: Blood pressure 150/49, pulse 75, and respirations 20. LUNGS: With diminished breath sounds. Morbidly obese. HEART: Regular rhythm and rate. Normal S1, S2. ABDOMEN: Obese and soft. EXTREMITIES: With lymphedema. IMPRESSION: 1. Obesity hypoventilation syndrome. 2. Recurring respiratory failure. 3. Acute on chronic respiratory acidosis. 4. Aortic dissection type A and B, chronic and possibly acute. 5. Paroxysmal atrial arrhythmias. 6. Hypertensive heart disease. 7. Acute on chronic diastolic congestive heart failure. 8. Severe protein-calorie malnutrition. PLAN: 1. Ventilator support. Weaning as able. 2. May need tracheostomy. 3. Cautious anticoagulation. 4. Cautious beta-blockade. 5. Observing for recurring bradyarrhythmias. 6. Protein supplement. Maxim Levin M.D. DR: FRANCESCA JOB#: [id number] CC:
--- NOTE | 2018-05-28 03:00 | NUR ---
NURSE NOTES: Patient repositioned and bathed, Oral care was provided. Vitals remains stable. NAD at this time.
--- NOTE | 2018-05-28 03:00 | Progress Note ---
DATE: 05/27/2018 CARDIOLOGY PROGRESS NOTE SUBJECTIVE: The patient remains on ventilator support. Alert and responsive. Not ready to commit to a tracheostomy yet. OBJECTIVE: VITAL SIGNS: Blood pressure 123/68, pulse 58, and respirations 20. Monitor, sinus and sinus bradycardia. LUNGS: Diminished breath sounds. CARDIAC: Regular rhythm and rate. Normal S1, S2. ABDOMEN: Obese. EXTREMITIES: With lymphedema. LABORATORY DATA: Sodium 147, potassium 3.8, chloride 108, bicarb 34, BUN 20, and creatinine 1. Albumin 2.1. White count is 5.5 and hemoglobin 9.7. IMPRESSION: 1. Respiratory failure. 2. Acute on chronic respiratory acidosis. 3. Acute and chronic diastolic congestive heart failure. 4. Acute on chronic aortic dissection, type A and B. 5. Obesity hypoventilation syndrome. 6. Sinus bradycardia and history of symptomatic bradyarrhythmias. PLAN: 1. Hypotonic IV fluids. 2. Avoid pressors. 3. Continue maintenance dose amiodarone. 4. Cautious anticoagulation, which can be held if the patient can to a tracheostomy. Maxim Levin M.D. DR: FRANCESCA JOB#: [id number] CC:
--- NOTE | 2018-05-28 03:05 | NUR ---
NURSE NOTES: Received report from Kulwinder JOHN. patient in bed awake,alert able to make needs known to staff. no s/s of acute distress noted. Call light within easy reach. Will continue plan of care.
[2018-05-28 04:59] LABS: BASOPHILS % (AUTO) 0.7 % (0.0-2.0); HEMATOCRIT 31.1 % (37.0-47.0); HEMOGLOBIN 9.5 G/DL (12.0-16.0); LYMPHOCYTES % (AUTO) 19.4 % (20.0-45.0); MEAN CORPUSCULAR VOLUME 93 FL (80-99); MONOCYTES % (AUTO) 11.5 % (1.0-10.0); NEUTROPHILS % (AUTO) 68.3 % (45.0-75.0); PLATELET COUNT 192 K/UL (150-450); RED BLOOD COUNT 3.33 M/UL (4.20-5.40); RED CELL DISTRIBUTION WIDTH 15.6 % (11.6-14.8); WHITE BLOOD COUNT 4.9 K/UL (4.8-10.8)
--- NOTE | 2018-05-28 05:00 | NUR ---
NURSE NOTES: Repositioned. Oral care done. Suctioned. All needs attended promptly. Patient able to use call light. Denies any pain or discomfort. Skin warm and dry to touch. Will continue to monitor plan of care.
[2018-05-28 05:22] LABS: ALANINE AMINOTRANSFERASE 89 U/L (12-78); ALBUMIN 2.2 G/DL (3.4-5.0); ALBUMIN/GLOBULIN RATIO 0.6 (1.0-2.7); ALKALINE PHOSPHATASE 65 U/L (46-116); ANION GAP 5 mmol/L (5-15); ASPARTATE AMINO TRANSFERASE 23 U/L (15-37); BILIRUBIN,TOTAL 0.4 MG/DL (0.2-1.0); BLOOD UREA NITROGEN 18 mg/dL (7-18); CALCIUM 8.6 MG/DL (8.5-10.1); CARBON DIOXIDE 34 MMOL/L (21-32); CHLORIDE 108 MMOL/L (98-107); CREATININE 0.9 MG/DL (0.55-1.30); POTASSIUM 3.6 MMOL/L (3.5-5.1); SODIUM 147 MMOL/L (136-145)
--- NOTE | 2018-05-28 06:59 | NUR ---
RESPIRATORY NOTE: Received pt on AC 20, 500ml, 40%,peep of 5, pt is tolerating well. Pt was intubated with ETT 7.5 @ 24cm lips line, secured by anchorfast. Pt is alert/awake, follows commands. no restrains. B/S sergio. diminished, sxn small amt of thin frothy white dale secretions without incidents, oral care done. Vent plugged into red outlet, ambubag at bedside, alarms are set and audible. Vent circuits and sxn tubes are secured and out of the way. No SOB or resp distress at this time, in no apparent distress. Will continue to monitor pt.
[2018-05-28] MEDS: DOPamine 400mg/250ml 250 ML IV SCH (07:15)
--- NOTE | 2018-05-28 07:17 | NUR ---
HAND-OFF: Report given to Braxton JOHN.
--- NOTE | 2018-05-28 08:00 | NUR ---
NURSE NOTES: Report received from ALVARO Rosales. Pt alert and oriented x4 and resting comfortably, denies discomfort. Pt is cooperative and able to make needs known by writing on paper. Pt connected to electronic device monitor, SB-SR. pt on 2L NC. OGT noted and intact with Vital AF running at 53 cc/hr no residual.HOB elevated.. Vogel draining with ANGEL PICC line intact running D5W at 75cc/hr. Safety measures in place with bed locked and in lowest position, side rails x3 up and bed alarm on. Contact isolation maintained and observed. Will continue to monitor and continue plan of care Addendum: 05/28/18 at 1009 by Jojo Limon RN Pt orally intubated, ETT 7.5, 24 cm at the lip line, AC 20, TV 500, 40% FiO2, PEEP 5.
--- NOTE | 2018-05-28 08:20 | Pulmonology Progress Note ---
Assessment/Plan Assessment/Plan 1. Status post arrest x 2 2. Respiratory failure, acute on chronic. 3. Obesity hypoventilation syndrome and sleep apnea. 4. Morbid obesity. 5. Thoracic aortic aneurysm dissection, type A and B chronic 6. Diabetes. 7. Hypertension. 8. UTI - strep species resp failure on vent via oral ETT alert and responsive; using pen/paper to write notes agreed to trach called surgery hold feeding Subjective Constitutional: Reports: no symptoms Allergies: Coded Allergies: No Known Allergies (Unverified , 02/20/17) Objective Last 24 Hour Vital Signs Date Time Temp Pulse Resp B/P (MAP) Pulse Ox O2 Delivery O2 Flow Rate FiO2 05/28/18 08:00 105/50 05/28/18 07:15 111/50 05/28/18 07:00 49 20 111/50 (70) 100 05/28/18 06:59 51 20 40 05/28/18 06:10 57 20 104/61 (75) 100 05/28/18 06:02 58 20 40 05/28/18 06:00 57 20 86/61 (69) 100 05/28/18 05:00 54 20 113/58 (76) 100 05/28/18 04:00 Mechanical Ventilator 05/28/18 04:00 55 05/28/18 04:00 98.4 56 18 102/56 (71) 79 05/28/18 04:00 40 05/28/18 03:11 71 22 40 05/28/18 03:00 56 20 128/70 (89) 100 05/28/18 02:00 55 20 140/58 (85) 100 05/28/18 01:24 57 20 40 05/28/18 01:00 51 20 138/55 (82) 100 05/28/18 00:00 Mechanical Ventilator 05/28/18 00:00 40 05/28/18 00:00 99.0 60 19 134/64 (87) 98 05/28/18 00:00 53 05/27/18 23:00 56 20 129/71 (90) 99 05/27/18 22:59 59 20 40 05/27/18 22:00 47 20 110/54 (72) 97 05/27/18 21:28 51 20 40 05/27/18 21:00 54 19 115/67 (83) 99 05/27/18 20:09 58 109/43 4/11/19 20:00 Mechanical Ventilator 05/27/18 20:00 48 05/27/18 20:00 40 05/27/18 20:00 97.8 61 16 109/43 (65) 100 05/27/18 19:00 60 20 127/65 (85) 95 05/27/18 18:32 71 23 40 05/27/18 18:00 73 21 113/74 (87) 100 05/27/18 17:00 72 15 99/59 (72) 100 05/27/18 16:45 76 19 35 35 05/27/18 16:00 98.3 76 18 99/59 (72) 100 05/27/18 16:00 40 05/27/18 16:00 Mechanical Ventilator 05/27/18 16:00 55 05/27/18 15:00 56 20 116/63 (80) 100 05/27/18 14:52 57 20 40 05/27/18 14:00 58 20 123/68 (86) 100 05/27/18 13:00 51 20 123/68 (86) 100 05/27/18 12:36 53 20 40 05/27/18 12:00 55 05/27/18 12:00 Mechanical Ventilator 05/27/18 12:00 98.9 56 20 116/54 (74) 100 05/27/18 12:00 40 05/27/18 11:00 64 20 110/58 (75) 93 05/27/18 10:30 84 23 40 05/27/18 10:00 73 19 116/89 (98) 100 05/27/18 09:00 72 19 120/61 (80) 99 05/27/18 08:46 96 05/27/18 08:46 70 23 35 35 Intake and Output 05/27/18 05/28/18 18:59 06:59 Intake Total 636 ml 1636 ml Output Total 160 ml 230 ml Balance 476 ml 1406 ml Free Water 100 ml IV Total 900 ml Tube Feeding 636 ml 636 ml Output Urine Total 160 ml 230 ml # Bowel Movements 1 Objective morbidly obese, oral ETT, OGT General Appearance: no acute distress HEENT: atraumatic Respiratory/Chest: lungs clear Cardiovascular: normal rate Abdomen: soft, non tender Microbiology Date/Time Source Procedure Growth Status 05/26/18 11:22 Urine,Clean Catch Urine Culture - Preliminary Gram Negative Bacillus 1 Resulted Laboratory Tests 05/27/18 10:05: Arterial Blood pH 7.405, Arterial Blood Partial Pressure CO2 55.2*H, Arterial Blood Partial Pressure O2 89.1, Arterial Blood HCO3 33.8H, Arterial Blood Oxygen Saturation 96.0, Arterial Blood Base Excess 7.8H, Tim Test Positive 05/28/18 04:25: White Blood Count 4.9, Red Blood Count 3.33L, Hemoglobin 9.5L, Hematocrit 31.1L , Mean Corpuscular Volume 93, Mean Corpuscular Hemoglobin 28.6, Mean Corpuscular Hemoglobin Concent 30.6L, Red Cell Distribution Width 15.6H, Platelet Count 192, Mean Platelet Volume 5.7L, Neutrophils (%) (Auto) 68.3, Lymphocytes (%) (Auto) 19.4L, Monocytes (%) (Auto) 11.5H, Eosinophils (%) (Auto ) 0.0, Basophils (%) (Auto) 0.7, Sodium Level 147H, Potassium Level 3.6, Chloride Level 108H, Carbon Dioxide Level 34H, Anion Gap 5, Blood Urea Nitrogen 18, Creatinine 0.9, Estimat Glomerular Filtration Rate > 60, Glucose Level 169H , Calcium Level 8.6, Total Bilirubin 0.4, Aspartate Amino Transf (AST/SGOT) 23, Alanine Aminotransferase (ALT/SGPT) 89H, Alkaline Phosphatase 65, Total Protein 5.6L, Albumin 2.2L, Globulin 3.4, Albumin/Globulin Ratio 0.6L Current Medications Medications (Trade) Dose Ordered Sig/Tera Route PRN Reason Start Time Stop Time Status Last Admin Dose Admin Acetaminophen (Tylenol) 650 mg Q4H PRN ORAL Mild Pain/Temp > 100.5 05/24/18 15:00 06/23/18 14:59 05/24/18 15:23 Amiodarone HCl (Cordarone) 200 mg DAILY ORAL 05/24/18 09:00 06/18/18 10:29 05/26/18 08:37 Ampicillin (Ampicillin) 500 mg Q6HR ORAL 05/24/18 06:00 05/30/18 17:59 05/28/18 06:06 Apixaban (Eliquis) 2.5 mg BID ORAL 05/25/18 09:00 06/24/18 08:59 05/27/18 17:07 Carvedilol (Coreg) 3.125 mg EVERY 12 HOURS ORAL 05/24/18 09:00 06/20/18 20:59 05/26/18 21:07 Cetylpyridinium Chloride (Cepacol) 1 lozg Q2H PRN DAMIR For Cough 05/23/18 17:47 06/22/18 17:46 Chlorhexidine Gluconate (Shahrzad-Hex 2%) 1 applic DAILY@2000 TOPIC 05/26/18 20:00 06/25/18 19:59 05/27/18 20:55 Dextrose 1,000 ml @ 75 mls/hr [id number] IV 05/27/18 16:31 06/26/18 16:30 05/27/18 21:07 Dopamine HCl/ Dextrose 250 ml @ 0 mls/hr Q24H IV 05/25/18 07:15 06/24/18 07:14 05/25/18 07:00 Heparin Sodium/ Sodium Chloride (Heparin 1000 units/500ml Premix) 1,000 unit ONCE PRN IV PICC PLACEMENT 05/26/18 09:00 05/28/18 23:59 Hydralazine HCl (Apresoline) 10 mg Q6HR PRN ORAL SBP above 150 05/25/18 02:00 06/24/18 01:59 Lidocaine HCl (Xylocaine 1% 30ml) 30 ml ONCE PRN INJ FOR PICC PLACEMENT 05/26/18 09:00 05/28/18 23:59 Losartan Potassium (Cozaar) 50 mg DAILY ORAL 05/25/18 09:00 06/24/18 08:59 05/26/18 08:36 Norepinephrine Bitartrate 4 mg/ Dextrose 250 ml @ 0 mls/hr Q24H IV 05/25/18 08:00 06/24/18 07:59 Pantoprazole (Protonix) 40 mg DAILY IVP 05/24/18 09:00 06/18/18 08:59 05/27/18 08:05 Phenol/Menthol (Chloraseptic) 1 spray Q3H PRN ORAL throat pain 05/27/18 13:45 06/26/18 13:44 05/27/18 17:08 Porfirio Jade MD May 28, 2018 08:20
--- NOTE | 2018-05-28 08:56 | NUR ---
[employer] SI:RESP FAILURE, ACUTE ON CHRONIC . STATUS POST ARREST x2 VS: BP 105/50, P 49, T 98.4, RR 20, SpO2 100 on VENT AC 20, TV 500, PEEP 5.0, FiO2 40 RBC 3.33, Hgb 9.5, Hct 31.1, Na 147 IS:AMPICILLIN 500mg PROTONIX 40mg IVP DOPAMINE HCI/D5 250ml IV NOREPINEPHRINE 250ml IV COZAAR 50mg ELIQUIS 2.5mg D5 x1L IV ICU STATUS
[2018-05-28] MEDS: Eliquis 2.5mg tablet ORAL SCH (09:00)
[2018-05-28] MEDS: Losartan 50mg tab ORAL SCH (09:00)
[2018-05-28] MEDS: Amiodarone 200mg tab ORAL SCH (09:00)
--- NOTE | 2018-05-28 09:11 | NUR ---
RESPIRATORY NOTE: Placed pt on CPAP PS 8- 40%- peep 5. pt is tolerating well, no SOB or resp distress noted. ALVARO Uribe made aware. Will continue to monitor pt.
--- NOTE | 2018-05-28 09:42 | NUR ---
RD ASSESSMENT & RECOMMENDATIONS SEE CARE ACTIVITY FOR COMPLETE ASSESSMENT DAILY ESTIMATED NEEDS: Needs based on Critical Care, morbidly obese 22-25kcal/kg IBW (61kg) kcals/kg 0843-5359 total kcals 1.8-2.5 IBW (61kg) g protein/kg 109-152 g total protein 20-25ml/kg abw (84kg) mL/kg 6838-4786 total fluid mLs NUTRITION DIAGNOSIS: * Swallowing difficulty R/T respiratory status as evidenced by s/p cardiac arrest, pt is reintubated, ICU status, w/ NGT feeds. (UPDATED) * Obesity R/T life style factors, excessive energy intake as evidenced by BMI >50, pt is 253% IBW CURRENT TF:Vital af 1.2 @53 ENTERAL NUTRITION RECOMMENDATIONS: VITAL AF 1.2 @53ml/hr x24 hrs to provide 1272ml, 1526 kcal, 95g pro, 1032ml free H2O - Obtain GI access, start VITAL 1.2 @23ml/hr for 6 hrs. - Advance as tolerated 10ml/hr q4-6 hrsto goal - Flush per MD. HOB over 30 degrees With hemodynamic stability and tolerating TF rec to add PROSOURCE 1 pack BID (11g pro each) to better meet est pro needs TF at goal meets 100% est kcal needs, 87% est pro needs. ADDITIONAL RECOMMENDATIONS: 1) Recalibrate bed scale as able for accurate CBW 2) FEED AT TROPHIC RATE OF 10ML/HR IF NOT HEMODYNAMICALLY STABLE 3) Rec accucheck w/ SSI: elev BGs, h/o DM 4) Monitor lytes, replete as needed - consider increased water flushes vs D5 for water deficits 5) Post trach-> rec to add Prosource BID to TF's to meet 100% est pro needs
[2018-05-28] MEDS: Pantoprazole Inj IVP SCH (09:47)
--- NOTE | 2018-05-28 10:00 | NUR ---
NURSE NOTES: Dr. Jade rounded on patient, pt will get trached today. is in contact with
--- NOTE | 2018-05-28 11:22 | Consultation ---
History of Present Illness General Date patient seen: May 28, 2018 Reason for Hospitalization: Altered Level of Consciousness Present Illness HPI this is a very pleasant 67-year-old female who came to the emergency room with weakness and lethargy. She had a respiratory arrest with bradycardia in the emergency room and required intubation and mechanical ventilation to be initiated. since she has been in the ICU on vent assistance but unable to be safely extubated. she is awake, alert, and writes notes to communicate. family at bedside. surgery called to evaluate for possible tracheostomy. patient seen, chart reviewed, patient examined. Allergies: Coded Allergies: No Known Allergies (Unverified , 02/20/17) Medication History Scheduled Amiodarone Hcl* (Pacerone*), 200 MG ORAL DAILY Ampicillin Trihydrate (Ampicillin Trihydrate), 500 MG ORAL Q6HR Apixaban (Eliquis), 5 MG ORAL Q12HR Carvedilol (Coreg), 3.125 MG ORAL EVERY 12 HOURS Docusate Sodium* (Docusate Sodium*), 100 MG ORAL TWICE A DAY, (Reported) Insulin Detemir (Levemir Flextouch), 10 UNIT SQ QHS, (Reported) Isosorbide Mononitrate (Isosorbide Mononitrate Er), 30 MG PO DAILY, (Reported) Lactobacillus Acidophilus (Acidophilus), 1 EACH PO DAILY, (Reported) Losartan Potassium* (Losartan Potassium*), 25 MG ORAL DAILY, (Reported) Multivitamin With Minerals (Multivitamins With Minerals*), 1 TAB ORAL DAILY, ( Reported) Pravastatin Sod (Pravastatin Sod), 80 MG ORAL BEDTIME, (Reported) Torsemide* (Demadex*), 20 MG ORAL BID, (Reported) Vitamin A & D (Vitamin A & D Ointment), 454 GM TP DAILY, (Reported) Scheduled PRN Acetaminophen* (Acetaminophen 325MG Tablet*), 650 MG ORAL Q6H PRN for For Pain Level <=5, (Reported) Insulin Lispro (Humalog), 0 SUBQ AC+HS PRN for Sliding Scale, (Reported) Levalbuterol Hcl (Xopenex*), 0.63 MG HHN TID PRN for Shortness of Breath, ( Reported) Mag Hydrox/Al Hydrox/Simeth (Maalox Advanced Suspension), 15 ML PO Q6HR PRN for dyspepsia, (Reported) Discontinued Medications Carvedilol* (Carvedilol*), 6.25 MG ORAL EVERY 12 HOURS, (Reported) Discontinued Reason: Medication dose changed Dextromethorphan Hbr/B-Ihsan (Cepacol Sorethroat-Cough Jose*), 1 LOZENGE ORAL EVERY 2 HOURS PRN for For Cough, (Reported) Discontinued Reason: Therapy completed Patient History History Provided By: Patient, Family Member, Medical Record, PMD Healthcare decision maker Resuscitation status Full Code Advanced Directive on File Yes Past Medical/Surgical History Past Medical/Surgical History: (1) Atrial flutter (2) Diabetes (3) Thoracic aortic aneurysm (4) CKD (chronic kidney disease) stage 3, GFR 30-59 ml/min (5) Asthma exacerbation (6) Anticoagulant prescribed (7) Altered mental status (8) Respiratory distress (9) Cardiac arrest (10) Respiratory arrest (11) Morbid obesity Review of Systems Review of Symptoms General ROS: no weight loss or fever Psychological ROS: no depression or mood changes, no memory loss Ophthalmic ROS: no visual changes or eye irritation ENT ROS: no nasal congestion, hearing loss, dizziness Allergy and Immunology ROS: no allergic symptoms or urticaria Hematological and Lymphatic ROS: no swollen glands, unusual bleeding or bruising Endocrine ROS: no polyuria, polydipsia, weight changes, temperature intolerance Respiratory ROS: no cough, shortness of breath, or wheezing Cardiovascular ROS: no chest pain or dyspnea on exertion Gastrointestinal ROS: denies abdominal pain, no bright red blood in stool. Musculoskeletal ROS: no myalgias or arthralgias Neurological ROS: no TIA or stroke symptoms Dermatological ROS: no new or changing skin lesions, rashes or pruritis Physical Exam Physical Exam General appearance: alert, cooperative, no distress, appears stated age Head: Normocephalic, without obvious abnormality, atraumatic Eyes: conjunctivae/corneas clear. PERRL, EOM's intact. Fundi benign Throat: Lips, mucosa, and tongue normal. Teeth and gums normal ET tube in place Neck: supple, symmetrical, trachea midline, no adenopathy, thyroid: not enlarged, symmetric, no tenderness/mass/nodules, no carotid bruit and no JVD Lungs: clear to auscultation bilaterally on vent peep 5 fio2 40% Heart: regular rate and rhythm, S1, S2 normal, no murmur, click, rub or gallop Abdomen: soft, non-tender. Bowel sounds normal. No masses, no organomegaly Extremities: extremities normal, atraumatic, no cyanosis or edema Pulses: 2+ and symmetric Skin: Skin color, texture, turgor normal. No rashes or lesions Neurologic: Grossly normal Last 24 Hour Vital Signs Date Time Temp Pulse Resp B/P (MAP) Pulse Ox O2 Delivery O2 Flow Rate FiO2 05/28/18 10:39 68 17 40 05/28/18 10:00 49 20 111/68 (82) 100 05/28/18 09:11 59 19 40 40 05/28/18 09:11 96 05/28/18 09:00 52 20 110/50 (70) 100 05/28/18 08:00 Mechanical Ventilator 05/28/18 08:00 98.4 60 18 105/56 (72) 79 05/28/18 08:00 40 05/28/18 08:00 64 05/28/18 08:00 105/50 05/28/18 07:15 111/50 05/28/18 07:00 49 20 111/50 (70) 100 05/28/18 06:59 51 20 40 05/28/18 06:10 57 20 104/61 (75) 100 05/28/18 06:02 58 20 40 05/28/18 06:00 57 20 86/61 (69) 100 05/28/18 05:00 54 20 113/58 (76) 100 05/28/18 04:00 Mechanical Ventilator 05/28/18 04:00 55 05/28/18 04:00 98.4 56 18 102/56 (71) 79 05/28/18 04:00 40 05/28/18 03:11 71 22 40 05/28/18 03:00 56 20 128/70 (89) 100 05/28/18 02:00 55 20 140/58 (85) 100 05/28/18 01:24 57 20 40 05/28/18 01:00 51 20 138/55 (82) 100 05/28/18 00:00 Mechanical Ventilator 05/28/18 00:00 40 05/28/18 00:00 99.0 60 19 134/64 (87) 98 05/28/18 00:00 53 05/27/18 23:00 56 20 129/71 (90) 99 05/27/18 22:59 59 20 40 05/27/18 22:00 47 20 110/54 (72) 97 05/27/18 21:28 51 20 40 05/27/18 21:00 54 19 115/67 (83) 99 05/27/18 20:09 58 109/43 05/27/18 20:00 Mechanical Ventilator 05/27/18 20:00 48 05/27/18 20:00 40 05/27/18 20:00 97.8 61 16 109/43 (65) 100 05/27/18 19:00 60 20 127/65 (85) 95 05/27/18 18:32 71 23 40 05/27/18 18:00 73 21 113/74 (87) 100 05/27/18 17:00 72 15 99/59 (72) 100 05/27/18 16:45 76 19 35 35 05/27/18 16:00 98.3 76 18 99/59 (72) 100 05/27/18 16:00 40 05/27/18 16:00 Mechanical Ventilator 05/27/18 16:00 55 05/27/18 15:00 56 20 116/63 (80) 100 05/27/18 14:52 57 20 40 05/27/18 14:00 58 20 123/68 (86) 100 05/27/18 13:00 51 20 123/68 (86) 100 05/27/18 12:36 53 20 40 05/27/18 12:00 55 05/27/18 12:00 Mechanical Ventilator 05/27/18 12:00 98.9 56 20 116/54 (74) 100 05/27/18 12:00 40 Intake and Output 05/27/18 05/28/18 19:00 07:00 Intake Total 711 ml 1583 ml Output Total 140 ml 220 ml Balance 571 ml 1363 ml Free Water 100 ml IV Total 75 ml 900 ml Tube Feeding 636 ml 583 ml Output Urine Total 140 ml 220 ml # Bowel Movements 1 Laboratory Tests Test 05/28/18 04:25 05/28/18 10:35 White Blood Count 4.9 K/UL (4.8-10.8) Red Blood Count 3.33 M/UL (4.20-5.40) L Hemoglobin 9.5 G/DL (12.0-16.0) L Hematocrit 31.1 % (37.0-47.0) L Mean Corpuscular Volume 93 FL (80-99) Mean Corpuscular Hemoglobin 28.6 PG (27.0-31.0) Mean Corpuscular Hemoglobin Concent 30.6 G/DL (32.0-36.0) L Red Cell Distribution Width 15.6 % (11.6-14.8) H Platelet Count 192 K/UL (150-450) Mean Platelet Volume 5.7 FL (6.5-10.1) L Neutrophils (%) (Auto) 68.3 % (45.0-75.0) Lymphocytes (%) (Auto) 19.4 % (20.0-45.0) L Monocytes (%) (Auto) 11.5 % (1.0-10.0) H Eosinophils (%) (Auto) 0.0 % (0.0-3.0) Basophils (%) (Auto) 0.7 % (0.0-2.0) Sodium Level 147 MMOL/L (136-145) H Potassium Level 3.6 MMOL/L (3.5-5.1) Chloride Level 108 MMOL/L (98-107) H Carbon Dioxide Level 34 MMOL/L (21-32) H Anion Gap 5 mmol/L (5-15) Blood Urea Nitrogen 18 mg/dL (7-18) Creatinine 0.9 MG/DL (0.55-1.30) Estimat Glomerular Filtration Rate > 60 mL/min (>60) Glucose Level 169 MG/DL (74-106) H Calcium Level 8.6 MG/DL (8.5-10.1) Total Bilirubin 0.4 MG/DL (0.2-1.0) Aspartate Amino Transf (AST/SGOT) 23 U/L (15-37) Alanine Aminotransferase (ALT/SGPT) 89 U/L (12-78) H Alkaline Phosphatase 65 U/L (46-116) Total Protein 5.6 G/DL (6.4-8.2) L Albumin 2.2 G/DL (3.4-5.0) L Globulin 3.4 g/dL Albumin/Globulin Ratio 0.6 (1.0-2.7) L Prothrombin Time Pending Prothromb Time International Ratio Pending Activated Partial Thromboplast Time Pending Height (Feet): 5 Height (Inches): 6.00 Weight (Pounds): 350 Medications Current Medications Medications (Trade) Dose Ordered Sig/Tera Route PRN Reason Start Time Stop Time Status Last Admin Dose Admin Acetaminophen (Tylenol) 650 mg Q4H PRN ORAL Mild Pain/Temp > 100.5 05/24/18 15:00 06/23/18 14:59 05/24/18 15:23 Amiodarone HCl (Cordarone) 200 mg DAILY ORAL 05/24/18 09:00 06/18/18 10:29 05/26/18 08:37 Ampicillin (Ampicillin) 500 mg Q6HR ORAL 05/24/18 06:00 05/30/18 17:59 05/28/18 06:06 Carvedilol (Coreg) 3.125 mg EVERY 12 HOURS ORAL 05/24/18 09:00 06/20/18 20:59 05/26/18 21:07 Cetylpyridinium Chloride (Cepacol) 1 lozg Q2H PRN DAMIR For Cough 05/23/18 17:47 06/22/18 17:46 Chlorhexidine Gluconate (Shahrzad-Hex 2%) 1 applic DAILY@2000 TOPIC 05/26/18 20:00 06/25/18 19:59 05/27/18 20:55 Dextrose 1,000 ml @ 75 mls/hr [id number] IV 05/27/18 16:31 06/26/18 16:30 05/27/18 21:07 Dopamine HCl/ Dextrose 250 ml @ 0 mls/hr Q24H IV 05/25/18 07:15 06/24/18 07:14 05/25/18 07:00 Heparin Sodium/ Sodium Chloride (Heparin 1000 units/500ml Premix) 1,000 unit ONCE PRN IV PICC PLACEMENT 05/26/18 09:00 05/28/18 23:59 Hydralazine HCl (Apresoline) 10 mg Q6HR PRN ORAL SBP above 150 05/25/18 02:00 06/24/18 01:59 Lidocaine HCl (Xylocaine 1% 30ml) 30 ml ONCE PRN INJ FOR PICC PLACEMENT 05/26/18 09:00 05/28/18 23:59 Losartan Potassium (Cozaar) 50 mg DAILY ORAL 05/25/18 09:00 06/24/18 08:59 05/26/18 08:36 Norepinephrine Bitartrate 4 mg/ Dextrose 250 ml @ 0 mls/hr Q24H IV 05/25/18 08:00 06/24/18 07:59 Pantoprazole (Protonix) 40 mg DAILY IVP 05/24/18 09:00 06/18/18 08:59 05/28/18 09:47 Phenol/Menthol (Chloraseptic) 1 spray Q3H PRN ORAL throat pain 05/27/18 13:45 06/26/18 13:44 05/27/18 17:08 Assessment/Plan Problem List: (1) Respiratory arrest ICD Codes: R09.2 - Respiratory arrest SNOMED: 34087913 (2) Respiratory distress Assessment & Plan: respiratory insufficiency requiring prolonged ventilatory support unable to wean vent and safely extubate trach indicated and recommended plan for trach today cancelled because of Eliquis scheduled for thursday hold eliquis thank you ICD Codes: R06.03 - Acute respiratory distress SNOMED: [id number] Salvatore Duffy May 28, 2018 11:22
--- NOTE | 2018-05-28 12:00 | NUR ---
NURSE NOTES: Turned, repositioned pt, oral care provided.
--- NOTE | 2018-05-28 13:03 | NUR ---
RESPIRATORY NOTE: Put pt back on AC mode. No SOB or resp distress noted. ALVARO Uribe made aware.Will continue to monitor.
[2018-05-28] MEDS: D5W w/KCl 20mEq 1,000 ML IV SCH (13:22)
--- NOTE | 2018-05-28 14:00 | NUR ---
NURSE NOTES: Family at bedside. will continue plan of care.
--- NOTE | 2018-05-28 16:20 | NUR ---
*-* INSURANCE *-* ALL CLINICALS AND REVIEWS HAVE BEEN FAXED TO: [facility] JAYLA KELSEY P:[phone] F: [phone]
--- NOTE | 2018-05-28 18:45 | Progress Note ---
DATE: 05/28/2018 CARDIOLOGY PROGRESS NOTE SUBJECTIVE: The patient is agreeable to tracheostomy. She is remaining on ventilator support. She is fully alert. OBJECTIVE: VITAL SIGNS: Blood pressure 110/50, heart rate 49 to 68, respiratory rate is 20. The patient is afebrile. Monitor, sinus and sinus bradycardia. NECK: Supple. Orally intubated. LUNGS: Diminished breath sounds. CARDIAC: Regular rhythm and rate. Distant S1, S2. ABDOMEN: Obese. EXTREMITIES: With nonpitting edema. LABORATORY DATA: Sodium 147, potassium 3.6, bicarbonate 34, BUN 18, and creatinine 0.9. White count 4.9 and hemoglobin 9.5. IMPRESSION: 1. Respiratory failure. 2. Chronic respiratory acidosis. 3. Status post acute on chronic respiratory acidosis. 4. Type 2 diabetes mellitus. 5. Obesity hypoventilation. 6. Aortic dissection type A and B. 7. Sinus bradycardia. PLAN: 1. Ventilator support. 2. Await tracheostomy. 3. Hold anticoagulation in an anticipation of tracheostomy. 4. Cautious use of beta-michael in view of bradycardia. Withhold parameters are in place. Drug is continued in view of aortic dissection and hemodynamics benefits in that setting. Maxim Levin M.D. DR: FRANCESCA JOB#: [id number] CC:
--- NOTE | 2018-05-28 19:13 | NUR ---
HAND-OFF: Report given to ALVARO Britt.
--- NOTE | 2018-05-28 19:30 | NUR ---
NURSE NOTES: Report received from Braxton JOHN. Pt alert and oriented x4 and resting comfortably, denies discomfort. Pt is cooperative and able to make needs known by writing on paper. Pt connected to energy risk management analyst, SB-SR. Pt orally intubated, ETT 7.5, 24 cm at the lip line, AC 20, TV 500, 40% FiO2, PEEP 5. OGT intact with Vital AF running at 53 cc/hr no residual.HOB elevated. Vogel draining with dark yellow urine. ANGEL PICC line intact running D5W with KCL 20 mEq at 75cc/hr. Safety measures in place with bed locked and in lowest position, side rails x3 up and bed alarm on. Call light within easy reach. Contact isolation maintained and observed. Will continue to monitor plan of care.
--- NOTE | 2018-05-28 20:00 | NUR ---
NURSE NOTES: Fi02 30% satting 100%.
[2018-05-28] MEDS: Dyna-Hex 2% Top Sol 2oz TOPIC SCH (20:33)
--- NOTE | 2018-05-28 22:00 | NUR ---
NURSE NOTES: CHG bath given tolerated well. Patient able to turn and hold on the side rails and trapeze. Denies any pain or discomfort. Incontinent of large stool. Vogel draining. mouth care done. patient able to suctioned mouth. HOB elevated. Repositioned. All needs attended promptly. Call light within easy reach. Will continue plan of care.
[2018-05-29] VITALS (24 sets, daily range): BP systolic 102–149; BP diastolic 50–97
--- NOTE | 2018-05-29 | NUR ---
NURSE NOTES: Repositioned. HOB elevated. Suctioned and oral care provided. no s/s of acute distress noted. Denies any pain or discomfort.Will continue plan of care.
[2018-05-29] MEDS: D5W w/KCl 20mEq 1,000 ML IV SCH ×2 (02:33→15:56)
--- NOTE | 2018-05-29 04:00 | NUR ---
NURSE NOTES: Patient in bed sleeping comfortably. Oral care done. Suctioned. All needs attended promptly. Patient able to use call light. Denies any pain or discomfort. Skin warm and dry to touch. Will continue to monitor plan of care.
--- NOTE | 2018-05-29 06:00 | NUR ---
NURSE NOTES: Patient in bed awake,alert watching TV. Oral care done. patient able to suction self orally. All needs attended promptly. Patient able to use call light. Denies any pain or discomfort. Skin warm and dry to touch. SB on the laboratory monitor HR 45. No s/s of acute and cardiac distress noted.Right upper arm PICC intact running D5W with KCL 20 mEq at 75cc/hr. Will continue to monitor plan of care.
--- NOTE | 2018-05-29 07:00 | NUR ---
RESPIRATORY NOTE: Received Patient on Vent ACVC RR 20, VT 500, FIO2 30%, PEEP +5. Patient is intubated with a 7.5 ETT with a 24cm lip line, secured with anchorfast. Diminished breath sounds heard bilaterally throughout both lung goodwin. Patient alert and awake. Vent plugged into red outlet. Will continue to monitor throughout the day.
[2018-05-29] MEDS: DOPamine 400mg/250ml 250 ML IV SCH (07:15)
--- NOTE | 2018-05-29 07:30 | NUR ---
HAND-OFF: Report given to Ivana JOHN.
--- NOTE | 2018-05-29 07:31 | NUR ---
NURSE NOTES: Received change of shift report from Connie JOHN. Pt is awake, alert, oriented x4, pt is intubated, however communicates by writing on notepad. ETT 7.5 at 24cm mid-lip line, AC20, VT 500, Peep 5.0, FIO2 30% with O2sat 100%. Pt has increased oral secretions, clear/white, pt is also able to suction self. Bilateral crackles on inspiration and expiration. awake overnight monitor displays SB, with HR fluctuating 56-48. Weak pulses palpated on extremities. Edema present on extremities. OG tube in place, feeding infusing Vital AF 1.2 at 53ml/hour, at goal. Pt is tolerating feeding well with no s/s of nausea/vomiting, and only 5ml residual. Abdomen is round, soft/nontender to touch. Hypoactive bowel sounds auscultated on all quadrants. Vogel catheter in place, draining mildly cloudy/doris urine. Skin is intact, with dryness of the feet. Bilateral SCDs in place. Bed is locked, with three side rails up and call light within easy reach. Will continue to monitor pt and follow plan of care per MD orders and protocol.
--- NOTE | 2018-05-29 08:50 | NUR ---
Patient failed weaning criteria. Addendum: 05/29/18 at 0908 by GREG ALFARO RT Placed on PS +8. Patient RR fluctuated between 9-12BPM. VT fluctuated between 150-700mL. Minute Ventilation did not pass weaning criteria at 5.0.
--- NOTE | 2018-05-29 09:00 | NUR ---
NURSE NOTES: Chloraseptic spray and Tylenol administered for report of throat/mouth pain.
[2018-05-29] MEDS: Amiodarone 200mg tab ORAL SCH (09:59)
[2018-05-29] MEDS: Losartan 50mg tab ORAL SCH (09:59)
[2018-05-29] MEDS: Pantoprazole Inj IVP SCH (10:00)
--- NOTE | 2018-05-29 10:00 | NUR ---
NURSE NOTES: Oral care provided, and pt repositioned. atv mechanic displays SB, with heart rate fluctuating from 40's to 50's. O2Sat at 100% with AC20, VT500, Peep 5.0, FI02 30%. Vogel is draining doris/mildly cloudy urine, with hourly output of 40-50ml/hour. Will continue to monitor.
--- NOTE | 2018-05-29 12:30 | NUR ---
NURSE NOTES: Pt is asleep in semi-rosales's position, awakens to name/voice. Denies pain currently. Remains on ETT 7.5 at 24cm mid-lip line, AC20, VT 500, Peep 5.0, FIO2 30% with O2sat 100%, with no respiratory distress. Pt has increased oral secretions, clear/white, pt is also able to suction self. equipment monitor phototypesetting displays SB, with HR fluctuating 56-48. OG feeding infusing Vital AF 1.2 at 53ml/hour, at goal. Pt is tolerating feeding well with no s/s of nausea/vomiting, and only 5ml residual. Vogel catheter is draining mildly cloudy/doris urine. Pt is resting in stable condition. Bed is locked, with three side rails up and call light within easy reach. Will continue to monitor pt and follow plan of care per MD orders and protocol.
--- NOTE | 2018-05-29 12:55 | NUR ---
Pt has ANGEL PICC, intact/patent/asymptomatic, infusing D5W with KCL 20meq at 75mL/hour.
--- NOTE | 2018-05-29 13:30 | NUR ---
NURSE NOTES: Oral care given, pt suctioned, and repositioned. HR in 40's-50's, with O2Sat 100% at FIO2 30% AC20, VT500, Peep5.0. Denies pain or any other discomfort at this time.
--- NOTE | 2018-05-29 14:04 | Surgery Progress Note ---
Surgery Progress Note Subjective Additional Comments doing well. somewhat restless. tolerating feeds. fi02 30% peep 5 Objective Last 24 Hour Vital Signs Date Time Temp Pulse Resp B/P (MAP) Pulse Ox O2 Delivery O2 Flow Rate FiO2 05/29/18 13:08 54 20 30 05/29/18 12:00 30 05/29/18 12:00 99.0 45 20 107/57 (74) 100 05/29/18 12:00 Mechanical Ventilator 05/29/18 11:00 49 21 111/61 (78) 100 05/29/18 10:52 99.1 05/29/18 10:45 53 20 30 05/29/18 10:00 49 20 116/60 (78) 100 05/29/18 09:59 134/65 05/29/18 09:00 57 18 134/65 (88) 100 05/29/18 08:47 67 20 30 05/29/18 08:42 61 18 30 05/29/18 08:00 53 05/29/18 08:00 Mechanical Ventilator 05/29/18 08:00 30 05/29/18 08:00 99.1 50 20 120/68 (85) 100 05/29/18 07:15 120/79 05/29/18 07:00 51 20 120/79 (93) 100 05/29/18 06:53 67 20 30 05/29/18 06:00 58 19 129/77 (94) 100 05/29/18 05:18 57 20 30 05/29/18 05:00 55 20 125/65 (85) 100 05/29/18 04:00 Mechanical Ventilator 05/29/18 04:00 48 05/29/18 04:00 99.0 54 20 121/76 (91) 99 05/29/18 04:00 30 05/29/18 03:27 56 20 30 05/29/18 03:00 49 20 122/69 (86) 100 05/29/18 02:00 50 19 128/87 (101) 100 05/29/18 01:25 52 20 30 05/29/18 01:00 51 20 116/73 (87) 100 05/29/18 00:00 98.7 61 20 116/56 (76) 100 05/29/18 00:00 Mechanical Ventilator 05/29/18 00:00 55 05/28/18 23:23 68 20 30 05/28/18 23:00 58 19 113/78 (90) 100 05/28/18 22:00 59 18 121/69 (86) 99 05/28/18 21:10 50 20 30 05/28/18 21:00 49 20 112/65 (81) 100 05/28/18 20:25 44 121/58 05/28/18 20:00 Mechanical Ventilator 05/28/18 20:00 99.1 48 20 121/58 (79) 100 05/28/18 20:00 30 05/28/18 19:20 58 05/28/18 19:19 50 20 30 05/28/18 19:00 49 16 127/70 (89) 100 05/28/18 18:00 60 16 122/67 (85) 100 05/28/18 17:06 52 20 40 05/28/18 17:00 57 16 124/67 (86) 100 05/28/18 16:00 55 05/28/18 16:00 Mechanical Ventilator 05/28/18 16:00 98.4 60 18 119/62 (81) 79 05/28/18 16:00 40 05/28/18 15:03 53 20 40 05/28/18 15:00 52 20 110/70 (83) 100 I&O Intake and Output 05/28/18 05/29/18 19:00 07:00 Intake Total 728 ml 1540 ml Output Total 385 ml 435 ml Balance 343 ml 1105 ml Free Water 50 ml IV Total 75 ml 890 ml Tube Feeding 653 ml 600 ml Output Urine Total 385 ml 435 ml # Bowel Movements 1 Cardiovascular: RSR Respiratory: decreased breath sounds Abdomen: soft, present bowel sounds, non-distended Extremities: no tenderness, no cyanosis Plan Problems: (1) Respiratory arrest (2) Respiratory distress Assessment & Plan: respiratory insufficiency requiring prolonged ventilatory support unable to wean vent and safely extubate trach indicated and recommended plan for trach today cancelled because of Eliquis scheduled for thursday hold eliqupriscila thank you Salvatore Duffy May 29, 2018 14:04
--- NOTE | 2018-05-29 15:50 | NUR ---
NURSE NOTES: Patient hand-off report given to Dylan JOHN. Pt is asleep in bed in stable condition. Endorsed plan of care.
--- NOTE | 2018-05-29 15:51 | NUR ---
NURSE NOTES: Report received from ALVARO Heath. Pt is sleeping in bed. Oriented x4. Able to write down her needs and follow commands. Sinus mary 40-50's on teacher of the visually impaired. Orally intubated ETT 7.5/24cm at lip line. AC 20, TV 500, FiO2 30%, P 5. Moderate amount of clear and white secretion orally. OGT in place receiving Vital AF 1.2 at 53cc/hr. No residual noted. Vogel in place draining doris colored urine to gravity. Right UA PICC line patent and asymptomatic. D5W with 20 meq KCL is running at 75cc/hr. Bed in lowest position. Side rails up x3. Pt is on Bariatric bed. Call light within reach. Will resume plan of care. Addendum: 05/29/18 at 1613 by JUAN JOYNER RN RN NURSE NOTES: Report received from ALVARO Heath. Pt is sleeping in bed. Oriented x4. Able to write down her needs and follow commands. Sinus mary 40-50's on teacher of the visually impaired. Orally intubated ETT 7.5/24cm at lip line. AC 20, TV 500, FiO2 30%, P 5. Moderate amount of clear and white secretion orally. O2 sat 100%. No respiratory distress noted. OGT in place receiving Vital AF 1.2 at 53cc/hr. No residual noted. Vogel in place draining doris colored urine to gravity. Right UA PICC line patent and asymptomatic. D5W with 20 meq KCL is running at 75cc/hr. Bed in lowest position. Side rails up x3. Pt is on Bariatric bed. Call light within reach. Will resume plan of care.
--- NOTE | 2018-05-29 17:24 | NUR ---
STERILE PROCESSING TECHNOLOGISTWOMEN SPECIALIST SI:RESP FAILURE, ACUTE ON CHRONIC . STATUS POST ARREST x2 VS: BP 149/66, P 43, T 98.7, RR 20, SpO2 100 on VENT AC 20, TV 500, PEEP 5.0, FiO2 30 IS: AMPICILLIN 500mg PROTONIX 40mg IVP COREG 3.125mg AMIODARONE 200mg PROTONIX 40mg IVP DOPAMINE HCI/D5 250ml IV NOREPINEPHRINE 250ml IV ICU STATUS
--- NOTE | 2018-05-29 17:32 | NUR ---
NURSE NOTES: Cleaned and repositioned pt. Pt helps with overhead trapeze bars. Pt suctions herself at times. Asymptomatic sinus mary noted. No acute respiratory distress noted.
[2018-05-29] MEDS: Chloraseptic Spray 20mL Bottle ORAL PRN ×2 (17:59→23:34)
--- NOTE | 2018-05-29 19:14 | NUR ---
HAND-OFF: Report given to ALVARO Rosales.
--- NOTE | 2018-05-29 19:16 | NUR ---
NURSE NOTES: Report received from Dylan JOHN. Pt alert and oriented x4 and resting comfortably, denies discomfort. Pt is cooperative and able to make needs known by writing on paper. Pt connected to pvc monitor, SB HR 52. Pt orally intubated, ETT 7.5, 24 cm at the lip line, AC 20, TV 500, 30% FiO2, PEEP 5. OGT intact with Vital AF running at 53 cc/hr no residual.HOB elevated. Vogel draining with dark yellow urine. ANGEL PICC line intact running D5W with KCL 20 mEq at 75cc/hr. Safety measures in place with bed locked and in lowest position, side rails x3 up and bed alarm on. Call light within easy reach. Contact isolation maintained and observed. Will continue to monitor plan of care.
--- NOTE | 2018-05-29 19:38 | NUR ---
RESPIRATORY NOTE: Received pt. on 840 vent. Vent settings are: A/C rate of 20, Vt 500, FI02 30%, PEEP +5. No respiratory distress noted, pt. sP02 @ 100%. Ambu bag @ BS. Vent plugged on red outlet. Will continue to monitor pt.
[2018-05-29] MEDS: Dyna-Hex 2% Top Sol 2oz TOPIC SCH (19:57)
--- NOTE | 2018-05-29 20:44 | Pulmonolgy Critical Care Note ---
Critical Care - Asmt/Plan Assessment/Plan: 1. Status post bradycardic arrest. 2. Respiratory failure, acute on chronic. 3. Obesity, hypoventilation, and sleep apnea. 4. Morbid obesity. 5. 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 6. Diabetes. 7. Hypertension. 8. UTI - strep species stableon vent trach thursday monitor HR nebs TF o2 home meds fu wtih cards recommendations JR today if cleared by cards Respiratory: CXR, ABG Cardiac: continue to monitor HR/BP Infectious Disease: check cultures Endocrine: monitor blood sugar Prophylaxis: Protonix Time Spent (Minutes): 40 Notes Reviewed: technical report writer Discussed with: nurses Critical Care - Objective Last 24 Hour Vital Signs Date Time Temp Pulse Resp B/P (MAP) Pulse Ox O2 Delivery O2 Flow Rate FiO2 05/29/18 20:00 98.7 51 20 128/58 (81) 100 05/29/18 20:00 30 05/29/18 20:00 Mechanical Ventilator Mechanical Ventilator 05/29/18 19:37 51 20 30 05/29/18 19:00 43 20 138/70 (92) 100 05/29/18 18:00 52 17 137/97 (110) 100 05/29/18 17:20 66 22 30 05/29/18 17:00 54 19 149/66 (93) 99 05/29/18 16:00 30 05/29/18 16:00 Mechanical Ventilator Mechanical Ventilator 05/29/18 16:00 98.7 45 20 129/58 (81) 100 05/29/18 15:49 44 05/29/18 15:02 47 20 30 05/29/18 15:00 46 20 102/50 (67) 99 05/29/18 14:00 46 20 111/50 (70) 98 05/29/18 13:08 54 20 30 05/29/18 13:00 50 20 116/53 (74) 100 05/29/18 12:00 30 05/29/18 12:00 99.0 45 20 107/57 (74) 100 05/29/18 12:00 43 05/29/18 12:00 Mechanical Ventilator 05/29/18 11:00 49 21 111/61 (78) 100 05/29/18 10:52 99.1 05/29/18 10:45 53 20 30 05/29/18 10:00 49 20 116/60 (78) 100 05/29/18 09:59 134/65 05/29/18 09:00 57 18 134/65 (88) 100 05/29/18 08:47 67 20 30 05/29/18 08:42 61 18 30 05/29/18 08:00 53 05/29/18 08:00 Mechanical Ventilator 05/29/18 08:00 30 05/29/18 08:00 99.1 50 20 120/68 (85) 100 05/29/18 07:15 120/79 05/29/18 07:00 51 20 120/79 (93) 100 05/29/18 06:53 67 20 30 05/29/18 06:00 58 19 129/77 (94) 100 05/29/18 05:18 57 20 30 05/29/18 05:00 55 20 125/65 (85) 100 05/29/18 04:00 Mechanical Ventilator 05/29/18 04:00 48 05/29/18 04:00 99.0 54 20 121/76 (91) 99 05/29/18 04:00 30 05/29/18 03:27 56 20 30 05/29/18 03:00 49 20 122/69 (86) 100 05/29/18 02:00 50 19 128/87 (101) 100 05/29/18 01:25 52 20 30 05/29/18 01:00 51 20 116/73 (87) 100 05/29/18 00:00 98.7 61 20 116/56 (76) 100 05/29/18 00:00 Mechanical Ventilator 05/29/18 00:00 55 05/28/18 23:23 68 20 30 05/28/18 23:00 58 19 113/78 (90) 100 05/28/18 22:00 59 18 121/69 (86) 99 05/28/18 21:10 50 20 30 05/28/18 21:00 49 20 112/65 (81) 100 Status: awake Lungs: clear Heart: HR/BP stable Abdomen: soft, non-tender Extremities: no C/C/E Decubiti: stage Critical Care - Subjective ROS Limited/Unobtainable: Yes Condition: stable FI02: 30 Vent Support Breath Rate: 20 Vent Support Mode: AC Vent Tidal Volume: 500 Sputum Amount: Moderate PEEP: 5.0 PIP: 43 Tube Feeding Amount: 53 I&O: Intake and Output 05/28/18 05/29/18 19:00 07:00 Intake Total 728 ml 1540 ml Output Total 385 ml 435 ml Balance 343 ml 1105 ml Free Water 50 ml IV Total 75 ml 890 ml Tube Feeding 653 ml 600 ml Output Urine Total 385 ml 435 ml # Bowel Movements 1 Subjective: awake remains on the vent no distress nofever minimal secretions no cp nv or bleeding ET-Tube: 7.5 ET Position: 24 Labs: Current Medications Medications (Trade) Dose Ordered Sig/Tera Route PRN Reason Start Time Stop Time Status Last Admin Dose Admin Acetaminophen (Tylenol) 650 mg Q4H PRN ORAL Mild Pain/Temp > 100.5 05/24/18 15:00 06/23/18 14:59 05/29/18 10:22 Amiodarone HCl (Cordarone) 200 mg DAILY ORAL 05/24/18 09:00 06/18/18 10:29 05/29/18 09:59 Ampicillin (Ampicillin) 500 mg Q6HR ORAL 05/24/18 06:00 05/30/18 17:59 05/29/18 17:59 Carvedilol (Coreg) 3.125 mg EVERY 12 HOURS ORAL 05/24/18 09:00 06/20/18 20:59 05/26/18 21:07 Cetylpyridinium Chloride (Cepacol) 1 lozg Q2H PRN DAMIR For Cough 05/23/18 17:47 06/22/18 17:46 Chlorhexidine Gluconate (Shahrzad-Hex 2%) 1 applic DAILY@2000 TOPIC 05/26/18 20:00 06/25/18 19:59 05/29/18 19:57 Dextrose/ Electrolytes 1,000 ml @ 75 mls/hr [id number] IV 05/28/18 13:00 06/27/18 12:59 05/29/18 15:56 Dopamine HCl/ Dextrose 250 ml @ 0 mls/hr Q24H IV 05/25/18 07:15 06/24/18 07:14 05/25/18 07:00 Hydralazine HCl (Apresoline) 10 mg Q6HR PRN ORAL SBP above 150 05/25/18 02:00 06/24/18 01:59 Losartan Potassium (Cozaar) 50 mg DAILY ORAL 05/25/18 09:00 06/24/18 08:59 05/29/18 09:59 Norepinephrine Bitartrate 4 mg/ Dextrose 250 ml @ 0 mls/hr Q24H IV 05/25/18 08:00 06/24/18 07:59 Pantoprazole (Protonix) 40 mg DAILY IVP 05/24/18 09:00 06/18/18 08:59 05/29/18 10:00 Phenol/Menthol (Chloraseptic) 1 spray Q3H PRN ORAL throat pain 05/27/18 13:45 06/26/18 13:44 05/29/18 17:59 Gayla Leger DO May 29, 2018 20:44
--- NOTE | 2018-05-29 20:49 | NUR ---
NURSE NOTES: Seen and examined by Dr. Leger with new lab order noted and carried out.
--- NOTE | 2018-05-29 22:40 | NUR ---
NURSE NOTES: Patient able to turn and hold on the side rails and trapeze. Denies any pain or discomfort. Vogel draining. mouth care done. patient able to suctioned mouth. HOB elevated. Repositioned. All needs attended promptly. Call light within easy reach. Will continue plan of care.
[2018-05-30] VITALS (24 sets, daily range): BP systolic 89–152; BP diastolic 17–92
--- NOTE | 2018-05-30 00:40 | NUR ---
NURSE NOTES: Patient in bed sleeping comfortably. mouth care done. patient able to suctioned mouth. HOB elevated. Repositioned. All needs attended promptly. Call light within easy reach. Will continue plan of care.
--- NOTE | 2018-05-30 02:40 | NUR ---
NURSE NOTES: Bed bath given. noted patient Vogel leaking. Inserted Vogel 18 azeri/10cc balloon with urine output. Will continue to monitor patient. all needs attended promptly. no s/s of acute distress
[2018-05-30] MEDS: D5W w/KCl 20mEq 1,000 ML IV SCH ×2 (04:37→17:20)
--- NOTE | 2018-05-30 04:40 | NUR ---
NURSE NOTES: Denies any pain or discomfort. Vogel draining. mouth care done. patient able to suctioned mouth. HOB elevated. Repositioned. All needs attended promptly. Call light within easy reach. Will continue plan of care.
[2018-05-30 05:52] LABS: BASOPHILS % (AUTO) 2.1 % (0.0-2.0); EOSINOPHILS % (AUTO) 0.4 % (0.0-3.0); HEMATOCRIT 30.9 % (37.0-47.0); HEMOGLOBIN 9.5 G/DL (12.0-16.0); MEAN CORPUSCULAR VOLUME 93 FL (80-99); MONOCYTES % (AUTO) 14.2 % (1.0-10.0); NEUTROPHILS % (AUTO) 67.4 % (45.0-75.0); PLATELET COUNT 161 K/UL (150-450); RED CELL DISTRIBUTION WIDTH 15.5 % (11.6-14.8); WHITE BLOOD COUNT 4.8 K/UL (4.8-10.8)
[2018-05-30 05:57] LABS: ANION GAP 4 mmol/L (5-15); BLOOD UREA NITROGEN 15 mg/dL (7-18); CALCIUM 8.9 MG/DL (8.5-10.1); CARBON DIOXIDE 32 MMOL/L (21-32); CHLORIDE 106 MMOL/L (98-107); CREATININE 0.9 MG/DL (0.55-1.30); POTASSIUM 3.7 MMOL/L (3.5-5.1); SODIUM 142 MMOL/L (136-145)
--- NOTE | 2018-05-30 06:40 | NUR ---
NURSE NOTES: Patient in bed awake,alert watching TV. no s/s of acute distress noted
--- NOTE | 2018-05-30 07:10 | NUR ---
HAND-OFF: Report given to ALVARO Heath.
--- NOTE | 2018-05-30 07:11 | NUR ---
NURSE NOTES: Received change of shift report from Connie JOHN. Pt is awake, alert, oriented x4, pt is intubated, however communicates by writing on notepad. ETT 7.5 at 24cm mid-lip line, AC20, VT 500, Peep 5.0, FIO2 30% with O2sat 100%. Pt has increased oral secretions, clear/white, pt is able to suction self. quality assurance monitor displays SB, with HR fluctuating 40's-50's. Weak pulses palpated on extremities. Edema present on extremities. ANGEL PICC double lumen present, infusing D5W KCL 20meq at 75mL/hour. OG tube in place, feeding infusing Vital AF 1.2 at 53ml/hour, at goal. Pt is tolerating feeding well with no s/s of nausea/vomiting or residual. Abdomen is round, soft/nontender to touch. Hypoactive bowel sounds auscultated on all quadrants. Vogel catheter in place, draining mildly cloudy/doris urine. Skin is intact, with dryness of the feet. Bilateral SCDs in place. Bed is locked, with three side rails up and call light within easy reach. Will continue to monitor pt and follow plan of care per MD orders and protocol.
[2018-05-30] MEDS: DOPamine 400mg/250ml 250 ML IV SCH (07:15)
[2018-05-30] MEDS: Pantoprazole Inj IVP SCH (09:15)
[2018-05-30] MEDS: Amiodarone 200mg tab ORAL SCH (09:15)
[2018-05-30] MEDS: Losartan 50mg tab ORAL SCH (09:17)
--- NOTE | 2018-05-30 09:50 | NUR ---
RESPIRATORY NOTE: Weaning criteria passed. SBT started at 0950. Placed on PS +8 PEEP +5 FIO2 30%. Patient tolerating well. Will continue to monitor.
--- NOTE | 2018-05-30 10:00 | NUR ---
NURSE NOTES: Pt repositioned and oral care provided. Vital signs are within normal range. Pt is currently on Cipap PS 8, Peep 5.0, FIO2 30%, with O2sat 100%. Pt is tolerating OG feeding well with no residual. Vogel draining clear/doris urine.
--- NOTE | 2018-05-30 12:01 | NUR ---
RESPIRATORY NOTE: Weaning stopped. Patient tolerated SBT well. ABG results good. RN Ivana aware. Placed back onto previous settings.
--- NOTE | 2018-05-30 12:30 | NUR ---
NURSE NOTES: Pt is asleep in bed, with HOB at 30 degrees, awakes to name/voice. RT attempted weaning trial from AC to CIPAP for two hours, which the pt passed/and tolerated successfully with O2sat 99-100%, and per protocol RT switched pt back to AC, as previously ordered. ETT 7.5 at 24cm mid-lip line, AC20, VT 500, Peep 5.0, FIO2 30% with O2sat 100%. Pt has increased oral secretions, clear/white, pt is able to suction self. lead inspector displays SB, with HR fluctuating 40's-50's, HR was 60-70 while pt was on CIPAP. Weak pulses palpated on extremities. Edema present on extremities. IV fluid continues D5W KCL 20meq at 75mL/hour via RUQ PICC. OG tube feeding infusing Vital AF 1.2 at 53ml/hour, at goal. Pt is tolerating feeding well with no s/s of nausea/vomiting or residual. Abdomen is round, soft/nontender to touch. Hypoactive bowel sounds auscultated on all quadrants. Vogel catheter is draining clear/doris urine; urine output increased while pt was on CIPAP. Skin is intact, with dryness of the feet. Pt is refusing the SCD currently. Bed is locked, with three side rails up and call light within easy reach. Will continue to monitor pt and follow plan of care per MD orders and protocol.
--- NOTE | 2018-05-30 13:34 | Surgery Progress Note ---
Surgery Progress Note Subjective Additional Comments no acute events. resting comfortable Objective Last 24 Hour Vital Signs Date Time Temp Pulse Resp B/P (MAP) Pulse Ox O2 Delivery O2 Flow Rate FiO2 05/30/18 13:29 61 20 30 05/30/18 11:59 79 20 30 05/30/18 11:10 74 18 30 05/30/18 11:00 74 18 145/82 (103) 98 05/30/18 10:00 61 17 152/86 (108) 100 05/30/18 09:45 62 12 30 30 05/30/18 09:29 56 20 30 05/30/18 09:17 130/78 05/30/18 09:00 100 05/30/18 09:00 57 20 130/78 (95) 100 05/30/18 08:00 Mechanical Ventilator Mechanical Ventilator 05/30/18 08:00 30 05/30/18 08:00 98.8 53 20 126/68 (87) 100 05/30/18 07:28 57 05/30/18 07:15 126/61 05/30/18 07:10 58 20 30 05/30/18 07:10 48 20 Mechanical Ventilator 60.0 30 05/30/18 07:00 44 20 126/61 (82) 100 05/30/18 06:00 48 20 149/54 (85) 100 05/30/18 05:14 50 20 30 05/30/18 05:00 53 20 132/92 (105) 99 05/30/18 04:00 56 05/30/18 04:00 30 05/30/18 04:00 Mechanical Ventilator Mechanical Ventilator 05/30/18 04:00 99.0 50 20 119/75 (90) 100 05/30/18 03:00 66 20 140/70 (93) 73 05/30/18 02:58 59 23 30 05/30/18 02:00 45 5 110/75 (87) 100 05/30/18 01:04 64 21 30 05/30/18 01:00 62 21 134/73 (93) 99 05/30/18 00:04 98.7 05/30/18 00:00 58 05/30/18 00:00 45 14 135/72 (93) 100 05/30/18 00:00 Mechanical Ventilator Mechanical Ventilator 05/30/18 00:00 30 4/13/19 23:19 55 21 30 05/29/18 23:00 45 20 130/79 (96) 100 05/29/18 22:00 59 18 123/72 (89) 85 05/29/18 21:13 50 20 30 05/29/18 21:00 47 119/70 05/29/18 21:00 51 20 119/70 (86) 100 05/29/18 20:00 98.7 51 20 128/58 (81) 100 05/29/18 20:00 30 05/29/18 20:00 42 05/29/18 20:00 Mechanical Ventilator Mechanical Ventilator 05/29/18 19:37 51 20 30 05/29/18 19:00 43 20 138/70 (92) 100 05/29/18 18:00 52 17 137/97 (110) 100 05/29/18 17:20 66 22 30 05/29/18 17:00 54 19 149/66 (93) 99 05/29/18 16:00 30 05/29/18 16:00 Mechanical Ventilator Mechanical Ventilator 05/29/18 16:00 98.7 45 20 129/58 (81) 100 05/29/18 15:49 44 05/29/18 15:02 47 20 30 05/29/18 15:00 46 20 102/50 (67) 99 05/29/18 14:00 46 20 111/50 (70) 98 I&O Intake and Output 05/29/18 05/30/18 18:59 06:59 Intake Total 1508 ml 1716 ml Output Total 395 ml 340 ml Balance 1113 ml 1376 ml Free Water 200 ml IV Total 825 ml 880 ml Tube Feeding 633 ml 636 ml Other 50 ml Output Urine Total 395 ml 340 ml Dressing: other Wound: other Drains: other Cardiovascular: RSR Respiratory: decreased breath sounds Abdomen: soft, present bowel sounds, non-distended Extremities: no tenderness, no cyanosis Laboratory Tests Test 05/30/18 05:00 05/30/18 11:45 White Blood Count 4.8 K/UL (4.8-10.8) Red Blood Count 3.30 M/UL (4.20-5.40) L Hemoglobin 9.5 G/DL (12.0-16.0) L Hematocrit 30.9 % (37.0-47.0) L Mean Corpuscular Volume 93 FL (80-99) Mean Corpuscular Hemoglobin 28.7 PG (27.0-31.0) Mean Corpuscular Hemoglobin Concent 30.7 G/DL (32.0-36.0) L Red Cell Distribution Width 15.5 % (11.6-14.8) H Platelet Count 161 K/UL (150-450) Mean Platelet Volume 5.7 FL (6.5-10.1) L Neutrophils (%) (Auto) 67.4 % (45.0-75.0) Lymphocytes (%) (Auto) 16.0 % (20.0-45.0) L Monocytes (%) (Auto) 14.2 % (1.0-10.0) H Eosinophils (%) (Auto) 0.4 % (0.0-3.0) Basophils (%) (Auto) 2.1 % (0.0-2.0) H Sodium Level 142 MMOL/L (136-145) Potassium Level 3.7 MMOL/L (3.5-5.1) Chloride Level 106 MMOL/L (98-107) Carbon Dioxide Level 32 MMOL/L (21-32) Anion Gap 4 mmol/L (5-15) L Blood Urea Nitrogen 15 mg/dL (7-18) Creatinine 0.9 MG/DL (0.55-1.30) Estimat Glomerular Filtration Rate > 60 mL/min (>60) Glucose Level 151 MG/DL (74-106) H Calcium Level 8.9 MG/DL (8.5-10.1) Arterial Blood pH 7.402 (7.350-7.450) Arterial Blood Partial Pressure CO2 50.4 mmHg (35.0-45.0) H Arterial Blood Partial Pressure O2 85.7 mmHg (75.0-100.0) Arterial Blood HCO3 30.7 mmol/L (22.0-26.0) H Arterial Blood Oxygen Saturation 95.4 % (95-100) Arterial Blood Base Excess 5.0 (-2-2) H Itm Test Positive Plan Problems: (1) Respiratory arrest (2) Respiratory distress Assessment & Plan: respiratory insufficiency requiring prolonged ventilatory support unable to wean vent and safely extubate trach indicated and recommended plan for trach today cancelled because of Eliquis scheduled for thursday hold eliovidio thank you Salvatore Duffy May 30, 2018 13:34
--- NOTE | 2018-05-30 14:00 | NUR ---
NURSE NOTES: Pt was cleaned, repositioned and oral care given. Vital signs are within normal limits. No s/s of pain at this time. Pt is resting comfortably in stable condition.
--- NOTE | 2018-05-30 17:30 | NUR ---
HYDRO OPERATOR SI: RESP FAILURE, ACUTE ON CHRONIC . STATUS POST ARREST x2 VS: BP 93/17, P 55, T 98.6, RR 20, SpO2 100 on VENT AC 20, TV 500, PEEP 5.0, FiO2 30 RBC 3.30, Hgb 9.5, Hct 30.9 IS: D5/ELECTROLYTE x1L IV AMPICILLIN 500mg PROTONIX 40mg IVP COREG 3.125mg AMPICILLIN 500mg AMIODARONE 200mg PROTONIX 40mg IVP DOPAMINE HCI/D5 250ml IV NOREPINEPHRINE 250ml IV ICU STATUS
--- NOTE | 2018-05-30 18:25 | NUR ---
NURSE NOTES: Dr Jade was contacted and message left to confirm plan for tomorrow's possible trach placement, and request for official order to receive written consent from pt. was also made aware regarding today's successful weaning trial from AC to Cipap for two hours, and inquiry what MD would like to do at this point. Dr Jade referred to Dr Leger, who is covering for him. Dr Leger's office was contacted and voicmail left for MD. was also made aware regarding pt's request to be transferred to [facility]. Awaiting for call back/response from Dr Leger. Addendum: 05/30/18 at 1927 [address] RN Dr Leger saw pt at bedside. Order received for trach placement for Thursday. Order processed and followed. Consent received from pt and filed in paper chart. Addendum: 05/30/18 at 193 by CAMPOS JAUREGUI RN Order received from Dr Leger "ok to continue on CPAP if pt able to tolerate successfully". Weaning trial order was edited and RT informed.
--- NOTE | 2018-05-30 18:59 | Pulmonolgy Critical Care Note ---
Critical Care - Asmt/Plan Assessment/Plan: 1. Status post bradycardic arrest x 2 2. Respiratory failure, acute on chronic. 3. Obesity, hypoventilation, and sleep apnea. 4. Morbid obesity. 5. 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 6. Diabetes. 7. Hypertension. 8. UTI - strep species stable on vent trach Thursday monitor HR nebs TF o2 home meds fu with cards recommendations Respiratory: CXR, weaning trial Cardiac: continue to monitor HR/BP Infectious Disease: check cultures Disposition: keep in ICU Time Spent (Minutes): 50 Discussed with: nurses, consultants Critical Care - Objective Last 24 Hour Vital Signs Date Time Temp Pulse Resp B/P (MAP) Pulse Ox O2 Delivery O2 Flow Rate FiO2 05/30/18 18:00 66 20 127/64 (85) 98 05/30/18 17:02 62 20 30 05/30/18 17:00 98.6 60 12 122/80 (94) 99 05/30/18 16:00 30 05/30/18 16:00 57 18 113/68 (83) 99 05/30/18 16:00 60 05/30/18 16:00 Mechanical Ventilator Mechanical Ventilator 05/30/18 15:00 55 8 93/17 (42) 100 05/30/18 14:50 66 20 30 05/30/18 14:00 58 15 109/77 (88) 100 05/30/18 13:29 61 20 30 05/30/18 13:00 66 20 134/86 (102) 05/30/18 12:00 Mechanical Ventilator Mechanical Ventilator 05/30/18 12:00 69 05/30/18 12:00 98.1 72 18 125/76 (92) 99 05/30/18 12:00 30 05/30/18 11:59 79 20 30 05/30/18 11:10 74 18 30 05/30/18 11:00 74 18 145/82 (103) 98 05/30/18 10:00 61 17 152/86 (108) 100 05/30/18 09:45 62 12 30 30 05/30/18 09:29 56 20 30 05/30/18 09:17 130/78 05/30/18 09:00 100 05/30/18 09:00 57 20 130/78 (95) 100 05/30/18 08:00 Mechanical Ventilator Mechanical Ventilator 05/30/18 08:00 30 05/30/18 08:00 98.8 53 20 126/68 (87) 100 05/30/18 07:28 57 05/30/18 07:15 126/61 05/30/18 07:10 58 20 30 05/30/18 07:10 48 20 Mechanical Ventilator 60.0 30 05/30/18 07:00 44 20 126/61 (82) 100 05/30/18 06:00 48 20 149/54 (85) 100 05/30/18 05:14 50 20 30 05/30/18 05:00 53 20 132/92 (105) 99 05/30/18 04:00 56 05/30/18 04:00 30 05/30/18 04:00 Mechanical Ventilator Mechanical Ventilator 05/30/18 04:00 99.0 50 20 119/75 (90) 100 05/30/18 03:00 66 20 140/70 (93) 73 05/30/18 02:58 59 23 30 05/30/18 02:00 45 5 110/75 (87) 100 05/30/18 01:04 64 21 30 05/30/18 01:00 62 21 134/73 (93) 99 05/30/18 00:04 98.7 05/30/18 00:00 58 05/30/18 00:00 45 14 135/72 (93) 100 05/30/18 00:00 Mechanical Ventilator Mechanical Ventilator 05/30/18 00:00 30 05/29/18 23:19 55 21 30 05/29/18 23:00 45 20 130/79 (96) 100 05/29/18 22:00 59 18 123/72 (89) 85 05/29/18 21:13 50 20 30 05/29/18 21:00 47 119/70 05/29/18 21:00 51 20 119/70 (86) 100 05/29/18 20:00 98.7 51 20 128/58 (81) 100 05/29/18 20:00 30 05/29/18 20:00 42 05/29/18 20:00 Mechanical Ventilator Mechanical Ventilator 05/29/18 19:37 51 20 30 05/29/18 19:00 43 20 138/70 (92) 100 Status: awake Condition: improving Lungs: clear Heart: HR/BP stable Abdomen: soft, non-tender Extremities: no C/C/E, edema Critical Care - Subjective ROS Limited/Unobtainable: Yes Condition: stable FI02: 30 Vent Support Breath Rate: 20 Vent Support Mode: AC Vent Tidal Volume: 500 Sputum Amount: Small PEEP: 5.0 PIP: 47 Tube Feeding Amount: 53 I&O: Intake and Output 05/29/18 05/30/18 19:00 07:00 Intake Total 1511 ml 1716 ml Output Total 375 ml 365 ml Balance 1136 ml 1351 ml Free Water 200 ml IV Total 825 ml 880 ml Tube Feeding 636 ml 636 ml Other 50 ml Output Urine Total 375 ml 365 ml Subjective: awake remains on the vent, toelated CPAP 2 hours but putback to AC re "weaning protocol" no distress no fever minimal secretions no cp nv or bleeding complains of throat pain ET-Tube: 7.5 ET Position: 24 Labs: Current Medications Medications (Trade) Dose Ordered Sig/Tera Route PRN Reason Start Time Stop Time Status Last Admin Dose Admin Acetaminophen (Tylenol) 650 mg Q4H PRN ORAL Mild Pain/Temp > 100.5 05/24/18 15:00 06/23/18 14:59 05/29/18 23:34 Amiodarone HCl (Cordarone) 200 mg DAILY ORAL 05/24/18 09:00 06/18/18 10:29 05/30/18 09:15 Carvedilol (Coreg) 3.125 mg EVERY 12 HOURS ORAL 05/24/18 09:00 06/20/18 20:59 05/26/18 21:07 Cetylpyridinium Chloride (Cepacol) 1 lozg Q2H PRN DAMIR For Cough 05/23/18 17:47 06/22/18 17:46 Chlorhexidine Gluconate (Shahrzad-Hex 2%) 1 applic DAILY@2000 TOPIC 05/26/18 20:00 06/25/18 19:59 05/29/18 19:57 Dextrose/ Electrolytes 1,000 ml @ 75 mls/hr [id number] IV 05/28/18 13:00 06/27/18 12:59 05/30/18 17:20 Dopamine HCl/ Dextrose 250 ml @ 0 mls/hr Q24H IV 05/25/18 07:15 06/24/18 07:14 05/25/18 07:00 Hydralazine HCl (Apresoline) 10 mg Q6HR PRN ORAL SBP above 150 05/25/18 02:00 06/24/18 01:59 Losartan Potassium (Cozaar) 50 mg DAILY ORAL 05/25/18 09:00 06/24/18 08:59 05/30/18 09:17 Norepinephrine Bitartrate 4 mg/ Dextrose 250 ml @ 0 mls/hr Q24H IV 05/25/18 08:00 06/24/18 07:59 Pantoprazole (Protonix) 40 mg DAILY IVP 05/24/18 09:00 06/18/18 08:59 05/30/18 09:15 Phenol/Menthol (Chloraseptic) 1 spray Q3H PRN ORAL throat pain 05/27/18 13:45 06/26/18 13:44 05/29/18 23:34 Current Medications Medications (Trade) Dose Ordered Sig/Tera Route PRN Reason Start Time Stop Time Status Last Admin Dose Admin Acetaminophen (Tylenol) 650 mg Q4H PRN ORAL Mild Pain/Temp > 100.5 05/24/18 15:00 06/23/18 14:59 05/29/18 23:34 Amiodarone HCl (Cordarone) 200 mg DAILY ORAL 05/24/18 09:00 06/18/18 10:29 05/30/18 09:15 Carvedilol (Coreg) 3.125 mg EVERY 12 HOURS ORAL 05/24/18 09:00 06/20/18 20:59 05/26/18 21:07 Cetylpyridinium Chloride (Cepacol) 1 lozg Q2H PRN DAMIR For Cough 05/23/18 17:47 06/22/18 17:46 Chlorhexidine Gluconate (Shahrzad-Hex 2%) 1 applic DAILY@2000 TOPIC 05/26/18 20:00 06/25/18 19:59 05/29/18 19:57 Dextrose/ Electrolytes 1,000 ml @ 75 mls/hr [id number] IV 05/28/18 13:00 06/27/18 12:59 05/30/18 17:20 Dopamine HCl/ Dextrose 250 ml @ 0 mls/hr Q24H IV 05/25/18 07:15 06/24/18 07:14 05/25/18 07:00 Hydralazine HCl (Apresoline) 10 mg Q6HR PRN ORAL SBP above 150 05/25/18 02:00 06/24/18 01:59 Losartan Potassium (Cozaar) 50 mg DAILY ORAL 05/25/18 09:00 06/24/18 08:59 05/30/18 09:17 Norepinephrine Bitartrate 4 mg/ Dextrose 250 ml @ 0 mls/hr Q24H IV 05/25/18 08:00 06/24/18 07:59 Pantoprazole (Protonix) 40 mg DAILY IVP 05/24/18 09:00 06/18/18 08:59 05/30/18 09:15 Phenol/Menthol (Chloraseptic) 1 spray Q3H PRN ORAL throat pain 05/27/18 13:45 06/26/18 13:44 05/29/18 23:34 Laboratory Tests Test 05/30/18 05:00 05/30/18 11:45 White Blood Count 4.8 K/UL (4.8-10.8) Red Blood Count 3.30 M/UL (4.20-5.40) L Hemoglobin 9.5 G/DL (12.0-16.0) L Hematocrit 30.9 % (37.0-47.0) L Mean Corpuscular Volume 93 FL (80-99) Mean Corpuscular Hemoglobin 28.7 PG (27.0-31.0) Mean Corpuscular Hemoglobin Concent 30.7 G/DL (32.0-36.0) L Red Cell Distribution Width 15.5 % (11.6-14.8) H Platelet Count 161 K/UL (150-450) Mean Platelet Volume 5.7 FL (6.5-10.1) L Neutrophils (%) (Auto) 67.4 % (45.0-75.0) Lymphocytes (%) (Auto) 16.0 % (20.0-45.0) L Monocytes (%) (Auto) 14.2 % (1.0-10.0) H Eosinophils (%) (Auto) 0.4 % (0.0-3.0) Basophils (%) (Auto) 2.1 % (0.0-2.0) H Sodium Level 142 MMOL/L (136-145) Potassium Level 3.7 MMOL/L (3.5-5.1) Chloride Level 106 MMOL/L (98-107) Carbon Dioxide Level 32 MMOL/L (21-32) Anion Gap 4 mmol/L (5-15) L Blood Urea Nitrogen 15 mg/dL (7-18) Creatinine 0.9 MG/DL (0.55-1.30) Estimat Glomerular Filtration Rate > 60 mL/min (>60) Glucose Level 151 MG/DL (74-106) H Calcium Level 8.9 MG/DL (8.5-10.1) Arterial Blood pH 7.402 (7.350-7.450) Arterial Blood Partial Pressure CO2 50.4 mmHg (35.0-45.0) H Arterial Blood Partial Pressure O2 85.7 mmHg (75.0-100.0) Arterial Blood HCO3 30.7 mmol/L (22.0-26.0) H Arterial Blood Oxygen Saturation 95.4 % (95-100) Arterial Blood Base Excess 5.0 (-2-2) H Tim Test Positive Gayla Leger DO May 30, 2018 18:59
--- NOTE | 2018-05-30 19:25 | NUR ---
HAND-OFF: Report given to Cathryn JOHN. Pt is resting in stable condition. Pt signed consent for tracheostomy. Consent filed in paper chart. Endorsed plan of care.
--- NOTE | 2018-05-30 19:30 | NUR ---
NURSE NOTES:Received pt awake and alert, following simple commands resting well at this time, watching tv . Cardio scope SB 50s to NSR at this time, bp stable pulses + 2 palpable, extremities slightly edematous, and obese. Orally intubated on ac mode with 30%fio2,02 sat 100% HOB kept elevated Suctioned tn tk whitish secretions moderate in amt. Pt suctioned herself orally. Pt tolerating fdg at 53ml/hr , no residuals HOB kept elevated, on aspiration precautions, pt using overhead trapeze in moving to sides.- turned q 2hrs prn with good skin care done. Will continue to monitor.
[2018-05-30] MEDS: Dyna-Hex 2% Top Sol 2oz TOPIC SCH (20:19)
--- NOTE | 2018-05-30 21:30 | NUR ---
NURSE NOTES:Turned to sides and good skin care rendered, pt able to help in turning using overhead trapeze.
--- NOTE | 2018-05-30 21:30 | NUR ---
NURSE NOTES:Suctioned tk whitish secretions moderate in amt. HOB kept elevated. Watch for any resp. distress.
[2018-05-31] VITALS (26 sets, daily range): BP systolic 51–169; BP diastolic 26–107
--- NOTE | 2018-05-31 | NUR ---
NURSE NOTES:PLaced NPO after midnight, for tracheostomy 05/31/18. at 1400.
--- NOTE | 2018-05-31 01:54 | NUR ---
NURSE NOTES:Pt is awake watching tv, oral care done.
--- NOTE | 2018-05-31 02:45 | Progress Note ---
DATE: 05/30/2018 SUBJECTIVE: Carvedilol has been held due to bradycardia. The patient is awake and alert. She remains on full ventilator support. Tomorrow tracheostomy is planned. OBJECTIVE: VITAL SIGNS: Blood pressure 127/64, pulse 66, and respirations 20. LUNGS: Bilateral breath sounds. No wheezing. HEART: Regular rhythm. Slow rate. Normal S1, S2 with no new murmur. ABDOMEN: Obese. EXTREMITIES: With nonpitting edema. IMPRESSION: 1. Stable from a cardiovascular standpoint for tracheostomy. 2. Status post respiratory arrest. 3. Bradycardia. 4. Respiratory failure. 5. Obesity hypoventilation. 6. Thoracic aortic aneurysm dissection type A and B, acute on chronic. 7. Hypertensive heart disease. PLAN: 1. Discontinue carvedilol for now. 2. Readdress risks and benefits of beta-michael in view of bradycardia and aortic dissection respectively. Maxim Levin M.D. DR: FRANCESCA JOB#: [id number] CC:
--- NOTE | 2018-05-31 03:00 | NUR ---
NURSE NOTES:Pt still on sinus bradycardia but bp was stable.
--- NOTE | 2018-05-31 03:15 | Progress Note ---
DATE: 05/29/2018 CARDIOLOGY PROGRESS NOTE SUBJECTIVE: The patient remains on ventilator support. Tracheostomy is planned on 05/31/2018. The patient continues to have sinus bradycardic episodes. Coreg dosing has been held as a result. OBJECTIVE: VITAL SIGNS: Blood pressure 128/58, pulse 51, and respirations 20. Afebrile. Heart rate ranging from 43 to 66. Sinus and sinus bradyarrhythmia noted. LUNGS: Bilateral breath sounds. No wheezing. No rales. HEART: Regular rhythm. Slow rate. Normal S1, S2 with no murmur. Respiratory sounds obscured. ABDOMEN: Obese. EXTREMITIES: With lymphedema. IMPRESSION: 1. Recurring respiratory arrest. 2. Respiratory failure. 3. Bradycardia. 4. Thoracic aortic aneurysm with dissection types A and B, acute and chronic. 5. Urinary tract infection. 6. Hypertensive heart disease. 7. Obesity and lymphedema. 8. Paroxysmal atrial fibrillation. PLAN: 1. Continue current therapy. 2. Cautious anticoagulation. 3. May have to discontinue carvedilol in view of persistent bradycardia. 4. We will reassess for post trach. Maxim Levin M.D. DR: FRANCESCA JOB#: [id number] CC:
--- NOTE | 2018-05-31 05:00 | NUR ---
NURSE NOTES:Complete bath with bed changed done.
[2018-05-31 05:14] LABS: EOSINOPHILS % (AUTO) 0.7 % (0.0-3.0); HEMATOCRIT 31.6 % (37.0-47.0); HEMOGLOBIN 9.8 G/DL (12.0-16.0); LYMPHOCYTES % (AUTO) 18.3 % (20.0-45.0); MEAN CORPUSCULAR VOLUME 93 FL (80-99); MONOCYTES % (AUTO) 10.5 % (1.0-10.0); NEUTROPHILS % (AUTO) 69.5 % (45.0-75.0); PLATELET COUNT 172 K/UL (150-450); RED BLOOD COUNT 3.41 M/UL (4.20-5.40); RED CELL DISTRIBUTION WIDTH 15.2 % (11.6-14.8); WHITE BLOOD COUNT 5.7 K/UL (4.8-10.8)
[2018-05-31] MEDS: D5W w/KCl 20mEq 1,000 ML IV SCH ×2 (05:26→20:25)
[2018-05-31 05:51] LABS: ANION GAP 4 mmol/L (5-15); BLOOD UREA NITROGEN 15 mg/dL (7-18); CALCIUM 8.8 MG/DL (8.5-10.1); CARBON DIOXIDE 31 MMOL/L (21-32); CHLORIDE 107 MMOL/L (98-107); CREATININE 0.9 MG/DL (0.55-1.30); POTASSIUM 4.3 MMOL/L (3.5-5.1); SODIUM 142 MMOL/L (136-145)
--- NOTE | 2018-05-31 06:54 | NUR ---
NURSE NOTES:Sleeping well at this time. No resp. distress noted.
--- NOTE | 2018-05-31 07:06 | NUR ---
RESPIRATORY NOTE: received pt on vent, on current vent settings. intubated with ett 7.5 placed 24cm at the lip, secured via anchor fast. pt awake and alert and following commands. no resp distress noted at this time. also changed pt settings to CPAP PS 8 to follow weaning orders. will cont to monitor. vent is plugged into the red outlet with alarms on and audible. ambu bag at bedside. Addendum: 05/31/18 at 0712 by JOEY SAUCEDA RT placed pt back on AC. tracheostomy scheduled confirmed for later this afternoon.
[2018-05-31] MEDS: DOPamine 400mg/250ml 250 ML IV SCH (07:15)
--- NOTE | 2018-05-31 07:19 | NUR ---
NURSE NOTES:Endorse to RN Marimar to obtain pts pre op checklist before pts going to OR at 1400.
--- NOTE | 2018-05-31 07:20 | NUR ---
HAND-OFF: Report given to Marimar JOHN.
--- NOTE | 2018-05-31 07:30 | NUR ---
NURSE NOTES: Report received from ALVARO Lockett
--- NOTE | 2018-05-31 08:10 | NUR ---
NURSE NOTES: Patient awake when received AOx4 and able to self suctioned.ETT in place 7.5 lip line AC 20 VT 500 FiO2 30% and Peep 5.Afebrile at this time and GT and blood thinner on hold for procedure.Placement intact and HOB elevated to prevent aspiration.Scheduled for Trach at 1400 with consent signed by patient.Seen by Dr Jade will follow up with new orders.All needs attended and met at the resident level of comfort.Call light within easy reach.Will continue to monitor.
[2018-05-31] MEDS: Amiodarone 200mg tab ORAL SCH (08:23)
[2018-05-31] MEDS: Losartan 50mg tab ORAL SCH (08:24)
[2018-05-31] MEDS: Pantoprazole Inj IVP SCH (08:24)
--- NOTE | 2018-05-31 09:50 | NUR ---
RADIOLOGY DEPT., CHEST X-RAY COMPLETED.-P.DYE
--- NOTE | 2018-05-31 10:11 | NUR ---
Patient asleep,easily arousal to tactile and verbal stimuli.Call light within reach.Kept clean dry and comfortable.
--- NOTE | 2018-05-31 12:08 | Diagnostic Imaging Report ---
Indication: Dyspnea Technique: One view of the chest Comparison: May 26, 2018 Findings: Stable satisfactory position of endotracheal tube. Nasogastric tube tip projects off the edge of image. The heart is enlarged. The aorta is aneurysmal. No definite infiltrates or effusions, although disease of the left lung base is difficult to definitively exclude. Findings are unchanged Impression: Unchanged, over 5 days, findings as above.
--- NOTE | 2018-05-31 12:10 | NUR ---
NURSE NOTES: Patient able to suction self.HOB elevated to prevent aspiration.Kept clean and dry.
--- NOTE | 2018-05-31 12:31 | Pulmonology Progress Note ---
Assessment/Plan Assessment/Plan 1. Status post arrest x 2 2. Respiratory failure, acute on chronic. 3. Obesity hypoventilation syndrome and sleep apnea. 4. Morbid obesity. 5. Thoracic aortic aneurysm dissection, type A and B chronic 6. Diabetes. 7. Hypertension. 8. UTI - strep species resp failure on vent via oral ETT alert and responsive; using pen/paper to write notes agreed to trach long discussion about her future with trach surgery today Subjective Constitutional: Reports: no symptoms HEENT: Repors: other - sore throat Allergies: Coded Allergies: No Known Allergies (Unverified , 02/20/17) Objective Last 24 Hour Vital Signs Date Time Temp Pulse Resp B/P (MAP) Pulse Ox O2 Delivery O2 Flow Rate FiO2 05/31/18 11:00 55 20 93/46 (62) 100 05/31/18 10:35 54 20 30 05/31/18 10:00 55 20 108/76 (87) 100 05/31/18 09:00 48 20 122/61 (81) 100 05/31/18 08:58 53 20 30 05/31/18 08:00 30 05/31/18 08:00 54 05/31/18 08:00 56 20 128/68 (88) 100 05/31/18 08:00 117/68 05/31/18 08:00 Mechanical Ventilator Mechanical Ventilator 05/31/18 07:15 120/60 05/31/18 07:03 57 21 30 05/31/18 07:00 98.0 59 18 117/68 (84) 100 05/31/18 06:00 74 20 120/82 (95) 100 05/31/18 05:30 63 21 30 05/31/18 05:00 66 19 135/92 (106) 100 05/31/18 04:00 56 05/31/18 04:00 Mechanical Ventilator Mechanical Ventilator 05/31/18 04:00 98.0 56 20 121/86 (98) 99 05/31/18 04:00 30 05/31/18 03:08 59 20 30 05/31/18 03:00 54 19 121/106 (111) 100 05/31/18 02:00 53 19 134/73 (93) 96 05/31/18 01:30 64 20 30 05/31/18 01:14 56 20 136/78 (97) 100 05/31/18 01:05 71 17 53/44 (47) 94 05/31/18 01:00 56 20 51/32 (38) 90 05/31/18 00:00 Mechanical Ventilator Mechanical Ventilator 05/31/18 00:00 30 05/31/18 00:00 98.2 53 20 105/86 (92) 100 05/31/18 00:00 53 05/30/18 23:15 57 20 30 05/30/18 23:00 54 20 89/38 (55) 98 05/30/18 22:00 61 20 89/38 (55) 100 05/30/18 21:02 59 23 30 05/30/18 21:00 52 20 96/52 (67) 100 05/30/18 20:57 62 110/66 05/30/18 20:00 56 05/30/18 20:00 98.0 56 20 110/66 (81) 100 05/30/18 20:00 Mechanical Ventilator Mechanical Ventilator 05/30/18 20:00 30 05/30/18 19:06 60 20 30 05/30/18 19:00 63 20 110/77 (88) 100 05/30/18 18:00 66 20 127/64 (85) 98 05/30/18 17:02 62 20 30 05/30/18 17:00 98.6 60 12 122/80 (94) 99 05/30/18 16:00 30 05/30/18 16:00 57 18 113/68 (83) 99 05/30/18 16:00 60 05/30/18 16:00 Mechanical Ventilator Mechanical Ventilator 05/30/18 15:00 55 8 93/17 (42) 100 05/30/18 14:50 66 20 30 05/30/18 14:00 58 15 109/77 (88) 100 05/30/18 13:29 61 20 30 05/30/18 13:00 66 20 134/86 (102) Intake and Output 05/30/18 05/31/18 18:59 06:59 Intake Total 1536 ml 1173 ml Output Total 895 ml 390 ml Balance 641 ml 783 ml Free Water 30 ml IV Total 900 ml 825 ml Tube Feeding 636 ml 318 ml Output Urine Total 895 ml 390 ml Objective morbidly obese, oral ETT, OGT General Appearance: WD/WN, no acute distress HEENT: atraumatic Respiratory/Chest: lungs clear Cardiovascular: normal rate Laboratory Tests 05/31/18 04:35: White Blood Count 5.7, Red Blood Count 3.41L, Hemoglobin 9.8L, Hematocrit 31.6L , Mean Corpuscular Volume 93, Mean Corpuscular Hemoglobin 28.6, Mean Corpuscular Hemoglobin Concent 30.8L, Red Cell Distribution Width 15.2H, Platelet Count 172, Mean Platelet Volume 5.6L, Neutrophils (%) (Auto) 69.5, Lymphocytes (%) (Auto) 18.3L, Monocytes (%) (Auto) 10.5H, Eosinophils (%) (Auto ) 0.7, Basophils (%) (Auto) 1.0, Prothrombin Time 10.4, Prothromb Time International Ratio 1.0, Sodium Level 142, Potassium Level 4.3, Chloride Level 107, Carbon Dioxide Level 31, Anion Gap 4L, Blood Urea Nitrogen 15, Creatinine 0.9, Estimat Glomerular Filtration Rate > 60, Glucose Level 134H, Calcium Level 8.8, Magnesium Level 2.0 Current Medications Medications (Trade) Dose Ordered Sig/Tera Route PRN Reason Start Time Stop Time Status Last Admin Dose Admin Acetaminophen (Tylenol) 650 mg Q4H PRN ORAL Mild Pain/Temp > 100.5 05/24/18 15:00 06/23/18 14:59 05/29/18 23:34 Amiodarone HCl (Cordarone) 200 mg DAILY ORAL 05/24/18 09:00 06/18/18 10:29 05/31/18 08:23 Cetylpyridinium Chloride (Cepacol) 1 lozg Q2H PRN DAMIR For Cough 05/23/18 17:47 06/22/18 17:46 Chlorhexidine Gluconate (Shahrzad-Hex 2%) 1 applic DAILY@2000 TOPIC 05/26/18 20:00 06/25/18 19:59 05/30/18 20:19 Dextrose/ Electrolytes 1,000 ml @ 75 mls/hr [id number] IV 05/28/18 13:00 06/27/18 12:59 05/31/18 05:26 Dopamine HCl/ Dextrose 250 ml @ 0 mls/hr Q24H IV 05/25/18 07:15 06/24/18 07:14 05/25/18 07:00 Hydralazine HCl (Apresoline) 10 mg Q6HR PRN ORAL SBP above 150 05/25/18 02:00 06/24/18 01:59 Losartan Potassium (Cozaar) 50 mg DAILY ORAL 05/25/18 09:00 06/24/18 08:59 05/30/18 09:17 Norepinephrine Bitartrate 4 mg/ Dextrose 250 ml @ 0 mls/hr Q24H IV 05/25/18 08:00 06/24/18 07:59 Pantoprazole (Protonix) 40 mg DAILY IVP 05/24/18 09:00 06/18/18 08:59 05/31/18 08:24 Phenol/Menthol (Chloraseptic) 1 spray Q3H PRN ORAL throat pain 05/27/18 13:45 06/26/18 13:44 05/29/18 23:34 Porfirio Jade MD May 31, 2018 12:31
--- NOTE | 2018-05-31 13:41 | Pre-Procedure Note/Attestation ---
Pre-Procedure Note/Attestation Complete Prior to Procedure Planned Procedure: not applicable Procedure Narrative: tracheostomy Indications for Procedure Pre-Operative Diagnosis: respiratory insufficiency requiring prolonged ventilatory support Attestation I attest that I discussed the nature of the procedure; its benefits; risks and complications; and alternatives (and the risks and benefits of such alternatives ), prior to the procedure, with the patient (or the patient's legal hardware supplies sales representative). I attest that, if there was a reasonable possibility of needing a blood transfusion, the patient (or the patient's legal hardware supplies sales representative) was given the [facility] standardized written summary, pursuant to the Delmar Valentine Blood Safety Act ([place] Health and Safety Code # 1645, as amended). I attest that I re-evaluated the patient just prior to the surgery and that there has been no change in the patient's H&P, except as documented below: Salvatore Duffy May 31, 2018 13:41
--- NOTE | 2018-05-31 14:30 | NUR ---
NURSE NOTES: Surgery called for follow up , and as stated they will call us when ready.Patient made aware.Call light within easy reach.
[2018-05-31] MEDS ORDERED: Lidocaine 1% 10mg/ml/Epi 0.005mg/ml 30ml vial INJ ONE (16:08)
--- NOTE | 2018-05-31 16:09 | NUR ---
NURSE NOTES: Still waiting surgery to call back ,pt made aware and update given to family at bedside.Patient kept clean and comfortable.
--- NOTE | 2018-05-31 16:40 | NUR ---
*-* INSURANCE *-* ALL CLINICALS AND REVIEWS HAVE BEEN FAXED TO: [facility] JAYLA KELSEY P:[phone] F: [phone] Addendum: 05/31/18 at 1642 by JULI GEORGE CM clinicals sent only no review available att he time
--- NOTE | 2018-05-31 17:02 | NUR ---
NURSE NOTES: Patient taken down for tracheostomy placement
[2018-05-31] MEDS ORDERED: LR 1000ml ONE (17:06)
[2018-05-31] MEDS ORDERED: Zemuron 50mg/5ml Inj IV ONE (17:06)
--- NOTE | 2018-05-31 17:32 | Anethesia Preoperative Eval ---
Anesthesia Pre-op PMH/ROS General Date of Evaluation: May 31, 2018 Time of Evaluation: 17:01 Anesthesiologist: Altaf ASA Score: ASA 4 - Emergency Mallampati Score Class I : Soft palate, uvula, fauces, pillars visible Class II: Soft palate, uvula, fauces visible Class III: Soft palate, base of uvula visible Class IV: Only hard plate visible Mallampati Classification: Class IV Surgeon: Clive Diagnosis: Ventilatory Failure Surgical Procedure: Tracheostomy Anesthesia History: none Family History: no anesthesia problems Allergies: Coded Allergies: No Known Allergies (Unverified , 02/20/17) Medications: see eMAR Patient NPO?: Yes NPO Date: May 31, 2018 NPO Time: 2018 Past Medical History Cardiovascular: Reports: HTN, arrhythmia - AFlutter, other - CHF, HL, Thoracic , Abd Aneurysm Pulmonary: Reports: asthma, other - Ventilatory Failure Endocrine: Reports: DM Hematology/Immune: Reports: anemia Musculoskeletal/Integumentary: Reports: edema Other: obesity - Morbid BMI 60 Anesthesia Pre-op Phys. Exam Physician Exam Last Vital Signs Date Time Temp Pulse Resp B/P (MAP) Pulse Ox O2 Delivery O2 Flow Rate FiO2 05/31/18 16:41 72 21 30 05/31/18 16:00 Mechanical Ventilator Mechanical Ventilator 05/31/18 16:00 98.0 144/78 (100) 100 05/30/18 07:10 60.0 Constitutional: NAD Neurologic: CN 2-12 intact Cardiovascular: RRR Respiratory: CTA Airway Exam Mallampati Score: Class IV MO: limited ROM: limited Teeth: missing Anesthesia Pre-op A/P Labs Hematology Test 05/31/18 04:35 White Blood Count 5.7 K/UL (4.8-10.8) Red Blood Count 3.41 M/UL (4.20-5.40) L Hemoglobin 9.8 G/DL (12.0-16.0) L Hematocrit 31.6 % (37.0-47.0) L Mean Corpuscular Volume 93 FL (80-99) Mean Corpuscular Hemoglobin 28.6 PG (27.0-31.0) Mean Corpuscular Hemoglobin Concent 30.8 G/DL (32.0-36.0) L Red Cell Distribution Width 15.2 % (11.6-14.8) H Platelet Count 172 K/UL (150-450) Mean Platelet Volume 5.6 FL (6.5-10.1) L Neutrophils (%) (Auto) 69.5 % (45.0-75.0) Lymphocytes (%) (Auto) 18.3 % (20.0-45.0) L Monocytes (%) (Auto) 10.5 % (1.0-10.0) H Eosinophils (%) (Auto) 0.7 % (0.0-3.0) Basophils (%) (Auto) 1.0 % (0.0-2.0) Coagulation Test 05/31/18 04:35 Prothrombin Time 10.4 SEC (9.30-11.50) Prothromb Time International Ratio 1.0 (0.9-1.1) Chemistry Test 05/31/18 04:35 Sodium Level 142 MMOL/L (136-145) Potassium Level 4.3 MMOL/L (3.5-5.1) Chloride Level 107 MMOL/L (98-107) Carbon Dioxide Level 31 MMOL/L (21-32) Anion Gap 4 mmol/L (5-15) L Blood Urea Nitrogen 15 mg/dL (7-18) Creatinine 0.9 MG/DL (0.55-1.30) Estimat Glomerular Filtration Rate > 60 mL/min (>60) Glucose Level 134 MG/DL (74-106) H Calcium Level 8.8 MG/DL (8.5-10.1) Magnesium Level 2.0 MG/DL (1.8-2.4) Risk Assessment & Plan Assessment: ASA 4E Plan: GA Status Change Before Surgery: No Chance Solitario MD May 31, 2018 17:32
--- NOTE | 2018-05-31 17:34 | Immediate Post-Op Evaluation ---
Immediate Post-Op Evalulation Immediate Post-Op Evalulation Procedure: Tracheostomy Date of Evaluation: May 31, 2018 Time of Evaluation: 18:18 IV Fluids: 100 LR Blood Products: 0 Estimated Blood Loss: 10 Urinary Output: 0 Blood Pressure Systolic: 160 Blood Pressure Diastolic: 83 Pulse Rate: 64 Respiratory Rate: 20 - Mech Vent O2 Sat by Pulse Oximetry: 99 Temperature (Fahrenheit): 98.4 Pain Score (1-10): 1 Nausea: No Vomiting: No Complications 0 Patient Status: no response, patent, ventilated, none Hydration Status: adequate Chance Solitario MD May 31, 2018 17:34
--- NOTE | 2018-05-31 17:35 | NUR ---
DIRECTOR OF EVENT MARKETING SI: RESP FAILURE, ACUTE ON CHRONIC VS: BP 51/32, P 53, T 98.2, RR 20, SpO2 100 on VENT AC 20, TV 500, PEEP 5.0, FiO2 30 RBC 3.41, Hgb 9.8, Hct 31.6 IS: D5/ELECTROLYTE x1L IV AMPICILLIN 500mg PROTONIX 40mg IVP COREG 3.125mg AMPICILLIN 500mg AMIODARONE 200mg PROTONIX 40mg IVP DOPAMINE HCI/D5 250ml IV NOREPINEPHRINE 250ml IV COZAAR 50mg ICU STATUS
--- NOTE | 2018-05-31 18:01 | NUR ---
NURSE NOTES: S/P trach with no apparent bleeding nor acute distress,will continue to monitor
--- NOTE | 2018-05-31 18:02 | NUR ---
RESPIRATORY NOTE: pt back in ICU with new trach in place with Shiley 8 secured via trach tie/guard.
--- NOTE | 2018-05-31 18:10 | Brief Operative Note ---
Immediate Post Operative Note Operative Note Pre-op Diagnosis: respiratory insufficiency requiring prolonged ventilatory support Procedure: tracheostomy Post-op Diagnosis: same as pre-op Surgeon: jey Anesthesiologist: sadie Anesthesia: general, local Specimen: none Complications: none Condition: stable Fluids: see records Estimated Blood Loss: minimal Drains: none Implant(s) used?: Salvatore Mandujano May 31, 2018 18:10
--- NOTE | 2018-05-31 19:06 | NUR ---
HAND-OFF: Report given to ALVARO Nunes.
--- NOTE | 2018-05-31 19:20 | NUR ---
NURSE NOTES: Patient received from Marimar JOHN. Patient is s/p tracheostomy today, patient came back around 1700 and is still drowsy from procedure. Patients pupils do react to pen line, motor response reactive to stimuli and reflexes are active. Patient is trached with a Shiley 8, no visible blood or drainage from tracheostomy site. Current vent settings are as follows AC 20, 500tv, 30% FiO2 and peep of 5. Patient has an ANGEL PICC line that is dry and intact. D5W w20mEq KCl infusing at 75ml/hr. Vogel catheter noted and hanging below bladder.
--- NOTE | 2018-05-31 19:30 | NUR ---
NURSE NOTES: Patients brother Fernando and friend Ann at bedside visiting patient. Will continue to monitor.
--- NOTE | 2018-05-31 20:00 | NUR ---
NURSE NOTES: Patient repositioned and adjusted pillows. Full skin assessment conducted. No new wounds or blisters/redness observed, integumentary remains intact. Optifoa added to bony prominences for support. Calazime added for prevention on certain areas. A&D applied to certain areas also for protection and prevention.
[2018-05-31] MEDS: Dyna-Hex 2% Top Sol 2oz TOPIC SCH (20:25)
--- NOTE | 2018-05-31 22:00 | NUR ---
NURSE NOTES: Patient was repositioned and oral care was provided earlier. Heels remained off loaded. Patient given instructions to perform passive range of motion, assisted as much as patient needed. Instructed patient to try to shift body as much as possible to promote circulation and remove as much pressure on particular area of the body.
--- NOTE | 2018-05-31 23:45 | Operative Note - Dictated ---
DATE OF OPERATION: 05/31/2018 PREOPERATIVE DIAGNOSIS: Respiratory insufficiency requiring prolonged ventilatory support and safe airway. POSTOPERATIVE DIAGNOSIS: Respiratory insufficiency requiring prolonged ventilatory support and safe airway. OPERATION PERFORMED: Tracheostomy. ATTENDING SURGEON: Salvatore Duffy M.D. TERRITORY REPRESENTATIVE: None. ANESTHESIOLOGIST: Chance Solitario M.D. ANESTHESIA: General REGULATORY AUDITOR. ESTIMATED BLOOD LOSS: Minimal. IV FLUIDS: Please see anesthesia records. COMPLICATIONS: None. DRAINS: None. WOUND CLASSIFICATION: Class 1. INTRAVENOUS FLUIDS: Please see anesthesia records. IMPLANTS: An 8-Japanese Shiley tracheostomy. INDICATIONS FOR PROCEDURE: This 67-year-old female presented to [facility] with shortness of breath and respiratory distress. She was intubated for airway protection and has continued to require ventilatory support. She has been weaned down on the ventilator, but unfortunately not safe for extubation given her respiratory status and condition. Discussions held with the patient and the family by both ware dresser and myself for evaluation of tracheostomy, which the patient expressed understanding of what it was, its goals, indications, and consented to procedure. Operative surgery is scheduled for 05/31/2018. OPERATIVE NOTE: The patient was taken to the operating room and made comfortable in the specialized hospital bed. Preoperative time-out taken in identifying the patient, procedure, operative staff, and surgical staff. SCDs were placed. The patient was placed on appropriate monitoring. A shoulder roll was placed. General anesthesia was induced. The neck was extended and prepped and draped in standard surgical fashion. Local anesthetic was infiltrated in the proposed skin incision approximately two fingerbreadths above the sternal notch. Skin incision was made using fresh #15 scalpel and carried down to the subcutaneous tissue platysma to the strap muscles. The median raphae was identified and divided. A large thyroid isthmus was identified and retracted superiorly. The thyroid cartilage was palpated and a thyroid hook was placed. Using blunt dissection electrocautery, the first and second tracheal rings were cleared off and is identified with good visualization and exposure. At this time, a Kane flap was made between the first and second tracheal ring and ET-tube was identified. With the assistance of the anesthesiologist, the ET-tube was slowly withdrawn and once above the flap/window, an 8-Japanese Shiley tracheostomy was inserted under direct visualization without complication. The patient was ventilated through the tracheostomy and good end-tidal CO2 and volumes were identified. At this time, retractors and tracheal hook were removed. Hemostasis was noted. The skin incisions were approximated using 3-0 Monocryl interrupted sutures. Dressings and trach tie were applied. The patient tolerated the procedure well and was taken directly to the intensive care unit in stable condition. Salvatore Duffy M.D. DR: ENEDELIA JOB#: [id number] CC:
[2018-06-01] VITALS (24 sets, daily range): BP systolic 104–158; BP diastolic 58–123
--- NOTE | 2018-06-01 | NUR ---
NURSE NOTES: Repositioned patient, oral care provided and pericare given. Maintenance fluids ongoing, PICC line remains patent and intact. NAD at this time. HR continues to be Sinus Mika in the higher 40s into lower 50s. Afebrile. Oral and deep suctioning provided. Remains alert and oriented. Heels remain off loaded. Vogel remains secured. Call light within reach and bed in lowest position. No BM yet. Trach site remains dry and intact, no drainage or blood observed on trach site.
--- NOTE | 2018-06-01 02:00 | NUR ---
NURSE NOTES: Repositioned patient and adjusted pillows. Heels remains off loaded. Oral care was provided again. Patients HR remains SB in the 50s, remains afebrile. BP remains stable. Tracheostomy site remains clean, dry and intact. Oral and deep suctioning provided. No acute respiratory distress at this time. Call light remains within reach. Patient remains alert and oriented at this time. Instructed patient to shift body as much as possible to reduce and prevent pressure. Will continue to monitor patients progress.
--- NOTE | 2018-06-01 03:15 | Progress Note ---
DATE: 05/31/2018 CARDIOLOGY PROGRESS NOTE SUBJECTIVE: The patient is status post trach. No complications noted. She is now on ventilator support. OBJECTIVE: VITAL SIGNS: Blood pressure 144/94, pulse 49, and respirations 20. Monitor, sinus bradycardia. Thin trach secretions. No bleeding. LUNGS: Bilateral breath sounds. No wheezing. HEART: Regular rhythm. Slow rate. Normal S1, S2. ABDOMEN: Soft and obese. EXTREMITIES: With dependent mostly nonpitting edema. LABORATORY DATA: White count 5.7 and hemoglobin 9.8. Potassium 4.3, magnesium 2, BUN 15, and creatinine 0.9. IMPRESSION: 1. Obesity hypoventilation syndrome. 2. Respiratory failure status post tracheostomy. 3. Sinus node disease with bradycardia. 4. Status post respiratory arrest with bradycardia due to hypercarbia. 5. Lymphedema. PLAN: 1. Trach care. 2. Respiratory therapy. 3. Ventilator support. 4. Amiodarone for arrhythmia suppression. 5. Off beta-blockers. 6. May need to consider decreasing amiodarone dose or backup pacing in the future. Maxim Levin M.D. DR: FRANCESCA JOB#: [id number] CC:
--- NOTE | 2018-06-01 04:00 | NUR ---
NURSE NOTES: Patient repositioned and adjusted pillows. Sponge bath given and A&D applied along with Calazime in certain areas for prevention and protection of the skin. Heels remain off loaded. PICC line dressing changed using aseptic technique. Both PICC line lumens remain working patently. Maintenance fluids ongoing. HR remains in the 50s SB. Same ventilator settings continue. Patient able to self oral cavity suction. Oral care provided. Brushed patients teeth. NAD at this time. Call light remains within patients reach. Patient remains afebrile. Patient instructed to shift body as much as possible to promote integumentary circulation. Will continue to monitor.
--- NOTE | 2018-06-01 07:00 | NUR ---
RESPIRATORY NOTE: Received Patient on Vent ACVC RR 20, VT 500, FIO2 30%, PEEP +5. Patient has a Shiley [address], secured with trache ties. Diminished breath sounds heard bilaterally throughout both lung goodwin. Patient alert and awake. Vent plugged into red outlet. Alarms on and audible. Will continue to monitor throughout the day.
[2018-06-01] MEDS: DOPamine 400mg/250ml 250 ML IV SCH (07:15)
--- NOTE | 2018-06-01 07:22 | NUR ---
NURSE NOTES: Report received from Des JOHN. Pt alert and oriented x4, able to make needs known. Pt complaining of pain at trache site, will follow up with md for IV pain med. Pt SR on cardiac specialist in the 60s. Pt trache to vent shiley #8, AC 20, TV 500, 30% fiO2, PEEP5. Pt denies SOB or difficulty breathing. Pt kept NPO at this time. Vogel noted and intact draining clear doris urine to gravity. ANGEL PICC connected to D5+20K at 75 cc/hr. Safety measures in place with bed locked and in lowest position, side rails x3 up, call light within reach and bed alarm on. Will continue to monitor and continue plan of care.
[2018-06-01] MEDS: Pantoprazole Inj IVP SCH (08:07)
[2018-06-01] MEDS: Amiodarone 200mg tab ORAL SCH (08:08)
[2018-06-01] MEDS: Morphine Sulfate 2mg/ml Inj(IV/IM USE ONLY) IVP PRN ×3 (08:08→17:40)
[2018-06-01] MEDS: Losartan 50mg tab ORAL SCH (08:08)
--- NOTE | 2018-06-01 08:25 | 48 Hour Post Anesthesia Eval ---
Post Anesthesia Evaluation Procedure: Tracheostomy Date of Evaluation: Jun 01, 2018 Time of Evaluation: 06:26 Blood Pressure Systolic: 141 0: 76 Pulse Rate: 70 Respiratory Rate: 20 - Mech Vent Temperature (Fahrenheit): 99.5 O2 Sat by Pulse Oximetry: 100 Airway: patent Nausea: No Vomiting: No Pain Intensity: 1 Hydration Status: adequate Cardiopulmonary Status: Stable Mental Status/LOC: patient returned to baseline Follow-up Care/Observations: 0 Post-Anesthesia Complications: 0 Follow-up care needed: N/A Chance Solitario MD Jun 01, 2018 08:25
--- NOTE | 2018-06-01 09:06 | NUR ---
YOUTH ADVOCATEBEE RANCHER SI:RESPIRATORY FAILURE ACUTE ON CHRONIC VS: BP 141/76, P 58, T 99.5, RR 20, SpO2 100 on VENT AC 20, TV 500, PEEP 5.0, FiO2 30 IS:MORPHINE 2mg IVP COZAAR 50mg NOREPINEPHRINE 250ml IV DOPAMINE 250ml IV PROTONIX 40mg IVP CORDARONE 200mg ICU STATUS
--- NOTE | 2018-06-01 09:24 | NUR ---
NURSE NOTES: Pt resting comfortably after receiving morphine IV prn. No acute distress. Will continue to monitor.
[2018-06-01] MEDS: D5W w/KCl 20mEq 1,000 ML IV SCH ×2 (09:28→23:53)
--- NOTE | 2018-06-01 10:12 | NUR ---
NURSE NOTES: Turned and repositioned pt. Pt suctioned. Will continue to monitor.
--- NOTE | 2018-06-01 12:40 | General Progress Note ---
Progress Note Progress Note looks good post op day 1 trach stable site clean good volumes more comfortable dressings prn wean vent as tolerated thank you Salvatore Duffy Jun 01, 2018 12:40
--- NOTE | 2018-06-01 12:40 | NUR ---
NURSE NOTES: Dr Duffy here to see pt. No new orders. No acute distress. Will continue to monitor.
--- NOTE | 2018-06-01 13:12 | NUR ---
*-* INSURANCE *-* UPDATED CLINICALS AND REVIEWS HAVE BEEN FAXED TO: [facility] P:[phone] F: [phone]
--- NOTE | 2018-06-01 14:35 | Pulmonology Progress Note ---
Assessment/Plan Assessment/Plan 1. Status post arrest x 2 2. Respiratory failure, acute on chronic. 3. Obesity hypoventilation syndrome and sleep apnea. 4. Morbid obesity. 5. Thoracic aortic aneurysm dissection, type A and B chronic 6. Diabetes. 7. Hypertension. 8. UTI - strep species resp failure on vent via trach alert and responsive; using pen/paper to write notes OG tube, feeds swallow eval enteral pain rx Subjective Constitutional: Reports: no symptoms Respiratory: Reports: no symptoms; Denies: shortness of breath Allergies: Coded Allergies: No Known Allergies (Unverified , 02/20/17) Objective Last 24 Hour Vital Signs Date Time Temp Pulse Resp B/P (MAP) Pulse Ox O2 Delivery O2 Flow Rate FiO2 06/01/18 14:00 62 20 140/82 (101) 100 06/01/18 13:09 55 20 30 06/01/18 13:00 51 20 135/86 (102) 100 06/01/18 12:00 99.7 49 20 148/87 (107) 100 06/01/18 12:00 30 06/01/18 12:00 Mechanical Ventilator Mechanical Ventilator 06/01/18 12:00 45 06/01/18 11:00 58 20 134/84 (101) 100 06/01/18 10:50 56 20 30 06/01/18 10:00 54 20 131/74 (93) 06/01/18 09:07 55 20 30 06/01/18 09:00 56 20 125/67 (86) 100 06/01/18 08:25 70 20 100 06/01/18 08:08 141/76 06/01/18 08:00 Mechanical Ventilator Mechanical Ventilator 06/01/18 08:00 30 06/01/18 08:00 58 06/01/18 08:00 99.5 58 20 131/74 (93) 100 06/01/18 07:20 70 20 30 06/01/18 07:16 141/76 06/01/18 07:15 141/76 06/01/18 07:00 67 17 141/76 (97) 100 06/01/18 06:00 53 20 142/67 (92) 100 06/01/18 05:00 57 20 137/123 (128) 100 06/01/18 05:00 57 20 30 06/01/18 04:00 58 06/01/18 04:00 99.0 65 20 122/58 (79) 06/01/18 04:00 Mechanical Ventilator Mechanical Ventilator 06/01/18 04:00 30 06/01/18 03:02 52 20 30 06/01/18 03:00 51 20 138/105 (116) 100 06/01/18 02:00 50 20 148/66 (93) 100 06/01/18 01:26 56 20 30 06/01/18 01:00 54 17 152/79 (103) 99 06/01/18 00:00 30 06/01/18 00:00 Mechanical Ventilator Mechanical Ventilator 06/01/18 00:00 99.3 47 20 158/83 (108) 100 06/01/18 00:00 45 05/31/18 23:00 53 20 146/100 (115) 100 05/31/18 22:49 55 20 30 05/31/18 22:00 49 20 144/94 (111) 100 05/31/18 21:13 60 21 30 05/31/18 21:00 52 20 153/101 (118) 100 05/31/18 20:00 Mechanical Ventilator Mechanical Ventilator 05/31/18 20:00 53 05/31/18 20:00 98.7 58 19 154/87 (109) 100 05/31/18 20:00 30 05/31/18 19:15 69 20 30 05/31/18 18:58 69 20 169/98 (121) 100 05/31/18 18:10 60 20 168/106 (126) 93 05/31/18 18:00 64 20 99 05/31/18 16:41 72 21 30 05/31/18 16:00 63 05/31/18 16:00 Mechanical Ventilator Mechanical Ventilator 05/31/18 16:00 98.0 58 20 144/78 (100) 100 05/31/18 16:00 30 05/31/18 15:00 54 20 150/72 (98) 98 05/31/18 14:37 62 20 30 Intake and Output 05/31/18 06/01/18 18:59 06:59 Intake Total 855 ml 900 ml Output Total 375 ml 550 ml Balance 480 ml 350 ml Free Water 30 ml IV Total 825 ml 900 ml Output Urine Total 375 ml 550 ml Objective morbidly obese, trach/vent HEENT: atraumatic Respiratory/Chest: lungs clear Cardiovascular: normal rate Abdomen: soft, non tender Current Medications Medications (Trade) Dose Ordered Sig/Tera Route PRN Reason Start Time Stop Time Status Last Admin Dose Admin Acetaminophen (Tylenol) 650 mg Q4H PRN ORAL Mild Pain/Temp > 100.5 05/24/18 15:00 06/23/18 14:59 05/29/18 23:34 Amiodarone HCl (Cordarone) 200 mg DAILY ORAL 05/24/18 09:00 06/18/18 10:29 05/31/18 08:23 Cetylpyridinium Chloride (Cepacol) 1 lozg Q2H PRN DAMIR For Cough 05/23/18 17:47 06/22/18 17:46 Chlorhexidine Gluconate (Shahrzad-Hex 2%) 1 applic DAILY@2000 TOPIC 05/26/18 20:00 06/25/18 19:59 05/31/18 20:25 Dextrose/ Electrolytes 1,000 ml @ 75 mls/hr [id number] IV 05/28/18 13:00 06/27/18 12:59 06/01/18 09:28 Dopamine HCl/ Dextrose 250 ml @ 0 mls/hr Q24H IV 05/25/18 07:15 06/24/18 07:14 05/25/18 07:00 Hydralazine HCl (Apresoline) 10 mg Q6HR PRN ORAL SBP above 150 05/25/18 02:00 06/24/18 01:59 Losartan Potassium (Cozaar) 50 mg DAILY ORAL 05/25/18 09:00 06/24/18 08:59 05/30/18 09:17 Morphine Sulfate (Morphine Sulfate) 2 mg Q3H PRN IVP For Pain 06/01/18 07:45 06/08/18 07:44 06/01/18 13:53 Norepinephrine Bitartrate 4 mg/ Dextrose 250 ml @ 0 mls/hr Q24H IV 05/25/18 08:00 06/24/18 07:59 Pantoprazole (Protonix) 40 mg DAILY IVP 05/24/18 09:00 06/18/18 08:59 06/01/18 08:07 Phenol/Menthol (Chloraseptic) 1 spray Q3H PRN ORAL throat pain 05/27/18 13:45 06/26/18 13:44 05/29/18 23:34 Porfirio Jade MD Jun 01, 2018 14:35
[2018-06-01] MEDS ORDERED: HYDROcodone/Acetamin 5/325 tab GT PRN (14:45)
--- NOTE | 2018-06-01 15:16 | NUR ---
NURSE NOTES: Dr Jade came to see pt. ordered to re-insert NGT, start feeding and po pain meds. VSS. Will continue to monitor.
--- NOTE | 2018-06-01 16:28 | NUR ---
NURSE NOTES: Inserted NGT. CXR taken. Awaiting xray report. No acute distress. Will continue to monitor.
--- NOTE | 2018-06-01 17:28 | Diagnostic Imaging Report ---
Indication: Post tracheostomy placement Technique: One view of the chest Comparison: 05/31/2018 Findings: Interim exchange of endotracheal tube for tracheostomy. There is a nasogastric tube in place, tip projecting at level gastric fundus, proximal port at or just beyond the gastroesophageal junction. No pneumomediastinum. Lungs and pleural spaces are clear. The heart is enlarged. The aorta is aneurysmal Impression: Exchange of endotracheal tube for tracheostomy. No radiographically evident complication Somewhat high position of nasogastric tube. Advancement recommended Other findings as noted Findings discussed by phone with patient's nurse at the time of interpretation
--- NOTE | 2018-06-01 17:29 | NUR ---
NURSE NOTE: Advanced NGT 10 cm as per radiology. Awaiting CXR. Will continue to monitor.
--- NOTE | 2018-06-01 19:03 | NUR ---
HAND-OFF: Report given to Des JOHN.
--- NOTE | 2018-06-01 20:00 | NUR ---
NURSE NOTES: Report received from Essie JOHN. Pt alert and oriented x4, able to make needs known. Pt SR on process coordinator in the 60s. Pt trache to vent shiley #8, AC 20, TV 500, 30% fiO2, PEEP5. Pt denies SOB or difficulty breathing. Pt kept NPO at this time. Vogel noted and intact draining clear doris urine to gravity. ANGEL PICC connected to D5+20K at 75 cc/hr. Safety measures in place with bed locked and in lowest position, side rails x3 up, call light within reach and bed alarm on. Will continue to monitor and continue plan of care.
[2018-06-01] MEDS: Dyna-Hex 2% Top Sol 2oz TOPIC SCH (21:07)
[2018-06-02] VITALS (13 sets, daily range): BP systolic 91–137; BP diastolic 58–108
--- NOTE | 2018-06-02 | NUR ---
NURSE NOTES: Repositioned patient, oral care provided and pericare given. Maintenance fluids ongoing, PICC line remains patent and intact. NAD at this time. HR continues to be Sinus Mika in the50s. Afebrile. Oral and deep suctioning provided. Remains alert and oriented. Heels remain off loaded. Vogel remains secured. Call light within reach and bed in lowest position. No BM yet. Trach site remains dry and intact, no drainage or blood observed on trach site.
[2018-06-02] MEDS: Morphine Sulfate 2mg/ml Inj(IV/IM USE ONLY) IVP PRN ×2 (01:07→21:07)
--- NOTE | 2018-06-02 04:00 | NUR ---
NURSE NOTES: Patient repositioned and given oral care. No new changes. Patients BP remains stable. HR is 65 SR. Skin remains intact. Will continue to monitor.
--- NOTE | 2018-06-02 04:00 | Progress Note ---
DATE: 06/01/2018 SUBJECTIVE: The patient is status post tracheostomy yesterday without complications. She is on ventilator support. She is alert and responsive. She has no pain. OBJECTIVE: VITAL SIGNS: Blood pressure 140/82, pulse 62, and respirations 20. Heart rate ranging from 49 to 62. Monitored rhythm, sinus and sinus bradycardia. No pauses. LUNGS: Diminished breath sounds. Trach site with thin secretions and no bleeding. CARDIAC: Regular rhythm. Slow rate. Normal S1, S2. ABDOMEN: Soft. EXTREMITIES: There is significant lower extremity edema. LABORATORY DATA: Laboratories pending. IMPRESSION: 1. Ventilator-dependent respiratory failure. 2. Sinus bradycardia. 3. Aortic dissection type A and B. 4. Status post respiratory arrest x2 with CPR. 5. Obesity hypoventilation. 6. Lymph edema. 7. Paroxysmal atrial fibrillation. PLAN: 1. Maintain amiodarone. Decrease dose to 100 daily, maintenance. 2. No surgical plan for dissection. 3. Cannot give beta-michael due to bradycardia. 4. Anticoagulation in view of risk of DVT and cardioembolic event. 5. Ventilator therapy per primary care physician. Maxim Levin M.D. DR: FRANCESCA JOB#: [id number] CC:
[2018-06-02 04:10] LABS: BASOPHILS % (AUTO) 0.8 % (0.0-2.0); EOSINOPHILS % (AUTO) 0.1 % (0.0-3.0); HEMATOCRIT 34.2 % (37.0-47.0); HEMOGLOBIN 10.7 G/DL (12.0-16.0); LYMPHOCYTES % (AUTO) 14.3 % (20.0-45.0); MEAN CORPUSCULAR VOLUME 91 FL (80-99); MONOCYTES % (AUTO) 9.4 % (1.0-10.0); NEUTROPHILS % (AUTO) 75.5 % (45.0-75.0); PLATELET COUNT 180 K/UL (150-450); RED BLOOD COUNT 3.75 M/UL (4.20-5.40); RED CELL DISTRIBUTION WIDTH 14.9 % (11.6-14.8); WHITE BLOOD COUNT 8.3 K/UL (4.8-10.8)
[2018-06-02 04:28] LABS: ALANINE AMINOTRANSFERASE 32 U/L (12-78); ALBUMIN 2.4 G/DL (3.4-5.0); ALBUMIN/GLOBULIN RATIO 0.6 (1.0-2.7); ALKALINE PHOSPHATASE 87 U/L (46-116); ANION GAP 6 mmol/L (5-15); ASPARTATE AMINO TRANSFERASE 16 U/L (15-37); BILIRUBIN,TOTAL 0.8 MG/DL (0.2-1.0); BLOOD UREA NITROGEN 13 mg/dL (7-18); CALCIUM 9.1 MG/DL (8.5-10.1); CARBON DIOXIDE 30 MMOL/L (21-32); CHLORIDE 103 MMOL/L (98-107); POTASSIUM 4.1 MMOL/L (3.5-5.1); SODIUM 138 MMOL/L (136-145)
--- NOTE | 2018-06-02 06:00 | NUR ---
NURSE NOTES: Patient repositioned and provided oral care. No acute changes overnight. Patient remained stable.
--- NOTE | 2018-06-02 06:38 | NUR ---
RESPIRATORY NOTE: Received pt on trach cuffed, Shiley size 8.0, secured by trach tie and trach guard, with the current setting: AC 20-500ml-30%- peep of 5. Pt is awake, alert and able to follow simple command. Vent circuits and sxn tube are patent and out of the way. Pt is sleeping comfortably in the bed, no SOB or resp distress at this time. Alarms are set and audible, vent is plugged into the red outlet, ambu bag is at bedside. Will continue to monitor pt .
--- NOTE | 2018-06-02 08:00 | NUR ---
NURSE NOTES: Report received from ALVARO Nunes. Pt alert and oriented x4, able to make needs known. Pt SR on patient monitor in the 60s. Pt trache to vent shiley #8, AC 20, TV 500, 30% fiO2, PEEP5. Pt denies SOB or difficulty breathing. Vogel noted and intact draining clear doris urine to gravity. ANGEL PICC connected to D5+20K at 75 cc/hr. Safety measures in place with bed locked and in lowest position, side rails x3 up, call light within reach and bed alarm on. Will continue to monitor and continue plan of care.
[2018-06-02] MEDS: Losartan 50mg tab ORAL SCH (08:34)
[2018-06-02] MEDS ORDERED: Amiodarone 200mg tab ORAL SCH (09:00)
[2018-06-02] MEDS ORDERED: Eliquis 2.5mg tablet ORAL SCH (09:00)
[2018-06-02] MEDS: Pantoprazole Inj IVP SCH (09:16)
--- NOTE | 2018-06-02 09:30 | NUR ---
HAND-OFF: Report given to ALVARO Carty.
--- NOTE | 2018-06-02 09:35 | NUR ---
NURSE NOTES: Received pt on a big bouy bed form ICU.Report given by Eliana JOHN.Pt awake,alert oriented in no resp distress with trach -Vent ,on current settings tolerating well,GTF Vital AF 1.2 at 55ml/hr ,Vogel cath draining yellow urine,IV PICC line site intact with IVF D5W+20 meq KCL at 75 ml/hr,SR up x2 HOB elevated bedlock in lowest position ,will continue with plans of care.
[2018-06-02] MEDS ORDERED: Chloraseptic Spray 20mL Bottle ORAL PRN (09:53)
[2018-06-02] MEDS: HYDROcodone/Acetamin 5/325 tab GT PRN (10:24)
--- NOTE | 2018-06-02 10:32 | NUR ---
RD ASSESSMENT & RECOMMENDATIONS SEE CARE ACTIVITY FOR COMPLETE ASSESSMENT DAILY ESTIMATED NEEDS: Needs based on Critical Care, morbidly obese 22-25kcal/kg IBW (61kg) kcals/kg 2936-5082 total kcals 1.8-2.5 IBW (61kg) g protein/kg 109-152 g total protein 20-25ml/kg abw (84kg) mL/kg 2005-7828 total fluid mLs NUTRITION DIAGNOSIS: * Swallowing difficulty R/T respiratory status as evidenced by s/p cardiac arrest, pt is reintubated, now s/p trach placement, on NGT feeding, pending HEATING TECHNICIAN evaluation. * Obesity R/T life style factors, excessive energy intake as evidenced by BMI >50, pt is 253% IBW CURRENT TF:Vital AF 1.2 @ 53ml/hr x 24 hrs ENTERAL NUTRITION RECOMMENDATIONS: VITAL AF 1.2 @53ml/hr x24 hrs + Prosource 1pkt BID to provide 1272ml, 1526 kcal, 95g + 22g pro, 1032ml free H2O - Add Prosource 1 pack BID (11g pro each) to better meet est pro needs - Flush per MD. HOB over 30 degrees ADDITIONAL RECOMMENDATIONS: 1) Recalibrate bed scale as able for accurate CBW 2) Rec accucheck w/ SSI: elev BGs, h/o DM 3) Consider DC D5 IVF and increase water flushes instead -> for glycemic control, TF @ goal. 4) Monitor lytes, replete as needed 5) Monitor BM regularity- none noted since 05/28, consider stool softeners
--- NOTE | 2018-06-02 11:30 | NUR ---
NURSE NOTES: Tracheal secretions suctioned PRN,oral secretions suctioning done by pt.
--- NOTE | 2018-06-02 11:43 | NUR ---
SAMPLE SELECTOR NOTE SPOKE WITH REP. FROM [facility] AND PER HER INSTRUCTIONS I FAXED OVER REFERRAL TO [facility]. FAX- WILL FOLLOW UP
--- NOTE | 2018-06-02 11:44 | Diagnostic Imaging Report ---
Indication: Nasogastric intubation Technique: XRAY Abdomen 1v Comparison: 05/25/2018 Findings: Nasogastric tube tip terminates in the region of the distal stomach. Some mildly prominent small bowel loops are noted although bowel gas pattern is overall nonspecific. No sensitive evaluation can be made with CT abdomen as clinically indicated. There are degenerative changes in the spine. Impression: Satisfactory positioning of enteric tube with the tip the region of the distal stomach. This corresponds with the preliminary report.
--- NOTE | 2018-06-02 11:59 | Pulmonology Progress Note ---
Assessment/Plan Assessment/Plan 1. Status post arrest x 2 2. Respiratory failure, acute on chronic. 3. Obesity hypoventilation syndrome and sleep apnea. 4. Morbid obesity. 5. Thoracic aortic aneurysm dissection, type A and B chronic 6. Diabetes. 7. Hypertension. 8. UTI - strep species resp failure on vent via trach alert and responsive NG tube, feeds swallow eval enteral pain rx disc w RN, case managers Refer to [place] Subjective Constitutional: Reports: no symptoms Respiratory: Denies: shortness of breath Cardiovascular: Reports: no symptoms Allergies: Coded Allergies: No Known Allergies (Unverified , 02/20/17) Objective Last 24 Hour Vital Signs Date Time Temp Pulse Resp B/P (MAP) Pulse Ox O2 Delivery O2 Flow Rate FiO2 06/02/18 11:00 75 20 30 06/02/18 09:00 71 20 101/73 (82) 100 06/02/18 08:55 72 20 30 06/02/18 08:34 89/66 06/02/18 08:00 98.0 70 20 115/92 (100) 06/02/18 08:00 Mechanical Ventilator Mechanical Ventilator 06/02/18 08:00 30 06/02/18 08:00 60 06/02/18 07:00 75 20 100/73 (82) 100 06/02/18 06:38 69 21 30 06/02/18 06:00 71 20 93/73 (80) 100 06/02/18 05:00 69 20 91/77 (82) 06/02/18 04:52 72 21 30 06/02/18 04:00 65 06/02/18 04:00 98.7 70 20 115/92 (100) 06/02/18 04:00 30 06/02/18 04:00 Mechanical Ventilator Mechanical Ventilator 06/02/18 03:09 72 20 30 06/02/18 03:00 73 18 135/108 (117) 06/02/18 02:00 58 20 137/84 (101) 98 06/02/18 01:20 62 20 30 06/02/18 01:00 58 18 126/74 (91) 99 06/02/18 00:00 57 06/02/18 00:00 Mechanical Ventilator Mechanical Ventilator 06/02/18 00:00 30 06/02/18 00:00 99.6 57 20 130/67 (88) 100 06/01/18 23:00 63 20 142/91 (108) 99 06/01/18 22:47 55 20 30 06/01/18 22:00 56 18 138/83 (101) 98 06/01/18 21:44 53 20 30 06/01/18 21:00 55 20 129/86 (100) 100 06/01/18 20:05 70 20 30 06/01/18 20:00 30 06/01/18 20:00 55 06/01/18 20:00 Mechanical Ventilator Mechanical Ventilator 06/01/18 20:00 98.9 64 21 104/83 (90) 100 06/01/18 19:00 59 20 129/81 (97) 100 06/01/18 18:00 64 21 127/76 (93) 98 06/01/18 17:20 52 20 30 06/01/18 17:00 53 19 140/77 (98) 100 06/01/18 16:00 57 06/01/18 16:00 Mechanical Ventilator Mechanical Ventilator 06/01/18 16:00 99.2 53 19 134/82 (99) 99 06/01/18 16:00 30 06/01/18 15:02 57 20 30 06/01/18 15:00 57 20 129/70 (89) 100 06/01/18 14:00 62 20 140/82 (101) 100 06/01/18 13:09 55 20 30 06/01/18 13:00 51 20 135/86 (102) 100 06/01/18 12:00 99.7 49 20 148/87 (107) 100 06/01/18 12:00 30 06/01/18 12:00 Mechanical Ventilator Mechanical Ventilator 06/01/18 12:00 45 Intake and Output 06/01/18 06/02/18 19:00 07:00 Intake Total 867 ml 1143 ml Output Total 525 ml 555 ml Balance 342 ml 588 ml IV Total 867 ml 825 ml Tube Feeding 318 ml Output Urine Total 525 ml 555 ml Objective morbidly obese, trach/vent General Appearance: no acute distress HEENT: other - NGT Respiratory/Chest: lungs clear Cardiovascular: normal rate Laboratory Tests 06/02/18 04:00: White Blood Count 8.3, Red Blood Count 3.75L, Hemoglobin 10.7L, Hematocrit 34.2L , Mean Corpuscular Volume 91, Mean Corpuscular Hemoglobin 28.4, Mean Corpuscular Hemoglobin Concent 31.1L, Red Cell Distribution Width 14.9H, Platelet Count 180, Mean Platelet Volume 6.7, Neutrophils (%) (Auto) 75.5H, Lymphocytes (%) (Auto) 14.3L, Monocytes (%) (Auto) 9.4, Eosinophils (%) (Auto) 0.1, Basophils (%) (Auto) 0.8, Sodium Level 138, Potassium Level 4.1, Chloride Level 103, Carbon Dioxide Level 30, Anion Gap 6, Blood Urea Nitrogen 13, Creatinine 1.0, Estimat Glomerular Filtration Rate > 60, Glucose Level 130H, Calcium Level 9.1, Magnesium Level 2.0, Total Bilirubin 0.8, Aspartate Amino Transf (AST/SGOT) 16, Alanine Aminotransferase (ALT/SGPT) 32, Alkaline Phosphatase 87, Pro-B-Type Natriuretic Peptide 823H, Total Protein 6.4, Albumin 2.4L, Globulin 4.0, Albumin/Globulin Ratio 0.6L Current Medications Medications (Trade) Dose Ordered Sig/Tera Route PRN Reason Start Time Stop Time Status Last Admin Dose Admin Acetaminophen (Tylenol) 650 mg Q4H PRN ORAL Mild Pain/Temp > 100.5 06/02/18 09:53 06/23/18 09:52 Acetaminophen/ Hydrocodone Bitart ([place] 5/325) 1 tab Q4H PRN GT Moderate Pain (Pain Scale 4-6) 06/02/18 09:54 06/08/18 09:53 06/02/18 10:24 Amiodarone HCl (Cordarone) 100 mg DAILY ORAL 06/03/18 09:00 07/02/18 08:59 Apixaban (Eliquis) 5 mg BID ORAL 06/02/18 18:00 07/02/18 08:59 Cetylpyridinium Chloride (Cepacol) 1 lozg Q2H PRN DAMIR For Cough 06/02/18 10:00 06/22/18 17:46 Chlorhexidine Gluconate (Shahrzad-Hex 2%) 1 applic DAILY@2000 TOPIC 06/02/18 20:00 06/25/18 19:59 Dextrose/ Electrolytes 1,000 ml @ 75 mls/hr [id number] IV 06/02/18 10:00 06/27/18 12:59 Hydralazine HCl (Apresoline) 10 mg Q6HR PRN ORAL SBP above 150 06/02/18 12:00 06/24/18 01:59 Losartan Potassium (Cozaar) 50 mg DAILY ORAL 06/03/18 09:00 06/24/18 08:59 Morphine Sulfate (Morphine Sulfate) 2 mg Q3H PRN IVP Severe Breakthru Pain (>7) 06/02/18 09:54 06/08/18 09:53 Pantoprazole (Protonix) 40 mg DAILY IVP 06/03/18 09:00 06/18/18 08:59 Phenol/Menthol (Chloraseptic) 1 spray Q3H PRN ORAL throat pain 06/02/18 09:53 06/26/18 09:52 Porfirio Jade MD Jun 02, 2018 11:59
[2018-06-02] MEDS ORDERED: HydrALAZINE 10mg Tab ORAL PRN (12:00)
--- NOTE | 2018-06-02 12:34 | NUR ---
SENIOR QC TECHNICIANCABLE MECHANIC SI:ANEMIA . ASPIRATION PNA VS: BP 125/83, P 100, T 98.7, RR 22, SpO2 100 on VENT AC 16, TV 600, PEEP 5.0, FiO2 35 WBC 12.7, RBC 3.60, Hgb 10.0, Hct 30.1, K 3.4, BUN 36 IS:TIGECYCLINE 50mg 110ml IVPB VANCOMYCIN 110ml IVPB PREVACID 30mg SUCRALFATE 1gm SYNTHROID 75mcg HEPARIN SUBQ SDU STATUS Addendum: 06/02/18 at 1248 by Megan Morin LVN ABOVE IS WRONG PT REVIEW
--- NOTE | 2018-06-02 12:38 | NUR ---
SWALLOW/SPEECH THERAPY NOTE: REFERRED BY DR CORONEL FOR SWALLOW EVALUATION (SEE FULL REPORT COMPLETED POST CHART REVIEW IN ST CARE ACTIVITY SECTION) DYSPHAGIA RISK FACTORS FOR THIS 67 Y.O.F.: ACUTE LETHARGY, RESP DISTRESS ON VENT, S/P BRADYCARDIAC ARREST THORACIC AORTIC ANEURYSM, , 2 DAYS S/P TRACH (04/02/18) AND ON VENT. LUNGS CLEAR NOW, HEAD CT NEGATIVE. HAS 8 SHILEY TRACH CUFFED (SEE VOICE SECTION). H/O PNA DYSPEPSIA, HTN, DM2, CHF, OBESITY CLASS 3, PAIN IN EXTREMITIES, SLEEP [facility] WITH RESP FAILURE, COPD, HYPOXEMIA, BIPAP,ASTHMA, CHRONIC LYMPHEDEMA, CHRONIC AF. RELEVANT MEDS: INSULIN POLST OK FOR CHURCH MUSICIAN TF IF NEEDS PLOF AT SNF AND PT STATES ON REG FOOD/LIQUIDS PRIOR TO ILLNESS DENIES SWALLOWING PROBLEMS AND WANTS TO EAT BY MOUTH. HAS LARGE NGT HAD OGT INITIALLY. COMMUNICATES IN WRITING AND MOUTHING. INITIAL IMPRESSIONS: QUESTIONABLE PHARYNGEAL DYSPHAGIA AND HAS SILENT ASPIRATION RISK DUE TO TRACH NO NEED FOR ORAL SUCTION BUT HAS DIFFICULTY CLEARING HER TRACHEAL SECRETIONS. SIGNIFICANT TONGUE TREMOR AND FAIR ROM AND STRENGTH. NO VOICE DUE TO TRACH WILL HOLD ON PO TRIALS FOR NOW RECOMMENDATIONS: CONTINUE WITH NO PO FOR NOW AND CONTINUE WITH NGT FEEDINGS OF VITAL AF CONTINUE WITH ORAL CARE (STAFF EDUCATED/TRAINED IN ORAL CARE AND SIGN POSTED). TRACH ONLY IN 2 DAYS AND PATIENT SLEEPY AFTER ORDER FOR SPEAKING VALVE RECEIVED. WILL HOLD ON PO TRIALS UNTIL READY FOR MOD BARIUM SWALLOW STUDY AND PATIENT ABLE TO TOLERATE SPEAKING VALVE INLINE WITH VENT OR WHEN OFF VENT AND CUFF DEFLATED. DYSPHAGIA MANAGEMENT AND TX AND SPEAKING VALVE FORMAL ASSESSMENT TOMORROW. GAVE PATIENT PICTURE/WORD/ALPHABET BOARD TO USE ALONG WITH HER PAPER/PEN. D/W RT (PHAN), RN (SEBASTIAN), PATIENT, AND DR CORONEL WHO AGREE WITH RECOMMENDATIONS Addendum: 06/03/18 at 1402 by OZ BARRERA CAMPGROUND MANAGER LTG: PT WILL TOLERATE LEAST RESTRICTIVE DIET/LIQUIDS SAFELY AND EFFICIENTLY WITH ADEQUATE INTAKE AND W/O OVERT ASPIRATION (WITH SPEAKING VALVE IN PLACE AND TRACH CUFF DEFLATED). STG: STAFF WILL BE EDUCATED/TRAINED IN ASP PREC FOR SECRETIONS AND ORAL CARE OTHER STG: TX PENDING RESULTS OF MBSS AND TOLERANCE FOR PM SPEAKING VALVE.
--- NOTE | 2018-06-02 12:48 | NUR ---
COKE DRAWER HANDVASCULAR TECHNOLOGIST SI:RESPIRATORY FAILURE ACUTE ON CHRONIC VS: BP 89/66, P 75, T 98.0, RR 21, SpO2 100 on VENT AC 20, TV 500, PEEP 5.0, FiO2 30 RBC 3.75, Hgb 10.7, Hct 34.2 IS:NORCO 5/325 1tab ELIQUIS 5mg MORPHINE 2mg IVP COZAAR 50mg PROTONIX 40mg IVP SDU STATUS
[2018-06-02] MEDS: D5W w/KCl 20mEq 1,000 ML IV SCH ×2 (15:08→23:29)
--- NOTE | 2018-06-02 15:19 | NUR ---
*-* INSURANCE *-* UPDATED CLINICALS AND REVIEWS HAVE BEEN FAXED TO: [facility] LOW P:[phone] F: [phone]
[2018-06-02] MEDS: Eliquis 2.5mg tablet ORAL SCH (18:35)
--- NOTE | 2018-06-02 19:00 | NUR ---
NURSE NOTES: No change in pt's status,stable no resp distress presented during the shift.
--- NOTE | 2018-06-02 19:35 | NUR ---
HAND-OFF: Report given to Wilman Cook RN.
--- NOTE | 2018-06-02 19:40 | NUR ---
NURSE NOTES: Report received from ALVARO Carty. Observed pt sleeping on the bed. Denies any pain at this time. A/O x4. SB with residential monitor, HR of 56. Trach to vent, shiley 8, AC 20, TV 500, FIO2 45%, PEEP 5, saturating at 95%. NGT intact and patent, running Vital AF at 53cc/hr. F/C intact and patent. PICC on ANGEL, intact and running D5W 20meq KCL at 75cc/hr. Bed in the lowest position. Side rails up x3. Call light within reach. Will continue to monitor.
[2018-06-02] MEDS: Dyna-Hex 2% Top Sol 2oz TOPIC SCH (21:07)
[2018-06-03] VITALS: BP 117/73
--- NOTE | 2018-06-03 02:15 | Progress Note ---
DATE: 06/02/2018 CARDIOLOGY PROGRESS NOTE SUBJECTIVE: The patient is status post tracheostomy. Discharge planning is in process. The patient is alert and oriented. The patient is pending a swallow evaluation for now on NG-tube feedings. Monitored rhythm is sinus with episodes of bradycardia now. The patient is on lower dose of amiodarone as a maintenance dose and not on beta-blockers any longer due to bradycardias. OBJECTIVE: LUNGS: Bilateral breath sounds. HEART: Regular rhythm and rate. Normal S1, S2. ABDOMEN: Soft. EXTREMITIES: Non-pitting lymphedema. IMPRESSION: 1. Respiratory failure status post trach. 2. Obesity hypoventilation. 3. Recurring respiratory failure and arrest. 4. Bradyarrhythmias. 5. Paroxysmal atrial fibrillation. 6. Thoracic aortic aneurysm dissection type A and B, chronic and possibly acute. PLAN: 1. Full anticoagulation. 2. Nonsurgical management for aortic dissection. 3. Maintenance dose amiodarone. 4. Reassess tolerance to low dose beta-michael for benefit in the setting of aortic dissection if heart rates remain at high range now. Maxim Levin M.D. DR: FRANCESCA JOB#: [id number] CC:
[2018-06-03 04:00] VITALS: BP 123/69
--- NOTE | 2018-06-03 06:00 | NUR ---
NURSE NOTES: Noted PICC line clogged after bed bath given. Let MD aware and will endorse it to morning nurse to follow up.
[2018-06-03] MEDS: Morphine Sulfate 2mg/ml Inj(IV/IM USE ONLY) IVP PRN ×2 (06:14→13:42)
--- NOTE | 2018-06-03 06:58 | NUR ---
RESPIRATORY NOTE: Received pt on trach cuffed, Shiley size 8.0, secured by trach tie and trach guard, with the current setting: AC 20-500ml-45%- peep of 5. Pt is awake, alert and able to follow simple command. B/S rhonchi diminished, sxn small amount of thin clear white secretions without incidents. Vent circuits and sxn tube are patent and out of the way. Pt is sleeping comfortably in the bed, no SOB or resp distress at this time. Alarms are set and audible, vent is plugged into the red outlet, ambu bag is at bedside. Will continue to monitor pt .
[2018-06-03] MEDS: HYDROcodone/Acetamin 5/325 tab GT PRN (07:04)
--- NOTE | 2018-06-03 07:25 | NUR ---
HAND-OFF: Report given to ALVARO Turner. No acute distress noted at this time.
--- NOTE | 2018-06-03 07:27 | NUR ---
NURSE NOTES: Received report from ALVARO Lott. Patient is resting in bed, in stable condition. No s/sx of SOB, breathing is even and unlabored. Vent settings are as ordered. Denies any presence of pain or discomfort at this time, bed is in lowest position, brakes engaged. Call light is kept within easy reach. Will continue to monitor patient.
[2018-06-03 08:00] VITALS: BP 118/67
[2018-06-03] MEDS: Losartan 50mg tab ORAL SCH (08:26)
[2018-06-03] MEDS: Amiodarone 200mg tab ORAL SCH (08:26)
[2018-06-03] MEDS: Eliquis 2.5mg tablet ORAL SCH ×2 (08:27→17:15)
[2018-06-03] MEDS: Pantoprazole Inj IVP SCH (08:27)
--- NOTE | 2018-06-03 08:30 | NUR ---
NURSE NOTES: Patient's right upper arm PICC per report noted noted flushing and unable to draw blood. Contacted and informed Dr. Jade of situation. Dr. Jade ordered Cathflo per protocol. Order entered, noted, and carried out. Will continue to monitor patient.
--- NOTE | 2018-06-03 09:00 | NUR ---
RESPIRATORY NOTE: Placed pt on CPAP PS 12 for weaning. Pt is tolerating really well the setting. No SOB or resp distress noted. Pt is awake, alert and able to follow simple commands. Pt understand the weaning plan. Will continue to monitor the pt. ALVARO Turner made aware.
[2018-06-03] MEDS ORDERED: Cathflo Alteplase 2mg Inj INJ SCH (11:00)
--- NOTE | 2018-06-03 11:04 | NUR ---
RESPIRATORY NOTE: Pt tolerated really well the CPAP PS of 12. Put pt back on AC mode after 2 hours of weaning, no SOB or resp distress noted. Will continue to monitor pt. ALVARO Turner made aware.
--- NOTE | 2018-06-03 11:25 | NUR ---
NURSE NOTES: Cathflo administered in both lumens of right upper arm PICC. Will reassess. Will continue to monitor patient.
[2018-06-03 12:00] VITALS: BP 131/71
--- NOTE | 2018-06-03 12:29 | NUR ---
SALES AGENT INSURANCEQA TECH SI:RESPIRATORY FAILURE ACUTE ON CHRONIC VS: BP 118/67, P 56, T 99.3, RR 24, SpO2 92 on VENT AC 20, TV 500, PEEP 5.0, FiO2 45 IS:CATHFLO 4mg INJ CORDARONE 100mg COZAAR 50mg PROTONIX 40mg IVP ELIQUIS 5mg NORCO 5/325 1tab SDU STATUS
--- NOTE | 2018-06-03 12:51 | NUR ---
*-* INSURANCE *-* UPDATED CLINICALS AND REVIEWS HAVE BEEN FAXED TO: [facility] L[facility] P:[phone] F: [phone]
--- NOTE | 2018-06-03 13:10 | NUR ---
RESPIRATORY NOTE: Speech therapist requested put [place] speaking valve( PMV) inline with the vent to let pt talk. Tracheal suction without incidents, deflated the cuffed, put the PMV on and change the setting to CPAP PS 12, 45% FiO2, peep 5 at 1250. Pt is tolerating really well. No SOB or resp distress noted.Speech therapist and I are at bedside while pt is on PMV.Put pt back on AC mode, inflated the cuff and took the PMV out at 1310. Will continue to monitor pt.
--- NOTE | 2018-06-03 13:25 | NUR ---
NURSE NOTES: Reassess patient's right upper arm PICC, noted successful Cathflo administration. Both lumens noted patent and able to draw blood. Charge nurse aware. Resumed IV medications as ordered. Will continue to monitor patient.
[2018-06-03] MEDS: D5W w/KCl 20mEq 1,000 ML IV SCH (13:33)
--- NOTE | 2018-06-03 14:00 | NUR ---
NURSE NOTES: Patient seen and examined by speech therapist. Informed this nurse that patient used speaking valve for 20 minutes. Speaking valve is placed at patient's side table and labeled. Updated patient's belongings list. Will continue to monitor patient.
--- NOTE | 2018-06-03 14:11 | NUR ---
SWALLOW/SPEECH THERAPY NOTE: SWALLOW STATUS: PATIENT SEEN FOR SWALLOW EVALUATION YESTERDAY, SEE REPORT. DR CORONEL DID APPROVE MODIFIED BARIUM SWALLOW STUDY BUT PATIENT NOT READY TO GO DOWN FOR STUDY UNTIL RADIOLOGY TECHS CAN DETERMINE IF THE XRAY EQUIPMENT WILL WORK WITH THE PATIENT'S WIDE AND LARGE BED. OTHERWISE, THE PATIENT IS STABLE ENOUGH TO GO OFF THE UNIT (JR). STAFF AND PATIENT COMPLETING DAILY ORAL CARE. SPEECH STATUS: PATIENT TOLERATED SPEAKING VALVE FOR 20 MINS WITH ACETYLENE PLANT OPERATOR AND RT (PHAN). VITAL SIGNS STABLE WITH VALVE IN-LINE WITH VENT. PATIENT SPOKE INTELLIGIBLY WITH HER SISTER VIA TELEPHONE FOR 10 MINUTES. LEFT INFORMATION FOR CLEANING, USING, COMMUNICATING WITH SPEAKING VALVE WHEN SUPERVISED. EDUCATED/TRAINED STAFF (ALVARO MANUEL) IN CLEANING THE VALVE. NEED TO OBTAIN MILD SOAP (W/O CHEMICALS) FOR CLEANING. PATIENT STATED THAT SHE WAS DISABLED FOR 9 YEARS AND THAT SHE WORKED IN [employer] FOR MANY YEARS. SHE ALSO CARED FOR HER FATHER WHO HAD DEMENTIA (HE AND HER MOTHER ARE ). SHE HAS A SISTER, BROTHER, AND DAUGHTER (POSTED THESE NUMBERS ON HER WALL SO SHE CAN CALL THEM). CONNECTED PHONE IN HER ROOM SO SHE CAN TALK MORE ON THE PHONE. PLAN: CONTINUE WITH PLAN OF CARE (SEE SWALLOW EVAL) COMPLETE FORMAL SPEECH/P-M SPEAKING VALVE EVALUATION FORM
[2018-06-03 16:00] VITALS: BP 116/70
--- NOTE | 2018-06-03 16:48 | NUR ---
NURSE NOTES: Dr. Jade seen and examined patient. Informed Dr. Jade that patient's new potassium level today is 4.1, pt is tolerating tube feeding. Dr. Jade acknowledged and ordered to discontinue D5W w/ 20 KCl at 75cc/hr. Order entered, noted, and carried out. Will continue to monitor patient.
--- NOTE | 2018-06-03 16:52 | Pulmonology Progress Note ---
Assessment/Plan Assessment/Plan 1. Status post arrest x 2 2. Respiratory failure, acute on chronic. 3. Obesity hypoventilation syndrome and sleep apnea. 4. Morbid obesity. 5. Thoracic aortic aneurysm dissection, type A and B chronic 6. Diabetes. 7. Hypertension. 8. UTI - strep species resp failure on vent via trach alert and responsive NG tube, feeds video swallow eval tomorrow speaking valve disc w RN, case management specialist Refer to [facility] Subjective Constitutional: Reports: no symptoms Allergies: Coded Allergies: No Known Allergies (Unverified , 02/20/17) Objective Last 24 Hour Vital Signs Date Time Temp Pulse Resp B/P (MAP) Pulse Ox O2 Delivery O2 Flow Rate FiO2 06/03/18 16:00 Mechanical Ventilator Mechanical Ventilator 06/03/18 16:00 45 06/03/18 16:00 98.8 59 20 116/70 (85) 95 06/03/18 16:00 58 06/03/18 14:58 56 20 45 45 06/03/18 13:10 69 20 45 45 06/03/18 12:50 71 24 06/03/18 12:00 62 06/03/18 12:00 Mechanical Ventilator Mechanical Ventilator 06/03/18 12:00 98.8 58 20 131/71 (91) 98 06/03/18 12:00 45 06/03/18 11:04 76 24 45 45 06/03/18 09:00 92 06/03/18 09:00 61 15 45 45 06/03/18 08:26 118/67 06/03/18 08:00 99.3 60 20 118/67 (84) 95 06/03/18 08:00 62 06/03/18 08:00 Mechanical Ventilator Mechanical Ventilator 06/03/18 08:00 45 06/03/18 06:58 68 20 45 06/03/18 05:10 56 21 45 06/03/18 04:00 Mechanical Ventilator Mechanical Ventilator 06/03/18 04:00 70 06/03/18 04:00 45 06/03/18 04:00 99.1 68 22 123/69 (87) 97 06/03/18 02:53 69 20 45 06/03/18 01:48 68 20 45 06/03/18 00:00 99.1 71 20 117/73 (88) 93 06/03/18 00:00 66 06/03/18 00:00 Mechanical Ventilator Mechanical Ventilator 06/02/18 23:40 65 19 45 06/02/18 20:50 67 21 45 06/02/18 20:00 99.7 64 20 124/78 (93) 96 06/02/18 20:00 45 06/02/18 20:00 56 06/02/18 20:00 Mechanical Ventilator Mechanical Ventilator 06/02/18 19:09 56 20 45 Intake and Output 06/02/18 06/03/18 19:00 07:00 Intake Total 931 ml 1488.5 ml Output Total 640 ml 400 ml Balance 291 ml 1088.5 ml Free Water 100 ml 140 ml IV Total 75 ml 712.5 ml Tube Feeding 636 ml 636 ml Other 120 ml Output Urine Total 640 ml 400 ml Objective morbidly obese, trach/vent General Appearance: no acute distress HEENT: atraumatic Respiratory/Chest: lungs clear Cardiovascular: normal rate Current Medications Medications (Trade) Dose Ordered Sig/Tera Route PRN Reason Start Time Stop Time Status Last Admin Dose Admin Acetaminophen (Tylenol) 650 mg Q4H PRN ORAL Mild Pain/Temp > 100.5 06/02/18 09:53 06/23/18 09:52 Acetaminophen/ Hydrocodone Bitart ([place] 5/325) 1 tab Q4H PRN GT Moderate Pain (Pain Scale 4-6) 06/02/18 09:54 06/08/18 09:53 06/03/18 07:04 Amiodarone HCl (Cordarone) 100 mg DAILY ORAL 06/03/18 09:00 07/02/18 08:59 06/03/18 08:26 Apixaban (Eliquis) 5 mg BID ORAL 06/02/18 18:00 07/02/18 08:59 06/03/18 08:27 Cetylpyridinium Chloride (Cepacol) 1 lozg Q2H PRN DAMIR For Cough 06/02/18 10:00 06/22/18 17:46 Chlorhexidine Gluconate (Shahrzad-Hex 2%) 1 applic DAILY@1999 TOPIC 06/02/18 20:00 06/25/18 19:59 06/02/18 21:07 Hydralazine HCl (Apresoline) 10 mg Q6HR PRN ORAL SBP above 150 06/02/18 12:00 06/24/18 01:59 Losartan Potassium (Cozaar) 50 mg DAILY ORAL 06/03/18 09:00 06/24/18 08:59 06/03/18 08:26 Morphine Sulfate (Morphine Sulfate) 2 mg Q3H PRN IVP Severe Breakthru Pain (>7) 06/02/18 09:54 06/08/18 09:53 06/03/18 13:42 Pantoprazole (Protonix) 40 mg DAILY IVP 06/03/18 09:00 06/18/18 08:59 Phenol/Menthol (Chloraseptic) 1 spray Q3H PRN ORAL throat pain 06/02/18 09:53 06/26/18 09:52 Porfirio Jade MD Jun 03, 2018 16:52
--- NOTE | 2018-06-03 19:23 | NUR ---
HAND-OFF: Report given to ALVARO Maynard.
--- NOTE | 2018-06-03 19:24 | NUR ---
NURSE NOTES: Endorsement received from ALVARO Alexander. Patient opens eyes spontaneously, follows commands, readily answers questions. Able to communicate per writing on a piece of paper. With trache to vent. Shiley 8.0. AC 20, Vt 500, PEEP 5, 45% FiO2. NGT patent and intact. Rechecked placement per auscultation. On Vital AF 53 ml/hr. No residual noted. Vogel catheter in place. Right upper arm PICC, flushing well. Noted with backflow when aspirated. SCDs in place. On P200 mattress. Head of bed elevated. Bed locked and in low position. Call light within reach. Bed alarm on.
[2018-06-03] MEDS: Dyna-Hex 2% Top Sol 2oz TOPIC SCH (19:57)
[2018-06-03 20:00] VITALS: BP 123/74
[2018-06-04] VITALS: BP 140/63
--- NOTE | 2018-06-04 | NUR ---
NURSE NOTES: Patient awake, watching TV. Refuses to be repositioned x2. Risks and benefits explained. Reported 6/10 pain at neck and head. PRN [place] given. Will reassess.
[2018-06-04] MEDS: HYDROcodone/Acetamin 5/325 tab GT PRN ×2 (00:18→22:17)
--- NOTE | 2018-06-04 01:15 | Progress Note ---
CARDIOLOGY PROGRESS NOTE DATE: 06/03/2018 SUBJECTIVE: The patient is status post trach. She is awake and alert. She remains NPO pending swallow assessment. OBJECTIVE: VITAL SIGNS: Blood pressure 116/70, pulse 59, and respirations 20. Monitored rhythm is sinus and sinus bradycardia. Heart rates following trach have improved. LUNGS: With diminished breath sounds. CARDIAC: Regular rhythm and rate. Normal S1, S2. ABDOMEN: Soft. EXTREMITIES: With nonpitting edema. IMPRESSION: 1. Status post arrest. 2. Obesity hyperventilation. 3. Respiratory failure, status post trach. 4. Acute on chronic aortic dissection, type A and B. 5. Hypertensive heart disease. 6. Paroxysmal atrial fibrillation. 7. Asymptomatic sinus bradycardia. PLAN: Reset low-dose carvedilol and continue maintenance dose amiodarone. Vent respiratory hygiene. Maxim Levin M.D. DR: ROHAN JOB#: [id number] CC:
[2018-06-04 04:00] VITALS: BP 154/86
--- NOTE | 2018-06-04 04:00 | NUR ---
NURSE NOTES: Patient's Vogel catheter has been leaking. Discontinued and applied Purewick. Explained the procedure to the patient. Bed bath, oral care, change of linens done.
--- NOTE | 2018-06-04 06:44 | NUR ---
RESPIRATORY NOTE: Received pt on ordered vent settings. Patient tracheostomy tube is patent and secured. No resp distress noted. Suctioned patient prn. Vent alarms are on and audible. Vent is plugged into red outlet. Will monitor pt progress.
[2018-06-04] MEDS: Morphine Sulfate 2mg/ml Inj(IV/IM USE ONLY) IVP PRN ×2 (06:47→13:38)
--- NOTE | 2018-06-04 07:30 | NUR ---
NURSE NOTES: Change of shift report received from Aleyda JOHN. Pt is awake, alert, oriented x4, communicates by writing on notepad. Pt has trach, Shiley 8.0 AC20, VT500, Peep 5.0, FIO2 45% with O2sat 100%. NG in place in right nare, with feeding Vital AF infusing at 53mL/hour. Pt is tolerating feeding well with no residual or episodes/reports of nausea/vomiting. Abdomen is round, soft/nontender to touch, hypoactive bowel sounds auscultated in all quadrants. External catheter in place, draining clear/doris urine. IV access present on ANGEL PICC, patent/intact. Radial weak pulses bilaterally. Skin in intact; with dryness on bilateral feet. Pt is on bariatric bed with bilateral SCDs in place. Bed is locked with three side rails up, and call light within easy reach. Will continue to monitor pt and follow plan of care per MD orders and protocol. Addendum: 06/04/18 at 1436 by CAMPOS JAUREGUI RN Bilateral inspiratory and expiratory rhonchi auscultated.
[2018-06-04 08:00] VITALS: BP 127/72
--- NOTE | 2018-06-04 09:05 | NUR ---
SENIOR NAVAL PARACHUTISTSTOREPERSON SI: RESPIRATORY FAILURE ACUTE ON CHRONIC VS: BP 154/86, P 59, T 98.9, RR 21, SpO2 100 on VENT AC 20, TV 500, PEEP 5.0, FiO2 45 IS: COREG 3.125mg CORDARONE 100mg COZAAR 50mg PROTONIX 40mg IVP ELIQUIS 5mg MORPHINE 2mg NORCO 5/325 1tab SDU STATUS
[2018-06-04] MEDS: Pantoprazole Inj IVP SCH (10:33)
[2018-06-04] MEDS: Amiodarone 200mg tab ORAL SCH (10:34)
[2018-06-04] MEDS: Eliquis 2.5mg tablet ORAL SCH ×2 (10:34→18:49)
[2018-06-04] MEDS: Losartan 50mg tab ORAL SCH (10:35)
--- NOTE | 2018-06-04 10:47 | NUR ---
*-* INSURANCE *-* UPDATED CLINICALS AND REVIEWS HAVE BEEN FAXED TO: [facility] P:[phone] F: [phone]
[2018-06-04 12:00] VITALS: BP 138/72
--- NOTE | 2018-06-04 13:30 | NUR ---
NURSE NOTES: ST and RT at bedside, eval done for possible video swallow. Per ST, pt is not ready for video swallow at this time due to reports of oral/throat pain/discomfort related to the recent intubation/extubation and current trach. Per ST, will reattempt on Thursday, since procedure is not being done during the weekend. In the meantime, will reattempt bedside swallow eval tomorrow.
--- NOTE | 2018-06-04 13:47 | Pulmonology Progress Note ---
Assessment/Plan Assessment/Plan 1. Status post arrest x 2 2. Respiratory failure, acute on chronic. 3. Obesity hypoventilation syndrome and sleep apnea. 4. Morbid obesity. 5. Thoracic aortic aneurysm dissection, type A and B chronic 6. Diabetes. 7. Hypertension. 8. UTI - strep species resp failure on vent via trach alert and responsive NG tube, feeds cannot do video swallow will do trial PO w AUDIT REVIEWER speaking valve tolerated disc w RN, AUDIT REVIEWER Refer to [place] labs Subjective Constitutional: Reports: no symptoms Respiratory: Denies: shortness of breath Allergies: Coded Allergies: No Known Allergies (Unverified , 02/20/17) Objective Last 24 Hour Vital Signs Date Time Temp Pulse Resp B/P (MAP) Pulse Ox O2 Delivery O2 Flow Rate FiO2 06/04/18 13:15 78 20 45 06/04/18 11:15 70 15 45 45 06/04/18 11:15 97 06/04/18 10:35 122/76 06/04/18 08:56 63 20 45 06/04/18 08:00 45 06/04/18 08:00 Mechanical Ventilator Mechanical Ventilator 06/04/18 08:00 98.6 50 20 127/72 (90) 100 06/04/18 07:42 62 06/04/18 07:17 98.5 06/04/18 06:44 61 20 45 06/04/18 05:15 64 21 45 45 06/04/18 04:00 Mechanical Ventilator Mechanical Ventilator 06/04/18 04:00 45 06/04/18 04:00 60 06/04/18 04:00 98.5 61 20 154/86 (108) 100 06/04/18 03:25 60 20 45 45 06/04/18 02:16 98.9 06/04/18 01:08 59 20 45 45 06/04/18 00:00 Mechanical Ventilator Mechanical Ventilator 06/04/18 00:00 66 06/04/18 00:00 45 06/04/18 00:00 99.1 68 21 140/63 (88) 100 06/03/18 23:20 56 20 45 45 06/03/18 21:26 59 20 45 45 06/03/18 20:00 98.9 58 24 123/74 (90) 98 06/03/18 20:00 Mechanical Ventilator Mechanical Ventilator 06/03/18 20:00 58 06/03/18 20:00 45 4/18/19 19:17 54 20 45 45 06/03/18 17:00 57 20 45 45 06/03/18 16:00 Mechanical Ventilator Mechanical Ventilator 06/03/18 16:00 45 06/03/18 16:00 98.8 59 20 116/70 (85) 95 06/03/18 16:00 58 06/03/18 14:58 56 20 45 45 Intake and Output 06/03/18 06/04/18 19:00 07:00 Intake Total 936 ml 733 ml Output Total 400 ml Balance 536 ml 733 ml Free Water 300 ml 150 ml Tube Feeding 636 ml 583 ml Output Urine Total 400 ml # Voids 1 Objective morbidly obese, trach/vent General Appearance: no acute distress HEENT: normocephalic, atraumatic Cardiovascular: regular rhythm Current Medications Medications (Trade) Dose Ordered Sig/Tera Route PRN Reason Start Time Stop Time Status Last Admin Dose Admin Acetaminophen (Tylenol) 650 mg Q4H PRN ORAL Mild Pain/Temp > 100.5 06/02/18 09:53 06/23/18 09:52 Acetaminophen/ Hydrocodone Bitart ([place] 5/325) 1 tab Q4H PRN GT Moderate Pain (Pain Scale 4-6) 06/02/18 09:54 06/08/18 09:53 06/04/18 00:18 Amiodarone HCl (Cordarone) 100 mg DAILY ORAL 06/03/18 09:00 07/02/18 08:59 06/04/18 10:34 Apixaban (Eliquis) 5 mg BID ORAL 06/02/18 18:00 07/02/18 08:59 06/04/18 10:34 Carvedilol (Coreg) 3.125 mg EVERY 12 HOURS ORAL 06/04/18 09:00 07/04/18 08:59 Cetylpyridinium Chloride (Cepacol) 1 lozg Q2H PRN DAMIR For Cough 06/02/18 10:00 06/22/18 17:46 Chlorhexidine Gluconate (Shahrzad-Hex 2%) 1 applic DAILY@2000 TOPIC 06/02/18 20:00 06/25/18 19:59 06/03/18 19:57 Hydralazine HCl (Apresoline) 10 mg Q6HR PRN ORAL SBP above 150 06/02/18 12:00 06/24/18 01:59 Losartan Potassium (Cozaar) 50 mg DAILY ORAL 06/03/18 09:00 06/24/18 08:59 06/04/18 10:35 Morphine Sulfate (Morphine Sulfate) 2 mg Q3H PRN IVP Severe Breakthru Pain (>7) 06/02/18 09:54 06/08/18 09:53 06/04/18 13:38 Pantoprazole (Protonix) 40 mg DAILY IVP 06/03/18 09:00 06/18/18 08:59 06/04/18 10:33 Phenol/Menthol (Chloraseptic) 1 spray Q3H PRN ORAL throat pain 06/02/18 09:53 06/26/18 09:52 Porfirio Jade MD Jun 04, 2018 13:47
--- NOTE | 2018-06-04 13:50 | NUR ---
NURSE NOTES: Dr Jade at bedside, order received for AM labs tomorrow, and to DC Morphine, continue with EM Kwon. Addendum: 06/04/18 at 1921 by CAMPOS JAUREGUI RN Order was processed and followed.
--- NOTE | 2018-06-04 14:09 | NUR ---
RD ASSESSMENT & RECOMMENDATIONS SEE CARE ACTIVITY FOR COMPLETE ASSESSMENT DAILY ESTIMATED NEEDS: Needs based on Critical Care, morbidly obese 22-25kcal/kg IBW (61kg) kcals/kg 4173-0897 total kcals 1.8-2.5 IBW (61kg) g protein/kg 109-152 g total protein 20-25ml/kg abw (84kg) mL/kg 1435-6181 total fluid mLs NUTRITION DIAGNOSIS: * Swallowing difficulty R/T respiratory status as evidenced by s/p cardiac arrest, pt is reintubated, now s/p trach placement, on NGT feeding, pending SCHOOL EXAMINER evaluation. * Obesity R/T life style factors, excessive energy intake as evidenced by BMI >50, pt is 253% IBW CURRENT TF:Vital af 1.2 @ 53ml/hr x 24 hrs PO DIET RECOMMENDATIONS: CCHO LOW, CARDIAC/ texture per SCHOOL EXAMINER ENTERAL NUTRITION RECOMMENDATIONS: VITAL AF 1.2 @53ml/hr x24 hrs + Prosource 1pkt BID to provide 1272ml, 1526 kcal, 95g + 22g pro, 1032ml free H2O - Add Prosource 1 pack BID (11g pro each) to better meet est pro needs - Flush per MD. HOB over 30 degrees ADDITIONAL RECOMMENDATIONS: 1) Recalibrate bed scale as able for accurate CBW 2) Rec accucheck w/ SSI: elev BGs, h/o DM 3) Monitor lytes, replete as needed 4) Monitor for ability to start oral diet, need to adjust TF 5) Monitor BM regularity- none noted since 05/28, consider stool softeners . .
--- NOTE | 2018-06-04 14:15 | NUR ---
SWALLOW/SPEECH THERAPY NOTE: SUBJECTIVE: ALERT AND WANTS TO TALK AND EAT BUT THROAT HURTS. PER RNCHENCHO, PATIENT C/O THROAT PAIN PRIOR TO TRACH PLACED (BECAUSE SHE WAS INTUBATED). GETS THROAT SPRAY EVERY 3 HOURS FOR PAIN. SWALLOW STATUS: PATIENT NOT RECEPTIVE TO PO TRIALS AT THIS TIME SINCE HER THROAT HURTS TOO MUCH. UNABLE TO GO DOWN FOR A MOD BARIUM SWALLOW STUDY SINCE EQUIPMENT MAY NOT TOLERATE WIDTH OF BED. DR CORONEL WANTS PO TRIALS AT BEDSIDE WHEN PATIENT DOES NOT HAVE THROAT PAIN. WILL ATTEMPT ON THURSDAY WITH CUFF DEFLATED, SPEAKING VALVE IN PLACE, AND USING FOOD COLORING (THOUGH NOT 100% ACCURATE FOR SILENT ASPIRATION) FOR QUALITY OF LIFE PURPOSES. SPEECH STATUS: ATTEMPTED SPEAKING VALVE WITH RT TODAY BUT NO VOICING AND PATIENT STARTED TO C/O SIGNIFICANT THROAT PAIN. WILL ATTEMPT AGAIN ON THURSDAY IF TOLERATED. RN TO GIVE PAIN MEDS. ST CLEANED SPEAKING VALVE AND CONNECTOR WITH MILD SOAP AND WARM WATER AND LET IT AIR DRY. D/W RN AND PATIENT THAT SPEAKING TRIALS WITH RT/RN OVER WEEKEND CAN BE ATTEMPTED IF HER THROAT PAIN IS DECREASED. PLAN: CONTINUE WITH PLAN OF CARE FOR NOW.
--- NOTE | 2018-06-04 14:17 | NUR ---
PRESCHOOL ADVISER NOTES FOLLOW UP: SPOKE WITH DAVID AT [facility] REGARDING PT. ACCEPTANCE AND SHE IS STILL AWAITING AUTHORIZATION FROM INSURANCE.
--- NOTE | 2018-06-04 15:40 | NUR ---
FORENSIC SCIENTIST NOTES RECEIVED A CALL FROM LOW FORENSIC SCIENTIST FROM [facility]. AUTHORIZATION TO ADMIT TO [facility] GIVEN.NO BED ASSIGNMENT GIVEN @ THIS TIME. PLACED A CALL TO DAVID FROM [facility] LEFT MESSAGE TIMES TWO. AWAITNG CALL BACK.[employer] PROFESSIONAL TO TRANSPORT PT WHEN BED AVAILABLE. DAVID [phone] AUTH [place] [id number] AUTH [employer] [id number]
[2018-06-04 16:00] VITALS: BP 140/70
--- NOTE | 2018-06-04 16:00 | NUR ---
NURSE NOTES: Pt was cleaned, repositioned, suctioned and oral care done. PRN Chloraseptic spray administered for oral/throat discomfort per order. VS within normal range. Pt is resting in stable condition.
[2018-06-04] MEDS ORDERED: NS 275ml ONE (17:11)
--- NOTE | 2018-06-04 19:06 | NUR ---
RESPIRATORY NOTE: Received pt. on 840 vent. Vent settings are: A/C rate of 20, Vt 500, FI02 45%, PEEP +5. No respiratory distress noted, pt. sP02 @ 98%. Ambu bag @ BS. Vent plugged on red outlet. Will continue to monitor pt.
--- NOTE | 2018-06-04 19:19 | NUR ---
HAND-OFF: Report given to Courtney JOHN. Pt is asleep in stable condition. Endorsed plan of care.
--- NOTE | 2018-06-04 19:20 | NUR ---
NURSE NOTES: Received patient from ALVARO Heath. Patient is on trach Shiley 8, AC:20, TV:500, PEEP:5, FiO2:45% and saturating at 100%. On Vital AF running at 53ml/hour via right NGT. Will continue plan of care.
[2018-06-04 20:00] VITALS: BP 118/77
--- NOTE | 2018-06-04 20:00 | Progress Note ---
CARDIOLOGY PROGRESS NOTE DATE: 06/04/2018 SUBJECTIVE: The patient remains on ventilator support via tracheostomy. Oral feeding trial is to be initiated. OBJECTIVE: VITAL SIGNS: Blood pressure 127/72, heart rate 50 to 78, respiratory rate 15 to 21, and afebrile. LUNGS: Clear. Trach site with thin secretions. CARDIAC: Regular rhythm and rate. Normal S1, S2 with no new murmur. ABDOMEN: Soft. EXTREMITIES: With nonpitting edema. IMPRESSION: 1. Respiratory failure, status post tracheostomy. 2. Type A and B aortic dissection, acute on chronic. 3. Sinus bradycardia. 4. Paroxysmal atrial fibrillation. 5. Chronic diastolic congestive heart failure. PLAN: 1. Cautious use of beta-michael. 2. Monitor for mary-arrhythmias that are clinically significant. 3. Full anticoagulation with caution. 4. Not a candidate for cardiothoracic surgery. 5. Ventilator support with long-term wean planned. Maxim Levin M.D. DR: ROHAN JOB#: [id number] CC:
[2018-06-04] MEDS: Dyna-Hex 2% Top Sol 2oz TOPIC SCH (20:23)
--- NOTE | 2018-06-04 21:01 | NUR ---
NURSE NOTES: Patient refuses suctioning via trach, also refuses to be repositioned. RT was also at bedside.
[2018-06-05] VITALS: BP 110/57
[2018-06-05] MEDS: HYDROcodone/Acetamin 5/325 tab GT PRN ×3 (03:59→18:12)
[2018-06-05 04:00] VITALS: BP 134/92
[2018-06-05 06:04] LABS: BASOPHILS % (AUTO) 1.3 % (0.0-2.0); EOSINOPHILS % (AUTO) 0.7 % (0.0-3.0); HEMATOCRIT 29.5 % (37.0-47.0); HEMOGLOBIN 9.1 G/DL (12.0-16.0); LYMPHOCYTES % (AUTO) 13.3 % (20.0-45.0); MEAN CORPUSCULAR VOLUME 92 FL (80-99); MONOCYTES % (AUTO) 11.7 % (1.0-10.0); NEUTROPHILS % (AUTO) 73.1 % (45.0-75.0); PLATELET COUNT 183 K/UL (150-450); RED CELL DISTRIBUTION WIDTH 14.8 % (11.6-14.8)
[2018-06-05 06:28] LABS: ALANINE AMINOTRANSFERASE 19 U/L (12-78); ALBUMIN 1.9 G/DL (3.4-5.0); ALBUMIN/GLOBULIN RATIO 0.5 (1.0-2.7); ALKALINE PHOSPHATASE 83 U/L (46-116); ANION GAP 6 mmol/L (5-15); ASPARTATE AMINO TRANSFERASE 13 U/L (15-37); BILIRUBIN,TOTAL 0.4 MG/DL (0.2-1.0); BLOOD UREA NITROGEN 15 mg/dL (7-18); CALCIUM 9.1 MG/DL (8.5-10.1); CARBON DIOXIDE 30 MMOL/L (21-32); CHLORIDE 104 MMOL/L (98-107); CREATININE 0.9 MG/DL (0.55-1.30); POTASSIUM 4.4 MMOL/L (3.5-5.1); SODIUM 139 MMOL/L (136-145)
--- NOTE | 2018-06-05 07:21 | NUR ---
HAND-OFF: Report given to ALVARO MARTÍNEZ.
--- NOTE | 2018-06-05 07:22 | NUR ---
NURSE NOTES: RECEIVED PATIENT FROM Enoch ROMERO RN. PATIENT IS LYING IN BED, ALERT, AWAKE. HOOKED TO [employer]OD[employer]. TRACH TO VENT. SHILEY 8, VENT SETTINGS AC 20, VT 500, FIO2 45%, PEEP 5. NO SIGNS OF DISTRESS. NGT (R NARE) IN PLACE, TF VITAL AF AT 53ML/HR. ON PUREWICK. NOTED R UA PICC, TKO. CALL LIGHT WITHIN REACH. BED AT LOWEST POSITION. SIDE RAILS UP. WILL CONTINUE TO MONITOR.
--- NOTE | 2018-06-05 07:32 | NUR ---
RESPIRATORY NOTE: received pt on vent on current settings with no apparent resp distress at this time. pt is trach with shiley 8 secured via trach tie/guard with slight redness around stoma. no skin tears visible. alarms set and audible with ambu bag at bedside. vent is plugged into the redoutlet. will cont to monitor and attempt to wean later this morning.
[2018-06-05 08:00] VITALS: BP 142/99
[2018-06-05] MEDS: Pantoprazole Inj IVP SCH (08:47)
[2018-06-05] MEDS: Losartan 50mg tab ORAL SCH (08:47)
[2018-06-05] MEDS: Eliquis 2.5mg tablet ORAL SCH ×2 (08:47→18:12)
[2018-06-05] MEDS: Amiodarone 200mg tab ORAL SCH (08:48)
[2018-06-05 12:00] VITALS: BP 142/70
--- NOTE | 2018-06-05 12:46 | NUR ---
RESPIRATORY NOTE: pt is now more awake. placed on CPAP PS 10, fio2 40% will cont to monitor
--- NOTE | 2018-06-05 15:02 | NUR ---
RESPIRATORY NOTE: pt doing well on CPAP. decreased PS to 8. no resp distress noted. will cont monitor
--- NOTE | 2018-06-05 15:55 | Pulmonology Progress Note ---
Assessment/Plan Assessment/Plan 1. Status post bradycardic arrest x 2 2. Respiratory failure, acute on chronic. 3. Obesity, hypoventilation, and sleep apnea. 4. Morbid obesity. 5. 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 6. Diabetes. 7. Hypertension. 8. UTI - strep species 9. sp trach weaning as tolerated monitor HR nebs TF o2 home meds fu with cards recommendations Subjective ROS Limited/Unobtainable: Yes Allergies: Coded Allergies: No Known Allergies (Unverified , 02/20/17) Subjective on cpap 5 ps 8 tv 400 comfortable tolerating ngt feeds no cp nv or bleeding not getting oob awake Objective Last 24 Hour Vital Signs Date Time Temp Pulse Resp B/P (MAP) Pulse Ox O2 Delivery O2 Flow Rate FiO2 06/05/18 14:57 73 16 40 06/05/18 12:00 56 06/05/18 12:00 Mechanical Ventilator Mechanical Ventilator 06/05/18 12:00 97.5 95 24 142/70 (94) 100 06/05/18 12:00 40 06/05/18 10:50 51 20 40 06/05/18 08:52 59 20 45 06/05/18 08:47 59 142/99 06/05/18 08:47 142/99 06/05/18 08:00 97.5 59 20 142/99 (113) 100 06/05/18 08:00 45 06/05/18 08:00 65 06/05/18 08:00 Mechanical Ventilator Mechanical Ventilator 06/05/18 07:31 70 22 45 06/05/18 04:57 62 22 45 06/05/18 04:00 Mechanical Ventilator Mechanical Ventilator 06/05/18 04:00 45 06/05/18 04:00 98.1 61 20 134/92 (106) 100 06/05/18 03:36 62 06/05/18 03:30 60 21 45 06/05/18 01:29 56 20 45 06/05/18 00:00 Mechanical Ventilator Mechanical Ventilator 06/05/18 00:00 45 06/05/18 00:00 97.4 54 20 110/57 (74) 100 06/04/18 23:32 55 06/04/18 22:49 62 20 45 06/04/18 20:56 59 20 45 06/04/18 20:23 53 118/77 06/04/18 20:00 45 06/04/18 20:00 Mechanical Ventilator Mechanical Ventilator 06/04/18 20:00 97.9 58 20 118/77 (91) 100 06/04/18 19:22 59 06/04/18 19:05 58 20 45 06/04/18 17:01 69 20 45 06/04/18 16:00 98.2 60 18 140/70 (93) 96 06/04/18 16:00 66 06/04/18 16:00 45 06/04/18 16:00 Mechanical Ventilator Mechanical Ventilator Intake and Output 06/04/18 06/05/18 19:00 07:00 Intake Total 286 ml 836 ml Output Total 300 ml Balance 286 ml 536 ml Free Water 180 ml 200 ml Tube Feeding 106 ml 636 ml Output Urine Total 300 ml # Voids 2 General Appearance: WD/WN HEENT: status post trach Respiratory/Chest: normal breath sounds, no respiratory distress Cardiovascular: normal rate, regular rhythm Abdomen: normal bowel sounds, no organomegaly, no scars Extremities: no cyanosis Skin: no rash Laboratory Tests 06/05/18 05:20: White Blood Count 6.0, Red Blood Count 3.20L, Hemoglobin 9.1L, Hematocrit 29.5L , Mean Corpuscular Volume 92, Mean Corpuscular Hemoglobin 28.4, Mean Corpuscular Hemoglobin Concent 30.8L, Red Cell Distribution Width 14.8, Platelet Count 183, Mean Platelet Volume 5.8L, Neutrophils (%) (Auto) 73.1, Lymphocytes (%) (Auto) 13.3L, Monocytes (%) (Auto) 11.7H, Eosinophils (%) (Auto ) 0.7, Basophils (%) (Auto) 1.3, Sodium Level 139, Potassium Level 4.4, Chloride Level 104, Carbon Dioxide Level 30, Anion Gap 6, Blood Urea Nitrogen 15 , Creatinine 0.9, Estimat Glomerular Filtration Rate > 60, Glucose Level 133H, Calcium Level 9.1, Total Bilirubin 0.4, Aspartate Amino Transf (AST/SGOT) 13L, Alanine Aminotransferase (ALT/SGPT) 19, Alkaline Phosphatase 83, Total Protein 6.1L, Albumin 1.9L, Globulin 4.2, Albumin/Globulin Ratio 0.5L Current Medications Medications (Trade) Dose Ordered Sig/Tera Route PRN Reason Start Time Stop Time Status Last Admin Dose Admin Acetaminophen (Tylenol) 650 mg Q4H PRN ORAL Mild Pain/Temp > 100.5 06/02/18 09:53 06/23/18 09:52 Acetaminophen/ Hydrocodone Bitart ([place] 5/325) 1 tab Q4H PRN GT Moderate Pain (Pain Scale 4-6) 06/02/18 09:54 06/08/18 09:53 06/05/18 13:13 Amiodarone HCl (Cordarone) 100 mg DAILY ORAL 06/03/18 09:00 07/02/18 08:59 06/05/18 08:48 Apixaban (Eliquis) 5 mg BID ORAL 06/02/18 18:00 07/02/18 08:59 06/05/18 08:47 Carvedilol (Coreg) 3.125 mg EVERY 12 HOURS ORAL 06/04/18 09:00 07/04/18 08:59 06/05/18 08:47 Cetylpyridinium Chloride (Cepacol) 1 lozg Q2H PRN DAMIR For Cough 06/02/18 10:00 06/22/18 17:46 Chlorhexidine Gluconate (Shahrzad-Hex 2%) 1 applic DAILY@2000 TOPIC 06/02/18 20:00 06/25/18 19:59 06/04/18 20:23 Hydralazine HCl (Apresoline) 10 mg Q6HR PRN ORAL SBP above 150 06/02/18 12:00 06/24/18 01:59 Losartan Potassium (Cozaar) 50 mg DAILY ORAL 06/03/18 09:00 06/24/18 08:59 06/05/18 08:47 Pantoprazole (Protonix) 40 mg DAILY IVP 06/03/18 09:00 06/18/18 08:59 06/05/18 08:47 Phenol/Menthol (Chloraseptic) 1 spray Q3H PRN ORAL throat pain 06/02/18 09:53 06/26/18 09:52 06/04/18 14:41 Gayla Leger DO Jun 05, 2018 15:55
[2018-06-05 16:00] VITALS: BP 121/67
--- NOTE | 2018-06-05 16:45 | NUR ---
CASE MANAGEMENT: REVIEW SI: VENTILATORY FAILURE . ALOC TRACHEOSTOMY 05/31 T 97.5 HR 51 RR 24 BP 142/70 SAT 100% MECH VENT FIO2 40 H/H 9.1/29.5 IS: COREG PO QD AMIODARONE PO QD LOSARTAN PO QD ELEQUIS PO BID NG TUBE FEEDING VITAL 1.2 @ 53ML/HR STEP DOWN UNIT STATUS DCP: PATIENT IS FROM [facility]
--- NOTE | 2018-06-05 17:35 | NUR ---
RESPIRATORY NOTE: pt. tolerated CPAP well. no resp distress noted while weaning. RN notified that pt was placed back on AC mode.
--- NOTE | 2018-06-05 19:21 | NUR ---
HAND-OFF: Report given to Enoch Faye RN.
--- NOTE | 2018-06-05 19:22 | NUR ---
NURSE NOTES: Endorsement received from ALVARO Cline. Patient opens eyes spontaneously, follows commands. Communicates by writing on a piece of paper, nods or shakes head when responding to a ye/no question. With trache to vent. Shiley 8.0. AC 20, Vt 500, PEEP 5, 40% FiO2. R nare NGT patent and intact.Placement rechecked per auscultation. Receiving Vital AF 53 ml/hr. No residual noted. Purewick in place. Right upper arm PICC, flushing well. SCDs in place. On bariatric bed. Head of bed elevated. Bed locked and in low position. Call light within reach.
[2018-06-05 20:00] VITALS: BP 118/71
[2018-06-05] MEDS: Dyna-Hex 2% Top Sol 2oz TOPIC SCH (20:34)
--- NOTE | 2018-06-05 20:45 | Progress Note ---
DATE: 06/05/2018 CARDIOLOGY PROGRESS NOTE SUBJECTIVE: The patient continues to be on the left side. The patient is status post tracheostomy now on CPAP with pressure support and tolerating. No chest pain. No shortness of breath. Monitored rhythm sinus and sinus bradycardia. OBJECTIVE: VITAL SIGNS: Heart rate 51 to 73, blood pressure 142/99, , respiratory rate 20. LUNGS: Diminished breath sounds. CARDIAC: Regular rhythm and rate. Normal S1 and S2. ABDOMEN: Soft. EXTREMITIES: With lymphedema. LABORATORY AND DIAGNOSTIC DATA: White count 6 and hemoglobin 9.1. Sodium 139, potassium 4.4, bicarbonate 30, BUN 15 creatinine 0.9. Albumin 1.9. IMPRESSION: 1. Aortic dissection acute on chronic, Type A and B. 2. Respiratory failure status post trach. 3. Obesity. 4. Hypoventilation. 5. Chronic respiratory acidosis. 6. Status post respiratory arrest type 2. 7. Sinus node disease with bradycardia complicating. 8. Paroxysmal atrial fibrillation. PLAN: 1. Respiratory therapy. 2. Trach care. 3. Not a candidate for cardiothoracic surgery 4. Cautious anticoagulation. 5. Maintenance dose of amiodarone. 6. Low dose of beta-michael as tolerated in setting of aortic dissection. Maxim Levin M.D. DR: Kamala JOB#: [id number] CC:
--- NOTE | 2018-06-05 21:00 | NUR ---
NURSE NOTES: Heart rate between 45-52, Carvedilol due at 2100H not given. Patient asleep, arousable by touch. No complaint of dizziness, nausea or lightheadedness, no pain or discomfort.
[2018-06-06] VITALS: BP 130/67
--- NOTE | 2018-06-06 | NUR ---
NURSE NOTES: Patient asleep. Appears comfortable. Tolerating feeding.
[2018-06-06] MEDS: HYDROcodone/Acetamin 5/325 tab GT PRN ×2 (03:42→10:20)
[2018-06-06 04:00] VITALS: BP 123/81
--- NOTE | 2018-06-06 04:00 | NUR ---
NURSE NOTES: Bed bath, oral care, change of linens done. Patient tolerated activity.
--- NOTE | 2018-06-06 07:01 | NUR ---
HAND-OFF: Report given to ALVARO Carty.
--- NOTE | 2018-06-06 07:10 | NUR ---
NURSE NOTES: Report received from Aleyda Faye RN.Pt in bed asleep noted no resp distress ,trach-vent with current settings tolerating well,no signs of pain or discomfort,NGT feeding Vital AF 1.2 at 53 ml /hr ,no residual noted,in placed per auscultation,on Pure wick draining to pale yellow urine.ANGEL PICC line intact ,skin warm and dry ,SR up x2 HOB elevated,bed lock in lowest position pt on a big bouy bed,will continue with plans of care.
[2018-06-06 08:00] VITALS: BP 129/60
--- NOTE | 2018-06-06 09:00 | NUR ---
NURSE NOTES: Pt turned and repositioned,able to assist in turning to sides.
[2018-06-06] MEDS: Pantoprazole Inj IVP SCH (09:20)
[2018-06-06] MEDS: Losartan 50mg tab ORAL SCH (09:21)
[2018-06-06] MEDS: Amiodarone 200mg tab ORAL SCH (09:21)
[2018-06-06] MEDS: Eliquis 2.5mg tablet ORAL SCH ×2 (09:22→17:43)
[2018-06-06 12:00] VITALS: BP 120/63
--- NOTE | 2018-06-06 13:17 | NUR ---
PLATFORM WORKEREDGE SAWYER SI:VENTILATORY FAILURE . ALOC VS: BP 110/59, P 57, T 97.7, RR 20, SpO2 100 on VENT AC 20, TV 500, PEEP 5.0 FiO2 40 IS:PREVACID 30mg COREG 3.125mg AMIODARONE HCI 100mg COZAAR 50mg ELIQUIS 5mg SDU STATUS
[2018-06-06] MEDS ORDERED: Tubing IV Secondary IV ONE (15:23)
[2018-06-06] MEDS ORDERED: NS 275ml ONE (15:23)
[2018-06-06 16:00] VITALS: BP 110/59
--- NOTE | 2018-06-06 16:15 | Pulmonology Progress Note ---
Assessment/Plan Assessment/Plan 1. Status post bradycardic arrest x 2 2. Respiratory failure, acute on chronic. 3. Obesity, hypoventilation, and sleep apnea. 4. Morbid obesity. 5. 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 6. Diabetes. 7. Hypertension. 8. UTI - strep species 9. sp trach weaning as tolerated monitor HR nebs TF o2 home meds fu with cards recommendations Subjective Allergies: Coded Allergies: No Known Allergies (Unverified , 02/20/17) Subjective on cpap 5 ps 8 tv 400 comfortable tolerating ngt feeds no cp nv or bleeding not getting oob awake Objective Last 24 Hour Vital Signs Date Time Temp Pulse Resp B/P (MAP) Pulse Ox O2 Delivery O2 Flow Rate FiO2 06/06/18 15:20 100 06/06/18 15:00 60 20 40 06/06/18 12:00 Mechanical Ventilator Mechanical Ventilator 06/06/18 12:00 98.6 64 20 120/63 (82) 100 06/06/18 12:00 40 06/06/18 11:36 57 06/06/18 11:00 78 20 40 06/06/18 09:21 66 129/60 06/06/18 09:21 129/60 06/06/18 08:07 68 06/06/18 08:01 Mechanical Ventilator Mechanical Ventilator 06/06/18 08:00 40 06/06/18 08:00 98.2 66 20 129/60 (83) 100 06/06/18 06:59 82 20 40 06/06/18 05:30 80 21 40 06/06/18 04:16 97.5 06/06/18 04:00 40 06/06/18 04:00 70 06/06/18 04:00 98.1 67 20 123/81 (95) 98 06/06/18 04:00 Mechanical Ventilator Mechanical Ventilator 06/06/18 03:29 65 20 40 06/06/18 01:30 58 21 40 06/06/18 00:00 97.5 58 20 130/67 (88) 100 06/06/18 00:00 Mechanical Ventilator Mechanical Ventilator 06/06/18 00:00 40 06/06/18 00:00 59 06/05/18 23:16 60 20 40 06/05/18 21:04 51 22 40 06/05/18 20:34 45 118/72 06/05/18 20:00 56 06/05/18 20:00 Mechanical Ventilator Mechanical Ventilator 06/05/18 20:00 98.2 57 20 118/71 (87) 100 06/05/18 20:00 40 06/05/18 19:30 52 24 40 06/05/18 17:33 51 24 40 Intake and Output 06/05/18 06/06/18 19:00 07:00 Intake Total 696 ml 53 ml Output Total 350 ml Balance 346 ml 53 ml Free Water 60 ml Tube Feeding 636 ml 53 ml Output Urine Total 350 ml Current Medications Medications (Trade) Dose Ordered Sig/Tera Route PRN Reason Start Time Stop Time Status Last Admin Dose Admin Acetaminophen (Tylenol) 650 mg Q4H PRN ORAL Mild Pain/Temp > 100.5 06/02/18 09:53 06/23/18 09:52 Acetaminophen/ Hydrocodone Bitart ([place] 5/325) 1 tab Q4H PRN GT Moderate Pain (Pain Scale 4-6) 06/02/18 09:54 06/08/18 09:53 06/06/18 10:20 Amiodarone HCl (Cordarone) 100 mg DAILY ORAL 06/03/18 09:00 07/02/18 08:59 06/06/18 09:21 Apixaban (Eliquis) 5 mg BID ORAL 06/02/18 18:00 07/02/18 08:59 06/06/18 09:22 Carvedilol (Coreg) 3.125 mg EVERY 12 HOURS ORAL 06/04/18 09:00 07/04/18 08:59 06/06/18 09:21 Cetylpyridinium Chloride (Cepacol) 1 lozg Q2H PRN DAMIR For Cough 06/02/18 10:00 06/22/18 17:46 Chlorhexidine Gluconate (Shahrzad-Hex 2%) 1 applic DAILY@2000 TOPIC 06/02/18 20:00 06/25/18 19:59 06/05/18 20:34 Hydralazine HCl (Apresoline) 10 mg Q6HR PRN ORAL SBP above 150 06/02/18 12:00 06/24/18 01:59 Lansoprazole (Prevacid) 30 mg DAILY NG 06/07/18 09:00 06/18/18 08:59 Losartan Potassium (Cozaar) 50 mg DAILY ORAL 06/03/18 09:00 06/24/18 08:59 06/06/18 09:21 Phenol/Menthol (Chloraseptic) 1 spray Q3H PRN ORAL throat pain 06/02/18 09:53 06/26/18 09:52 06/04/18 14:41 Gayla Leger DO Jun 06, 2018 16:15
--- NOTE | 2018-06-06 16:40 | Pulmonology Progress Note ---
Assessment/Plan Assessment/Plan 1. Status post bradycardic arrest x 2 2. Respiratory failure, acute on chronic. 3. Obesity, hypoventilation, and sleep apnea. 4. Morbid obesity. 5. 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 6. Diabetes. 7. Hypertension. 8. UTI - strep species 9. sp trach weaning as tolerated monitor HR nebs TF o2 home meds fu with cards recommendations Subjective Constitutional: Reports: no symptoms HEENT: Repors: no symptoms Respiratory: Reports: no symptoms Cardiovascular: Reports: no symptoms Gastrointestinal/Abdominal: Reports: no symptoms Genitourinary: Reports: no symptoms Neurologic: Reports: no symptoms Allergies: Coded Allergies: No Known Allergies (Unverified , 02/20/17) Subjective on cpap 5 ps 8 tv 400 comfortable tolerating ngt feeds no cp nv or bleeding not getting oob awake Objective Last 24 Hour Vital Signs Date Time Temp Pulse Resp B/P (MAP) Pulse Ox O2 Delivery O2 Flow Rate FiO2 06/06/18 16:00 59 06/06/18 15:20 100 06/06/18 15:00 60 20 40 06/06/18 12:00 Mechanical Ventilator Mechanical Ventilator 06/06/18 12:00 98.6 64 20 120/63 (82) 100 06/06/18 12:00 40 06/06/18 11:36 57 06/06/18 11:00 78 20 40 06/06/18 09:21 66 129/60 06/06/18 09:21 129/60 06/06/18 08:07 68 06/06/18 08:01 Mechanical Ventilator Mechanical Ventilator 06/06/18 08:00 40 06/06/18 08:00 98.2 66 20 129/60 (83) 100 06/06/18 06:59 82 20 40 06/06/18 05:30 80 21 40 06/06/18 04:16 97.5 06/06/18 04:00 40 06/06/18 04:00 70 06/06/18 04:00 98.1 67 20 123/81 (95) 98 06/06/18 04:00 Mechanical Ventilator Mechanical Ventilator 06/06/18 03:29 65 20 40 06/06/18 01:30 58 21 40 06/06/18 00:00 97.5 58 20 130/67 (88) 100 06/06/18 00:00 Mechanical Ventilator Mechanical Ventilator 06/06/18 00:00 40 06/06/18 00:00 59 06/05/18 23:16 60 20 40 06/05/18 21:04 51 22 40 06/05/18 20:34 45 118/72 06/05/18 20:00 56 06/05/18 20:00 Mechanical Ventilator Mechanical Ventilator 06/05/18 20:00 98.2 57 20 118/71 (87) 100 06/05/18 20:00 40 06/05/18 19:30 52 24 40 06/05/18 17:33 51 24 40 Intake and Output 06/05/18 06/06/18 19:00 07:00 Intake Total 696 ml 53 ml Output Total 350 ml Balance 346 ml 53 ml Free Water 60 ml Tube Feeding 636 ml 53 ml Output Urine Total 350 ml General Appearance: WD/WN HEENT: atraumatic, anicteric Respiratory/Chest: lungs clear, normal breath sounds Cardiovascular: normal rate, regular rhythm Abdomen: no organomegaly, non distended Extremities: no cyanosis Skin: no lesions Neurologic/Psychiatric: 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-XII grossly normal, alert, oriented x 3 Current Medications Medications (Trade) Dose Ordered Sig/Tera Route PRN Reason Start Time Stop Time Status Last Admin Dose Admin Acetaminophen (Tylenol) 650 mg Q4H PRN ORAL Mild Pain/Temp > 100.5 06/02/18 09:53 06/23/18 09:52 Acetaminophen/ Hydrocodone Bitart ([place] 5/325) 1 tab Q4H PRN GT Moderate Pain (Pain Scale 4-6) 06/02/18 09:54 06/08/18 09:53 06/06/18 10:20 Amiodarone HCl (Cordarone) 100 mg DAILY ORAL 06/03/18 09:00 07/02/18 08:59 06/06/18 09:21 Apixaban (Eliquis) 5 mg BID ORAL 06/02/18 18:00 07/02/18 08:59 06/06/18 09:22 Carvedilol (Coreg) 3.125 mg EVERY 12 HOURS ORAL 06/04/18 09:00 07/04/18 08:59 06/06/18 09:21 Cetylpyridinium Chloride (Cepacol) 1 lozg Q2H PRN DAMIR For Cough 06/02/18 10:00 06/22/18 17:46 Chlorhexidine Gluconate (Shahrzad-Hex 2%) 1 applic DAILY@2000 TOPIC 06/02/18 20:00 06/25/18 19:59 06/05/18 20:34 Hydralazine HCl (Apresoline) 10 mg Q6HR PRN ORAL SBP above 150 06/02/18 12:00 06/24/18 01:59 Lansoprazole (Prevacid) 30 mg DAILY NG 06/07/18 09:00 06/18/18 08:59 Losartan Potassium (Cozaar) 50 mg DAILY ORAL 06/03/18 09:00 06/24/18 08:59 06/06/18 09:21 Phenol/Menthol (Chloraseptic) 1 spray Q3H PRN ORAL throat pain 06/02/18 09:53 06/26/18 09:52 06/04/18 14:41 Gayla Leger DO Jun 06, 2018 16:40
--- NOTE | 2018-06-06 19:15 | NUR ---
HAND-OFF: Report given to Julian Cerna RN/Ted JOHN.
--- NOTE | 2018-06-06 19:31 | NUR ---
NURSE NOTES: Patient received from Machelle JOHN. Patient is in bed with family members at bedside. Patient is experiencing no discomfort at this time. Patient is awake in bed. Bed at its lowest position and call light in reach. Will continue to monitor.
[2018-06-06] MEDS: Dyna-Hex 2% Top Sol 2oz TOPIC SCH (19:44)
[2018-06-06 19:53] VITALS: BP 123/73
[2018-06-07] VITALS: BP 153/85
--- NOTE | 2018-06-07 00:48 | NUR ---
NURSE NOTES: Patient in bed with no signs of distress. Patient is performing her own oral suctioning. Will continue to monitor.
--- NOTE | 2018-06-07 02:00 | Progress Note ---
CARDIOLOGY PROGRESS NOTE DATE: 06/06/2018 SUBJECTIVE: The patient is on trach and status post tracheostomy, on CPAP trials at times. Awaiting placement. OBJECTIVE: VITAL SIGNS: Blood pressure 120/63, pulse 64, and respirations 20. Monitored rhythm, sinus and sinus bradycardia. Heart rate ranged 57 to 78. LUNGS: With good breath sounds. CARDIAC: Regular rhythm and rate. Normal S1, S2 with no murmur appreciated but respiratory sounds obscure exam. ABDOMEN: Soft and obese. EXTREMITIES: With nonpitting edema. LABORATORY DATA: Noted from 06/05/2018. IMPRESSION: 1. Respiratory failure, status post trach. 2. Obesity hypoventilation. 3. Status post respiratory arrest with bradycardia. 4. Acute on chronic aortic dissection, type A and B, hemodynamically stable. 5. Paroxysmal atrial fibrillation. 6. Hypertensive heart disease. 7. Lymphedema. 8. Acute on chronic diastolic congestive heart failure, clinically compensated. PLAN: 1. Cautious anticoagulation. 2. Low-dose beta-michael to decrease shearing forces. Watch for the symptomatic bradycardia. 3. Weaning trials. 4. Continue amiodarone at maintenance dose for suppression of atrial tachyarrhythmias. Maxim Levin M.D. DR: ROHAN JOB#: [id number] CC:
[2018-06-07 04:00] VITALS: BP 150/89
[2018-06-07] MEDS: HYDROcodone/Acetamin 5/325 tab GT PRN ×4 (04:06→22:00)
--- NOTE | 2018-06-07 04:21 | NUR ---
NURSE NOTES: Patient continues to refuse oral care. Patient self suctions and tolerates suction well. Educated patient on the importance for oral care. Will monitor and continue to reinforce oral care.
--- NOTE | 2018-06-07 07:09 | NUR ---
HAND-OFF: Report given to Johnny Albarran RN.
--- NOTE | 2018-06-07 07:21 | NUR ---
RESPIRATORY NOTE: received pt on current vent settings with no resp distress at this time. pt is awake and alert and aware that weaning will occur later today. pt is trached with shiley 8 thats secured via trach tie/guard. alarms on on and audible with ambu bag at bedside. will cont to monitor.
--- NOTE | 2018-06-07 07:30 | NUR ---
NURSE NOTES: Received report from ALVARO Nolen. Patient is resting in bed, in stable condition. No s/sx of SOB, breathing is even and unlabored. Vent settings are as ordered. Observed no presence of pain or discomfort at this time. Bed is in lowest position, brakes engaged. Call light is kept within easy reach. Will continue to monitor patient.
[2018-06-07 07:53] VITALS: BP 158/76
[2018-06-07] MEDS: Losartan 50mg tab ORAL SCH (08:16)
[2018-06-07] MEDS: Eliquis 2.5mg tablet ORAL SCH ×2 (08:16→17:04)
[2018-06-07] MEDS: Amiodarone 200mg tab ORAL SCH (08:17)
--- NOTE | 2018-06-07 08:37 | NUR ---
NURSE NOTES: Dr. Jade seen and examined patient at bedside. Ordered "Keep SpO2 92%-96%". Order entered, noted, and carried out. Will continue to monitor patient.
--- NOTE | 2018-06-07 08:49 | NUR ---
RESPIRATORY NOTE: pt placed on CPAP PS 8 with fio2 30%. no resp distress at this time. pt tolerating well. maintaining sats 92-99%. will cont to monitor
[2018-06-07 12:00] VITALS: BP 146/73
--- NOTE | 2018-06-07 13:12 | NUR ---
LACEMAKERENVIRONMENTAL SCIENCE PROGRAM DIRECTOR SI:VENTILATORY FAILURE . ALOC VS: BP 158/76, P 55, T 98.4, RR 23, SpO2 100 on VENT AC 20, TV 500, PEEP 5.0, FiO2 30 IS:PREVACID 30mg AMIODARONE HCI 100mg COZAAR 50mg ELIQUIS 5mg [place] 5/325 SDU STATUS
--- NOTE | 2018-06-07 13:26 | Pulmonology Progress Note ---
Assessment/Plan Assessment/Plan 1. Status post arrest x 2 2. Respiratory failure, acute on chronic. 3. Obesity hypoventilation syndrome and sleep apnea. 4. Morbid obesity. 5. Thoracic aortic aneurysm dissection, type A and B chronic 6. Diabetes. 7. Hypertension. 8. UTI - strep species resp failure on vent via trach alert and responsive NG tube, feeds will do trial PO w [facility] DIRECT[facility] speaking valve tolerated disc w RN, piano case maker Refer to [facility] when bed available Subjective Constitutional: Reports: no symptoms Allergies: Coded Allergies: No Known Allergies (Unverified , 02/20/17) Objective Last 24 Hour Vital Signs Date Time Temp Pulse Resp B/P (MAP) Pulse Ox O2 Delivery O2 Flow Rate FiO2 06/07/18 13:01 71 19 30 06/07/18 12:00 98.4 73 20 146/73 (97) 100 06/07/18 12:00 40 06/07/18 12:00 52 06/07/18 12:00 Mechanical Ventilator Mechanical Ventilator 06/07/18 10:42 74 23 30 06/07/18 08:45 99 06/07/18 08:45 30 30 06/07/18 08:17 55 158/76 06/07/18 08:16 158/76 06/07/18 08:00 40 06/07/18 08:00 Mechanical Ventilator Mechanical Ventilator 06/07/18 08:00 52 06/07/18 07:53 98.2 55 20 158/76 (103) 100 06/07/18 07:20 51 20 40 06/07/18 04:41 58 21 40 06/07/18 04:00 58 06/07/18 04:00 40 06/07/18 04:00 Mechanical Ventilator Mechanical Ventilator 06/07/18 04:00 97.9 57 23 150/89 (109) 100 06/07/18 03:30 67 22 40 06/07/18 01:14 54 21 40 06/07/18 00:00 98.1 55 21 153/85 (107) 100 06/07/18 00:00 Mechanical Ventilator Mechanical Ventilator 06/07/18 00:00 40 06/06/18 23:20 51 22 40 06/06/18 23:16 49 06/06/18 21:12 60 20 40 06/06/18 20:39 53 117/60 4/21/19 20:00 Mechanical Ventilator Mechanical Ventilator 06/06/18 20:00 40 06/06/18 19:53 97.7 60 20 123/73 (90) 100 06/06/18 19:07 61 06/06/18 19:06 61 20 40 06/06/18 16:55 62 20 40 06/06/18 16:00 40 06/06/18 16:00 Mechanical Ventilator Mechanical Ventilator 06/06/18 16:00 98.4 57 20 110/59 (76) 100 06/06/18 16:00 59 06/06/18 15:20 100 06/06/18 15:00 60 20 40 Intake and Output 06/06/18 06/07/18 18:59 06:59 Intake Total 710 ml 424 ml Balance 710 ml 424 ml Free Water 120 ml Tube Feeding 530 ml 424 ml Other 60 ml Objective morbidly obese, trach/vent General Appearance: no acute distress HEENT: atraumatic Respiratory/Chest: lungs clear Cardiovascular: normal rate Current Medications Medications (Trade) Dose Ordered Sig/Tera Route PRN Reason Start Time Stop Time Status Last Admin Dose Admin Acetaminophen (Tylenol) 650 mg Q4H PRN ORAL Mild Pain/Temp > 100.5 06/02/18 09:53 06/23/18 09:52 Acetaminophen/ Hydrocodone Bitart ([place] 5/325) 1 tab Q4H PRN GT Moderate Pain (Pain Scale 4-6) 06/02/18 09:54 06/08/18 09:53 06/07/18 10:40 Amiodarone HCl (Cordarone) 100 mg DAILY ORAL 06/03/18 09:00 07/02/18 08:59 06/07/18 08:17 Apixaban (Eliquis) 5 mg BID ORAL 06/02/18 18:00 07/02/18 08:59 06/07/18 08:16 Carvedilol (Coreg) 3.125 mg EVERY 12 HOURS ORAL 06/04/18 09:00 07/04/18 08:59 06/06/18 09:21 Cetylpyridinium Chloride (Cepacol) 1 lozg Q2H PRN DAMIR For Cough 06/02/18 10:00 06/22/18 17:46 Chlorhexidine Gluconate (Shahrzad-Hex 2%) 1 applic DAILY@1999 TOPIC 06/02/18 20:00 06/25/18 19:59 06/06/18 19:44 Hydralazine HCl (Apresoline) 10 mg Q6HR PRN ORAL SBP above 150 06/02/18 12:00 06/24/18 01:59 Lansoprazole (Prevacid) 30 mg DAILY NG 06/07/18 09:00 06/18/18 08:59 06/07/18 08:16 Losartan Potassium (Cozaar) 50 mg DAILY ORAL 06/03/18 09:00 06/24/18 08:59 06/07/18 08:16 Phenol/Menthol (Chloraseptic) 1 spray Q3H PRN ORAL throat pain 06/02/18 09:53 06/26/18 09:52 06/04/18 14:41 Porfirio Jade MD Jun 07, 2018 13:26
--- NOTE | 2018-06-07 13:41 | NUR ---
*-* INSURANCE *-* UPDATED CLINICALS AND REVIEWS HAVE BEEN FAXED TO: [facility] P:[phone] F: [phone]
--- NOTE | 2018-06-07 14:08 | NUR ---
SWALLOW/SPEECH THERAPY NOTE: SWALLOW/SPEECH THERAPY NOTE: PATIENT IS ALERT AND WRITING. DOES NOT WANT TO WORK ON SPEAKING VALVE AND PO TRIALS WITH FOOD COLORING AND CUFF DEFLATION GIVEN HER THROAT PAIN EVERY TIME SHE COUGHS. DISCUSSED TRYING TO HAVE RT SUCTION BEFORE AND AFTER TRACH CUFF DEFLATION TO LIMIT SECRETIONS FALLING INTO AIRWAY MAKING HER COUGH MORE. UNABLE TO COMPLETE VIDEOSWALLOW STUDY DUE TO EQUIPMENT ISSUE. MAY CONSIDER ENT/CERAMIC PLATER ENDOSCOPIC SWALLOW EVAL IF POSSIBLE, WILL TRY TO DISCUSS WITH DR CORONEL. PAIN MEDS NOW: NORCO FOR HEAD AND THROAT PER RT: User: Dipti Hodgson RT Date: 06/07/18 13:01 Type: Mechanical Ventilation Assessm... Ventilator Type [id number] Ventilator Number [id number] Total Ventilator Days 14 Ventilator Support Mode CPAP Fraction of Inspired Oxygen (FiO2) 30 % Positive End Expiratory Pressure 5.0 cm H2O Pressure Support 8 cm H2O Ventilator Apnea Tidal Volume Set 500 ml Ventilator Apnea FiO2 Setting 100 % Ventilator Apnea Resp Rate Setting 20 bpm Ventilator Apnea Flow Rate Setting 60.0 L/min Humidifier Type HME Pulse Rate 71 beats per min (60-100) Respiratory Rate 19 breaths per minute (12-24) Pulse Oximetry 100 Inspiratory/Expiratory Phase Ratio 1:2.5 Spontaneous Exhaled Tidal Volume 458 ml Minute Ventilation 8.5 L/min Inspiratory Airway Pressure 14 cm H2O Mean Airway Pressure 8 cm H2O Respiratory Effort Normal Non-labored Mechanically Ventilated Respiratory Depth Normal Respiratory Pattern Regular Level of Consciousness Appropriate Follows Commands Sleeping Side Bilateral Lung Sound Location All Lobes Lung Sound Respiratory Phase Inspiratory & Expiratory Breath Sounds Rhonchi Chest Shape Normal Cough Description Productive Cough Frequency Occasional Sputum Amount Small Sputum Color White Simon Yellow Sputum Consistency Thick Thin Sputum Production Method Tracheal Suction Vent High Pressure Alarm Setting 60 cm H2O Low Mechanical Volume Alarm 300 ml Vent Low Spontaneous Vol Alarm Set 200 ml Vent Low Minute Volume Alarm Set 5 L/min Vent High Resp Rate Alarm Setting 40 bpm Apnea Alarm Setting 20 seconds Endotracheal Tube Position Tracheostomy Tracheostomy Tube Type Cuffed Shiley Tracheostomy Tube Size 8.0 mm Difficulty Clearing Secretions PLAN: continue with plan of care tomorrow will have green dye for swallow test tomorrow. Questionable if pt can go to [facility] with ngt per rn.
--- NOTE | 2018-06-07 14:50 | NUR ---
RESPIRATORY NOTE: pt placed backon AC at 1427. slight distress occurred. RN aware
--- NOTE | 2018-06-07 15:39 | NUR ---
COMPUTER INFORMATION SYSTEMS INSTRUCTORASSISTANT PRODUCE MANAGER FAXED CURRENT APR AND NOTES TO DAVID FULTON [facility] FAX
[2018-06-07 16:00] VITALS: BP 124/74
--- NOTE | 2018-06-07 19:02 | NUR ---
HAND-OFF: Report given to ALVARO Clark.
--- NOTE | 2018-06-07 19:18 | NUR ---
NURSE NOTES: Received patient from Johnny JOHN. Patient in bed with no signs of distress. Patient is trach to vent with prescribed vent settings. G-tube feeding is on and PICC on right upper arm is intact and patent. Bed at its lowest position and call light in reach.
[2018-06-07] MEDS: Dyna-Hex 2% Top Sol 2oz TOPIC SCH (19:53)
[2018-06-07 20:00] VITALS: BP 143/81
[2018-06-08] VITALS (7 sets, daily range): BP systolic 134–151; BP diastolic 75–96
--- NOTE | 2018-06-08 00:45 | Progress Note ---
DATE: 06/07/2018 CARDIOLOGY PROGRESS NOTE SUBJECTIVE: Discharge planning continues to be in progress. A bed at [facility] is pending. The patient's condition is stable. She is on ventilator support with CPAP via trach. She is alert and interactive. OBJECTIVE: VITAL SIGNS: Blood pressure 146/73, pulse 73, respiratory rate 20, heart rate 52 to 73. LUNGS: Clear. CARDIAC: Regular. Normal S1, S2. ABDOMEN: Obese. EXTREMITIES: With lymphedema. IMPRESSION: 1. Aortic dissection, acute on chronic. 2. Paroxysmal atrial fibrillation. 3. Sinus node disease. 4. Status post respiratory arrest. 5. Status post tracheostomy for obesity hypoventilation syndrome. PLAN: 1. Continue amiodarone at maintenance dose. 2. Continue low-dose beta-michael as tolerated by heart rate. 3. Consider additional antihypertensive therapy if blood pressure parameters remain on the upward trend. 4. Cautious anticoagulation, not a candidate for cardiothoracic surgery. Maxim Levin M.D. DR: MIGUELANGEL JOB#: [id number] CC:
[2018-06-08] MEDS: HYDROcodone/Acetamin 5/325 tab GT PRN ×2 (02:09→09:50)
--- NOTE | 2018-06-08 07:28 | NUR ---
HAND-OFF: Report given to Naman Lester RN. Patient has no signs of distress at this time.
--- NOTE | 2018-06-08 07:29 | NUR ---
NURSE NOTES: Received pt from ALVARO Monroy in stable condition with no cardiopulmonary distress noted. Pt is awake in bed watching TV, AAOx4. Pt is trache to vent Shiley 8 AC 20 TV 500 FiO2 30% Peep 5. NGT noted in R nare running Vital AF 1.2 @ 53cc/hr. Purewick noted draining yellow urine. Bilat upper and lower extremity edema noted- no skin alterations are noted at this time. Pt is on P200 mattress. ANGEL PICC noted. Bed has overhead trapeze to assist pt and staff with turning in bed. Bed is in lowest position with alarm on, side rails up x2, call light within reach. Will continue to monitor pt. Addendum: 06/08/18 at 1107 by Keisha Florence RN Late entry: SCDs on bilat lower extremities.
--- NOTE | 2018-06-08 08:36 | NUR ---
Weaning started. Placed on PS+8 PEEP +5 FIO2 30%. Will continue to monitor.
[2018-06-08] MEDS: Eliquis 2.5mg tablet NG SCH ×2 (08:49→18:50)
[2018-06-08] MEDS ORDERED: Losartan 50mg tab NG SCH (09:00)
[2018-06-08] MEDS ORDERED: Losartan 50mg tab ORAL SCH (09:00)
[2018-06-08] MEDS ORDERED: Amiodarone 200mg tab NG SCH (09:00)
--- NOTE | 2018-06-08 09:20 | NUR ---
Patient placed on CA 30% FIO2 8LPM. HR 88BPM and saturations 100%. Patient in pain, however she says she is tolerating the Cool Aerosol well. Will continue to monitor. ALVARO Valdes aware.
--- NOTE | 2018-06-08 09:39 | NUR ---
*-* INSURANCE *-* UPDATED CLINICALS AND REVIEWS HAVE BEEN FAXED TO: [facility] LOW P:[phone] F: [phone]
--- NOTE | 2018-06-08 10:12 | NUR ---
BRINELL TESTERWOOD MOLDER SI: VENTILATORY FAILURE . ALOC VS: BP 145/75, P 55, T 98.1, RR 24, SpO2 100 on VENT C-pap, PEEP 5.0, FiO2 30 IS: PREVACID 30mg AMIODARONE HCI 100mg COZAAR 50mg ELIQUIS 5mg NORCO 5/325 COREG 3.125mg SDU STATUS
--- NOTE | 2018-06-08 11:58 | NUR ---
CASE MANAGEMENT NOTES SPOKE TO DAVID AT [facility] AND SHE RECEIVED APPROVAL FOR PATIENT BUT STATED THAT DUE TO PATIENT NEEDS OF A BARIATRIC BED SHE NEEDS A ROOM TO HERSELF, AND AN EMPTY ROOM IS NOT AVAILABLE AT THE MOMENT. WILL FOLLOW UP DAILY TO CHECK FOR AVAILABILITY.
--- NOTE | 2018-06-08 12:00 | NUR ---
NURSE NOTES: Pt c/o SOB and requested to be placed back on Vent. RT contacted and placed pt back on AC mode 20 TV 500 FiO2 30% Peep 5. Will continue to monitor pt.
--- NOTE | 2018-06-08 12:06 | NUR ---
RESPIRATORY NOTE: Placed pt back on vent AC mode with the same previous settings due to difficulty of breathing. No SOB or resp distress noted at this time. Will continue to monitor.
--- NOTE | 2018-06-08 13:45 | Pulmonology Progress Note ---
Assessment/Plan Assessment/Plan 1. Status post arrest x 2 2. Respiratory failure, acute on chronic. 3. Obesity hypoventilation syndrome and sleep apnea. 4. Morbid obesity. 5. Thoracic aortic aneurysm dissection, type A and B chronic 6. Diabetes. 7. Hypertension. 8. 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 speaking valve tolerated disc w RN, caseworker Refer to [facility] when bed available good weaning parameters trach collar as tolerated Subjective Constitutional: Reports: no symptoms Allergies: Coded Allergies: No Known Allergies (Unverified , 02/20/17) Objective Last 24 Hour Vital Signs Date Time Temp Pulse Resp B/P (MAP) Pulse Ox O2 Delivery O2 Flow Rate FiO2 06/08/18 12:04 79 22 30 06/08/18 12:00 Mechanical Ventilator Mechanical Ventilator 06/08/18 12:00 30 06/08/18 12:00 79 06/08/18 12:00 98.4 80 20 151/90 (110) 100 06/08/18 10:34 86 24 30 06/08/18 09:20 80 24 30 06/08/18 09:20 8.0 30 06/08/18 08:49 68 145/75 06/08/18 08:48 145/75 06/08/18 08:40 100 06/08/18 08:36 60 16 30 30 06/08/18 08:30 30 06/08/18 08:00 Mechanical Ventilator Mechanical Ventilator 06/08/18 08:00 98.4 59 22 145/75 (98) 100 06/08/18 08:00 30 06/08/18 07:45 55 06/08/18 07:00 64 20 30 06/08/18 04:54 60 20 30 06/08/18 04:00 98.2 60 20 144/79 (100) 100 06/08/18 04:00 50 06/08/18 04:00 Mechanical Ventilator Mechanical Ventilator 06/08/18 04:00 30 06/08/18 03:20 56 20 30 06/08/18 01:12 61 21 30 06/08/18 00:00 98.1 62 20 135/87 (103) 100 06/08/18 00:00 Mechanical Ventilator Mechanical Ventilator 06/08/18 00:00 61 06/08/18 00:00 30 06/07/18 23:26 66 21 30 06/07/18 21:18 63 20 30 06/07/18 21:00 53 146/60 06/07/18 20:00 98.6 68 21 143/81 (101) 100 06/07/18 20:00 30 06/07/18 20:00 Mechanical Ventilator Mechanical Ventilator 06/07/18 19:39 63 06/07/18 19:11 58 20 30 06/07/18 17:20 65 21 30 06/07/18 16:00 40 06/07/18 16:00 Mechanical Ventilator Mechanical Ventilator 06/07/18 16:00 60 06/07/18 16:00 98.1 63 20 124/74 (91) 100 06/07/18 14:51 70 22 30 Intake and Output 06/07/18 06/08/18 18:59 06:59 Intake Total 783 ml 583 ml Output Total 300 ml 1600 ml Balance 483 ml -1017 ml Free Water 200 ml Tube Feeding 583 ml 583 ml Output Urine Total 300 ml 700 ml Other 900 ml # Voids 1 Objective morbidly obese, trach/vent General Appearance: no acute distress HEENT: atraumatic Respiratory/Chest: lungs clear Cardiovascular: normal rate Current Medications Medications (Trade) Dose Ordered Sig/Tera Route PRN Reason Start Time Stop Time Status Last Admin Dose Admin Acetaminophen (Tylenol) 650 mg Q4H PRN GT mild pain/fever 06/08/18 09:00 07/08/18 08:59 Amiodarone HCl (Cordarone) 100 mg DAILY NG 06/08/18 09:00 07/08/18 08:59 06/08/18 08:49 Apixaban (Eliquis) 5 mg BID NG 06/08/18 09:00 07/08/18 08:59 06/08/18 08:49 Carvedilol (Coreg) 3.125 mg EVERY 12 HOURS NG 06/08/18 09:00 07/08/18 08:59 06/08/18 08:49 Cetylpyridinium Chloride (Cepacol) 1 lozg Q2H PRN DAMIR For Cough 06/02/18 10:00 06/22/18 17:46 Chlorhexidine Gluconate (Shahrzad-Hex 2%) 1 applic DAILY@1999 TOPIC 06/02/18 20:00 06/25/18 19:59 06/07/18 19:53 Hydralazine HCl (Apresoline) 10 mg Q6HR PRN ORAL SBP above 150 06/02/18 12:00 06/24/18 01:59 Lansoprazole (Prevacid) 30 mg DAILY NG 06/07/18 09:00 06/18/18 08:59 06/08/18 08:48 Losartan Potassium (Cozaar) 100 mg DAILY NG 06/08/18 09:00 07/08/18 08:59 06/08/18 08:48 Phenol/Menthol (Chloraseptic) 1 spray Q3H PRN ORAL throat pain 06/02/18 09:53 06/26/18 09:52 06/04/18 14:41 Porfirio Jade MD Jun 08, 2018 13:45
--- NOTE | 2018-06-08 14:35 | NUR ---
RD ASSESSMENT & RECOMMENDATIONS SEE CARE ACTIVITY FOR COMPLETE ASSESSMENT DAILY ESTIMATED NEEDS: Needs based on Critical Care, morbidly obese 22-25kcal/kg IBW (61kg) kcals/kg 0366-5101 total kcals 1.8-2.5 IBW (61kg) g protein/kg 109-152 g total protein 20-25ml/kg abw (84kg) mL/kg 6398-4663 total fluid mLs NUTRITION DIAGNOSIS: * Swallowing difficulty R/T respiratory status as evidenced by s/p cardiac arrest, pt is reintubated, now s/p trach placement, on NGT feeding, pending DATABASE ADMINISTRATION MANAGER evaluation. * Obesity R/T life style factors, excessive energy intake as evidenced by BMI >50, pt is 253% IBW CURRENT TF:Vital AF 1.2 @ 53ml/hr x 24 hrs PO DIET RECOMMENDATIONS: CCHO LOW, CARDIAC/ texture per DATABASE ADMINISTRATION MANAGER ENTERAL NUTRITION RECOMMENDATIONS: VITAL AF 1.2 @53ml/hr x24 hrs + Prosource 1pkt BID to provide 1272ml, 1526 kcal, 95g + 22g pro, 1032ml free H2O - Add Prosource 1 pack BID (11g pro each) to better meet est pro needs - Flush per MD. HOB over 30 degrees ADDITIONAL RECOMMENDATIONS: 1) Recalibrate bed scale as able for accurate CBW 2) Rec accucheck w/ SSI: elev BGs, h/o DM 3) Monitor lytes, replete as needed 4) Monitor for ability to start oral diet, need to adjust TF 5) Monitor BM regularity- none noted since 05/28, consider stool softeners . .
[2018-06-08] MEDS: Acetaminophen 650mg/20.3ml GT PRN ×2 (15:18→20:33)
[2018-06-08] MEDS ORDERED: NS 275ml ONE (15:42)
--- NOTE | 2018-06-08 16:33 | NUR ---
PHARMACEUTICAL SALES NOTES RECIEVED A CALL FROM DAVID FROM [facility], PT ACCEPTED TO ROOM 2216 BED B. NURSE TO GIVE REPORT TO [phone]. DR ZAPATA IS THE ACCEPTING MD. PLACED A CALL TO [facility] NO BARIATRICS SERVICES AVAILABLE. PLACED CALL TO LOW. WAITING FOR CALL BACK. [facility] [id number] [place], [place] [address] [address] ROOM 2216 BED B Addendum: 06/08/18 at 1704 by MEGAN GALLARDO RN RN [facility] TO TRANSPORT PT WITH ETA 1930. RT WITH A BARIATRIC STAR. FAMILY MADE AWARE OF DCP AT THIS TIME WITH CONTACT INFORMATION GIVEN.
[2018-06-08] MEDS ORDERED: PACERONE200 MG NG (17:50)
[2018-06-08] MEDS ORDERED: COZAAR50 MG NG (17:50)
[2018-06-08] MEDS ORDERED: COREG3.125 MG NG (17:50)
[2018-06-08] MEDS ORDERED: ELIQUIS2.5 MG NG (17:50)
[2018-06-08] MEDS ORDERED: LANSOPRAZOLE30 MG NG (17:50)
--- NOTE | 2018-06-08 19:00 | NUR ---
NURSE NOTES: Gave report to ALVARO Hardy from [place], [place].
--- NOTE | 2018-06-08 19:20 | NUR ---
HAND-OFF: Report given to ALVARO Chavez. Pt in stable condition.
[2018-06-08] MEDS: Dyna-Hex 2% Top Sol 2oz TOPIC SCH (20:00)
--- NOTE | 2018-06-08 20:00 | NUR ---
NURSE NOTES: pt awake and alert trach -vent o2 sat 98-100 o/o n o acute resp distress noted reposition and suction to transfer to [facility]
--- NOTE | 2018-06-08 23:15 | Progress Note ---
DATE: 06/08/2018 CARDIOLOGY PROGRESS NOTE SUBJECTIVE: The patient has been accepted for transfer to [facility]. The patient has no new complaints. She has been on CPAP trial. She is on ventilator via trach. OBJECTIVE: VITAL SIGNS: Blood pressure 138/95, pulse 60, and respirations 20. Afebrile. LUNGS: Clear with good breath sounds. Trach site with no bleeding. CARDIAC: Regular rhythm and rate. Normal S1, S2. No murmur appreciated due to respiratory sounds. ABDOMEN: Obese. EXTREMITIES: With lymphedema. NEUROLOGIC: The patient is alert, interactive ,and responsive appropriately. IMPRESSION: 1. Respiratory failure status post trach. 2. Obesity hypoventilation. 3. Sinus node disease. 4. Paroxysmal atrial fibrillation. 5. Acute on chronic thoracic aortic dissection types A and B. PLAN: 1. Full anticoagulation. 2. Fall precautions. 3. Respiratory hygiene and weaning efforts. 4. Maintenance dose amiodarone for arrhythmia suppression. 5. Stable for transfer to [facility] for rehabilitation and weaning. The patient is not a candidate for cardiothoracic surgery and will be managed conservatively with regard to her aortic dissection. Maxim Levin M.D. DR: FRANCESCA JOB#: [id number] CC:
--- NOTE | 2018-06-09 02:00 | NUR ---
NURSE NOTES: pt was transfer to [facility] per [facility] with acis rn and resp therapist pt awake and alert no acute distress noted
--- NOTE | 2018-06-09 09:18 | NUR ---
*-* INSURANCE *-* UPDATED CLINICALS AND REVIEWS HAVE BEEN FAXED TO: [facility] LOW P:[phone] F: [phone]
--- NOTE | 2018-06-10 13:11 | Discharge Summary ---
Discharge Summary Discharge Summary _ DATE OF ADMISSION: 05/18/2018 DATE OF DISCHARGE: 06/09/2018 DISCHARGED BY: Dr. Porfirio Jade CONSULTANTS: Dr. Maxim Duffy BRIEF HOSPITAL COURSE: Patient is a 61-year-old female, who was brought to ED by EMS due to increased lethargy. Patient was noted to become unresponsive during transport. On evaluation at the ED, she was noted to have severe bradycardia. She was given atropine without any improvement. She was orally intubated and CPR was done. Chest x-ray showed enlarged aortic arch. Head CT was negative for acute intracranial bleed or mass-effect. She was sent for CT angiogram of the chest, which showed type B aortic aneurysm with dissection. Patient was initially planned for transfer to [facility]. However, [facility] physician Dr. Washington called back and upon review of chart said that dissection was chronic and has been nonoperable since 2016. He had been medically managed. Since there was no progression of aortic dissection, patient did not need to be transferred for surgery. Patient was then admitted to ICU. School Occupational Therapist was consulted. Blood pressure parameters were initially low and pressor support was required. She was eventually tapered off vasopressors and was given IV hydration. She was placed on weaning protocols. She was started on apixaban. There was no signs of bleeding noted. Urine was positive for Enterococcus She was given Ancef. She was eventually extubated on 05/21/2018. She was continued on CPAP then BiPAP support. She was transferred out of ICU. Antihypertensives were titrated. She was given cautious use of beta-michael at very low dose for benefits in the setting of her aortic dissection, however, was limited by bradycardia. Blood pressure spiked. Discharge was canceled. Discussed with thoracic surgery and did not advise stent at present. On 05/25/2017, patient was on BiPAP, became hypoxic and asystolic. SOL REYES was called. There was no spontaneous respiration. Patient was intubated. She received 3 rounds of epinephrine, and there was return of spontaneous circulation. She was transferred back to ICU. She remained on vent support. Patient was alert and responsive. She was using pen and paper to communicate. Dr. Duffy was consulted. Patient had prolonged respiratory insufficiency with vent support. Patient was not able to be weaned off from vent. Patient would need tracheostomy. Eliquis was placed on hold. On 05/31/2018, she underwent tracheostomy placement. She tolerated procedure well. She was eventually taken off beta-blockers. She was given low-dose amiodarone. She had an NG tube feeding. Patient for p.o. trials with speech therapy. She was transferred to [facility]. Patient to continue rehabilitation and weaning. Patient is not a candidate for cardiothoracic surgery and will be managed conservatively with regards to aortic dissection. FINAL DIAGNOSES: Status post arrest x2 Acute and chronic respiratory failure status post tracheostomy placement 2018 Obesity hypoventilation syndrome and sleep apnea Morbid obesity Strep UTI Diabetes Hypertension Sinus node disease Paroxysmal atrial fibrillation Acute on chronic thoracic aortic dissection type a and B Lymphedema DISPOSITION: DC to [facility]. DISCHARGE MEDICATIONS: Refer to Discharge Medication List. I have been assigned to complete a discharge summary on this account, I was not involved with the patient's management. Virginia Regalado NP Jun 10, 2018 13:11
== END 2018-06-09 02:12 | DRG 4 ==
LOC: EDBD 18:42 → EDBEDREQ 19:25 → EMR 20:06 → ICU 20:17 → UNDOADMIN 20:17 → EDBEDREQ 20:34 → EDBEDREQTM 23:47 → EDBEDREQ 05-19 00:06 → 2W 05-23 17:30 → ICU 05-25 06:35 → 2W 06-02 09:30
PROC: 06HM33Z Insertion of Infusion Device into Right Femoral Vein, Percutaneous Approach (ICD-10-PCS; principal; 2018-05-18)
PROC: 0BH17EZ Insertion of Endotracheal Airway into Trachea, Via Natural or Artificial Opening (ICD-10-PCS; principal; 2018-05-18)
PROC: 5A1945Z Respiratory Ventilation, 24-96 Consecutive Hours (ICD-10-PCS; principal; 2018-05-18)
PROC: 0BH17EZ Insertion of Endotracheal Airway into Trachea, Via Natural or Artificial Opening (ICD-10-PCS; 2018-05-25)
PROC: 5A1955Z Respiratory Ventilation, Greater than 96 Consecutive Hours (ICD-10-PCS; 2018-05-25)
PROC: B548ZZA Ultrasonography of Superior Vena Cava, Guidance (ICD-10-PCS; 2018-05-26)
PROC: 02HV33Z Insertion of Infusion Device into Superior Vena Cava, Percutaneous Approach (ICD-10-PCS; 2018-05-26)
PROC: 0B110F4 Bypass Trachea to Cutaneous with Tracheostomy Device, Open Approach (ICD-10-PCS; 2018-05-31)
DX: J96.20 Acute and chronic respiratory failure, unspecified whether with hypoxia or hypercapnia (principal); I46.9 Cardiac arrest, cause unspecified; I71.01 Dissection of thoracic aorta; I50.33 Acute on chronic diastolic (congestive) heart failure; E43 Unspecified severe protein-calorie malnutrition; Z68.43 Body mass index [BMI] 50.0-59.9, adult; E66.2 Morbid (severe) obesity with alveolar hypoventilation; Z99.11 Dependence on respirator [ventilator] status; E87.0 Hyperosmolality and hypernatremia; E87.2 Acidosis; E87.3 Alkalosis; R57.9 Shock, unspecified; N39.0 Urinary tract infection, site not specified; G47.30 Sleep apnea, unspecified; E11.9 Type 2 diabetes mellitus without complications; I11.0 Hypertensive heart disease with heart failure; E86.0 Dehydration; E87.6 Hypokalemia; I49.5 Sick sinus syndrome; I48.0 Paroxysmal atrial fibrillation; B95.5 Unspecified streptococcus as the cause of diseases classified elsewhere; I89.0 Lymphedema, not elsewhere classified
CPT/HCPCS: 31500; 36415; 36569; 36600; 70450; 71045; 71275; 74018; 74174; 76937; 80048; 80053; 81001; 81003; 82550; 82553; 82803; 82962; 83605; 83690; 83735; 83880; 84100; 84443; 84478; 84484; 85007; 85025; 85610; 85730; 86850; 86900; 86901; 87040; 87081; 87086; 87181; 93005; 93306; 93970; 94002; 94003; 94150; 94640; 94660; 94664; 94760; 96360; 99291; J0171; J7620; J8499